=== PATIENT | female | born 1955 | race Caucasian/White ===

== ENCOUNTER 2017-10-08 04:15 | Inpatient (IN) ==
[2017-10-08] MEDS ORDERED: Sod Chloride 0.9% Inj 1,000 ML IV.SIG ONE (05:16)
[2017-10-08 05:21] LABS: Baso % (Auto) 0.1 % (0.0-2.0); Eos % (Auto) 0.1 % (0.0-4.0); Lymph # (Auto) 0.9 th/mm3 (1.0-4.8); Lymph % (Auto) 8.4 % (9.0-44.0); Mean Corpuscular Hemoglobin 26.9 pg (27.0-34.0); Mean Corpuscular Volume 89.2 fL (80.0-100.0); Mean Platelet Volume 10.2 fL (7.0-11.0); Mono # (Auto) 0.6 th/mm3 (0.0-0.9); Mono % (Auto) 5.9 % (0.0-8.0); Neut # (Auto) 9.5 th/mm3 (1.8-7.7); Neut % (Auto) 85.5 % (16.0-70.0); Platelet Count 178 th/mm3 (150-450); Red Blood Count 1.84 mil/mm3 (4.00-5.30); Red Cell Distribution Width 19.2 % (11.6-17.2); White Blood Count 11.1 th/mm3 (4.0-11.0)
[2017-10-08 05:31] LABS: Mean Corpuscular HGB Conc 30.1 % (32.0-36.0)
[2017-10-08 05:32] LABS: Alanine Aminotransferase 16 U/L (10-53); Albumin 2.7 g/dL (3.4-5.0); Anion Gap 8 meq/L (5-15); Aspartate Aminotransferase 13 U/L (15-37); Blood Urea Nitrogen 43 mg/dL (7-18); Calcium 9.1 mg/dL (8.5-10.1); Carbon Dioxide 36.7 meq/L (21.0-32.0); Chloride 102 meq/L (98-107); Glomerular Filtration Rate 48 mL/min (>89); Glucose,Random 143 mg/dL (74-106); Potassium 4.4 meq/L (3.5-5.1); Sodium 147 meq/L (136-145)
[2017-10-08 05:35] LABS: Alkaline Phosphatase 45 U/L (45-117); Total Protein 5.3 g/dL (6.4-8.2)
[2017-10-08 05:36] LABS: Hematocrit 16.4 % (35.0-46.0)
--- NOTE | 2017-10-08 06:14 | ED ---
HPI General Chief Complaint: Shortness of Breath/Dyspnea Stated Complaint: Medical/Evac Time Seen by Provider: 10/08/17 05:06 Source: patient and EMS Mode of arrival: EMS Limitations: altered mental status History of Present Illness Patient is a 62-year-old obese woman from a assisted who has had shortness of breath has pallor she feels weak for the last few days, she looks diaphoretic she is tachypneic and she is saying that she feels weak , she is mildly demented and a poor historian HPI and KIET elizabeth MD Complaint: shortness of breath Onset (ago): hour(s) Related Data Home Medications Medication Instructions Recorded Confirmed acetaminophen 650 mg PO Q4-6H PRN 10/08/17 10/08/17 albuterol sulfate 0.63 mg INHALATION Q4-6H PRN 10/08/17 10/08/17 allopurinol BID 10/08/17 apixaban 5 mg PO BID 10/08/17 10/08/17 aspirin [Aspir-Low] 10/08/17 baclofen 10 mg PO TID 10/08/17 10/08/17 collagenase clostridium histo. 1 applic TOPICAL DAILY 10/08/17 10/08/17 [Santyl] docusate sodium [Colace] 100 mg PO BID 10/08/17 10/08/17 furosemide DAILY 10/08/17 hydrocodone-acetaminophen QID PRN 10/08/17 insulin glargine 10 unit SUB-Q Q8HR 10/08/17 10/08/17 insulin lispro [Humalog U-100 10/08/17 Insulin] lansoprazole [Prevacid SoluTab] 30 mg PO BID 10/08/17 10/08/17 levofloxacin [Levaquin] 500 mg PO DAILY 10/08/17 10/08/17 magnesium hydroxide [Milk of 30 ml PO DAILY PRN 10/08/17 10/08/17 Magnesia] metoprolol tartrate 25 mg PO BID 10/08/17 10/08/17 nitroglycerin [Nitrostat] 0.4 mg SUBLINGUAL Q5-15M PRN 10/08/17 10/08/17 nystatin 1 applic TOPICAL QID 10/08/17 10/08/17 rosuvastatin 40 mg PO DAILY 10/08/17 10/08/17 Allergies Allergy/AdvReac Type Severity Reaction Status Date / Time Penicillins Allergy Severe Anaphylaxis Verified 10/08/17 04:33 Review of Systems ROS Unobtainable unobtainable due to mental status and other [facility] Medical History Medical History COPD (chronic obstructive pulmonary disease) (Acute) Coronary artery disease (Acute) Diabetes (Acute) H/O: hysterectomy (Acute) High triglycerides (Acute) History of GI bleed (Acute) History of pulmonary embolism (Acute) History of uterine cancer (Acute) Hypertension (Acute) Pneumonia (Acute) Shortness of breath (Acute) Surgical History Surgical History History of colonoscopy (Acute) History of esophagogastroduodenoscopy (EGD) (Acute) Hx of CABG (Acute) Social History Social History Substance History: No History of Abuse Second Hand Smoke Exposure: No Smoking Status: Former smoker Tobacco Type: Cigarettes How Often Do You Have a Drink Containing Alcohol: Never Immunization History Tetanus Immunization: Unsure Exam Narrative Exam Narrative: GENERAL: pt is pale and diaphoretic asking simple " i dont know ' or Yes or no to all questions [-] hypotensive 80 /50 SKIN: Focused skin assessment warm/dry. Pale HEAD: Atraumatic. Normocephalic. EYES: Pupils equal and round. No scleral icterus. No injection or drainage. ENT: No nasal bleeding or discharge. Mucous membranes pink and moist. NECK: Trachea midline. No JVD. CARDIOVASCULAR: Regular rate and rhythm. No murmur appreciated. RESPIRATORY: No accessory muscle use. Clear to auscultation. Breath sounds equal bilaterally. GASTROINTESTINAL: Abdomen soft, non-tender, nondistended. Hepatic and splenic margins not palpable. RECTAL guaiac positive brown stool MUSCULOSKELETAL: Obese legs pale skin weak musculature appear non ambulatory muscle wasting NEUROLOGICAL: Awake and alert. No obvious cranial nerve deficits. Motor grossly within normal limits. Normal speech. PSYCHIATRIC: Appropriate mood and affect; insight and judgment normal. Course Initial Documented Vital Signs Temperature 98.5 F 10/08/17 04:21 Pulse Rate 103 H 10/08/17 04:21 Respiratory Rate 22 10/08/17 04:21 Blood Pressure 100/58 L 10/08/17 04:21 Pulse Oximetry 98 07/16/18 04:21 Last Documented Vital Signs Temperature 97.9 F 10/11/17 08:00 Pulse Rate 104 H 10/11/17 17:00 Respiratory Rate 25 H 10/11/17 17:00 Blood Pressure 160/75 H 10/11/17 09:07 Pulse Oximetry 91 L 10/11/17 09:07 Critical Care Time Critical Care Time: Yes Total Critical Care Time: 30 Attestation: i was primary provider on this pt admitted to Dr Dinh and was still phyisclly in ER in AM when next attnding came on shift , pt had been admitted ICU from 730 AM Medical Decision Making MDM Narrative Medical decision making narrative: pt is anemic hgb 5.0 and she is hypotensive and in need of transfusion of PRBC and admission to ICU. I stabilized her in ER with 2 Units PRBC and fluid and empiric antibiotics I then spoke with Dr Dinh and will admit ICU orderd 2 units [address]BC and CT abdo CT Chest and fluid resusitatiom and empiric antibiotics Lab Data Result diagrams: 10/11/17 16:20 10/11/17 16:20 Lab Results 10/08/17 10/08/17 10/08/17 Range/Units 05:10 05:10 05:10 WBC 11.1 H (4.0-11.0) th/mm3 RBC 1.84 L (4.00-5.30) mil/mm3 Hgb 5.0 L* (11.6-15.3) gm/dL Hct 16.4 L* (35.0-46.0) % MCV 89.2 (80.0-100.0) fL MCH 26.9 L (27.0-34.0) pg MCHC 30.1 L (32.0-36.0) % RDW 19.2 H (11.6-17.2) % Plt Count 178 (150-450) th/mm3 MPV 10.2 (7.0-11.0) fL Prelim Diff (Auto) Slide review pending Neut % (Auto) 85.5 H (16.0-70.0) % Lymph % (Auto) 8.4 L (9.0-44.0) % [place] % (Auto) 5.9 (0.0-8.0) % Eos % (Auto) 0.1 (0.0-4.0) % Baso % (Auto) 0.1 (0.0-2.0) % Neut # (Auto) 9.5 H (1.8-7.7) th/mm3 Lymph # (Auto) 0.9 L (1.0-4.8) th/mm3 [place] # (Auto) 0.6 (0.0-0.9) th/mm3 Eos # (Auto) 0.0 (0.0-0.4) th/mm3 Baso # (Auto) 0.0 (0.0-0.2) th/mm3 WBC Differential Manual diff final Diff Scan Seg Neuts % (Manual) 81 H (16-70) % Band Neuts % (Manual) 2 (0-6) % Lymphocytes % (Manual) 14 (9-44) % Monocytes % (Manual) 3 (0-8) % Abs Neuts (Manual) 9.2 H (1.8-7.7) th/mm3 Nucleated RBCs/100 WBC 3 H (0-0) /100 WBC Differential Comment . Platelet Estimate Normal (Normal) Platelet Morphology Normal (Normal) Polychromasia 4.3 H (0.0-1.9) % Basophilic Stippling Faint H (None) Stomatocytes 1+ H (None) Keratocytes Occ H (None) PT (9.8-11.6) sec INR Ratio APTT (24.3-30.1) sec Puncture Site Patient Temperature O2 Saturation (90-100) % ABG pH (7.380-7.420) ABG pCO2 (38-42) mmHg ABG pO2 (61-120) mmHg ABG HCO3 (22-26) mmol/L ABG O2 Content (12.0-20.0) Vol % ABG Base Excess (-2-2) mmol/L ABG Methemoglobin (0-2) % Jeremiah Test Hemoglobin (12.0-16.0) G/DL Carboxyhemoglobin (0-4) % O2 Delivery Device Liter Flow L/M Inspired O2 % Critical Value Sodium 147 H (136-145) meq/L Potassium 4.4 (3.5-5.1) meq/L Chloride 102 (98-107) meq/L Carbon Dioxide 36.7 H (21.0-32.0) meq/L Anion Gap 8 (5-15) meq/L BUN 43 H (7-18) mg/dL Creatinine 1.13 H (0.50-1.00) mg/dL Estimated GFR 48 L (>89) mL/min POC Glucose (68-110) mg/dl Random Glucose 143 H (74-106) mg/dL Lactic Acid 2.6 H (0.4-2.0) mmol/L Calcium 9.1 (8.5-10.1) mg/dL Phosphorus (2.5-4.9) mg/dL Magnesium (1.5-2.5) mg/dL Total Bilirubin 0.5 (0.2-1.0) mg/dL AST 13 L (15-37) U/L ALT 16 (10-53) U/L Alkaline Phosphatase 45 (45-117) U/L Total Protein 5.3 L (6.4-8.2) g/dL Albumin 2.7 L (3.4-5.0) g/dL Urine Color (Yellw/Straw) Urine Clarity (Clear) Urine pH (5.0-8.5) Ur Specific [place] (1.002-1.035) Urine Protein (Neg-Trace) mg/dL Urine Glucose (UA) (Negative) mg/dL Urine Ketones (Negative) mg/dL Urine Occult Blood (Negative) Urine Nitrate (Negative) Urine Bilirubin (Negative) Urine Urobilinogen (Less than 2) mg/dL Ur Leukocyte Esterase (Negative) Urine RBC (0-3) /hpf Urine WBC (0-5) /hpf Ur Squamous Epith Cells (0-5) /hpf Urine Mucus (Occasional) /lpf Micro UA Comment Urine Culture Comments Nasal Screen MRSA (PCR) (Negative) Blood Type Blood Type Recheck Antibody Screen MTS Gel Crossmatch Bld Prod Order Comment 10/08/17 10/08/17 10/08/17 Range/Units 05:57 06:17 06:41 WBC (4.0-11.0) th/mm3 RBC (4.00-5.30) mil/mm3 Hgb (11.6-15.3) gm/dL Hct (35.0-46.0) % MCV (80.0-100.0) fL MCH (27.0-34.0) pg MCHC (32.0-36.0) % RDW (11.6-17.2) % Plt Count (150-450) th/mm3 MPV (7.0-11.0) fL Prelim Diff (Auto) Neut % (Auto) (16.0-70.0) % Lymph % (Auto) (9.0-44.0) % [place] % (Auto) (0.0-8.0) % Eos % (Auto) (0.0-4.0) % Baso % (Auto) (0.0-2.0) % Neut # (Auto) (1.8-7.7) th/mm3 Lymph # (Auto) (1.0-4.8) th/mm3 [place] # (Auto) (0.0-0.9) th/mm3 Eos # (Auto) (0.0-0.4) th/mm3 Baso # (Auto) (0.0-0.2) th/mm3 WBC Differential Diff Scan Seg Neuts % (Manual) (16-70) % Band Neuts % (Manual) (0-6) % Lymphocytes % (Manual) (9-44) % Monocytes % (Manual) (0-8) % Abs Neuts (Manual) (1.8-7.7) th/mm3 Nucleated RBCs/100 WBC (0-0) /100 WBC Differential Comment Platelet Estimate (Normal) Platelet Morphology (Normal) Polychromasia (0.0-1.9) % Basophilic Stippling (None) Stomatocytes (None) Keratocytes (None) PT (9.8-11.6) sec INR Ratio APTT (24.3-30.1) sec Puncture Site Patient Temperature O2 Saturation (90-100) % ABG pH (7.380-7.420) ABG pCO2 (38-42) mmHg ABG pO2 (61-120) mmHg ABG HCO3 (22-26) mmol/L ABG O2 Content (12.0-20.0) Vol % ABG Base Excess (-2-2) mmol/L ABG Methemoglobin (0-2) % Jeremiah Test Hemoglobin (12.0-16.0) G/DL Carboxyhemoglobin (0-4) % O2 Delivery Device Liter Flow L/M Inspired O2 % Critical Value Sodium (136-145) meq/L Potassium (3.5-5.1) meq/L Chloride (98-107) meq/L Carbon Dioxide (21.0-32.0) meq/L Anion Gap (5-15) meq/L BUN (7-18) mg/dL Creatinine (0.50-1.00) mg/dL Estimated GFR (>89) mL/min POC Glucose (68-110) mg/dl Random Glucose (74-106) mg/dL Lactic Acid (0.4-2.0) mmol/L Calcium (8.5-10.1) mg/dL Phosphorus (2.5-4.9) mg/dL Magnesium (1.5-2.5) mg/dL Total Bilirubin (0.2-1.0) mg/dL AST (15-37) U/L ALT (10-53) U/L Alkaline Phosphatase (45-117) U/L Total Protein (6.4-8.2) g/dL Albumin (3.4-5.0) g/dL Urine Color Yellow (Yellw/Straw) Urine Clarity Clear (Clear) Urine pH 5.0 (5.0-8.5) Ur Specific [place] 1.013 (1.002-1.035) Urine Protein Negative (Neg-Trace) mg/dL Urine Glucose (UA) Negative (Negative) mg/dL Urine Ketones Negative (Negative) mg/dL Urine Occult Blood Moderate H (Negative) Urine Nitrate Negative (Negative) Urine Bilirubin Negative (Negative) Urine Urobilinogen Less than 2 (Less than 2) mg/dL Ur Leukocyte Esterase Negative (Negative) Urine RBC 13 H (0-3) /hpf Urine WBC 1 (0-5) /hpf Ur Squamous Epith Cells <1 (0-5) /hpf Urine Mucus Few H (Occasional) /lpf Micro UA Comment Cath-culture not ind Urine Culture Comments Cath-cult not ind Nasal Screen MRSA (PCR) (Negative) Blood Type O Positive Blood Type Recheck Required Antibody Screen Negative MTS Gel Crossmatch See Detail Bld Prod Order Comment 10/08/17 10/08/17 10/08/17 Range/Units 08:00 09:25 09:25 WBC (4.0-11.0) th/mm3 RBC (4.00-5.30) mil/mm3 Hgb (11.6-15.3) gm/dL Hct (35.0-46.0) % MCV (80.0-100.0) fL MCH (27.0-34.0) pg MCHC (32.0-36.0) % RDW (11.6-17.2) % Plt Count (150-450) th/mm3 MPV (7.0-11.0) fL Prelim Diff (Auto) Neut % (Auto) (16.0-70.0) % Lymph % (Auto) (9.0-44.0) % [place] % (Auto) (0.0-8.0) % Eos % (Auto) (0.0-4.0) % Baso % (Auto) (0.0-2.0) % Neut # (Auto) (1.8-7.7) th/mm3 Lymph # (Auto) (1.0-4.8) th/mm3 [place] # (Auto) (0.0-0.9) th/mm3 Eos # (Auto) (0.0-0.4) th/mm3 Baso # (Auto) (0.0-0.2) th/mm3 WBC Differential Diff Scan Seg Neuts % (Manual) (16-70) % Band Neuts % (Manual) (0-6) % Lymphocytes % (Manual) (9-44) % Monocytes % (Manual) (0-8) % Abs Neuts (Manual) (1.8-7.7) th/mm3 Nucleated RBCs/100 WBC (0-0) /100 WBC Differential Comment Platelet Estimate (Normal) Platelet Morphology (Normal) Polychromasia (0.0-1.9) % Basophilic Stippling (None) Stomatocytes (None) Keratocytes (None) PT 12.3 H (9.8-11.6) sec INR 1.2 Ratio APTT 21.8 L (24.3-30.1) sec Puncture Site Right radial Patient Temperature 98.6 O2 Saturation 95 (90-100) % ABG pH 7.44 H (7.380-7.420) ABG pCO2 58 H* (38-42) mmHg ABG pO2 88 (61-120) mmHg ABG HCO3 38 H (22-26) mmol/L ABG O2 Content 7.6 L (12.0-20.0) Vol % ABG Base Excess 13.1 H (-2-2) mmol/L ABG Methemoglobin 0.5 (0-2) % Jeremiah Test Present Hemoglobin 5.6 L* (12.0-16.0) G/DL Carboxyhemoglobin 2.3 (0-4) % O2 Delivery Device Nasal cannula Liter Flow 4.00 L/M Inspired O2 21 % Critical Value Yes Sodium (136-145) meq/L Potassium (3.5-5.1) meq/L Chloride (98-107) meq/L Carbon Dioxide (21.0-32.0) meq/L Anion Gap (5-15) meq/L BUN (7-18) mg/dL Creatinine (0.50-1.00) mg/dL Estimated GFR (>89) mL/min POC Glucose (68-110) mg/dl Random Glucose (74-106) mg/dL Lactic Acid (0.4-2.0) mmol/L Calcium (8.5-10.1) mg/dL Phosphorus (2.5-4.9) mg/dL Magnesium (1.5-2.5) mg/dL Total Bilirubin (0.2-1.0) mg/dL AST (15-37) U/L ALT (10-53) U/L Alkaline Phosphatase (45-117) U/L Total Protein (6.4-8.2) g/dL Albumin (3.4-5.0) g/dL Urine Color (Yellw/Straw) Urine Clarity (Clear) Urine pH (5.0-8.5) Ur Specific [place] (1.002-1.035) Urine Protein (Neg-Trace) mg/dL Urine Glucose (UA) (Negative) mg/dL Urine Ketones (Negative) mg/dL Urine Occult Blood (Negative) Urine Nitrate (Negative) Urine Bilirubin (Negative) Urine Urobilinogen (Less than 2) mg/dL Ur Leukocyte Esterase (Negative) Urine RBC (0-3) /hpf Urine WBC (0-5) /hpf Ur Squamous Epith Cells (0-5) /hpf Urine Mucus (Occasional) /lpf Micro UA Comment Urine Culture Comments Nasal Screen MRSA (PCR) (Negative) Blood Type Blood Type Recheck Antibody Screen MTS Gel Crossmatch Bld Prod Order Comment 10/08/17 10/08/17 10/08/17 Range/Units 16:10 17:43 20:30 WBC (4.0-11.0) th/mm3 RBC (4.00-5.30) mil/mm3 Hgb (11.6-15.3) gm/dL Hct (35.0-46.0) % MCV (80.0-100.0) fL MCH (27.0-34.0) pg MCHC (32.0-36.0) % RDW (11.6-17.2) % Plt Count (150-450) th/mm3 MPV (7.0-11.0) fL Prelim Diff (Auto) Neut % (Auto) (16.0-70.0) % Lymph % (Auto) (9.0-44.0) % [place] % (Auto) (0.0-8.0) % Eos % (Auto) (0.0-4.0) % Baso % (Auto) (0.0-2.0) % Neut # (Auto) (1.8-7.7) th/mm3 Lymph # (Auto) (1.0-4.8) th/mm3 [place] # (Auto) (0.0-0.9) th/mm3 Eos # (Auto) (0.0-0.4) th/mm3 Baso # (Auto) (0.0-0.2) th/mm3 WBC Differential Diff Scan Seg Neuts % (Manual) (16-70) % Band Neuts % (Manual) (0-6) % Lymphocytes % (Manual) (9-44) % Monocytes % (Manual) (0-8) % Abs Neuts (Manual) (1.8-7.7) th/mm3 Nucleated RBCs/100 WBC (0-0) /100 WBC Differential Comment Platelet Estimate (Normal) Platelet Morphology (Normal) Polychromasia (0.0-1.9) % Basophilic Stippling (None) Stomatocytes (None) Keratocytes (None) PT (9.8-11.6) sec INR Ratio APTT (24.3-30.1) sec Puncture Site Patient Temperature O2 Saturation (90-100) % ABG pH (7.380-7.420) ABG pCO2 (38-42) mmHg ABG pO2 (61-120) mmHg ABG HCO3 (22-26) mmol/L ABG O2 Content (12.0-20.0) Vol % ABG Base Excess (-2-2) mmol/L ABG Methemoglobin (0-2) % Jeremiah Test Hemoglobin (12.0-16.0) G/DL Carboxyhemoglobin (0-4) % O2 Delivery Device Liter Flow L/M Inspired O2 % Critical Value Sodium (136-145) meq/L Potassium (3.5-5.1) meq/L Chloride (98-107) meq/L Carbon Dioxide (21.0-32.0) meq/L Anion Gap (5-15) meq/L BUN (7-18) mg/dL Creatinine (0.50-1.00) mg/dL Estimated GFR (>89) mL/min POC Glucose 192 H (68-110) mg/dl Random Glucose (74-106) mg/dL Lactic Acid 1.1 (0.4-2.0) mmol/L Calcium (8.5-10.1) mg/dL Phosphorus (2.5-4.9) mg/dL Magnesium (1.5-2.5) mg/dL Total Bilirubin (0.2-1.0) mg/dL AST (15-37) U/L ALT (10-53) U/L Alkaline Phosphatase (45-117) U/L Total Protein (6.4-8.2) g/dL Albumin (3.4-5.0) g/dL Urine Color (Yellw/Straw) Urine Clarity (Clear) Urine pH (5.0-8.5) Ur Specific [place] (1.002-1.035) Urine Protein (Neg-Trace) mg/dL Urine Glucose (UA) (Negative) mg/dL Urine Ketones (Negative) mg/dL Urine Occult Blood (Negative) Urine Nitrate (Negative) Urine Bilirubin (Negative) Urine Urobilinogen (Less than 2) mg/dL Ur Leukocyte Esterase (Negative) Urine RBC (0-3) /hpf Urine WBC (0-5) /hpf Ur Squamous Epith Cells (0-5) /hpf Urine Mucus (Occasional) /lpf Micro UA Comment Urine Culture Comments Nasal Screen MRSA (PCR) Not detected (Negative) Blood Type Blood Type Recheck Antibody Screen MTS Gel Crossmatch Bld Prod Order Comment 10/08/17 10/08/17 10/09/17 Range/Units 20:30 20:30 00:01 WBC 10.5 (4.0-11.0) th/mm3 RBC 2.55 L (4.00-5.30) mil/mm3 Hgb 7.1 L D (11.6-15.3) gm/dL Hct 22.0 L (35.0-46.0) % MCV 86.4 (80.0-100.0) fL MCH 27.6 (27.0-34.0) pg MCHC 32.0 (32.0-36.0) % RDW 18.0 H (11.6-17.2) % Plt Count 156 (150-450) th/mm3 MPV 9.5 (7.0-11.0) fL Prelim Diff (Auto) Neut % (Auto) (16.0-70.0) % Lymph % (Auto) (9.0-44.0) % [place] % (Auto) (0.0-8.0) % Eos % (Auto) (0.0-4.0) % Baso % (Auto) (0.0-2.0) % Neut # (Auto) (1.8-7.7) th/mm3 Lymph # (Auto) (1.0-4.8) th/mm3 [place] # (Auto) (0.0-0.9) th/mm3 Eos # (Auto) (0.0-0.4) th/mm3 Baso # (Auto) (0.0-0.2) th/mm3 WBC Differential Diff Scan Seg Neuts % (Manual) (16-70) % Band Neuts % (Manual) (0-6) % Lymphocytes % (Manual) (9-44) % Monocytes % (Manual) (0-8) % Abs Neuts (Manual) (1.8-7.7) th/mm3 Nucleated RBCs/100 WBC (0-0) /100 WBC Differential Comment Platelet Estimate (Normal) Platelet Morphology (Normal) Polychromasia (0.0-1.9) % Basophilic Stippling (None) Stomatocytes (None) Keratocytes (None) PT (9.8-11.6) sec INR Ratio APTT (24.3-30.1) sec Puncture Site Patient Temperature O2 Saturation (90-100) % ABG pH (7.380-7.420) ABG pCO2 (38-42) mmHg ABG pO2 (61-120) mmHg ABG HCO3 (22-26) mmol/L ABG O2 Content (12.0-20.0) Vol % ABG Base Excess (-2-2) mmol/L ABG Methemoglobin (0-2) % Jeremiah Test Hemoglobin (12.0-16.0) G/DL Carboxyhemoglobin (0-4) % O2 Delivery Device Liter Flow L/M Inspired O2 % Critical Value Sodium 147 H (136-145) meq/L Potassium 3.9 (3.5-5.1) meq/L Chloride 102 (98-107) meq/L Carbon Dioxide 34.6 H (21.0-32.0) meq/L Anion Gap 10 (5-15) meq/L BUN 40 H (7-18) mg/dL Creatinine 0.94 (0.50-1.00) mg/dL Estimated GFR 60 L (>89) mL/min POC Glucose 185 H (68-110) mg/dl Random Glucose 154 H (74-106) mg/dL Lactic Acid (0.4-2.0) mmol/L Calcium 9.1 (8.5-10.1) mg/dL Phosphorus (2.5-4.9) mg/dL Magnesium (1.5-2.5) mg/dL Total Bilirubin 0.8 (0.2-1.0) mg/dL AST 34 (15-37) U/L ALT 15 (10-53) U/L Alkaline Phosphatase 43 L (45-117) U/L Total Protein 5.1 L (6.4-8.2) g/dL Albumin 2.4 L (3.4-5.0) g/dL Urine Color (Yellw/Straw) Urine Clarity (Clear) Urine pH (5.0-8.5) Ur Specific [place] (1.002-1.035) Urine Protein (Neg-Trace) mg/dL Urine Glucose (UA) (Negative) mg/dL Urine Ketones (Negative) mg/dL Urine Occult Blood (Negative) Urine Nitrate (Negative) Urine Bilirubin (Negative) Urine Urobilinogen (Less than 2) mg/dL Ur Leukocyte Esterase (Negative) Urine RBC (0-3) /hpf Urine WBC (0-5) /hpf Ur Squamous Epith Cells (0-5) /hpf Urine Mucus (Occasional) /lpf Micro UA Comment Urine Culture Comments Nasal Screen MRSA (PCR) (Negative) Blood Type Blood Type Recheck Antibody Screen MTS Gel Crossmatch Bld Prod Order Comment 10/09/17 10/09/17 10/09/17 Range/Units 02:07 02:07 06:14 WBC 9.6 (4.0-11.0) th/mm3 RBC 2.64 L (4.00-5.30) mil/mm3 Hgb 7.4 L (11.6-15.3) gm/dL Hct 23.2 L (35.0-46.0) % MCV 87.7 (80.0-100.0) fL MCH 28.0 (27.0-34.0) pg MCHC 31.9 L (32.0-36.0) % RDW 18.5 H (11.6-17.2) % Plt Count 154 (150-450) th/mm3 MPV 9.1 (7.0-11.0) fL Prelim Diff (Auto) Neut % (Auto) 88.1 H (16.0-70.0) % Lymph % (Auto) 6.7 L (9.0-44.0) % [place] % (Auto) 4.6 (0.0-8.0) % Eos % (Auto) 0.5 (0.0-4.0) % Baso % (Auto) 0.1 (0.0-2.0) % Neut # (Auto) 8.5 H (1.8-7.7) th/mm3 Lymph # (Auto) 0.6 L (1.0-4.8) th/mm3 [place] # (Auto) 0.4 (0.0-0.9) th/mm3 Eos # (Auto) 0.0 (0.0-0.4) th/mm3 Baso # (Auto) 0.0 (0.0-0.2) th/mm3 WBC Differential . Diff Scan Seg Neuts % (Manual) (16-70) % Band Neuts % (Manual) (0-6) % Lymphocytes % (Manual) (9-44) % Monocytes % (Manual) (0-8) % Abs Neuts (Manual) (1.8-7.7) th/mm3 Nucleated RBCs/100 WBC (0-0) /100 WBC Differential Comment Auto diff final Platelet Estimate (Normal) Platelet Morphology (Normal) Polychromasia (0.0-1.9) % Basophilic Stippling (None) Stomatocytes (None) Keratocytes (None) PT (9.8-11.6) sec INR Ratio APTT (24.3-30.1) sec Puncture Site Patient Temperature O2 Saturation (90-100) % ABG pH (7.380-7.420) ABG pCO2 (38-42) mmHg ABG pO2 (61-120) mmHg ABG HCO3 (22-26) mmol/L ABG O2 Content (12.0-20.0) Vol % ABG Base Excess (-2-2) mmol/L ABG Methemoglobin (0-2) % Jeremiah Test Hemoglobin (12.0-16.0) G/DL Carboxyhemoglobin (0-4) % O2 Delivery Device Liter Flow L/M Inspired O2 % Critical Value Sodium 145 (136-145) meq/L Potassium 3.6 (3.5-5.1) meq/L Chloride 103 (98-107) meq/L Carbon Dioxide 32.4 H (21.0-32.0) meq/L Anion Gap 10 (5-15) meq/L BUN 35 H (7-18) mg/dL Creatinine 0.90 (0.50-1.00) mg/dL Estimated GFR 63 L (>89) mL/min POC Glucose 186 H (68-110) mg/dl Random Glucose 155 H (74-106) mg/dL Lactic Acid (0.4-2.0) mmol/L Calcium 8.2 L D (8.5-10.1) mg/dL Phosphorus 4.0 (2.5-4.9) mg/dL Magnesium 1.8 (1.5-2.5) mg/dL Total Bilirubin 0.6 (0.2-1.0) mg/dL AST 41 H (15-37) U/L ALT 17 (10-53) U/L Alkaline Phosphatase 47 (45-117) U/L Total Protein 5.3 L (6.4-8.2) g/dL Albumin 2.7 L (3.4-5.0) g/dL Urine Color (Yellw/Straw) Urine Clarity (Clear) Urine pH (5.0-8.5) Ur Specific [place] (1.002-1.035) Urine Protein (Neg-Trace) mg/dL Urine Glucose (UA) (Negative) mg/dL Urine Ketones (Negative) mg/dL Urine Occult Blood (Negative) Urine Nitrate (Negative) Urine Bilirubin (Negative) Urine Urobilinogen (Less than 2) mg/dL Ur Leukocyte Esterase (Negative) Urine RBC (0-3) /hpf Urine WBC (0-5) /hpf Ur Squamous Epith Cells (0-5) /hpf Urine Mucus (Occasional) /lpf Micro UA Comment Urine Culture Comments Nasal Screen MRSA (PCR) (Negative) Blood Type Blood Type Recheck Antibody Screen MTS Gel Crossmatch Bld Prod Order Comment 10/09/17 10/09/17 10/09/17 Range/Units 13:29 14:14 19:29 WBC (4.0-11.0) th/mm3 RBC (4.00-5.30) mil/mm3 Hgb 6.8 L* (11.6-15.3) gm/dL Hct 21.4 L (35.0-46.0) % MCV (80.0-100.0) fL MCH (27.0-34.0) pg MCHC (32.0-36.0) % RDW (11.6-17.2) % Plt Count (150-450) th/mm3 MPV (7.0-11.0) fL Prelim Diff (Auto) Neut % (Auto) (16.0-70.0) % Lymph % (Auto) (9.0-44.0) % [place] % (Auto) (0.0-8.0) % Eos % (Auto) (0.0-4.0) % Baso % (Auto) (0.0-2.0) % Neut # (Auto) (1.8-7.7) th/mm3 Lymph # (Auto) (1.0-4.8) th/mm3 [place] # (Auto) (0.0-0.9) th/mm3 Eos # (Auto) (0.0-0.4) th/mm3 Baso # (Auto) (0.0-0.2) th/mm3 WBC Differential Diff Scan Seg Neuts % (Manual) (16-70) % Band Neuts % (Manual) (0-6) % Lymphocytes % (Manual) (9-44) % Monocytes % (Manual) (0-8) % Abs Neuts (Manual) (1.8-7.7) th/mm3 Nucleated RBCs/100 WBC (0-0) /100 WBC Differential Comment Platelet Estimate (Normal) Platelet Morphology (Normal) Polychromasia (0.0-1.9) % Basophilic Stippling (None) Stomatocytes (None) Keratocytes (None) PT (9.8-11.6) sec INR Ratio APTT (24.3-30.1) sec Puncture Site Patient Temperature O2 Saturation (90-100) % ABG pH (7.380-7.420) ABG pCO2 (38-42) mmHg ABG pO2 (61-120) mmHg ABG HCO3 (22-26) mmol/L ABG O2 Content (12.0-20.0) Vol % ABG Base Excess (-2-2) mmol/L ABG Methemoglobin (0-2) % Jeremiah Test Hemoglobin (12.0-16.0) G/DL Carboxyhemoglobin (0-4) % O2 Delivery Device Liter Flow L/M Inspired O2 % Critical Value Sodium (136-145) meq/L Potassium (3.5-5.1) meq/L Chloride (98-107) meq/L Carbon Dioxide (21.0-32.0) meq/L Anion Gap (5-15) meq/L BUN (7-18) mg/dL Creatinine (0.50-1.00) mg/dL Estimated GFR (>89) mL/min POC Glucose 170 H 163 H (68-110) mg/dl Random Glucose (74-106) mg/dL Lactic Acid (0.4-2.0) mmol/L Calcium (8.5-10.1) mg/dL Phosphorus (2.5-4.9) mg/dL Magnesium (1.5-2.5) mg/dL Total Bilirubin (0.2-1.0) mg/dL AST (15-37) U/L ALT (10-53) U/L Alkaline Phosphatase (45-117) U/L Total Protein (6.4-8.2) g/dL Albumin (3.4-5.0) g/dL Urine Color (Yellw/Straw) Urine Clarity (Clear) Urine pH (5.0-8.5) Ur Specific [place] (1.002-1.035) Urine Protein (Neg-Trace) mg/dL Urine Glucose (UA) (Negative) mg/dL Urine Ketones (Negative) mg/dL Urine Occult Blood (Negative) Urine Nitrate (Negative) Urine Bilirubin (Negative) Urine Urobilinogen (Less than 2) mg/dL Ur Leukocyte Esterase (Negative) Urine RBC (0-3) /hpf Urine WBC (0-5) /hpf Ur Squamous Epith Cells (0-5) /hpf Urine Mucus (Occasional) /lpf Micro UA Comment Urine Culture Comments Nasal Screen MRSA (PCR) (Negative) Blood Type Blood Type Recheck Antibody Screen MTS Gel Crossmatch Bld Prod Order Comment 10/09/17 10/10/17 10/10/17 Range/Units 21:06 00:07 04:14 WBC (4.0-11.0) th/mm3 RBC (4.00-5.30) mil/mm3 Hgb (11.6-15.3) gm/dL Hct (35.0-46.0) % MCV (80.0-100.0) fL MCH (27.0-34.0) pg MCHC (32.0-36.0) % RDW (11.6-17.2) % Plt Count (150-450) th/mm3 MPV (7.0-11.0) fL Prelim Diff (Auto) Neut % (Auto) (16.0-70.0) % Lymph % (Auto) (9.0-44.0) % [place] % (Auto) (0.0-8.0) % Eos % (Auto) (0.0-4.0) % Baso % (Auto) (0.0-2.0) % Neut # (Auto) (1.8-7.7) th/mm3 Lymph # (Auto) (1.0-4.8) th/mm3 [place] # (Auto) (0.0-0.9) th/mm3 Eos # (Auto) (0.0-0.4) th/mm3 Baso # (Auto) (0.0-0.2) th/mm3 WBC Differential Diff Scan Seg Neuts % (Manual) (16-70) % Band Neuts % (Manual) (0-6) % Lymphocytes % (Manual) (9-44) % Monocytes % (Manual) (0-8) % Abs Neuts (Manual) (1.8-7.7) th/mm3 Nucleated RBCs/100 WBC (0-0) /100 WBC Differential Comment Platelet Estimate (Normal) Platelet Morphology (Normal) Polychromasia (0.0-1.9) % Basophilic Stippling (None) Stomatocytes (None) Keratocytes (None) PT (9.8-11.6) sec INR Ratio APTT (24.3-30.1) sec Puncture Site Patient Temperature O2 Saturation (90-100) % ABG pH (7.380-7.420) ABG pCO2 (38-42) mmHg ABG pO2 (61-120) mmHg ABG HCO3 (22-26) mmol/L ABG O2 Content (12.0-20.0) Vol % ABG Base Excess (-2-2) mmol/L ABG Methemoglobin (0-2) % Jeremiah Test Hemoglobin (12.0-16.0) G/DL Carboxyhemoglobin (0-4) % O2 Delivery Device Liter Flow L/M Inspired O2 % Critical Value Sodium 144 (136-145) meq/L Potassium 3.5 (3.5-5.1) meq/L Chloride 101 (98-107) meq/L Carbon Dioxide 36.0 H (21.0-32.0) meq/L Anion Gap 7 (5-15) meq/L BUN 35 H (7-18) mg/dL Creatinine 0.79 (0.50-1.00) mg/dL Estimated GFR 73 L (>89) mL/min POC Glucose 175 H (68-110) mg/dl Random Glucose 129 H (74-106) mg/dL Lactic Acid (0.4-2.0) mmol/L Calcium 9.1 D (8.5-10.1) mg/dL Phosphorus (2.5-4.9) mg/dL Magnesium (1.5-2.5) mg/dL Total Bilirubin (0.2-1.0) mg/dL AST (15-37) U/L ALT (10-53) U/L Alkaline Phosphatase (45-117) U/L Total Protein (6.4-8.2) g/dL Albumin (3.4-5.0) g/dL Urine Color (Yellw/Straw) Urine Clarity (Clear) Urine pH (5.0-8.5) Ur Specific [place] (1.002-1.035) Urine Protein (Neg-Trace) mg/dL Urine Glucose (UA) (Negative) mg/dL Urine Ketones (Negative) mg/dL Urine Occult Blood (Negative) Urine Nitrate (Negative) Urine Bilirubin (Negative) Urine Urobilinogen (Less than 2) mg/dL Ur Leukocyte Esterase (Negative) Urine RBC (0-3) /hpf Urine WBC (0-5) /hpf Ur Squamous Epith Cells (0-5) /hpf Urine Mucus (Occasional) /lpf Micro UA Comment Urine Culture Comments Nasal Screen MRSA (PCR) (Negative) Blood Type Blood Type Recheck Antibody Screen MTS Gel Crossmatch See Detail Bld Prod Order Comment 10/10/17 10/10/17 10/10/17 Range/Units 04:14 06:08 11:35 WBC 10.5 (4.0-11.0) th/mm3 RBC 2.87 L (4.00-5.30) mil/mm3 Hgb 8.1 L (11.6-15.3) gm/dL Hct 24.9 L (35.0-46.0) % MCV 86.8 (80.0-100.0) fL MCH 28.2 (27.0-34.0) pg MCHC 32.5 (32.0-36.0) % RDW 17.5 H (11.6-17.2) % Plt Count 158 (150-450) th/mm3 MPV 9.8 (7.0-11.0) fL Prelim Diff (Auto) Neut % (Auto) 91.1 H (16.0-70.0) % Lymph % (Auto) 3.8 L (9.0-44.0) % [place] % (Auto) 5.0 (0.0-8.0) % Eos % (Auto) 0.1 (0.0-4.0) % Baso % (Auto) 0.0 (0.0-2.0) % Neut # (Auto) 9.5 H (1.8-7.7) th/mm3 Lymph # (Auto) 0.4 L (1.0-4.8) th/mm3 [place] # (Auto) 0.5 (0.0-0.9) th/mm3 Eos # (Auto) 0.0 (0.0-0.4) th/mm3 Baso # (Auto) 0.0 (0.0-0.2) th/mm3 WBC Differential . Diff Scan Seg Neuts % (Manual) (16-70) % Band Neuts % (Manual) (0-6) % Lymphocytes % (Manual) (9-44) % Monocytes % (Manual) (0-8) % Abs Neuts (Manual) (1.8-7.7) th/mm3 Nucleated RBCs/100 WBC (0-0) /100 WBC Differential Comment Auto diff final Platelet Estimate (Normal) Platelet Morphology (Normal) Polychromasia (0.0-1.9) % Basophilic Stippling (None) Stomatocytes (None) Keratocytes (None) PT (9.8-11.6) sec INR Ratio APTT (24.3-30.1) sec Puncture Site Patient Temperature O2 Saturation (90-100) % ABG pH (7.380-7.420) ABG pCO2 (38-42) mmHg ABG pO2 (61-120) mmHg ABG HCO3 (22-26) mmol/L ABG O2 Content (12.0-20.0) Vol % ABG Base Excess (-2-2) mmol/L ABG Methemoglobin (0-2) % Jeremiah Test Hemoglobin (12.0-16.0) G/DL Carboxyhemoglobin (0-4) % O2 Delivery Device Liter Flow L/M Inspired O2 % Critical Value Sodium (136-145) meq/L Potassium (3.5-5.1) meq/L Chloride (98-107) meq/L Carbon Dioxide (21.0-32.0) meq/L Anion Gap (5-15) meq/L BUN (7-18) mg/dL Creatinine (0.50-1.00) mg/dL Estimated GFR (>89) mL/min POC Glucose 135 H 153 H (68-110) mg/dl Random Glucose (74-106) mg/dL Lactic Acid (0.4-2.0) mmol/L Calcium (8.5-10.1) mg/dL Phosphorus (2.5-4.9) mg/dL Magnesium (1.5-2.5) mg/dL Total Bilirubin (0.2-1.0) mg/dL AST (15-37) U/L ALT (10-53) U/L Alkaline Phosphatase (45-117) U/L Total Protein (6.4-8.2) g/dL Albumin (3.4-5.0) g/dL Urine Color (Yellw/Straw) Urine Clarity (Clear) Urine pH (5.0-8.5) Ur Specific [place] (1.002-1.035) Urine Protein (Neg-Trace) mg/dL Urine Glucose (UA) (Negative) mg/dL Urine Ketones (Negative) mg/dL Urine Occult Blood (Negative) Urine Nitrate (Negative) Urine Bilirubin (Negative) Urine Urobilinogen (Less than 2) mg/dL Ur Leukocyte Esterase (Negative) Urine RBC (0-3) /hpf Urine WBC (0-5) /hpf Ur Squamous Epith Cells (0-5) /hpf Urine Mucus (Occasional) /lpf Micro UA Comment Urine Culture Comments Nasal Screen MRSA (PCR) (Negative) Blood Type Blood Type Recheck Antibody Screen MTS Gel Crossmatch Bld Prod Order Comment 10/10/17 10/10/17 10/10/17 Range/Units 15:25 17:13 17:29 WBC 11.1 H (4.0-11.0) th/mm3 RBC 2.54 L (4.00-5.30) mil/mm3 Hgb 7.2 L (11.6-15.3) gm/dL Hct 22.1 L (35.0-46.0) % MCV 87.1 (80.0-100.0) fL MCH 28.2 (27.0-34.0) pg MCHC 32.4 (32.0-36.0) % RDW 17.6 H (11.6-17.2) % Plt Count 146 L (150-450) th/mm3 MPV 9.5 (7.0-11.0) fL Prelim Diff (Auto) Neut % (Auto) (16.0-70.0) % Lymph % (Auto) (9.0-44.0) % [place] % (Auto) (0.0-8.0) % Eos % (Auto) (0.0-4.0) % Baso % (Auto) (0.0-2.0) % Neut # (Auto) (1.8-7.7) th/mm3 Lymph # (Auto) (1.0-4.8) th/mm3 [place] # (Auto) (0.0-0.9) th/mm3 Eos # (Auto) (0.0-0.4) th/mm3 Baso # (Auto) (0.0-0.2) th/mm3 WBC Differential Diff Scan Seg Neuts % (Manual) (16-70) % Band Neuts % (Manual) (0-6) % Lymphocytes % (Manual) (9-44) % Monocytes % (Manual) (0-8) % Abs Neuts (Manual) (1.8-7.7) th/mm3 Nucleated RBCs/100 WBC (0-0) /100 WBC Differential Comment Platelet Estimate (Normal) Platelet Morphology (Normal) Polychromasia (0.0-1.9) % Basophilic Stippling (None) Stomatocytes (None) Keratocytes (None) PT (9.8-11.6) sec INR Ratio APTT (24.3-30.1) sec Puncture Site Patient Temperature O2 Saturation (90-100) % ABG pH (7.380-7.420) ABG pCO2 (38-42) mmHg ABG pO2 (61-120) mmHg ABG HCO3 (22-26) mmol/L ABG O2 Content (12.0-20.0) Vol % ABG Base Excess (-2-2) mmol/L ABG Methemoglobin (0-2) % Jeremiah Test Hemoglobin (12.0-16.0) G/DL Carboxyhemoglobin (0-4) % O2 Delivery Device Liter Flow L/M Inspired O2 % Critical Value Sodium (136-145) meq/L Potassium (3.5-5.1) meq/L Chloride (98-107) meq/L Carbon Dioxide (21.0-32.0) meq/L Anion Gap (5-15) meq/L BUN (7-18) mg/dL Creatinine (0.50-1.00) mg/dL Estimated GFR (>89) mL/min POC Glucose 146 H (68-110) mg/dl Random Glucose (74-106) mg/dL Lactic Acid (0.4-2.0) mmol/L Calcium (8.5-10.1) mg/dL Phosphorus (2.5-4.9) mg/dL Magnesium (1.5-2.5) mg/dL Total Bilirubin (0.2-1.0) mg/dL AST (15-37) U/L ALT (10-53) U/L Alkaline Phosphatase (45-117) U/L Total Protein (6.4-8.2) g/dL Albumin (3.4-5.0) g/dL Urine Color (Yellw/Straw) Urine Clarity (Clear) Urine pH (5.0-8.5) Ur Specific [place] (1.002-1.035) Urine Protein (Neg-Trace) mg/dL Urine Glucose (UA) (Negative) mg/dL Urine Ketones (Negative) mg/dL Urine Occult Blood (Negative) Urine Nitrate (Negative) Urine Bilirubin (Negative) Urine Urobilinogen (Less than 2) mg/dL Ur Leukocyte Esterase (Negative) Urine RBC (0-3) /hpf Urine WBC (0-5) /hpf Ur Squamous Epith Cells (0-5) /hpf Urine Mucus (Occasional) /lpf Micro UA Comment Urine Culture Comments Nasal Screen MRSA (PCR) (Negative) Blood Type Blood Type Recheck Antibody Screen MTS Gel Crossmatch See Detail Bld Prod Order Comment 10/10/17 10/11/17 10/11/17 Range/Units 23:45 05:17 12:27 WBC (4.0-11.0) th/mm3 RBC (4.00-5.30) mil/mm3 Hgb (11.6-15.3) gm/dL Hct (35.0-46.0) % MCV (80.0-100.0) fL MCH (27.0-34.0) pg MCHC (32.0-36.0) % RDW (11.6-17.2) % Plt Count (150-450) th/mm3 MPV (7.0-11.0) fL Prelim Diff (Auto) Neut % (Auto) (16.0-70.0) % Lymph % (Auto) (9.0-44.0) % [place] % (Auto) (0.0-8.0) % Eos % (Auto) (0.0-4.0) % Baso % (Auto) (0.0-2.0) % Neut # (Auto) (1.8-7.7) th/mm3 Lymph # (Auto) (1.0-4.8) th/mm3 [place] # (Auto) (0.0-0.9) th/mm3 Eos # (Auto) (0.0-0.4) th/mm3 Baso # (Auto) (0.0-0.2) th/mm3 WBC Differential Diff Scan Seg Neuts % (Manual) (16-70) % Band Neuts % (Manual) (0-6) % Lymphocytes % (Manual) (9-44) % Monocytes % (Manual) (0-8) % Abs Neuts (Manual) (1.8-7.7) th/mm3 Nucleated RBCs/100 WBC (0-0) /100 WBC Differential Comment Platelet Estimate (Normal) Platelet Morphology (Normal) Polychromasia (0.0-1.9) % Basophilic Stippling (None) Stomatocytes (None) Keratocytes (None) PT (9.8-11.6) sec INR Ratio APTT (24.3-30.1) sec Puncture Site Patient Temperature O2 Saturation (90-100) % ABG pH (7.380-7.420) ABG pCO2 (38-42) mmHg ABG pO2 (61-120) mmHg ABG HCO3 (22-26) mmol/L ABG O2 Content (12.0-20.0) Vol % ABG Base Excess (-2-2) mmol/L ABG Methemoglobin (0-2) % Jeremiah Test Hemoglobin (12.0-16.0) G/DL Carboxyhemoglobin (0-4) % O2 Delivery Device Liter Flow L/M Inspired O2 % Critical Value Sodium (136-145) meq/L Potassium (3.5-5.1) meq/L Chloride (98-107) meq/L Carbon Dioxide (21.0-32.0) meq/L Anion Gap (5-15) meq/L BUN (7-18) mg/dL Creatinine (0.50-1.00) mg/dL Estimated GFR (>89) mL/min POC Glucose 157 H 140 H 134 H (68-110) mg/dl Random Glucose (74-106) mg/dL Lactic Acid (0.4-2.0) mmol/L Calcium (8.5-10.1) mg/dL Phosphorus (2.5-4.9) mg/dL Magnesium (1.5-2.5) mg/dL Total Bilirubin (0.2-1.0) mg/dL AST (15-37) U/L ALT (10-53) U/L Alkaline Phosphatase (45-117) U/L Total Protein (6.4-8.2) g/dL Albumin (3.4-5.0) g/dL Urine Color (Yellw/Straw) Urine Clarity (Clear) Urine pH (5.0-8.5) Ur Specific [place] (1.002-1.035) Urine Protein (Neg-Trace) mg/dL Urine Glucose (UA) (Negative) mg/dL Urine Ketones (Negative) mg/dL Urine Occult Blood (Negative) Urine Nitrate (Negative) Urine Bilirubin (Negative) Urine Urobilinogen (Less than 2) mg/dL Ur Leukocyte Esterase (Negative) Urine RBC (0-3) /hpf Urine WBC (0-5) /hpf Ur Squamous Epith Cells (0-5) /hpf Urine Mucus (Occasional) /lpf Micro UA Comment Urine Culture Comments Nasal Screen MRSA (PCR) (Negative) Blood Type Blood Type Recheck Antibody Screen MTS Gel Crossmatch Bld Prod Order Comment 10/11/17 10/11/17 Range/Units 16:20 16:20 WBC 14.3 H (4.0-11.0) th/mm3 RBC 2.93 L (4.00-5.30) mil/mm3 Hgb 8.2 L (11.6-15.3) gm/dL Hct 26.2 L (35.0-46.0) % MCV 89.4 (80.0-100.0) fL MCH 27.8 (27.0-34.0) pg MCHC 31.1 L (32.0-36.0) % RDW 17.4 H (11.6-17.2) % Plt Count 252 D (150-450) th/mm3 MPV 9.1 (7.0-11.0) fL Prelim Diff (Auto) Slide review pending Neut % (Auto) 81.3 H (16.0-70.0) % Lymph % (Auto) 13.2 (9.0-44.0) % [place] % (Auto) 4.8 (0.0-8.0) % Eos % (Auto) 0.5 (0.0-4.0) % Baso % (Auto) 0.2 (0.0-2.0) % Neut # (Auto) 11.7 H (1.8-7.7) th/mm3 Lymph # (Auto) 1.9 (1.0-4.8) th/mm3 [place] # (Auto) 0.7 (0.0-0.9) th/mm3 Eos # (Auto) 0.1 (0.0-0.4) th/mm3 Baso # (Auto) 0.0 (0.0-0.2) th/mm3 WBC Differential . Diff Scan Auto diff confirmed Seg Neuts % (Manual) (16-70) % Band Neuts % (Manual) (0-6) % Lymphocytes % (Manual) (9-44) % Monocytes % (Manual) (0-8) % Abs Neuts (Manual) (1.8-7.7) th/mm3 Nucleated RBCs/100 WBC (0-0) /100 WBC Differential Comment . Platelet Estimate Normal (Normal) Platelet Morphology Normal (Normal) Polychromasia (0.0-1.9) % Basophilic Stippling (None) Stomatocytes 1+ H (None) Keratocytes (None) PT (9.8-11.6) sec INR Ratio APTT (24.3-30.1) sec Puncture Site Patient Temperature O2 Saturation (90-100) % ABG pH (7.380-7.420) ABG pCO2 (38-42) mmHg ABG pO2 (61-120) mmHg ABG HCO3 (22-26) mmol/L ABG O2 Content (12.0-20.0) Vol % ABG Base Excess (-2-2) mmol/L ABG Methemoglobin (0-2) % Jeremiah Test Hemoglobin (12.0-16.0) G/DL Carboxyhemoglobin (0-4) % O2 Delivery Device Liter Flow L/M Inspired O2 % Critical Value Sodium 147 H (136-145) meq/L Potassium 2.1 L* D (3.5-5.1) meq/L Chloride 102 (98-107) meq/L Carbon Dioxide 42.2 H (21.0-32.0) meq/L Anion Gap 3 L (5-15) meq/L BUN 30 H (7-18) mg/dL Creatinine 0.65 (0.50-1.00) mg/dL Estimated GFR Greater than 89 (>89) mL/min POC Glucose (68-110) mg/dl Random Glucose 164 H (74-106) mg/dL Lactic Acid (0.4-2.0) mmol/L Calcium 8.7 (8.5-10.1) mg/dL Phosphorus 2.7 (2.5-4.9) mg/dL Magnesium 1.8 (1.5-2.5) mg/dL Total Bilirubin 0.6 (0.2-1.0) mg/dL AST 15 (15-37) U/L ALT 16 (10-53) U/L Alkaline Phosphatase 42 L (45-117) U/L Total Protein 5.1 L (6.4-8.2) g/dL Albumin 2.5 L (3.4-5.0) g/dL Urine Color (Yellw/Straw) Urine Clarity (Clear) Urine pH (5.0-8.5) Ur Specific [place] (1.002-1.035) Urine Protein (Neg-Trace) mg/dL Urine Glucose (UA) (Negative) mg/dL Urine Ketones (Negative) mg/dL Urine Occult Blood (Negative) Urine Nitrate (Negative) Urine Bilirubin (Negative) Urine Urobilinogen (Less than 2) mg/dL Ur Leukocyte Esterase (Negative) Urine RBC (0-3) /hpf Urine WBC (0-5) /hpf Ur Squamous Epith Cells (0-5) /hpf Urine Mucus (Occasional) /lpf Micro UA Comment Urine Culture Comments Nasal Screen MRSA (PCR) (Negative) Blood Type Blood Type Recheck Antibody Screen MTS Gel Crossmatch Bld Prod Order Comment Imaging Data Radiologist's impression: Venous Doppler Study 10/08/17 00:00 CONCLUSION: No DVT is identified within either lower extremity. Chest X-Ray 10/08/17 05:06 CONCLUSION: Abdomen/Pelvis CT 10/08/17 06:55 CONCLUSION: 1. Dense consolidation with air bronchograms in the left lung base with an associated small effusion. Minimal atelectatic changes medially in the right base. 2. 3.8 cm infrarenal abdominal aortic aneurysm. 3. 3 to 4 mm ureteric stone proximally on the right with resulting pelvocaliectasis of the collecting system. 4. 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 Chest CT 10/08/17 06:55 CONCLUSION: 1. Volume loss in the left hemithorax with dense consolidation of the left lower lobe and associated small left-sided effusion. Air bronchograms are present and this may represent compressive atelectasis or infiltrate. 2. Minimal subpleural atelectasis in the medial aspect of the right. 3. Compensated cardiomegaly with findings of prior CABG. Dense calcification of the mitral valve annulus. Chest X-Ray 10/09/17 00:00 CONCLUSION: Increasing bilateral consolidation and increasing left pleural effusion. Chest X-Ray 10/10/17 06:00 CONCLUSION: Cardiomegaly with bilateral mostly basilar airspace disease and pleural effusions. Findings similar to October 09. No pneumothorax. Chest X-Ray 10/11/17 06:00 CONCLUSION: Stable examinations with bilateral effusions and mostly basilar airspace disease. Previous sternotomy. Discharge Plan Discharge Disposition Patient Disposition: 30 Still Patient Discharge Details Diagnosis: Anemia, Acute hypotension Physicians Team ED Provider: Earl Tovar Attending Provider: Jay Alexandra Other Providers: Perez Wood ; Fabien Ceballos ; Eliseo Gomes Discharge Interventions Interventions: ED Discharge Assessment Last Done: 10/08/17 16:36 Vital Signs Last Done: 10/08/17 08:04 Status ED Status: Left Department Discharge Information Discharge Date/Time: 10/08/17 16:30
[2017-10-08 06:17] LABS: Bilirubin,Urine Negative (Negative); Clarity,Urine Clear (Clear); Color,Urine Yellow (Yellw/Straw); Glucose,Urine (UA) Negative (Negative); Leukocyte Esterase,Urine Negative (Negative); Mucus,Urine Few /lpf (Occasional); Nitrite,Urine Negative (Negative); Specific Gravity,Urine 1.013 (1.002-1.035); Squamous Epithelial Cell,Urine <1 /hpf (0-5)
[2017-10-08 06:24] LABS: Lymphocytes 14 % (9-44); Monocytes 3 % (0-8); Tallied Nucleated RBC 3 (0-0)
[2017-10-08 06:25] LABS: Platelet Estimate Normal (Normal); Platelet Morphology Normal (Normal); Polychromasia 4.3 % (0.0-1.9); Stomatocytes 1+
--- NOTE | 2017-10-08 06:26 | XR ---
EXAM DATE: 10/08/2017 6:20 AM EDT AGE/SEX: 62 years / Female INDICATIONS: Shortness of breath. Fever. CLINICAL DATA: This is the patient's initial encounter. Patient reports that signs and symptoms have been present for 1 day and indicates a pain score of Nonresponsive. MEDICAL/SURGICAL HISTORY: Non-responsive. CABG. COMPARISON: No prior exams available for comparison. FINDINGS: Cardiomegaly. Diffuse bilateral mostly basilar airspace disease. Differential diagnosis includes pulm onary edema and infection. No pneumothorax. Probable small effusions. Cardiomegaly with bilateral mostly basilar airspace disease and small pleural effusions. CONCLUSION: Electronically signed by: Sonny Alcala MD 10/08/2017 6:25 AM EDT
[2017-10-08] MEDS ORDERED: Piperacil/Tazo 3.375 GM Premix 50 ML IV.SIG ONE (06:56)
[2017-10-08] MEDS ORDERED: Vancomycin Inj 1 GM/200 ML PIGGYBACK IV.SIG ONE ×2 (06:56→07:00)
[2017-10-08] MEDS ORDERED: Sodium Chlor 0.9% Inj 250 ML IV.SIG SCH ×2 (07:00)
[2017-10-08] MEDS ORDERED: Vancomycin Inj 1,000 MG in Sodium Chlor 0.9% Inj 250 ML IV.SIG ONE (07:30)
--- NOTE | 2017-10-08 08:03 | CT ---
EXAM DATE: 10/08/2017 7:50 AM EDT AGE/SEX: 62 years / Female INDICATIONS: Shortness of breath. CLINICAL DATA: This is the patient's initial encounter. Patient reports that signs and symptoms have been present for 1 day and indicates a pain score of 0/10. MEDICAL/SURGICAL HISTORY: Chronic obstructive pulmonary disease. Diabetes. None. RADIATION DOSE: 20.48 CTDI (mGy) ; Combined studies COMPARISON: [facility], CHEST 1V SINGLE AP, 10/08/2017. . TECHNIQUE: Multiple contiguous axial images were obtained through the chest without contrast. Image s were obtained in suspended respiration using multiple row detector helical technique. Using automa christine exposure control and adjustment of the mA and/or kV according to patient size, radiation dose was kept as low as reasonably achievable to obtain optimal diagnostic quality images. DICOM format imag e data is available electronically for review and comparison. FINDINGS: Lungs: There is some volume loss in the left hemithorax with left lower lobe consolidation and assoc iated small effusion. Minimal subpleural atelectatic changes are seen medially in the right lower lob e. Right lung is otherwise clear Mediastinum: There is good visualization of the great vessels of the middle mediastinum. No evidenc e of mediastinal or hilar adenopathy/mass. Dense calcification of the mitral valve annulus. Heart siz e is prominent but appears to be well compensated Pleurae: No evidence of focal thickening or pleural effusion. Axillae: Unremarkable. Bony Structures: Unremarkable. Median sternotomy wires characteristic of prior CABG. Abandon epicard ial pacer wires. Miscellaneous: The examination was extended to include the upper abdomen, and both adrenal glands ar e normal in size and configuration. CONCLUSION: 1. Volume loss in the left hemithorax with dense consolidation of the left lower lobe and associated small left-sided effusion. Air bronchograms are present and this may represent compressive atelectas is or infiltrate. 2. Minimal subpleural atelectasis in the medial aspect of the right. 3. Compensated cardiomegaly with findings of prior CABG. Dense calcification of the mitral valve an nulus. Electronically signed by: Seferino Cooney MD 10/08/2017 8:02 AM EDT
[2017-10-08] MEDS ORDERED: Bisacodyl 10 MG Supp RECTAL PRN (08:10)
--- NOTE | 2017-10-08 08:10 | CT ---
EXAM DATE: 10/08/2017 7:48 AM EDT AGE/SEX: 62 years / Female INDICATIONS: Abdominal pain. CLINICAL DATA: This is the patient's initial encounter. Patient reports that signs and symptoms have been present for 1 day and indicates a pain score of 3/10. MEDICAL/SURGICAL HISTORY: Chronic obstructive pulmonary disease. Diabetes. None. RADIATION DOSE: 20.53 CTDI (mGy) ; Combined studies COMPARISON: No prior exams available for comparison. TECHNIQUE: Multiple contiguous axial images were obtained through the abdomen. Images were obtained using multiple row detector helical technique. Using automated exposure control and adjustment of the mA and/or kV according to patient size, radiation dose was kept as low as reasonably achievable to o btain optimal diagnostic quality images. DICOM format image data is available electronically for rev iew and comparison. FINDINGS: Lower Lungs: Dense consolidation with air bronchograms in the left lower lobe. Associated small effus ion. Minimal subpleural atelectasis in the medial right base Liver: The liver has a homogeneous density without space-occupying lesion. There is no dilation of th e biliary tree. Spleen: Homogeneous density without enlargement. Pancreas: Unremarkable without mass or calcification. Kidneys: Mild pelvocaliectasis on the right. 3 to 4 mm stone in the proximal right ureter. Left kidn ey is radiographically normal without stone disease Adrenal Glands: Unremarkable. Aorta: 3.8 cm infrarenal abdominal aortic aneurysm. Dense atherosclerotic calcification of the seth onal vasculature Bowel/Mesentery: The bowel loops are grossly unremarkable. The cecum and sigmoid colon have a normal configuration. Abdominal Wall: Intact. Retroperitoneum: No evidence of adenopathy in the retrocrural, para-aortic, or deep pelvic regions. Infrarenal IVC filter. Bladder: Decompressed with Sweet catheter. Reproductive Organs: Patient is status post hysterectomy. Multiple surgical clips along the pelvic s idewall and both iliac chains are characteristic of sandy dissection. Inguinal: The inguinal region is unremarkable without evidence of adenopathy. Bony Structures: Multilevel degenerative disc disease with marginal spurring. No fracture Post Contrast: No abnormal areas of enhancement seen. CONCLUSION: 1. Dense consolidation with air bronchograms in the left lung base with an associated small effusion . Minimal atelectatic changes medially in the right base. 2. 3.8 cm infrarenal abdominal aortic aneurysm. 3. 3 to 4 mm ureteric stone proximally on the right with resulting pelvocaliectasis of the collectin g system. 4. Postsurgical changes with findings of prior hysterectomy as well as pelvic wall and iliac chain n odal dissection. Electronically signed by: Seferino Cooney MD 10/08/2017 8:09 AM EDT
[2017-10-08 08:17] LABS: ABG Base Excess 13.1 mmol/L (-2-2); ABG PCO2 58 mmHg (38-42); ABG PO2 88 mmHg (61-120)
[2017-10-08] MEDS ORDERED: Dextrose 50% in Water 50 ML Vial IV.PUSH PRN (08:18)
[2017-10-08] MEDS ORDERED: Vancomycin Consult Pharmacy 1 EACH OTHER SCH (09:00)
[2017-10-08] MEDS: Pantoprazole Inj 40 MG Vial IV.PUSH SCH (09:08)
--- NOTE | 2017-10-08 09:10 | MH ---
cc: Jay Alexandra MD DATE OF ADMISSION: 10/08/2017 HISTORY OF PRESENT ILLNESS: The patient is a 62-year-old female, [facility] resident, with a past medical history of hypertension, diabetes mellitus, coronary artery disease on Eliquis, who presented to [facility] ED with shortness of breath associated with tachypnea and generalized weakness. On arrival to the ED, she was hypotensive with a systolic blood pressure 80s-90s and tachycardic with heart rate of 102-110. Her laboratory data showed anemia with hemoglobin level 5.0 and mild acute kidney injury with a creatinine of 1.13 and lactic acid of 2.6. The patient was given a total of 1 liter of normal saline and is scheduled to receive 2 units of red blood cells. When seen, her current blood pressure is 145/74. ABG was performed on 4 liter oxygen, which showed a pH of 7.44, CO2 58, PaO2 88, bicarbonate of 38, saturation 95 percent. The patient is a poor historian. She underwent CT chest, abdomen and pelvis. Her CT scan of the chest showed dense consolidation of the left lower lobe with air bronchograms and CT abdomen and pelvis showed a 3.8 cm infrarenal abdominal aortic aneurysm. PAST MEDICAL HISTORY: Significant for hypertension, diabetes mellitus, COPD, morbid obesity, and hyperlipidemia. PAST SURGICAL HISTORY: Previous hysterectomy, previous CABG. SOCIAL HISTORY: Ex-smoker, nondrinker, [facility] resident. ALLERGIES: PENICILLIN. REPORTED MEDICATIONS: Include: 1. Albuterol. 2. Insulin. 3. Aspirin. 4. Eliquis. 5. Prevacid. 6. Levaquin. 7. Metoprolol. 8. Lasix. 9. Allopurinol. REVIEW OF SYSTEMS: As per HPI. The rest of the review of systems is limited as the patient is a poor historian. FAMILY HISTORY: Noncontributory to present illness. PHYSICAL EXAMINATION: A 62-year-old female lying in bed in no acute respiratory distress. VITAL SIGNS: Temperature of 98.5, pulse 111, blood pressure currently 145/74, saturation 99% on 4 liter oxygen. HEENT: Atraumatic, normocephalic. Pupils are equal, round, reactive to light and accommodation. Extraocular muscles intact. Conjunctivae pink. Nonicteric sclerae. Oral mucosa within normal. NECK: Supple. No JVD, adenopathy or thyromegaly. Trachea in the midline. CARDIOVASCULAR: Tachycardic. Normal S1, S2. No murmurs, rubs or gallops. PULMONARY: Bilateral equal entry and no wheezing. ABDOMEN: Soft, obese, nontender. No distention. Positive bowel sounds. EXTREMITIES: No cyanosis. 2+plus edema. NEUROLOGIC: No focal sensory deficit. LABORATORY DATA: WBC 11, hemoglobin 5, hematocrit 16, platelet count 178. Sodium 147, potassium 4.4, chloride 102, CO2 36, BUN 43, current creatinine 1.13, glucose 143. Lactic acid 2.6, total bilirubin 0.5, AST 13, ALT 16, alkaline phosphatase 45, albumin 2.7. ABG: pH 7.44, CO2 58, PaO2 88, bicarbonate of 38, saturation 95% on [address] chest, abdomen and pelvis showed dense consolidation left lower lobe with air bronchograms, a 3.8 cm infrarenal abdominal aortic aneurysm. IMPRESSION: 1. [id number] hypercapnic respiratory insufficiency. 2. Anemia with hemoglobin 5.0 on admission. 3. Mild acute kidney injury. 4. Left lung consolidation with air bronchograms. 5. Lactic acidemia. 6. A 3.8 cm infrarenal abdominal aortic aneurysm. 7. Hypertension. 8. Diabetes mellitus. 9. History of coronary artery disease. 10. Morbid obesity. RECOMMENDATIONS: 1. Monitor neuro status closely and avoid any sedatives. 2. Wean down oxygen as tolerated to keep sats above 92%. 3. Bronchodilators in the form of DuoNeb q. plus q. 2 hours p.r.n. for shortness of breath. 4. Monitor heart rate and blood pressure closely and maintain MAP greater than 65 mmHg. Lactic acid level measured at 2.6. Continue with IV fluids. She was given 1 liter bolus of normal saline in the ED. We will place on half NS at 75 mL an hour. The patient is scheduled to receive 2 units of PRBCs. 5. Monitor renal function, I's and O's and avoid nephrotoxins. Continue with IV hydration as stated above. Hold aspirin and Eliquis given severe anemia on arrival. 6. Keep n.p.o. Place on Protonix 40 mg for GI prophylaxis and we will consult GI service as the patient may need upper endoscopy and possible colonoscopy. 7. We will monitor H and H every 6 hours. She is for transfusion 2 units PRBCs. 8. Continue with antibiotics in the form of vancomycin and aztreonam. Of note, the patient IS ALLERGIC TO PENICILLIN. Monitor for signs of infection, which include fever and WBC. Followup on blood cultures. In addition, we will obtain sputum culture, strep pneumonia and legionella urinary antigen. 9. Monitor CBC and coag's. Placed on sliding scale insulin with Accu-Chek's every 6 hours for glycemic control. 10. Gastrointestinal prophylaxis with Protonix 40 mg daily and DVT prophylaxis with SCDs for now. We will hold Eliquis given underlying anemia. 11. We will obtain Doppler ultrasound of the lower extremity to rule out deep venous thrombosis. Further recommendations will be based on hospital course. Jay Alexandra MD AI/DL , 08:35 AM , 09:09 AM
[2017-10-08] MEDS: Sodium Chloride 0.45 % Inj 1,000 ML IV.CONT SCH ×2 (09:13→20:59)
--- NOTE | 2017-10-08 09:59 | P.CONGI ---
History of Present Illness Consult date: 10/08/17 Consult reason: Anemia Chief complaint: Severe anemia SOB PNA History of Present Illness: This is a 62 yo F with PMH significant for anemia, pt was diagnosed with a PE in August of this year and discharged from [facility] on September 06 on Eliquis, she presented back to the hospital on the 15 of September with weakness and severe anemia with a hgb of 3.7. Pt does have history of GIB, and underwent endoscopic procedures in June which revealed some friability and a bit of prominence at the distal esophagus, somewhat irregular duodenal mucosa with denuded patches of unclear significant. The initial colonoscopy noted limited visualization due to blood clots so a few days later a repeat procedure was done which revealed reddish dark fluid in the right colon but no signs of active bleeding, 2 areas that looked like lipoma but no ulcerations, polyp in the ascending colon, few polyps in the rectosigmoid area, internal hemorrhoids. Pathology revealed hyperplastic polyp and and tubular adenoma. Pt was advised to have capsule endoscopy, however did not follow up in the office. As noted above, pt presented back to the ER in August with low hgb, EGD was done September 20 -- > Two superficial esophageal ulcers with no bleeding and no stigmata of recent bleeding , middle third and lower third of the esophagus were mildly tortuous, otherwise normal exam. Pathology (distal esophagus ulcer) mucosa with ulceration , granulation tissues, acute inflammation and findings suggestive of pill induced esophagitis, rare yeast organisms morphologically consistent with Bailey, and detached fragments of acute fibrinopurulent exudate. Pt presented to ER today with complaints of SOB, on admission was found to be tachypneic with hypercapnic respiratory insufficiency, hypotensive and tachycardic. Our service has been consulted to evaluate pt for anemia. Last hgb from [facility] on 10/01 was 7.9. Pt denies nausea, vomiting, abdominal pain, hematochezia and melena. She is oriented x 3, does have history of dementia so unable to tell how good of a historian she is. <Ly Cardenas - Last Filed: 10/08/17 09:34> Review of Systems Respiratory: Reports shortness of breath Gastrointestinal: Denies abdominal pain, Denies black, tarry stools, Denies bright, red blood in stools, Denies nausea, Denies vomiting <Ly Cardenas - Last Filed: 10/08/17 09:34> PMFSH - History History Provided By: Professional Fee Coder / EMT - Medical History Medical History: Medical History (Last Updated 10/08/17 @ 09:51 by Ly Cardeans) COPD (chronic obstructive pulmonary disease) Coronary artery disease Diabetes H/O: hysterectomy High triglycerides History of GI bleed History of pulmonary embolism History of uterine cancer Hypertension Pneumonia Shortness of breath - Surgical History Surgical History: Surgical History (Last Updated 10/08/17 @ 09:49 by Ly Cardenas) History of colonoscopy History of esophagogastroduodenoscopy (EGD) Hx of CABG - Tobacco History Smoking Status: Former smoker Tobacco Type: Cigarettes - Alcohol History How Often Do You Have a Drink Containing Alcohol: Never - Substance Use History Substance History: No History of Abuse - Immunization History Tetanus Immunization: Unsure <Ly Cardenas - Last Filed: 10/08/17 09:34> - Medical History Medical History: Medical History (Last Updated 10/08/17 @ 09:51 by Ly Cardenas) COPD (chronic obstructive pulmonary disease) Coronary artery disease Diabetes H/O: hysterectomy High triglycerides History of GI bleed History of pulmonary embolism History of uterine cancer Hypertension Pneumonia Shortness of breath - Surgical History Surgical History: Surgical History (Last Updated 10/08/17 @ 09:49 by Ly Cardenas) History of colonoscopy History of esophagogastroduodenoscopy (EGD) Hx of CABG <Perez Wood - Last Filed: 10/08/17 19:30> Medications and Allergies Active Medications: Active Medications Al Hydroxide/Mg Hydroxide (Milk Of [place]) 30 ml PO Q12H PRN PRN Reason: Mild Constipation Albuterol (Duoneb Neb (Dianna)) 1 ampul NEB Q6HR NEB [facility] Albuterol (Duoneb Neb (Prn)) 1 ampul NEB Q2HR NEB PRN PRN Reason: WHEEZING Bisacodyl (Dulcolax Supp) 10 mg RECTAL DAILY PRN PRN Reason: SEVERE CONSITIPATION Chlorhexidine Gluconate (Chlorhexidine 2% Cloth) 3 pack TOPICAL DAILY@0400 DIANNA Stop: 10/14/17 03:59 Chlorhexidine Gluconate (Chlorhexidine 2% Cloth) 3 pack TOPICAL DAILY@0400 PRN PRN Reason: Extra cloth needed Stop: 10/14/17 03:59 Dextrose (D50w Vial) 50 ml IV.PUSH UNSCH PRN PRN Reason: PER HYPOGLYCEMIA PROTOCOL Glucagon (Glucagon Inj) 1 mg OTHER PRN PRN PRN Reason: for Hypoglycemia Protocol Sodium Chloride (Ns Inj) 250 mls @ 15 mls/hr IV.SIG ONCE DIANNA Stop: 10/08/17 23:39 Sodium Chloride (Ns Inj) 250 mls @ 15 mls/hr IV.SIG ONCE DIANNA Stop: 10/08/17 23:39 Aztreonam 1,000 mg/ Sodium (Chloride) 100 mls @ 200 mls/hr IV.SIG Q8H [facility] Pharmacy Profile Note (Vancomycin Consult Pharmacy) 0 mls @ 0 mls/hr OTHER UNSCH [facility] Sodium Chloride (1/2 Normal Saline Inj) 1,000 mls @ 84 mls/hr IV.CONT .[id number] [facility] Last Admin: 10/08/17 09:13 Dose: 84 mls/hr Insulin Human Regular (Novolin R Supplemental Scale) 0 units SQ Q6HR [facility]; Protocol Lactulose (Lactulose Liq) 30 ml PO DAILY PRN PRN Reason: SEVERE CONSITIPATION Pantoprazole Sodium (Protonix Inj) 40 mg IV.PUSH Q24H [facility] Last Admin: 10/08/17 09:08 Dose: 40 mg Senna/Docusate Sodium (Honey-Colace) 1 tab PO BID [facility] Sennosides (Senokot) 17.2 mg PO Q12H PRN PRN Reason: Moderate Constipation <Ly Cardenas - Last Filed: 10/08/17 09:34> Active Medications: Active Medications Al Hydroxide/Mg Hydroxide (Milk Of Magnesia Liq) 30 ml PO Q12H PRN PRN Reason: Mild Constipation Albuterol (Duoneb Neb (Dianna)) 1 ampul NEB Q6HR NEB [facility] Last Admin: 10/08/17 09:35 Dose: 1 ampul Albuterol (Duoneb Neb (Prn)) 1 ampul NEB Q2HR NEB PRN PRN Reason: WHEEZING Bisacodyl (Dulcolax Supp) 10 mg RECTAL DAILY PRN PRN Reason: SEVERE CONSITIPATION Chlorhexidine Gluconate (Chlorhexidine 2% Cloth) 3 pack TOPICAL DAILY@0400 DIANNA Stop: 10/14/17 03:59 Chlorhexidine Gluconate (Chlorhexidine 2% Cloth) 3 pack TOPICAL DAILY@0400 PRN PRN Reason: Extra cloth needed Stop: 10/14/17 03:59 Dextrose (D50w Vial) 50 ml IV.PUSH UNSCH PRN PRN Reason: PER HYPOGLYCEMIA PROTOCOL Glucagon (Glucagon Inj) 1 mg OTHER PRN PRN PRN Reason: for Hypoglycemia Protocol Sodium Chloride (Ns Inj) 250 mls @ 15 mls/hr IV.SIG ONCE DIANNA Stop: 10/08/17 23:39 Last Admin: 10/08/17 15:36 Dose: 15 mls/hr Sodium Chloride (Ns Inj) 250 mls @ 15 mls/hr IV.SIG ONCE DIANNA Stop: 10/08/17 23:39 Aztreonam 1,000 mg/ Sodium (Chloride) 100 mls @ 200 mls/hr IV.SIG Q8H [facility] Last Admin: 10/08/17 15:37 Dose: Not Given Pharmacy Profile Note (Vancomycin Consult Pharmacy) 0 mls @ 0 mls/hr OTHER UNSCH [facility] Sodium Chloride (1/2 Normal Saline Inj) 1,000 mls @ 84 mls/hr IV.CONT .[id number] [facility] Last Admin: 10/08/17 09:13 Dose: 84 mls/hr Vancomycin HCl 1,500 mg/ (Sodium Chloride) 515 mls @ 250 mls/hr IV.SIG Q24H [facility] Insulin Human Regular (Novolin R Supplemental Scale) 0 units SQ Q6HR [facility]; Protocol Last Admin: 10/08/17 15:19 Dose: Not Given Lactulose (Lactulose Liq) 30 ml PO DAILY PRN PRN Reason: SEVERE CONSITIPATION Miscellaneous Information ([facility] Ordered Lab Info) 0 each OTHER ONCE ONE Stop: 10/11/17 09:46 Pantoprazole Sodium (Protonix Inj) 40 mg IV.PUSH Q24H [facility] Last Admin: 10/08/17 09:08 Dose: 40 mg Senna/Docusate Sodium (Honey-Colace) 1 tab PO BID [facility] Last Admin: 10/08/17 15:37 Dose: Not Given Sennosides (Senokot) 17.2 mg PO Q12H PRN PRN Reason: Moderate Constipation <Perez Wood E - Last Filed: 10/08/17 19:30> Allergies Allergy/AdvReac Type Severity Reaction Status Date / Time Penicillins Allergy Severe Anaphylaxis Verified 10/08/17 04:33 Home Medications Medication Instructions Recorded Confirmed Type acetaminophen 650 mg PO Q4-6H PRN 10/08/17 10/08/17 History albuterol sulfate 0.63 mg INHALATION Q4-6H PRN 10/08/17 10/08/17 History allopurinol BID 10/08/17 History apixaban 5 mg PO BID 10/08/17 10/08/17 History aspirin [Aspir-Low] 10/08/17 History baclofen 10 mg PO TID 10/08/17 10/08/17 History collagenase clostridium histo. 1 applic TOPICAL DAILY 10/08/17 10/08/17 History [Santyl] docusate sodium [Colace] 100 mg PO BID 10/08/17 10/08/17 History furosemide DAILY 10/08/17 History hydrocodone-acetaminophen QID PRN 10/08/17 History insulin glargine 10 unit SUB-Q Q8HR 10/08/17 10/08/17 History insulin lispro [Humalog U-100 10/08/17 History Insulin] lansoprazole [Prevacid SoluTab] 30 mg PO BID 10/08/17 10/08/17 History levofloxacin [Levaquin] 500 mg PO DAILY 10/08/17 10/08/17 History magnesium hydroxide [Milk of 30 ml PO DAILY PRN 10/08/17 10/08/17 History Magnesia] metoprolol tartrate 25 mg PO BID 10/08/17 10/08/17 History nitroglycerin [Nitrostat] 0.4 mg SUBLINGUAL Q5-15M PRN 10/08/17 10/08/17 History nystatin 1 applic TOPICAL QID 10/08/17 10/08/17 History rosuvastatin 40 mg PO DAILY 10/08/17 10/08/17 History Exam Vital signs: Vital Signs 10/08/17 04:21 10/08/17 04:54 10/08/17 05:02 Temperature 98.5 F Pulse Rate 103 H 102 H 113 H Respiratory Rate 22 20 19 Blood Pressure 100/58 L 91/55 L 87/50 L Pulse Oximetry 98 100 100 10/08/17 07:20 10/08/17 08:04 10/08/17 08:58 Temperature Pulse Rate 108 H 110 H 108 H Respiratory Rate 18 18 18 Blood Pressure 95/57 L 145/74 H 119/69 Pulse Oximetry 99 98 100 10/08/17 09:21 10/08/17 09:33 Temperature 98.3 F 98.4 F Pulse Rate 107 H 108 H Respiratory Rate 18 18 Blood Pressure 119/69 117/59 L Pulse Oximetry 100 100 Intake & Output 10/07/17 10/08/17 10/08/17 18:59 06:59 18:59 Intake Total 0 / 0 Balance 0 / 0 Weight 133.81 kg Intake: Intake (Blood Product) Amt 0 / 0 Rbc As-3 Leukoreduced Unit 0 / 0 [id number] - Constitutional no acute distress - Routine HEENT Exam Head: Present: normocephalic, atraumatic - Routine Respiratory Exam Absent: accessory muscle use - Routine Cardiovascular Exam Present: tachycardia - Routine Abdominal Exam Present: soft, normoactive bowel sounds. Absent: tenderness, rebound, guarding , firm, rigid Comments: Obese - Routine Skin Exam Present: dry, warm - Routine Neurological Exam Present: alert, oriented X3 poor historian <Ly Cardenas - Last Filed: 10/08/17 09:34> Vital signs: Vital Signs 10/08/17 04:21 10/08/17 04:54 10/08/17 05:02 Temperature 98.5 F Pulse Rate 103 H 102 H 113 H Respiratory Rate 22 20 19 Blood Pressure 100/58 L 91/55 L 87/50 L Pulse Oximetry 98 100 100 10/08/17 07:20 10/08/17 08:04 10/08/17 08:58 Temperature Pulse Rate 108 H 110 H 108 H Respiratory Rate 18 18 18 Blood Pressure 95/57 L 145/74 H 119/69 Pulse Oximetry 99 98 100 10/08/17 09:21 10/08/17 09:33 10/08/17 09:38 Temperature 98.3 F 98.4 F Pulse Rate 107 H 108 H 107 H Respiratory Rate 18 18 22 Blood Pressure 119/69 117/59 L Pulse Oximetry 100 100 100 10/08/17 12:58 10/08/17 15:12 10/08/17 15:14 Temperature 98.2 F Pulse Rate 101 H 102 H 102 H Respiratory Rate 18 18 18 Blood Pressure 106/54 L 134/64 134/64 Pulse Oximetry 100 100 10/08/17 16:26 Temperature 97.5 F L Pulse Rate 103 H Respiratory Rate 25 H Blood Pressure 116/58 L Pulse Oximetry 100 Intake & Output 10/08/17 10/08/17 10/09/17 06:59 18:59 06:59 Intake Total 500 / 500 Balance 500 / 500 Weight 133.81 kg Intake: Other 100 / 100 Rbc As-3 Leukoreduced Unit 100 / 100 [id number] Intake (Blood Product) Amt 400 / 400 Rbc As-3 Leukoreduced Unit 400 / 400 [id number] Rbc As-3 Leukoreduced Unit 0 / 0 [id number] <Perez Wood E - Last Filed: 10/08/17 19:30> Results - Labs CBC & Chem 7: 10/08/17 05:10 10/08/17 05:10 Labs: Laboratory Results - last 24 hr 10/08/17 10/08/17 10/08/17 05:10 05:10 05:10 WBC 11.1 H RBC 1.84 L Hgb 5.0 L* Hct 16.4 L* MCV 89.2 MCH 26.9 L MCHC 30.1 L RDW 19.2 H Plt Count 178 MPV 10.2 Prelim Diff (Auto) Slide review pending Neut % (Auto) 85.5 H Lymph % (Auto) 8.4 L Rich % (Auto) 5.9 Eos % (Auto) 0.1 Baso % (Auto) 0.1 Neut # (Auto) 9.5 H Lymph # (Auto) 0.9 L Rich # (Auto) 0.6 Eos # (Auto) 0.0 Baso # (Auto) 0.0 WBC Differential Manual diff final Seg Neuts % (Manual) 81 H Band Neuts % (Manual) 2 Lymphocytes % (Manual) 14 Monocytes % (Manual) 3 Abs Neuts (Manual) 9.2 H Nucleated RBCs/100 WBC 3 H Differential Comment . Platelet Estimate Normal Platelet Morphology Normal Polychromasia 4.3 H Basophilic Stippling Faint H Stomatocytes 1+ H Keratocytes Occ H Puncture Site Patient Temperature O2 Saturation ABG pH ABG pCO2 ABG pO2 ABG HCO3 ABG O2 Content ABG Base Excess ABG Methemoglobin Jeremiah Test Hemoglobin Carboxyhemoglobin O2 Delivery Device Liter Flow Inspired O2 Critical Value Sodium 147 H Potassium 4.4 Chloride 102 Carbon Dioxide 36.7 H Anion Gap 8 BUN 43 H Creatinine 1.13 H Estimated GFR 48 L Random Glucose 143 H Lactic Acid 2.6 H Calcium 9.1 Total Bilirubin 0.5 AST 13 L ALT 16 Alkaline Phosphatase 45 Total Protein 5.3 L Albumin 2.7 L Urine Color Urine Clarity Urine pH Ur Specific [place] Urine Protein Urine Glucose (UA) Urine Ketones Urine Occult Blood Urine Nitrate Urine Bilirubin Urine Urobilinogen Ur Leukocyte Esterase Urine RBC Urine WBC Ur Squamous Epith Cells Urine Mucus Micro UA Comment Urine Culture Comments Blood Type Blood Type Recheck Antibody Screen MTS Gel Crossmatch 10/08/17 10/08/17 10/08/17 05:57 06:17 06:41 WBC RBC Hgb Hct MCV MCH MCHC RDW Plt Count MPV Prelim Diff (Auto) Neut % (Auto) Lymph % (Auto) Rich % (Auto) Eos % (Auto) Baso % (Auto) Neut # (Auto) Lymph # (Auto) Rich # (Auto) Eos # (Auto) Baso # (Auto) WBC Differential Seg Neuts % (Manual) Band Neuts % (Manual) Lymphocytes % (Manual) Monocytes % (Manual) Abs Neuts (Manual) Nucleated RBCs/100 WBC Differential Comment Platelet Estimate Platelet Morphology Polychromasia Basophilic Stippling Stomatocytes Keratocytes Puncture Site Patient Temperature O2 Saturation ABG pH ABG pCO2 ABG pO2 ABG HCO3 ABG O2 Content ABG Base Excess ABG Methemoglobin Jeremiah Test Hemoglobin Carboxyhemoglobin O2 Delivery Device Liter Flow Inspired O2 Critical Value Sodium Potassium Chloride Carbon Dioxide Anion Gap BUN Creatinine Estimated GFR Random Glucose Lactic Acid Calcium Total Bilirubin AST ALT Alkaline Phosphatase Total Protein Albumin Urine Color Yellow Urine Clarity Clear Urine pH 5.0 Ur Specific [place] 1.013 Urine Protein Negative Urine Glucose (UA) Negative Urine Ketones Negative Urine Occult Blood Moderate H Urine Nitrate Negative Urine Bilirubin Negative Urine Urobilinogen Less than 2 Ur Leukocyte Esterase Negative Urine RBC 13 H Urine WBC 1 Ur Squamous Epith Cells <1 Urine Mucus Few H Micro UA Comment Cath-culture not ind Urine Culture Comments Cath-cult not ind Blood Type O Positive Blood Type Recheck Required Antibody Screen Negative MTS Gel Crossmatch See Detail 10/08/17 08:00 WBC RBC Hgb Hct MCV MCH MCHC RDW Plt Count MPV Prelim Diff (Auto) Neut % (Auto) Lymph % (Auto) Rich % (Auto) Eos % (Auto) Baso % (Auto) Neut # (Auto) Lymph # (Auto) Rich # (Auto) Eos # (Auto) Baso # (Auto) WBC Differential Seg Neuts % (Manual) Band Neuts % (Manual) Lymphocytes % (Manual) Monocytes % (Manual) Abs Neuts (Manual) Nucleated RBCs/100 WBC Differential Comment Platelet Estimate Platelet Morphology Polychromasia Basophilic Stippling Stomatocytes Keratocytes Puncture Site Right radial Patient Temperature 98.6 O2 Saturation 95 ABG pH 7.44 H ABG pCO2 58 H* ABG pO2 88 ABG HCO3 38 H ABG O2 Content 7.6 L ABG Base Excess 13.1 H ABG Methemoglobin 0.5 Jeremiah Test Present Hemoglobin 5.6 L* Carboxyhemoglobin 2.3 O2 Delivery Device Nasal cannula Liter Flow 4.00 Inspired O2 21 Critical Value Yes Sodium Potassium Chloride Carbon Dioxide Anion Gap BUN Creatinine Estimated GFR Random Glucose Lactic Acid Calcium Total Bilirubin AST ALT Alkaline Phosphatase Total Protein Albumin Urine Color Urine Clarity Urine pH Ur Specific [place] Urine Protein Urine Glucose (UA) Urine Ketones Urine Occult Blood Urine Nitrate Urine Bilirubin Urine Urobilinogen Ur Leukocyte Esterase Urine RBC Urine WBC Ur Squamous Epith Cells Urine Mucus Micro UA Comment Urine Culture Comments Blood Type Blood Type Recheck Antibody Screen MTS Gel Crossmatch - Imaging Impressions Chest X-Ray 10/08/17 05:06 CONCLUSION: Abdomen/Pelvis CT 10/08/17 06:55 CONCLUSION: 1. Dense consolidation with air bronchograms in the left lung base with an associated small effusion. Minimal atelectatic changes medially in the right base. 2. 3.8 cm infrarenal abdominal aortic aneurysm. 3. 3 to 4 mm ureteric stone proximally on the right with resulting pelvocaliectasis of the collecting system. 4. 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 Chest CT 10/08/17 06:55 CONCLUSION: 1. Volume loss in the left hemithorax with dense consolidation of the left lower lobe and associated small left-sided effusion. Air bronchograms are present and this may represent compressive atelectasis or infiltrate. 2. Minimal subpleural atelectasis in the medial aspect of the right. 3. Compensated cardiomegaly with findings of prior CABG. Dense calcification of the mitral valve annulus. <Ly Cardenas - Last Filed: 10/08/17 09:34> - Labs CBC & Chem 7: 10/08/17 05:10 10/08/17 05:10 Labs: Laboratory Results - last 24 hr 10/08/17 10/08/17 10/08/17 05:10 05:10 05:10 WBC 11.1 H RBC 1.84 L Hgb 5.0 L* Hct 16.4 L* MCV 89.2 MCH 26.9 L MCHC 30.1 L RDW 19.2 H Plt Count 178 MPV 10.2 Prelim Diff (Auto) Slide review pending Neut % (Auto) 85.5 H Lymph % (Auto) 8.4 L Rich % (Auto) 5.9 Eos % (Auto) 0.1 Baso % (Auto) 0.1 Neut # (Auto) 9.5 H Lymph # (Auto) 0.9 L Rich # (Auto) 0.6 Eos # (Auto) 0.0 Baso # (Auto) 0.0 WBC Differential Manual diff final Seg Neuts % (Manual) 81 H Band Neuts % (Manual) 2 Lymphocytes % (Manual) 14 Monocytes % (Manual) 3 Abs Neuts (Manual) 9.2 H Nucleated RBCs/100 WBC 3 H Differential Comment . Platelet Estimate Normal Platelet Morphology Normal Polychromasia 4.3 H Basophilic Stippling Faint H Stomatocytes 1+ H Keratocytes Occ H PT INR APTT Puncture Site Patient Temperature O2 Saturation ABG pH ABG pCO2 ABG pO2 ABG HCO3 ABG O2 Content ABG Base Excess ABG Methemoglobin Jeremiah Test Hemoglobin Carboxyhemoglobin O2 Delivery Device Liter Flow Inspired O2 Critical Value Sodium 147 H Potassium 4.4 Chloride 102 Carbon Dioxide 36.7 H Anion Gap 8 BUN 43 H Creatinine 1.13 H Estimated GFR 48 L POC Glucose Random Glucose 143 H Lactic Acid 2.6 H Calcium 9.1 Total Bilirubin 0.5 AST 13 L ALT 16 Alkaline Phosphatase 45 Total Protein 5.3 L Albumin 2.7 L Urine Color Urine Clarity Urine pH Ur Specific [place] Urine Protein Urine Glucose (UA) Urine Ketones Urine Occult Blood Urine Nitrate Urine Bilirubin Urine Urobilinogen Ur Leukocyte Esterase Urine RBC Urine WBC Ur Squamous Epith Cells Urine Mucus Micro UA Comment Urine Culture Comments Blood Type Blood Type Recheck Antibody Screen MTS Gel Crossmatch 10/08/17 10/08/17 10/08/17 05:57 06:17 06:41 WBC RBC Hgb Hct MCV MCH MCHC RDW Plt Count MPV Prelim Diff (Auto) Neut % (Auto) Lymph % (Auto) Rich % (Auto) Eos % (Auto) Baso % (Auto) Neut # (Auto) Lymph # (Auto) Rich # (Auto) Eos # (Auto) Baso # (Auto) WBC Differential Seg Neuts % (Manual) Band Neuts % (Manual) Lymphocytes % (Manual) Monocytes % (Manual) Abs Neuts (Manual) Nucleated RBCs/100 WBC Differential Comment Platelet Estimate Platelet Morphology Polychromasia Basophilic Stippling Stomatocytes Keratocytes PT INR APTT Puncture Site Patient Temperature O2 Saturation ABG pH ABG pCO2 ABG pO2 ABG HCO3 ABG O2 Content ABG Base Excess ABG Methemoglobin Jeremiah Test Hemoglobin Carboxyhemoglobin O2 Delivery Device Liter Flow Inspired O2 Critical Value Sodium Potassium Chloride Carbon Dioxide Anion Gap BUN Creatinine Estimated GFR POC Glucose Random Glucose Lactic Acid Calcium Total Bilirubin AST ALT Alkaline Phosphatase Total Protein Albumin Urine Color Yellow Urine Clarity Clear Urine pH 5.0 Ur Specific [place] 1.013 Urine Protein Negative Urine Glucose (UA) Negative Urine Ketones Negative Urine Occult Blood Moderate H Urine Nitrate Negative Urine Bilirubin Negative Urine Urobilinogen Less than 2 Ur Leukocyte Esterase Negative Urine RBC 13 H Urine WBC 1 Ur Squamous Epith Cells <1 Urine Mucus Few H Micro UA Comment Cath-culture not ind Urine Culture Comments Cath-cult not ind Blood Type O Positive Blood Type Recheck Required Antibody Screen Negative MTS Gel Crossmatch See Detail 10/08/17 10/08/17 10/08/17 08:00 09:25 09:25 WBC RBC Hgb Hct MCV MCH MCHC RDW Plt Count MPV Prelim Diff (Auto) Neut % (Auto) Lymph % (Auto) Rich % (Auto) Eos % (Auto) Baso % (Auto) Neut # (Auto) Lymph # (Auto) Rich # (Auto) Eos # (Auto) Baso # (Auto) WBC Differential Seg Neuts % (Manual) Band Neuts % (Manual) Lymphocytes % (Manual) Monocytes % (Manual) Abs Neuts (Manual) Nucleated RBCs/100 WBC Differential Comment Platelet Estimate Platelet Morphology Polychromasia Basophilic Stippling Stomatocytes Keratocytes PT 12.3 H INR 1.2 APTT 21.8 L Puncture Site Right radial Patient Temperature 98.6 O2 Saturation 95 ABG pH 7.44 H ABG pCO2 58 H* ABG pO2 88 ABG HCO3 38 H ABG O2 Content 7.6 L ABG Base Excess 13.1 H ABG Methemoglobin 0.5 Jeremiah Test Present Hemoglobin 5.6 L* Carboxyhemoglobin 2.3 O2 Delivery Device Nasal cannula Liter Flow 4.00 Inspired O2 21 Critical Value Yes Sodium Potassium Chloride Carbon Dioxide Anion Gap BUN Creatinine Estimated GFR POC Glucose Random Glucose Lactic Acid Calcium Total Bilirubin AST ALT Alkaline Phosphatase Total Protein Albumin Urine Color Urine Clarity Urine pH Ur Specific [place] Urine Protein Urine Glucose (UA) Urine Ketones Urine Occult Blood Urine Nitrate Urine Bilirubin Urine Urobilinogen Ur Leukocyte Esterase Urine RBC Urine WBC Ur Squamous Epith Cells Urine Mucus Micro UA Comment Urine Culture Comments Blood Type Blood Type Recheck Antibody Screen MTS Gel Crossmatch 10/08/17 17:43 WBC RBC Hgb Hct MCV MCH MCHC RDW Plt Count MPV Prelim Diff (Auto) Neut % (Auto) Lymph % (Auto) Rich % (Auto) Eos % (Auto) Baso % (Auto) Neut # (Auto) Lymph # (Auto) Rich # (Auto) Eos # (Auto) Baso # (Auto) WBC Differential Seg Neuts % (Manual) Band Neuts % (Manual) Lymphocytes % (Manual) Monocytes % (Manual) Abs Neuts (Manual) Nucleated RBCs/100 WBC Differential Comment Platelet Estimate Platelet Morphology Polychromasia Basophilic Stippling Stomatocytes Keratocytes PT INR APTT Puncture Site Patient Temperature O2 Saturation ABG pH ABG pCO2 ABG pO2 ABG HCO3 ABG O2 Content ABG Base Excess ABG Methemoglobin Jeremiah Test Hemoglobin Carboxyhemoglobin O2 Delivery Device Liter Flow Inspired O2 Critical Value Sodium Potassium Chloride Carbon Dioxide Anion Gap BUN Creatinine Estimated GFR POC Glucose 192 H Random Glucose Lactic Acid Calcium Total Bilirubin AST ALT Alkaline Phosphatase Total Protein Albumin Urine Color Urine Clarity Urine pH Ur Specific [place] Urine Protein Urine Glucose (UA) Urine Ketones Urine Occult Blood Urine Nitrate Urine Bilirubin Urine Urobilinogen Ur Leukocyte Esterase Urine RBC Urine WBC Ur Squamous Epith Cells Urine Mucus Micro UA Comment Urine Culture Comments Blood Type Blood Type Recheck Antibody Screen MTS Gel Crossmatch - Imaging Impressions Venous Doppler Study 10/08/17 00:00 CONCLUSION: No DVT is identified within either lower extremity. Chest X-Ray 10/08/17 05:06 CONCLUSION: Abdomen/Pelvis CT 10/08/17 06:55 CONCLUSION: 1. Dense consolidation with air bronchograms in the left lung base with an associated small effusion. Minimal atelectatic changes medially in the right base. 2. 3.8 cm infrarenal abdominal aortic aneurysm. 3. 3 to 4 mm ureteric stone proximally on the right with resulting pelvocaliectasis of the collecting system. 4. 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 Chest CT 10/08/17 06:55 CONCLUSION: 1. Volume loss in the left hemithorax with dense consolidation of the left lower lobe and associated small left-sided effusion. Air bronchograms are present and this may represent compressive atelectasis or infiltrate. 2. Minimal subpleural atelectasis in the medial aspect of the right. 3. Compensated cardiomegaly with findings of prior CABG. Dense calcification of the mitral valve annulus. <Perez Wood - Last Filed: 10/08/17 19:30> Assessment and Plan (1) Anemia Status: Acute Code(s): D64.9 - Anemia, unspecified (2) History of GI bleed Status: Acute Code(s): Z87.19 - Personal history of other diseases of the digestive system (3) History of pulmonary embolism Status: Acute Code(s): Z86.711 - Personal history of pulmonary embolism (4) Anticoagulated Status: Acute Code(s): Z79.01 - truck terminal manager (current) use of anticoagulants - Plan Assessment: - Anemia with history of GIB, last GIB noted in June of this year, seen by our service at [facility], procedures as noted below. Pt recently with PE, DCd on Eliquis in August, sent back to [facility] with severe anemia on September 15, hgb of 3.7 underwent repeat EGD. Advised to have capsule endoscopy, however has not followed up in the office. Hgb last checked on 10/01 was 7.9. Pt denies any source of obvious GIB. Denies nausea, vomiting, abdominal pain. EGD and colonoscopy (June 2017) --> some friability and a bit of prominence at the distal esophagus, somewhat irregular duodenal mucosa with denuded patches of unclear significance. The initial colonoscopy noted limited visualization due to blood clots so a few days later a repeat procedure was done which revealed reddish dark fluid in the right colon but no signs of active bleeding, 2 areas that looked like lipoma but no ulcerations, polyp in the ascending colon, few polyps in the rectosigmoid area, internal hemorrhoids. Pathology revealed hyperplastic polyp and and tubular adenoma. EGD was done September 20 --> Two superficial esophageal ulcers with no bleeding and no stigmata of recent bleeding , middle third and lower third of the esophagus were mildly tortuous, otherwise normal exam. Pathology (distal esophagus ulcer) mucosa with ulceration, granulation tissues, acute inflammation and findings suggestive of pill induced esophagitis, rare yeast organisms morphologically consistent with Bailey, and detached fragments of acute fibrinopurulent exudate. - SOB- admitted to [facility]- hypercapnic respiratory insufficiency - Elevated lactic acid Plan: EGD and colonoscopy tomorrow Obtain consent Clear liquids today Golytely prep NPO after MN Monitor H/H Transfuse as needed Notify GI if pt become unstable for procedures, will cancel prep and reschedule At this time pt is on 4 L O2 with good O2 sats and heart rate is sinus at 107 Further recommendations based on clinical course and results of above Pt has been seen and examined by myself and Dr. Wood and this note is written on his behalf <Ly Cardenas - Last Filed: 10/08/17 09:34> (1) Anemia Status: Acute Code(s): D64.9 - Anemia, unspecified (2) History of GI bleed Status: Acute Code(s): Z87.19 - Personal history of other diseases of the digestive system (3) History of pulmonary embolism Status: Acute Code(s): Z86.711 - Personal history of pulmonary embolism (4) Anticoagulated Status: Acute Code(s): Z79.01 - truck terminal manager (current) use of anticoagulants - Attending Attestation Patient was seen and examined Agree with above Continue with current supportive care Monitor labs Plan for an EGD with colonoscopy tomorrow <Perez Wood - Last Filed: 10/08/17 19:30>
[2017-10-08 10:16] LABS: INR 1.2 Ratio; Prothrombin Time 12.3 sec (9.8-11.6)
--- NOTE | 2017-10-08 11:01 | US ---
EXAM DATE: 10/08/2017 10:53 AM EDT AGE/SEX: 62 years / Female INDICATIONS: Lower extremity edema. CLINICAL DATA: This is the patient's initial encounter. Patient reports that signs and symptoms have been present for 3 days and indicates a pain score of 7/10. MEDICAL/SURGICAL HISTORY: Chronic obstructive pulmonary disease. Diabetes. Pneumonia. . COMPARISON: No prior exams available for comparison. TECHNIQUE: Venous ultrasound of both lower extremities was performed from the inguinal ligament to t he proximal calf. Real-time, color Doppler and spectral tracing, compression and augmentation techni ques were used. FINDINGS: Right Leg: Normal compression of the deep venous system from the inguinal region to the proximal ruperto f. No echogenic clot is seen. Normal response of the venous system to augmentation and respiration. Left Leg: Normal compression of the deep venous system from the inguinal region to the proximal calf . No echogenic clot is seen. Normal response of the venous system to augmentation and respiration. Other: None. CONCLUSION: No DVT is identified within either lower extremity. Electronically signed by: Chon Wilhelm MD 10/08/2017 11:00 AM EDT
[2017-10-08] MEDS: Insulin NovoLIN Regular Correctional Sugar Inj SQ SCH (15:19)
[2017-10-08] MEDS: Senna/Docusate Sodium 8.6/50 MG Tablet PO SCH ×2 (15:37→20:59)
[2017-10-08] MEDS ORDERED: PEG 3350/E-Lyte Soln 4000 ML Bottle PO ONE (16:00)
[2017-10-08 20:50] LABS: Hemoglobin 7.1 gm/dL (11.6-15.3); Mean Corpuscular Hemoglobin 27.6 pg (27.0-34.0); Mean Corpuscular Volume 86.4 fL (80.0-100.0); Mean Platelet Volume 9.5 fL (7.0-11.0); Platelet Count 156 th/mm3 (150-450); Red Blood Count 2.55 mil/mm3 (4.00-5.30); White Blood Count 10.5 th/mm3 (4.0-11.0)
[2017-10-08 21:30] LABS: Alanine Aminotransferase 15 U/L (10-53); Albumin 2.4 g/dL (3.4-5.0); Alkaline Phosphatase 43 U/L (45-117); Anion Gap 10 meq/L (5-15); Aspartate Aminotransferase 34 U/L (15-37); Blood Urea Nitrogen 40 mg/dL (7-18); Calcium 9.1 mg/dL (8.5-10.1); Carbon Dioxide 34.6 meq/L (21.0-32.0); Chloride 102 meq/L (98-107); Glomerular Filtration Rate 60 mL/min (>89); Glucose,Random 154 mg/dL (74-106); Potassium 3.9 meq/L (3.5-5.1); Sodium 147 meq/L (136-145); Total Protein 5.1 g/dL (6.4-8.2)
[2017-10-09 02:15] LABS: Baso % (Auto) 0.1 % (0.0-2.0); Eos % (Auto) 0.5 % (0.0-4.0); Hematocrit 23.2 % (35.0-46.0); Hemoglobin 7.4 gm/dL (11.6-15.3); Lymph # (Auto) 0.6 th/mm3 (1.0-4.8); Lymph % (Auto) 6.7 % (9.0-44.0); Mean Corpuscular HGB Conc 31.9 % (32.0-36.0); Mean Corpuscular Volume 87.7 fL (80.0-100.0); Mean Platelet Volume 9.1 fL (7.0-11.0); Mono # (Auto) 0.4 th/mm3 (0.0-0.9); Mono % (Auto) 4.6 % (0.0-8.0); Neut # (Auto) 8.5 th/mm3 (1.8-7.7); Neut % (Auto) 88.1 % (16.0-70.0); Platelet Count 154 th/mm3 (150-450); Red Blood Count 2.64 mil/mm3 (4.00-5.30); Red Cell Distribution Width 18.5 % (11.6-17.2); White Blood Count 9.6 th/mm3 (4.0-11.0)
[2017-10-09 02:54] LABS: Alanine Aminotransferase 17 U/L (10-53); Albumin 2.7 g/dL (3.4-5.0); Alkaline Phosphatase 47 U/L (45-117); Anion Gap 10 meq/L (5-15); Aspartate Aminotransferase 41 U/L (15-37); Blood Urea Nitrogen 35 mg/dL (7-18); Calcium 8.2 mg/dL (8.5-10.1); Carbon Dioxide 32.4 meq/L (21.0-32.0); Chloride 103 meq/L (98-107); Glomerular Filtration Rate 63 mL/min (>89); Glucose,Random 155 mg/dL (74-106); Magnesium 1.8 mg/dL (1.5-2.5); Potassium 3.6 meq/L (3.5-5.1); Sodium 145 meq/L (136-145); Total Protein 5.3 g/dL (6.4-8.2)
[2017-10-09] MEDS: Chlorhexidine Gluconate 2% 1 Pack (2 Cloths) TOPICAL SCH (04:00)
[2017-10-09] MEDS ORDERED: Chlorhexidine Gluconate 2% 1 Pack (2 Cloths) TOPICAL PRN (04:00)
[2017-10-09] MEDS: Insulin NovoLIN Regular Correctional Sugar Inj SQ SCH ×5 (06:21→20:19)
[2017-10-09] MEDS: Vancomycin Inj 1,500 MG in Sodium Chlor 0.9% Inj 500 ML IV.SIG SCH (11:29)
[2017-10-09] MEDS: Pantoprazole Inj 40 MG Vial IV.PUSH SCH (11:30)
--- NOTE | 2017-10-09 12:02 | P.PNCC ---
Subjective Subjective Remarks/Hospital Course: The patient is a 62-year-old female, [place], with a past medical history of hypertension, diabetes mellitus, coronary artery disease on Eliquis, who presented to [facility] ED with shortness of breath associated with tachypnea and generalized weakness. On arrival to the ED, she was hypotensive with a systolic blood pressure 80s-90s and tachycardic with heart rate of 102-110. Her laboratory data showed anemia with hemoglobin level 5.0 and mild acute kidney injury with a creatinine of 1.13 and lactic acid of 2.6. The patient was given a total of 1 liter of normal saline and is scheduled to receive 2 units of red blood cells. When seen, her current blood pressure is 145/74. ABG was performed on 4 liter oxygen, which showed a pH of 7.44, CO2 58, PaO2 88 , bicarbonate of 38, saturation 95 percent. The patient agnieszka poor historian. She underwent CT chest, abdomen and pelvis. Her CT scan of the chest showed dense consolidation of the left lower lobe with air bronchograms and CT abdomen and pelvis showed a 3.8 cm infrarenal abdominal aortic aneurysm. Subjective 10/09: Patient complaining of shortness of breath. Received blood products and colon prep overnight. Will give 1 dose of Bumex IV 1 now. Creatinine within normal limits. Patient is on furosemide at home 20 mg daily which is currently on hold. Plan for EGD/colonoscopy today Objective Vital Signs / I&O: Vital Signs 10/08/17 12:58 10/08/17 15:12 10/08/17 15:14 Temperature 98.2 F Pulse Rate 101 H 102 H 102 H Respiratory Rate 18 18 18 Blood Pressure 106/54 L 134/64 134/64 Pulse Oximetry 100 100 10/08/17 16:00 10/08/17 16:26 10/08/17 18:30 Temperature 97.8 F 97.5 F L Pulse Rate 101 H 103 H 97 H Respiratory Rate 21 25 H 19 Blood Pressure 119/55 L 116/58 L 120/57 L Pulse Oximetry 100 100 10/08/17 18:45 10/08/17 19:00 10/08/17 19:15 Temperature Pulse Rate 96 H 96 H 96 H Respiratory Rate 20 30 H 17 Blood Pressure 114/59 L 105/55 L 106/56 L Pulse Oximetry 100 100 100 10/08/17 19:30 10/08/17 19:45 10/08/17 20:00 Temperature Pulse Rate 97 H 98 H 102 H Respiratory Rate 36 H 32 H 44 H Blood Pressure 110/55 L 110/63 110/62 Pulse Oximetry 100 100 100 10/08/17 20:15 10/08/17 20:30 10/08/17 20:45 Temperature Pulse Rate 101 H 103 H 102 H Respiratory Rate 34 H 31 H 23 Blood Pressure 107/56 L 119/60 115/57 L Pulse Oximetry 100 100 100 10/08/17 21:00 10/08/17 22:00 10/08/17 23:00 Temperature 97.9 F Pulse Rate 103 H 98 H 98 H Respiratory Rate 28 H 24 24 Blood Pressure 117/59 L 120/58 L 128/63 Pulse Oximetry 99 98 100 10/09/17 00:00 10/09/17 01:00 10/09/17 01:15 Temperature 98.0 F Pulse Rate 101 H 108 H 104 H Respiratory Rate 25 H 48 H 22 Blood Pressure 144/69 H 164/77 H 152/76 H Pulse Oximetry 97 92 L 96 10/09/17 01:30 10/09/17 01:45 10/09/17 02:00 Temperature Pulse Rate 103 H 102 H 104 H Respiratory Rate 25 H 24 23 Blood Pressure 145/69 H 128/64 128/64 Pulse Oximetry 97 99 100 10/09/17 02:15 10/09/17 02:30 10/09/17 02:45 Temperature Pulse Rate 101 H 96 H 96 H Respiratory Rate 23 43 H 42 H Blood Pressure 137/67 134/74 129/68 Pulse Oximetry 100 100 100 10/09/17 03:00 10/09/17 03:15 10/09/17 03:30 Temperature Pulse Rate 95 H 99 H 103 H Respiratory Rate 23 42 H 24 Blood Pressure 132/70 132/70 130/72 Pulse Oximetry 100 95 100 10/09/17 03:45 10/09/17 04:00 10/09/17 04:15 Temperature Pulse Rate 101 H 101 H 100 H Respiratory Rate 42 H 22 21 Blood Pressure 126/63 146/68 H 124/92 H Pulse Oximetry 100 100 100 10/09/17 04:30 10/09/17 04:45 10/09/17 05:00 Temperature 98.1 F Pulse Rate 104 H 102 H 100 H Respiratory Rate 23 23 22 Blood Pressure 130/91 H 138/78 145/72 H Pulse Oximetry 100 100 100 10/09/17 05:15 10/09/17 05:31 10/09/17 05:45 Temperature Pulse Rate 100 H 105 H 110 H Respiratory Rate 23 53 H 30 H Blood Pressure 146/72 H 137/77 137/57 L Pulse Oximetry 100 100 92 L 10/09/17 06:00 10/09/17 06:15 10/09/17 06:30 Temperature Pulse Rate 116 H 118 H 114 H Respiratory Rate 35 H 31 H 27 H Blood Pressure 147/67 H 146/65 H 142/63 H Pulse Oximetry 89 L 94 L 94 L 10/09/17 06:45 10/09/17 07:00 10/09/17 07:15 Temperature 98.1 F Pulse Rate 113 H 111 H 111 H Respiratory Rate 22 24 23 Blood Pressure 136/61 138/66 137/64 Pulse Oximetry 95 95 95 10/09/17 07:30 10/09/17 07:45 10/09/17 09:08 Temperature Pulse Rate 114 H 110 H Respiratory Rate 21 22 Blood Pressure 137/63 140/67 Pulse Oximetry 95 96 97 Intake & Output 10/08/17 10/09/17 10/09/17 18:59 06:59 18:59 Intake Total 1400 / 1400 6100 / 6100 Output Total 5150 / 5150 Balance 1400 / 1400 950 / 950 Weight 122 kg Intake: IV 1200 / 1200 1/2 Normal Saline Inj 1,000 ML 1000 / 1000 @ 84 mls/hr IV.CONT .[id number] DEBORAH Rx#:[id number] Azactam Inj 1,000 MG In NS Inj 200 / 200 100 ML @ 200 mls/hr IV.SIG Q8H DEBORAH Rx#:[id number] Oral 4000 / 4000 Other 100 / 100 Rbc As-3 Leukoreduced Unit 100 / 100 [id number] Intake (Blood Product) Amt 400 / 400 Rbc As-3 Leukoreduced Unit 400 / 400 [id number] Rbc As-3 Leukoreduced Unit 0 / 0 [id number] SureTrans Amount 900 / 900 900 / 900 Output: Stool 4550 / 4550 Urine Amount (Catheter) 600 / 600 Indwelling Urethral Catheter 600 / 600 Other: Date of Last Bowel Movement 10/09/17 Result Diagrams: 10/09/17 02:07 10/09/17 02:07 Other Results: Microbiology 10/08/17 05:10 Blood - Peripheral Aerobic Blood Culture - Preliminary No growth in 1 day 10/08/17 05:10 Blood - Peripheral Anaerobic Blood Culture - Preliminary No growth in 1 day 10/08/17 05:00 Blood - Peripheral Aerobic Blood Culture - Preliminary No growth in 1 day 10/08/17 05:00 Blood - Peripheral Anaerobic Blood Culture - Preliminary gram positive cocci Imaging: Venous Doppler Study 10/08/17 00:00 CONCLUSION: No DVT is identified within either lower extremity. Chest X-Ray 10/08/17 05:06 CONCLUSION: Abdomen/Pelvis CT 10/08/17 06:55 CONCLUSION: 1. Dense consolidation with air bronchograms in the left lung base with an associated small effusion. Minimal atelectatic changes medially in the right base. 2. 3.8 cm infrarenal abdominal aortic aneurysm. 3. 3 to 4 mm ureteric stone proximally on the right with resulting pelvocaliectasis of the collecting system. 4. 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 Chest CT 10/08/17 06:55 CONCLUSION: 1. Volume loss in the left hemithorax with dense consolidation of the left lower lobe and associated small left-sided effusion. Air bronchograms are present and this may represent compressive atelectasis or infiltrate. 2. Minimal subpleural atelectasis in the medial aspect of the right. 3. Compensated cardiomegaly with findings of prior CABG. Dense calcification of the mitral valve annulus. Objective Remarks: GENERAL: 62-year-old female currently on nasal cannula in mild respiratory distress. SKIN: Warm and dry. Open nondraining ulcerations from prior EVH right lower extremity x 2 with some erythema HEAD: Atraumatic. Normocephalic. EYES: Pupils equal and round about 3 mm bilaterally reactive. No scleral icterus. No injection or drainage. ENT: No nasal bleeding or discharge. Mucous membranes pink and moist. NECK: Trachea midline. No JVD. CARDIOVASCULAR: Tachycardic, RR. S1, S2. No S4. No murmur RESPIRATORY: No accessory muscle use. Clear to auscultation. Breath sounds equal bilaterally. GASTROINTESTINAL: Abdomen soft, non-tender, nondistended. Hepatic and splenic margins not palpable. MUSCULOSKELETAL: Extremities with 1+ bilateral lower extremity edema. NEUROLOGICAL: Awake and alert. No obvious cranial nerve deficits. Motor grossly within normal limits. Five out of 5 muscle strength in the arms and legs. Normal speech. Assessment and Plan - Assessment and Plan Plan: Neuro/Psych: Ofirmev 1 g IV every 8 hours as needed fever CV: Essential hypertension Hyperlipidemia 3.8 cm infrarenal abdominal aortic aneurysm Coronary artery disease/CABG June 2017 at [facility] 2D echocardiogram ordered Holding metoprolol tartrate 25 mg twice daily N.p.o. status. Start on IV metoprolol 2.5 mg IV every 6 hours On rosuvastatin 40 mg daily at home for dyslipidemia. Resume clinically indicated Resp: Acute respiratory insufficiency History of COPD CT thorax 10/08 revealed air bronchograms in the left lower lobe. Small left pleural effusion. Nasal cannula to maintain saturations greater than or equal to 92% Incentive spirometry while awake Albuterol/ipratropium aerosols every 4 hours with albuterol aerosols every 2 hours as needed for dyspnea Acapella/PEP every 4 hours Chest x-ray in a.m. 10/10. She appears volume overloaded at the present time. Will give bumetanide 1 mg IV 1 now.. She is chronically on furosemide 20 mg daily GI: Elevated AST Moderate protein calorie malnutrition/hypoalbuminemia History of colonic polyps questionable N.p.o. status Plan for EGD/colonoscopy to GI Patient had a recent panendoscopy 7 days ago for hospital which verbal report revealed polyps. Her stool is currently black. Pantoprazole 8 mg an hour Docusate sodium/senna 1 tablet twice daily for bowel regimen : Ureteral stone Maintain Sweet catheter today. [place]wick tomorrow if hemoglobin is stable/wound stable Endo: Diabetes mellitus Acute hyperglycemia On insulin U100 lispro unknown dose at home on insulin glargine 10 units 3 times daily Sliding scale insulin with aspart/every 6 hours medium regimen. Renal: Creatinine currently within normal limits. Monitor urine output Accurate I's and O's Heme: Acute blood loss anemia/normocytic Transfuse 2 units PRBCs this hospitalization. Recheck hemoglobin 18 hours. Coags within normal limits ID: Gram-positive cocci bacteremia Patient is currently in vancomycin, aztreonam day #2 and metronidazole day #1 for pneumonia/hospital-acquired Pertinent cultures 10/08 -blood cultures 2 -1 out of 2 gram-positive cocci MSK: Elevated BMI Right lower extremity deep tissue injury Weight loss encouraged Wound care evaluate and treat and continue Santyl for now/home medication FEN: Replace electrolytes as clinically indicated ACCESS -utilize peripheral IV. Central line if indicated Prophylax -GI -pantoprazole drip -DVT -SCD/no pharmacological prophylaxis in light of gastro-intestinal bleeding. Level 3 follow-up Code Status: Full code. Palliative care to see for goals of care.
--- NOTE | 2017-10-09 14:37 | P.PNWCN ---
Wound Care Nurse Consult Description: Consult for wound management of right leg per Dr Loera Communicated with: MARIA C Patel Patient Recommendation: Continue Santyl daily with NS moistened gauze to right medial leg wounds. Cover with dry cover. CLEANSE WOUNDS WITH NORMAL SALINE ONLY *Do not use wound cleanser with Santyl ointment* Additional information: Patient seen on [facility] for wound evaluation of right medial lower leg wounds. Wound/Pressure Injury - Patient Status Premedicated for Pain Prior to Dressing Change: No - Wound Right Medial Ankle Wound Assessment: Admission Requested from Provider a Wound Care Consult: Yes (Dr Loera (from previous [facility] Length: 6.7 (cm) Width: 1.6 (cm) Depth: 0.8 (cm) Wound Bed Appearance: Necrotic, [place], Shiny, Yellow Wound Bed Appearance: ~75% pink moist tissue ~25% yellow slough Drainage Amount: None Dressing Status: Changed Cleansing Solution: Saline Primary Dressing: Gauze Pad Cover Dressing: Bordered gauze Wound Dressing Change Date: 10/09/17 Right medial calf Wound Assessment: Admission Requested from Provider a Wound Care Consult: Yes Length: 3.3 (cm) Width: 0.8 (cm) Depth: 1 (cm) Wound Bed Appearance: [place], Shiny, White Drainage Amount: None Dressing Status: Changed Cleansing Solution: Saline Wound Packing Type: Gauze Pads Primary Dressing: Gauze Pad Cover Dressing: bordered gauze Wound Dressing Change Date: 10/09/17
--- NOTE | 2017-10-09 16:14 | ECHRPT ---
Indication: Heart failure, unspecified CONCLUSIONS The left ventricular systolic function is moderately reduced with an estimated ejection fraction in the range of 40-45%. Wall thickness is measured at the upper limits of normal. Normal left ventricular size. BP: / HR: 100 Rhythm: Sinus MEASUREMENTS (Male / Female) Normal Values Technical Quality:Fair 2D ECHO LV Diastolic Diameter PLAX 5.1 cm 4.2 - 5.9 / 3.9 - 5.3 cm LV Systolic Diameter PLAX 4.2 cm IVS Diastolic Thickness 1.1 cm 0.6 - 1.0 / 0.6 - 0.9 cm LVPW Diastolic Thickness 1.1 cm 0.6 - 1.0 / 0.6 - 0.9 cm LV Relative Wall Thickness 0.4 FINDINGS LEFT VENTRICLE The left ventricular systolic function is moderately reduced with an estimated ejection fraction in the range of 40-45%. Wall thickness is measured at the upper limits of normal. Normal left ventricular size. RIGHT VENTRICLE Normal right ventricular size and systolic function. LEFT ATRIUM The left atrial size is normal. RIGHT ATRIUM The right atrial size is normal. ATRIAL SEPTUM Normal atrial septal thickness without atrial level shunting by limited color doppler interrogation. AORTA The aortic root and proximal ascending aorta are normal in size on limited imaging. MITRAL VALVE Structurally normal mitral valve. No mitral valve stenosis or regurgitation. AORTIC VALVE Trileaflet aortic valve. No aortic valve stenosis or regurgitation. TRICUSPID VALVE Structurally normal tricuspid valve. No tricuspid valve stenosis or regurgitation. PULMONARY VALVE The pulmonary valve is not well visualized. VESSELS The inferior vena cava is normal in size. PERICARDIUM No pericardial effusion. Gregory Villaseñor MD, FACC, [facility] (Electronically Signed) Final Date:09 October 2017 16:13
--- NOTE | 2017-10-09 18:26 | XR ---
EXAM DATE: 10/09/2017 6:16 PM EDT AGE/SEX: 62 years / Female INDICATIONS: . Shortness of breath. CLINICAL DATA: This is the patient's subsequent encounter. Patient reports that signs and symptoms h ave been present for 3 days and indicates a pain score of 0/10. MEDICAL/SURGICAL HISTORY: . Chronic obstructive pulmonary disease. Diabetes. Pneumonia. CABG. COMPARISON: [facility] [place]ST 1V SINGLE AP, 10/08/2017. . FINDINGS: There is severe cardiomegaly, stable from prior. Persistent consolidation in the left lower lung and increasing airspace opacities in the right lower lung. There is also an increasing size lateral opaci ty in the left mid chest measuring 3.8 cm in width, suggestive of lateral pleural effusion. There is complete loss of delineation of both hemidiaphragms. CONCLUSION: Increasing bilateral consolidation and increasing left pleural effusion. Electronically signed by: Deangelo Vivar MD 10/09/2017 6:25 PM EDT
--- NOTE | 2017-10-09 18:29 | P.PNGI ---
Subjective Interval history: Patient laying in bed with labored breathing barely able to talk Physical Exam Vital signs: Vital Signs 10/08/17 18:30 10/08/17 18:45 10/08/17 19:00 Temperature Pulse Rate 97 H 96 H 96 H Respiratory Rate 19 20 30 H Blood Pressure 120/57 L 114/59 L 105/55 L Pulse Oximetry 100 100 100 10/08/17 19:15 10/08/17 19:30 10/08/17 19:45 Temperature Pulse Rate 96 H 97 H 98 H Respiratory Rate 17 36 H 32 H Blood Pressure 106/56 L 110/55 L 110/63 Pulse Oximetry 100 100 100 10/08/17 20:00 10/08/17 20:15 10/08/17 20:30 Temperature Pulse Rate 102 H 101 H 103 H Respiratory Rate 44 H 34 H 31 H Blood Pressure 110/62 107/56 L 119/60 Pulse Oximetry 100 100 100 10/08/17 20:45 10/08/17 21:00 10/08/17 22:00 Temperature 97.9 F Pulse Rate 102 H 103 H 98 H Respiratory Rate 23 28 H 24 Blood Pressure 115/57 L 117/59 L 120/58 L Pulse Oximetry 100 99 98 10/08/17 23:00 10/09/17 00:00 10/09/17 01:00 Temperature 98.0 F Pulse Rate 98 H 101 H 108 H Respiratory Rate 24 25 H 48 H Blood Pressure 128/63 144/69 H 164/77 H Pulse Oximetry 100 97 92 L 10/09/17 01:15 10/09/17 01:30 10/09/17 01:45 Temperature Pulse Rate 104 H 103 H 102 H Respiratory Rate 22 25 H 24 Blood Pressure 152/76 H 145/69 H 128/64 Pulse Oximetry 96 97 99 10/09/17 02:00 10/09/17 02:15 10/09/17 02:30 Temperature Pulse Rate 104 H 101 H 96 H Respiratory Rate 23 23 43 H Blood Pressure 128/64 137/67 134/74 Pulse Oximetry 100 100 100 10/09/17 02:45 10/09/17 03:00 10/09/17 03:15 Temperature Pulse Rate 96 H 95 H 99 H Respiratory Rate 42 H 23 42 H Blood Pressure 129/68 132/70 132/70 Pulse Oximetry 100 100 95 10/09/17 03:30 10/09/17 03:45 10/09/17 04:00 Temperature Pulse Rate 103 H 101 H 101 H Respiratory Rate 24 42 H 22 Blood Pressure 130/72 126/63 146/68 H Pulse Oximetry 100 100 100 10/09/17 04:15 10/09/17 04:30 10/09/17 04:45 Temperature Pulse Rate 100 H 104 H 102 H Respiratory Rate 21 23 23 Blood Pressure 124/92 H 130/91 H 138/78 Pulse Oximetry 100 100 100 10/09/17 05:00 10/09/17 05:15 10/09/17 05:31 Temperature 98.1 F Pulse Rate 100 H 100 H 105 H Respiratory Rate 22 23 53 H Blood Pressure 145/72 H 146/72 H 137/77 Pulse Oximetry 100 100 100 10/09/17 05:45 10/09/17 06:00 10/09/17 06:15 Temperature Pulse Rate 110 H 116 H 118 H Respiratory Rate 30 H 35 H 31 H Blood Pressure 137/57 L 147/67 H 146/65 H Pulse Oximetry 92 L 89 L 94 L 10/09/17 06:30 10/09/17 06:45 10/09/17 07:00 Temperature 98.1 F Pulse Rate 114 H 113 H 111 H Respiratory Rate 27 H 22 24 Blood Pressure 142/63 H 136/61 138/66 Pulse Oximetry 94 L 95 95 10/09/17 07:15 10/09/17 07:30 10/09/17 07:45 Temperature Pulse Rate 111 H 114 H 110 H Respiratory Rate 23 21 22 Blood Pressure 137/64 137/63 140/67 Pulse Oximetry 95 95 96 10/09/17 08:00 10/09/17 09:08 Temperature Pulse Rate 111 H Respiratory Rate Blood Pressure Pulse Oximetry 97 Intake & Output 10/08/17 10/09/17 10/09/17 18:59 06:59 18:59 Intake Total 1400 / 1400 6100 / 6100 Output Total 5150 / 5150 Balance 1400 / 1400 950 / 950 Weight 122 kg Intake: IV 1200 / 1200 1/2 Normal Saline Inj 1,000 ML 1000 / 1000 @ 84 mls/hr IV.CONT .[id number] DEBROAH Rx#:[id number] Azactam Inj 1,000 MG In NS Inj 200 / 200 100 ML @ 200 mls/hr IV.SIG Q8H DEBORAH Rx#:[id number] Oral 4000 / 4000 Other 100 / 100 Rbc As-3 Leukoreduced Unit 100 / 100 [id number] Intake (Blood Product) Amt 400 / 400 Rbc As-3 Leukoreduced Unit 400 / 400 [id number] Rbc As-3 Leukoreduced Unit 0 / 0 [id number] [employer] Amount 900 / 900 900 / 900 Output: Stool 4550 / 4550 Urine Amount (Catheter) 600 / 600 Indwelling Urethral Catheter 600 / 600 Other: Date of Last Bowel Movement 10/09/17 10/09/17 - Constitutional severe distress, morbidly obese, somnolent - Routine Neck Exam Present: supple - Routine Respiratory Exam Present: decreased breath sounds - Routine Cardiovascular Exam Present: tachycardia - Routine Abdominal Exam Present: soft, normoactive bowel sounds - Routine Extremities Exam Present: edema - Urinary Catheter Management Indwelling Urethral Catheter Cath placed during this visit: yes Reason for continuing: Hourly intake/output Insertion date: 10/08/17 Results - Labs CBC & Chem 7: 10/09/17 02:07 10/09/17 02:07 Laboratory Results - last 24 hr 10/08/17 10/08/17 10/08/17 16:10 20:30 20:30 WBC 10.5 RBC 2.55 L Hgb 7.1 L D Hct 22.0 L MCV 86.4 MCH 27.6 MCHC 32.0 RDW 18.0 H Plt Count 156 MPV 9.5 Neut % (Auto) Lymph % (Auto) [place] % (Auto) Eos % (Auto) Baso % (Auto) Neut # (Auto) Lymph # (Auto) [place] # (Auto) Eos # (Auto) Baso # (Auto) WBC Differential Differential Comment Sodium Potassium Chloride Carbon Dioxide Anion Gap BUN Creatinine Estimated GFR POC Glucose Random Glucose Lactic Acid 1.1 Calcium Phosphorus Magnesium Total Bilirubin AST ALT Alkaline Phosphatase Total Protein Albumin Nasal Screen MRSA (PCR) Not detected 10/08/17 10/09/17 10/09/17 20:30 00:01 02:07 WBC 9.6 RBC 2.64 L Hgb 7.4 L Hct 23.2 L MCV 87.7 MCH 28.0 MCHC 31.9 L RDW 18.5 H Plt Count 154 MPV 9.1 Neut % (Auto) 88.1 H Lymph % (Auto) 6.7 L [place] % (Auto) 4.6 Eos % (Auto) 0.5 Baso % (Auto) 0.1 Neut # (Auto) 8.5 H Lymph # (Auto) 0.6 L [place] # (Auto) 0.4 Eos # (Auto) 0.0 Baso # (Auto) 0.0 WBC Differential . Differential Comment Auto diff final Sodium 147 H Potassium 3.9 Chloride 102 Carbon Dioxide 34.6 H Anion Gap 10 BUN 40 H Creatinine 0.94 Estimated GFR 60 L POC Glucose 185 H Random Glucose 154 H Lactic Acid Calcium 9.1 Phosphorus Magnesium Total Bilirubin 0.8 AST 34 ALT 15 Alkaline Phosphatase 43 L Total Protein 5.1 L Albumin 2.4 L Nasal Screen MRSA (PCR) 10/09/17 10/09/17 10/09/17 02:07 06:14 13:29 WBC RBC Hgb Hct MCV MCH MCHC RDW Plt Count MPV Neut % (Auto) Lymph % (Auto) [place] % (Auto) Eos % (Auto) Baso % (Auto) Neut # (Auto) Lymph # (Auto) [place] # (Auto) Eos # (Auto) Baso # (Auto) WBC Differential Differential Comment Sodium 145 Potassium 3.6 Chloride 103 Carbon Dioxide 32.4 H Anion Gap 10 BUN 35 H Creatinine 0.90 Estimated GFR 63 L POC Glucose 186 H 170 H Random Glucose 155 H Lactic Acid Calcium 8.2 L D Phosphorus 4.0 Magnesium 1.8 Total Bilirubin 0.6 AST 41 H ALT 17 Alkaline Phosphatase 47 Total Protein 5.3 L Albumin 2.7 L Nasal Screen MRSA (PCR) 10/09/17 14:14 WBC RBC Hgb Hct MCV MCH MCHC RDW Plt Count MPV Neut % (Auto) Lymph % (Auto) [place] % (Auto) Eos % (Auto) Baso % (Auto) Neut # (Auto) Lymph # (Auto) [place] # (Auto) Eos # (Auto) Baso # (Auto) WBC Differential Differential Comment Sodium Potassium Chloride Carbon Dioxide Anion Gap BUN Creatinine Estimated GFR POC Glucose 163 H Random Glucose Lactic Acid Calcium Phosphorus Magnesium Total Bilirubin AST ALT Alkaline Phosphatase Total Protein Albumin Nasal Screen MRSA (PCR) Microbiology 10/08/17 05:10 Blood - Peripheral Aerobic Blood Culture - Preliminary No growth in 1 day 10/08/17 05:10 Blood - Peripheral Anaerobic Blood Culture - Preliminary gram positive cocci 10/08/17 05:00 Blood - Peripheral Aerobic Blood Culture - Preliminary No growth in 1 day 10/08/17 05:00 Blood - Peripheral Anaerobic Blood Culture - Preliminary Staphylococcus epidermidis Assessment and Plan (1) Anemia Status: Acute Code(s): D64.9 - Anemia, unspecified (2) History of GI bleed Status: Acute Code(s): Z87.19 - Personal history of other diseases of the digestive system (3) History of pulmonary embolism Status: Acute Code(s): Z86.711 - Personal history of pulmonary embolism (4) Anticoagulated Status: Acute Code(s): Z79.01 - FPC (current) use of anticoagulants - Plan Patient unstable for endoscopy today with no evidence of any active or acute GI bleed the hemoglobin is stable and the fecal output in the rectal bag does not reveal any blood or any melena in fact it is just dark greenish material We will continue to follow and monitor Continue with present supportive care Further recommendations she will depend on her hospital course
[2017-10-09] MEDS: Senna/Docusate Sodium 8.6/50 MG Tablet PO SCH ×2 (18:44→21:20)
[2017-10-09] MEDS ORDERED: Chlorothiazide Inj 500 MG Vial IV.PUSH ONE (18:45)
[2017-10-09] MEDS: Nystatin 100,000 UNITS/GM Powder 15 GM Bottle TOPICAL SCH ×3 (18:46→21:23)
[2017-10-09] MEDS: Baclofen 10 MG Tablet PO SCH ×2 (18:46→20:17)
--- NOTE | 2017-10-09 19:25 | P.CONPAL ---
Consult Service: Palliative Care . Requesting Physician: Rolf Loera Reason for Consult: a. To assist with evaluation and management of symptoms including: pain; dyspnea b. To assist medical decision maker(s) with: better understanding of current medical conditions; weighing benefits/burdens of medical treatment options; making medical treatment decisions. . Primary Care Provider: alexander davis History of Present Illness History of Present Illness: Ms. Tolentino is a 62-year-old female with a known history of COPD; coronary artery disease (status post CABG); diabetes mellitus; hyperlipidemia; gastrointestinal bleeding; pulmonary embolus; uterine cancer; hypertension; and pneumonia who was sent to the emergency department from her nursing facility on 10/08/17 due to dyspnea, tachypnea, and generalized weakness. She denied nausea, vomiting, abdominal pain, hematochezia, or melena. She denies shortness of breath or chest pain. The patient was diagnosed with a pulmonary embolus in August, and was discharged from [facility] on 09/06/17 on Eliquis. She presented back to the hospital on 09/15/17 with weakness and a hemoglobin of 3.7. The patient had a history of prior gastrointestinal bleeding. Endoscopy in June, revealed some friability of the distal esophagus; irregular duodenal mucosa with denuded patches; and 2 areas of lipomas without ulcerations in the colon; polyp in the ascending colon, few polyps in the rectosigmoid area; and internal hemorrhoids. Pathology on the polyps include both hyperplastic polyps and tubular adenoma. Follow-up capsule endoscopy was recommended at that time but did not get done. When the patient presented in August with a low hemoglobin, EGD was repeated on 09/20/17. At this time to superficial esophageal ulcers with no bleeding were seen. Vital signs on presentation to the emergency department on 10/08/17 showed: Temperature 98.5; initial systolic blood pressure was in the 80s-90s. Initial heart rate was in the 102-110 range. Initial physical examination by the emergency specialty department supervisor noted the following: Patient was pale and diaphoretic. Stool was guaiac positive brown. Weak musculature noted. Exam was otherwise unremarkable. Initial diagnostic testing revealed the following: * CBC showed WBC 11.1; hemoglobin 5.0; platelet count 178 * Arterial blood gas on O2 at 4 L a minute showed pH 7.44; CO2 58; PO2 88; bicarbonate 38; * Chemistry profile showed sodium 147; potassium 4.4; chloride 102; CO2 36.7; anion gap 8; BUN 43; creatinine 1.13; GFR 48; glucose 143; lactic acid 2.6; calcium 2.1 * Liver function studies showed total bilirubin 0.5; AST 13; ALT 16; alkaline phosphatase 45; total protein 5.3; albumin 2.7 * CT of the abdomen/pelvis showed dense consolidation with air bronchograms in the left lung base with associated small effusion. There was also a 3.8 cm infrarenal abdominal aortic aneurysm. A 3-4 mm ureteric stone. 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 * Chest x-ray showed cardiomegaly. Diffuse bilateral mostly basilar airspace disease. Probable small effusions. * Venous Doppler studies showed no evidence of DVT in either lower extremity. Critical care was consulted. The patient was given a liter of normal saline in the ER and 2 units of red blood cells were ordered. She was admitted to the critical care unit. The patient received a colon prep overnight to ready her for gastrointestinal endoscopy. She also received blood products. She has been complaining of shortness of breath and tachypnea today. Bumex has been given. Endoscopy had to be postponed due to the shortness of breath. At time of my visit patient is quite breathless and really unable to participate in conversation. I have attempted to contact her spouse to get more historical information. There was no answer via telephone. . Function/Cognitive Trajectory: Unable to obtain this information from the patient today due to her breathlessness. No family present or available by phone. . [facility] - History History Provided By: Patient, Medical Record - Medical History Medical History: Medical History (Last Updated 10/08/17 @ 09:51 by Ly Cardenas) COPD (chronic obstructive pulmonary disease) Coronary artery disease Diabetes H/O: hysterectomy High triglycerides History of GI bleed History of pulmonary embolism History of uterine cancer Hypertension Pneumonia Shortness of breath - Surgical History Surgical History: Surgical History (Last Updated 10/08/17 @ 09:49 by Ly Cardenas) History of colonoscopy History of esophagogastroduodenoscopy (EGD) Hx of CABG - Tobacco History Second Hand Smoke Exposure: No Smoking Status: Former smoker Tobacco Type: Cigarettes - Alcohol History How Often Do You Have a Drink Containing Alcohol: Never - Substance Use History Substance History: No History of Abuse - Immunization History Tetanus Immunization: Unsure Medications and Allergies Active Medications: Active Medications Al Hydroxide/Mg Hydroxide (Milk Of Magnesia Liq) 30 ml PO Q12H PRN PRN Reason: Mild Constipation Albuterol (Duoneb Neb (Dianna)) 1 ampul NEB Q4HR NEB [facility] Last Admin: 10/09/17 15:31 Dose: 1 ampul Albuterol (Albuterol Neb (Prn)) 2.5 mg NEB Q2HR NEB PRN PRN Reason: DYSPNEA Atorvastatin Calcium (Lipitor) 80 mg PO DAILY [facility] Baclofen (Lioresal) 10 mg PO TID [facility] Last Admin: 10/09/17 18:46 Dose: Not Given Bisacodyl (Dulcolax Supp) 10 mg RECTAL DAILY PRN PRN Reason: SEVERE CONSITIPATION Chlorhexidine Gluconate (Chlorhexidine 2% Cloth) 3 pack TOPICAL DAILY@0400 [facility] Stop: 10/14/17 03:59 Last Admin: 10/09/17 04:00 Dose: 3 pack Chlorhexidine Gluconate (Chlorhexidine 2% Cloth) 3 pack TOPICAL DAILY@0400 PRN PRN Reason: Extra cloth needed Stop: 10/14/17 03:59 Collagenase (Santyl Oint) 1 applicatio TOPICAL DAILY [facility] Dextrose (D50w Vial) 50 ml IV.PUSH UNSCH PRN PRN Reason: PER HYPOGLYCEMIA PROTOCOL Glucagon (Glucagon Inj) 1 mg OTHER PRN PRN PRN Reason: for Hypoglycemia Protocol Aztreonam 1,000 mg/ Sodium (Chloride) 100 mls @ 200 mls/hr IV.SIG Q8H [facility] Last Admin: 10/09/17 18:46 Dose: 200 mls/hr Pharmacy Profile Note (Vancomycin Consult Pharmacy) 0 mls @ 0 mls/hr OTHER UNSCH [facility] Vancomycin HCl 1,500 mg/ (Sodium Chloride) 515 mls @ 250 mls/hr IV.SIG Q24H [facility] Last Admin: 10/09/17 11:29 Dose: 250 mls/hr Acetaminophen (Ofirmev Inj) 1,000 mg in 100 mls @ 400 mls/hr IV.SIG Q8H PRN PRN Reason: FEVER Metronidazole/Sodium Chloride (Flagyl 500 Mg Inj) 100 mls @ 100 mls/hr IV.SIG Q6H [facility] Last Admin: 10/09/17 18:46 Dose: Not Given Pantoprazole Sodium 80 mg/ (Sodium Chloride) 100 mls @ 10 mls/hr IV.CONT CONT DIANNA Insulin Human Regular (Novolin R Supplemental Scale) 0 units SQ Q6HR [facility]; Protocol Last Admin: 10/09/17 18:45 Dose: Not Given Lactulose (Lactulose Liq) 30 ml PO DAILY PRN PRN Reason: SEVERE CONSITIPATION Miscellaneous Information ([facility] Ordered Lab Info) 0 each OTHER ONCE ONE Stop: 10/11/17 09:46 Nystatin (Mycostatin Powder) 1 applicatio TOPICAL QID [facility] Last Admin: 10/09/17 18:46 Dose: Not Given Senna/Docusate Sodium (Honey-Colace) 1 tab PO BID [facility] Last Admin: 10/09/17 18:44 Dose: Not Given Sennosides (Senokot) 17.2 mg PO Q12H PRN PRN Reason: Moderate Constipation Allergies Allergy/AdvReac Type Severity Reaction Status Date / Time Penicillins Allergy Severe Anaphylaxis Verified 10/08/17 04:33 Home Medications Medication Instructions Recorded Confirmed Type acetaminophen 650 mg PO Q4-6H PRN 10/08/17 10/08/17 History albuterol sulfate 0.63 mg INHALATION Q4-6H PRN 10/08/17 10/08/17 History allopurinol BID 10/08/17 History apixaban 5 mg PO BID 10/08/17 10/08/17 History aspirin [Aspir-Low] 10/08/17 History baclofen 10 mg PO TID 10/08/17 10/08/17 History collagenase clostridium histo. 1 applic TOPICAL DAILY 10/08/17 10/08/17 History [Santyl] docusate sodium [Colace] 100 mg PO BID 10/08/17 10/08/17 History furosemide DAILY 10/08/17 History hydrocodone-acetaminophen QID PRN 10/08/17 History insulin glargine 10 unit SUB-Q Q8HR 10/08/17 10/08/17 History insulin lispro [Humalog U-100 10/08/17 History Insulin] lansoprazole [Prevacid SoluTab] 30 mg PO BID 10/08/17 10/08/17 History levofloxacin [Levaquin] 500 mg PO DAILY 10/08/17 10/08/17 History magnesium hydroxide [Milk of 30 ml PO DAILY PRN 10/08/17 10/08/17 History Magnesia] metoprolol tartrate 25 mg PO BID 10/08/17 10/08/17 History nitroglycerin [Nitrostat] 0.4 mg SUBLINGUAL Q5-15M PRN 10/08/17 10/08/17 History nystatin 1 applic TOPICAL QID 10/08/17 10/08/17 History rosuvastatin 40 mg PO DAILY 10/08/17 10/08/17 History Advance Directives Living Will: Unknown Documented care wishes: At this time there is no written documentation of patient's healthcare goals or preferences on the chart. . Today's verbally stated goals: Patient is quite breathless and unable to discuss her healthcare goals and preferences at this time. . Family/friends goals: Unable to contact family or friends today to discuss patient's goals/ preferences. . Physical Exam Vital Signs: Vital Signs - 24 hr 10/08/17 19:15 10/08/17 19:30 10/08/17 19:45 Temperature Pulse Rate 96 H 97 H 98 H Respiratory Rate 17 36 H 32 H Blood Pressure 106/56 L 110/55 L 110/63 Pulse Oximetry 100 100 100 10/08/17 20:00 10/08/17 20:15 10/08/17 20:30 Temperature Pulse Rate 102 H 101 H 103 H Respiratory Rate 44 H 34 H 31 H Blood Pressure 110/62 107/56 L 119/60 Pulse Oximetry 100 100 100 10/08/17 20:45 10/08/17 21:00 10/08/17 22:00 Temperature 97.9 F Pulse Rate 102 H 103 H 98 H Respiratory Rate 23 28 H 24 Blood Pressure 115/57 L 117/59 L 120/58 L Pulse Oximetry 100 99 98 10/08/17 23:00 10/09/17 00:00 10/09/17 01:00 Temperature 98.0 F Pulse Rate 98 H 101 H 108 H Respiratory Rate 24 25 H 48 H Blood Pressure 128/63 144/69 H 164/77 H Pulse Oximetry 100 97 92 L 10/09/17 01:15 10/09/17 01:30 10/09/17 01:45 Temperature Pulse Rate 104 H 103 H 102 H Respiratory Rate 22 25 H 24 Blood Pressure 152/76 H 145/69 H 128/64 Pulse Oximetry 96 97 99 10/09/17 02:00 10/09/17 02:15 10/09/17 02:30 Temperature Pulse Rate 104 H 101 H 96 H Respiratory Rate 23 23 43 H Blood Pressure 128/64 137/67 134/74 Pulse Oximetry 100 100 100 10/09/17 02:45 10/09/17 03:00 10/09/17 03:15 Temperature Pulse Rate 96 H 95 H 99 H Respiratory Rate 42 H 23 42 H Blood Pressure 129/68 132/70 132/70 Pulse Oximetry 100 100 95 10/09/17 03:30 10/09/17 03:45 10/09/17 04:00 Temperature Pulse Rate 103 H 101 H 101 H Respiratory Rate 24 42 H 22 Blood Pressure 130/72 126/63 146/68 H Pulse Oximetry 100 100 100 10/09/17 04:15 10/09/17 04:30 10/09/17 04:45 Temperature Pulse Rate 100 H 104 H 102 H Respiratory Rate 21 23 23 Blood Pressure 124/92 H 130/91 H 138/78 Pulse Oximetry 100 100 100 10/09/17 05:00 10/09/17 05:15 10/09/17 05:31 Temperature 98.1 F Pulse Rate 100 H 100 H 105 H Respiratory Rate 22 23 53 H Blood Pressure 145/72 H 146/72 H 137/77 Pulse Oximetry 100 100 100 10/09/17 05:45 10/09/17 06:00 10/09/17 06:15 Temperature Pulse Rate 110 H 116 H 118 H Respiratory Rate 30 H 35 H 31 H Blood Pressure 137/57 L 147/67 H 146/65 H Pulse Oximetry 92 L 89 L 94 L 10/09/17 06:30 10/09/17 06:45 10/09/17 07:00 Temperature 98.1 F Pulse Rate 114 H 113 H 111 H Respiratory Rate 27 H 22 24 Blood Pressure 142/63 H 136/61 138/66 Pulse Oximetry 94 L 95 95 10/09/17 07:15 10/09/17 07:30 10/09/17 07:45 Temperature Pulse Rate 111 H 114 H 110 H Respiratory Rate 23 21 22 Blood Pressure 137/64 137/63 140/67 Pulse Oximetry 95 95 96 10/09/17 08:00 10/09/17 08:30 10/09/17 08:45 Temperature Pulse Rate 111 H 109 H Respiratory Rate 22 Blood Pressure 135/65 135/66 Pulse Oximetry 97 10/09/17 09:00 10/09/17 09:08 10/09/17 09:15 Temperature Pulse Rate 109 H 109 H Respiratory Rate 23 22 Blood Pressure 138/72 137/71 Pulse Oximetry 95 97 95 10/09/17 09:30 10/09/17 09:45 10/09/17 10:00 Temperature Pulse Rate 109 H 107 H 107 H Respiratory Rate 23 23 24 Blood Pressure 137/75 136/72 144/74 H Pulse Oximetry 95 97 97 10/09/17 10:15 10/09/17 10:30 10/09/17 10:45 Temperature Pulse Rate 107 H 105 H 108 H Respiratory Rate 23 23 27 H Blood Pressure 133/66 139/66 144/74 H Pulse Oximetry 100 100 98 10/09/17 11:00 10/09/17 11:16 10/09/17 11:30 Temperature Pulse Rate 106 H 108 H 105 H Respiratory Rate 22 47 H 37 H Blood Pressure 143/73 H 136/86 138/77 Pulse Oximetry 100 97 100 10/09/17 11:45 10/09/17 12:00 10/09/17 12:15 Temperature Pulse Rate 107 H 106 H 108 H Respiratory Rate 38 H 35 H 25 H Blood Pressure 141/81 H 144/83 H 133/79 Pulse Oximetry 99 99 99 10/09/17 12:31 10/09/17 13:00 10/09/17 14:00 Temperature Pulse Rate 110 H 109 H 111 H Respiratory Rate 38 H 32 H 30 H Blood Pressure 155/70 H 138/72 Pulse Oximetry 97 99 95 10/09/17 14:01 10/09/17 15:00 10/09/17 16:00 Temperature Pulse Rate 113 H 113 H 109 H Respiratory Rate 31 H 31 H 27 H Blood Pressure 137/76 139/74 143/69 H Pulse Oximetry 95 93 L 99 10/09/17 16:23 10/09/17 16:42 10/09/17 17:00 Temperature Pulse Rate 117 H 112 H 110 H Respiratory Rate 44 H 28 H 32 H Blood Pressure 134/77 118/64 123/61 Pulse Oximetry 97 99 100 10/09/17 18:00 Temperature Pulse Rate 113 H Respiratory Rate 32 H Blood Pressure 129/61 Pulse Oximetry 100 I&O: Intake & Output 10/07/17 10/08/17 10/09/17 10/10/17 06:59 06:59 06:59 06:59 Intake Total 7500 / 7500 100 / 100 Output Total 5150 / 5150 Balance 2350 / 2350 100 / 100 Weight 133.81 kg 122 kg Physical Exam: CONSTITUTIONAL/GENERAL: This is a pale adequately nourished patient, tachypneic , on nasal cannula O2 in an ICU bed. Appears anxious. TUBES/LINES/DRAINS: Nasal cannula oxygen; peripheral IV; Sweet catheter; fecal collection system. SKIN: No jaundice, rashes. Ecchymoses on upper extremities. No wounds seen anteriorly. Skin temperature appropriate. Not diaphoretic. HEAD: Atraumatic. Normocephalic. EYES: Pupils equal and round and reactive. Extraocular motions intact. No scleral icterus. No injection or drainage. Fundi not examined. ENT: Hearing grossly normal. Nose without bleeding or purulent drainage. Throat without visible erythema, exudates, masses, or lesions. NECK: Trachea midline. Supple, nontender. No palpable thyroid enlargement or nodularity. CARDIOVASCULAR: Tachycardic and regular rhythm without murmurs, gallops, or rubs. No JVD. Peripheral pulses symmetric. RESPIRATORY/CHEST: Symmetric, rapid, slightly labored respirations. Diminished breath sounds on left. No wheezes. GASTROINTESTINAL: Abdomen soft, non-tender, nondistended. No hepato-splenomegaly , or palpable masses. No guarding. Bowel sounds present. GENITOURINARY: Without palpable bladder distension. Sweet catheter in place. MUSCULOSKELETAL: Extremities without clubbing, cyanosis. 1-2+ edema in the lower extremities. No mottling . LYMPHATICS: No palpable cervical or supraclavicular adenopathy. NEUROLOGICAL: Awake and alert. Motor and sensory grossly within normal limits. Follows commands. Cognitively sharp. Moves all extremities. PSYCHIATRIC: Anxious appearing. No apparent hallucinations or other psychotic thought process. . Diagnostic Tests Laboratory: Laboratory Results - last 72 hr 10/08/17 10/08/17 10/08/17 05:10 05:10 05:10 WBC 11.1 H RBC 1.84 L Hgb 5.0 L* Hct 16.4 L* MCV 89.2 MCH 26.9 L MCHC 30.1 L RDW 19.2 H Plt Count 178 MPV 10.2 Prelim Diff (Auto) Slide review pending Neut % (Auto) 85.5 H Lymph % (Auto) 8.4 L Lucas % (Auto) 5.9 Eos % (Auto) 0.1 Baso % (Auto) 0.1 Neut # (Auto) 9.5 H Lymph # (Auto) 0.9 L Lucas # (Auto) 0.6 Eos # (Auto) 0.0 Baso # (Auto) 0.0 WBC Differential Manual diff final Seg Neuts % (Manual) 81 H Band Neuts % (Manual) 2 Lymphocytes % (Manual) 14 Monocytes % (Manual) 3 Abs Neuts (Manual) 9.2 H Nucleated RBCs/100 WBC 3 H Differential Comment . Platelet Estimate Normal Platelet Morphology Normal Polychromasia 4.3 H Basophilic Stippling Faint H Stomatocytes 1+ H Keratocytes Occ H PT INR APTT Puncture Site Patient Temperature O2 Saturation ABG pH ABG pCO2 ABG pO2 ABG HCO3 ABG O2 Content ABG Base Excess ABG Methemoglobin Jeremiah Test Hemoglobin Carboxyhemoglobin O2 Delivery Device Liter Flow Inspired O2 Critical Value Sodium 147 H Potassium 4.4 Chloride 102 Carbon Dioxide 36.7 H Anion Gap 8 BUN 43 H Creatinine 1.13 H Estimated GFR 48 L POC Glucose Random Glucose 143 H Lactic Acid 2.6 H Calcium 9.1 Phosphorus Magnesium Total Bilirubin 0.5 AST 13 L ALT 16 Alkaline Phosphatase 45 Total Protein 5.3 L Albumin 2.7 L Urine Color Urine Clarity Urine pH Ur Specific Romance Urine Protein Urine Glucose (UA) Urine Ketones Urine Occult Blood Urine Nitrate Urine Bilirubin Urine Urobilinogen Ur Leukocyte Esterase Urine RBC Urine WBC Ur Squamous Epith Cells Urine Mucus Micro UA Comment Urine Culture Comments Nasal Screen MRSA (PCR) Blood Type Blood Type Recheck Antibody Screen MTS Gel Crossmatch 10/08/17 10/08/17 10/08/17 05:57 06:17 06:41 WBC RBC Hgb Hct MCV MCH MCHC RDW Plt Count MPV Prelim Diff (Auto) Neut % (Auto) Lymph % (Auto) Lucas % (Auto) Eos % (Auto) Baso % (Auto) Neut # (Auto) Lymph # (Auto) Lucas # (Auto) Eos # (Auto) Baso # (Auto) WBC Differential Seg Neuts % (Manual) Band Neuts % (Manual) Lymphocytes % (Manual) Monocytes % (Manual) Abs Neuts (Manual) Nucleated RBCs/100 WBC Differential Comment Platelet Estimate Platelet Morphology Polychromasia Basophilic Stippling Stomatocytes Keratocytes PT INR APTT Puncture Site Patient Temperature O2 Saturation ABG pH ABG pCO2 ABG pO2 ABG HCO3 ABG O2 Content ABG Base Excess ABG Methemoglobin Jeremiah Test Hemoglobin Carboxyhemoglobin O2 Delivery Device Liter Flow Inspired O2 Critical Value Sodium Potassium Chloride Carbon Dioxide Anion Gap BUN Creatinine Estimated GFR POC Glucose Random Glucose Lactic Acid Calcium Phosphorus Magnesium Total Bilirubin AST ALT Alkaline Phosphatase Total Protein Albumin Urine Color Yellow Urine Clarity Clear Urine pH 5.0 Ur Specific Romance 1.013 Urine Protein Negative Urine Glucose (UA) Negative Urine Ketones Negative Urine Occult Blood Moderate H Urine Nitrate Negative Urine Bilirubin Negative Urine Urobilinogen Less than 2 Ur Leukocyte Esterase Negative Urine RBC 13 H Urine WBC 1 Ur Squamous Epith Cells <1 Urine Mucus Few H Micro UA Comment Cath-culture not ind Urine Culture Comments Cath-cult not ind Nasal Screen MRSA (PCR) Blood Type O Positive Blood Type Recheck Required Antibody Screen Negative MTS Gel Crossmatch See Detail 10/08/17 10/08/17 10/08/17 08:00 09:25 09:25 WBC RBC Hgb Hct MCV MCH MCHC RDW Plt Count MPV Prelim Diff (Auto) Neut % (Auto) Lymph % (Auto) Lucas % (Auto) Eos % (Auto) Baso % (Auto) Neut # (Auto) Lymph # (Auto) Lucas # (Auto) Eos # (Auto) Baso # (Auto) WBC Differential Seg Neuts % (Manual) Band Neuts % (Manual) Lymphocytes % (Manual) Monocytes % (Manual) Abs Neuts (Manual) Nucleated RBCs/100 WBC Differential Comment Platelet Estimate Platelet Morphology Polychromasia Basophilic Stippling Stomatocytes Keratocytes PT 12.3 H INR 1.2 APTT 21.8 L Puncture Site Right radial Patient Temperature 98.6 O2 Saturation 95 ABG pH 7.44 H ABG pCO2 58 H* ABG pO2 88 ABG HCO3 38 H ABG O2 Content 7.6 L ABG Base Excess 13.1 H ABG Methemoglobin 0.5 Jeremiah Test Present Hemoglobin 5.6 L* Carboxyhemoglobin 2.3 O2 Delivery Device Nasal cannula Liter Flow 4.00 Inspired O2 21 Critical Value Yes Sodium Potassium Chloride Carbon Dioxide Anion Gap BUN Creatinine Estimated GFR POC Glucose Random Glucose Lactic Acid Calcium Phosphorus Magnesium Total Bilirubin AST ALT Alkaline Phosphatase Total Protein Albumin Urine Color Urine Clarity Urine pH Ur Specific Romance Urine Protein Urine Glucose (UA) Urine Ketones Urine Occult Blood Urine Nitrate Urine Bilirubin Urine Urobilinogen Ur Leukocyte Esterase Urine RBC Urine WBC Ur Squamous Epith Cells Urine Mucus Micro UA Comment Urine Culture Comments Nasal Screen MRSA (PCR) Blood Type Blood Type Recheck Antibody Screen MTS Gel Crossmatch 10/08/17 10/08/17 10/08/17 16:10 17:43 20:30 WBC RBC Hgb Hct MCV MCH MCHC RDW Plt Count MPV Prelim Diff (Auto) Neut % (Auto) Lymph % (Auto) Lucas % (Auto) Eos % (Auto) Baso % (Auto) Neut # (Auto) Lymph # (Auto) Lucas # (Auto) Eos # (Auto) Baso # (Auto) WBC Differential Seg Neuts % (Manual) Band Neuts % (Manual) Lymphocytes % (Manual) Monocytes % (Manual) Abs Neuts (Manual) Nucleated RBCs/100 WBC Differential Comment Platelet Estimate Platelet Morphology Polychromasia Basophilic Stippling Stomatocytes Keratocytes PT INR APTT Puncture Site Patient Temperature O2 Saturation ABG pH ABG pCO2 ABG pO2 ABG HCO3 ABG O2 Content ABG Base Excess ABG Methemoglobin Jeremiah Test Hemoglobin Carboxyhemoglobin O2 Delivery Device Liter Flow Inspired O2 Critical Value Sodium Potassium Chloride Carbon Dioxide Anion Gap BUN Creatinine Estimated GFR POC Glucose 192 H Random Glucose Lactic Acid 1.1 Calcium Phosphorus Magnesium Total Bilirubin AST ALT Alkaline Phosphatase Total Protein Albumin Urine Color Urine Clarity Urine pH Ur Specific Romance Urine Protein Urine Glucose (UA) Urine Ketones Urine Occult Blood Urine Nitrate Urine Bilirubin Urine Urobilinogen Ur Leukocyte Esterase Urine RBC Urine WBC Ur Squamous Epith Cells Urine Mucus Micro UA Comment Urine Culture Comments Nasal Screen MRSA (PCR) Not detected Blood Type Blood Type Recheck Antibody Screen MTS Gel Crossmatch 10/08/17 10/08/17 10/09/17 20:30 20:30 00:01 WBC 10.5 RBC 2.55 L Hgb 7.1 L D Hct 22.0 L MCV 86.4 MCH 27.6 MCHC 32.0 RDW 18.0 H Plt Count 156 MPV 9.5 Prelim Diff (Auto) Neut % (Auto) Lymph % (Auto) Lucas % (Auto) Eos % (Auto) Baso % (Auto) Neut # (Auto) Lymph # (Auto) Lucas # (Auto) Eos # (Auto) Baso # (Auto) WBC Differential Seg Neuts % (Manual) Band Neuts % (Manual) Lymphocytes % (Manual) Monocytes % (Manual) Abs Neuts (Manual) Nucleated RBCs/100 WBC Differential Comment Platelet Estimate Platelet Morphology Polychromasia Basophilic Stippling Stomatocytes Keratocytes PT INR APTT Puncture Site Patient Temperature O2 Saturation ABG pH ABG pCO2 ABG pO2 ABG HCO3 ABG O2 Content ABG Base Excess ABG Methemoglobin Jeremiah Test Hemoglobin Carboxyhemoglobin O2 Delivery Device Liter Flow Inspired O2 Critical Value Sodium 147 H Potassium 3.9 Chloride 102 Carbon Dioxide 34.6 H Anion Gap 10 BUN 40 H Creatinine 0.94 Estimated GFR 60 L POC Glucose 185 H Random Glucose 154 H Lactic Acid Calcium 9.1 Phosphorus Magnesium Total Bilirubin 0.8 AST 34 ALT 15 Alkaline Phosphatase 43 L Total Protein 5.1 L Albumin 2.4 L Urine Color Urine Clarity Urine pH Ur Specific Romance Urine Protein Urine Glucose (UA) Urine Ketones Urine Occult Blood Urine Nitrate Urine Bilirubin Urine Urobilinogen Ur Leukocyte Esterase Urine RBC Urine WBC Ur Squamous Epith Cells Urine Mucus Micro UA Comment Urine Culture Comments Nasal Screen MRSA (PCR) Blood Type Blood Type Recheck Antibody Screen MTS Gel Crossmatch 10/09/17 10/09/17 10/09/17 02:07 02:07 06:14 WBC 9.6 RBC 2.64 L Hgb 7.4 L Hct 23.2 L MCV 87.7 MCH 28.0 MCHC 31.9 L RDW 18.5 H Plt Count 154 MPV 9.1 Prelim Diff (Auto) Neut % (Auto) 88.1 H Lymph % (Auto) 6.7 L Lucas % (Auto) 4.6 Eos % (Auto) 0.5 Baso % (Auto) 0.1 Neut # (Auto) 8.5 H Lymph # (Auto) 0.6 L Lucas # (Auto) 0.4 Eos # (Auto) 0.0 Baso # (Auto) 0.0 WBC Differential . Seg Neuts % (Manual) Band Neuts % (Manual) Lymphocytes % (Manual) Monocytes % (Manual) Abs Neuts (Manual) Nucleated RBCs/100 WBC Differential Comment Auto diff final Platelet Estimate Platelet Morphology Polychromasia Basophilic Stippling Stomatocytes Keratocytes PT INR APTT Puncture Site Patient Temperature O2 Saturation ABG pH ABG pCO2 ABG pO2 ABG HCO3 ABG O2 Content ABG Base Excess ABG Methemoglobin Jeremiah Test Hemoglobin Carboxyhemoglobin O2 Delivery Device Liter Flow Inspired O2 Critical Value Sodium 145 Potassium 3.6 Chloride 103 Carbon Dioxide 32.4 H Anion Gap 10 BUN 35 H Creatinine 0.90 Estimated GFR 63 L POC Glucose 186 H Random Glucose 155 H Lactic Acid Calcium 8.2 L D Phosphorus 4.0 Magnesium 1.8 Total Bilirubin 0.6 AST 41 H ALT 17 Alkaline Phosphatase 47 Total Protein 5.3 L Albumin 2.7 L Urine Color Urine Clarity Urine pH Ur Specific Romance Urine Protein Urine Glucose (UA) Urine Ketones Urine Occult Blood Urine Nitrate Urine Bilirubin Urine Urobilinogen Ur Leukocyte Esterase Urine RBC Urine WBC Ur Squamous Epith Cells Urine Mucus Micro UA Comment Urine Culture Comments Nasal Screen MRSA (PCR) Blood Type Blood Type Recheck Antibody Screen MTS Gel Crossmatch 10/09/17 10/09/17 13:29 14:14 WBC RBC Hgb Hct MCV MCH MCHC RDW Plt Count MPV Prelim Diff (Auto) Neut % (Auto) Lymph % (Auto) Lucas % (Auto) Eos % (Auto) Baso % (Auto) Neut # (Auto) Lymph # (Auto) Lucas # (Auto) Eos # (Auto) Baso # (Auto) WBC Differential Seg Neuts % (Manual) Band Neuts % (Manual) Lymphocytes % (Manual) Monocytes % (Manual) Abs Neuts (Manual) Nucleated RBCs/100 WBC Differential Comment Platelet Estimate Platelet Morphology Polychromasia Basophilic Stippling Stomatocytes Keratocytes PT INR APTT Puncture Site Patient Temperature O2 Saturation ABG pH ABG pCO2 ABG pO2 ABG HCO3 ABG O2 Content ABG Base Excess ABG Methemoglobin Jeremiah Test Hemoglobin Carboxyhemoglobin O2 Delivery Device Liter Flow Inspired O2 Critical Value Sodium Potassium Chloride Carbon Dioxide Anion Gap BUN Creatinine Estimated GFR POC Glucose 170 H 163 H Random Glucose Lactic Acid Calcium Phosphorus Magnesium Total Bilirubin AST ALT Alkaline Phosphatase Total Protein Albumin Urine Color Urine Clarity Urine pH Ur Specific Romance Urine Protein Urine Glucose (UA) Urine Ketones Urine Occult Blood Urine Nitrate Urine Bilirubin Urine Urobilinogen Ur Leukocyte Esterase Urine RBC Urine WBC Ur Squamous Epith Cells Urine Mucus Micro UA Comment Urine Culture Comments Nasal Screen MRSA (PCR) Blood Type Blood Type Recheck Antibody Screen MTS Gel Crossmatch Result Diagrams: 10/09/17 02:07 10/09/17 02:07 Microbiology: Microbiology 10/08/17 05:10 Aerobic Blood Culture - Preliminary Blood - Peripheral No growth in 1 day Anaerobic Blood Culture - Preliminary gram positive cocci 10/08/17 05:00 Aerobic Blood Culture - Preliminary Blood - Peripheral No growth in 1 day Anaerobic Blood Culture - Preliminary Staphylococcus epidermidis Imaging: Venous Doppler Study 10/08/17 00:00 CONCLUSION: No DVT is identified within either lower extremity. Chest X-Ray 10/08/17 05:06 CONCLUSION: Abdomen/Pelvis CT 10/08/17 06:55 CONCLUSION: 1. Dense consolidation with air bronchograms in the left lung base with an associated small effusion. Minimal atelectatic changes medially in the right base. 2. 3.8 cm infrarenal abdominal aortic aneurysm. 3. 3 to 4 mm ureteric stone proximally on the right with resulting pelvocaliectasis of the collecting system. 4. 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 Chest CT 10/08/17 06:55 CONCLUSION: 1. Volume loss in the left hemithorax with dense consolidation of the left lower lobe and associated small left-sided effusion. Air bronchograms are present and this may represent compressive atelectasis or infiltrate. 2. Minimal subpleural atelectasis in the medial aspect of the right. 3. Compensated cardiomegaly with findings of prior CABG. Dense calcification of the mitral valve annulus. Chest X-Ray 10/09/17 00:00 CONCLUSION: Increasing bilateral consolidation and increasing left pleural effusion. . Patient/Family Conference Issues Discussed: * Palliative care role, purpose, approach * Additional medical, psychosocial, and spiritual history * Patients general health, functional status, and cognitive changes in the months leading up to the current hospitalization * Patient/family understanding of the current medical problems * Patient/family understanding of prognosis * Patients goals of care as best understood from advance directives and/or conversations and/or values * Current medical treatment options and benefits/burdens of those options * Likely scenarios comparing ongoing aggressive care with a transition to comfort measures only * Questions answered to the best of my ability * Palliative care contact information provided Assessment and Plan - Disease Oriented Problem List (1) COPD (chronic obstructive pulmonary disease) (2) Diabetes mellitus (3) History of uterine cancer (4) Hypertension (5) Anemia (6) History of GI bleed (7) History of pulmonary embolism (8) Anticoagulated (9) Coronary artery disease - Symptom Scale (1) Pain 0-10 Scale: Unable to quantify (2) Dyspnea 0-10 Scale: Unable to quantify (3) Generalized weakness 0-10 Scale: Unable to quantify Pertinent Non-Medical Issues: Psychosocial: Pending Spiritual: Pending Legal: Pending Ethical issues impacting care: Pending Important Contacts: Mitch Tolentino (spouse) [phone] . Prognosis: Patient has multiple medical problems including underlying COPD, coronary artery disease, diabetes, and history of uterine cancer. She has had a relatively recent pulmonary embolus. However this was preceded by some GI bleeding. She started bleeding again while on anticoagulation. She received a great deal of fluid when she came in hypotensive and is now possibly fluid overloaded. It will be helpful to know this patient's trajectory of decline in functional status prior to her initial pulmonary embolus. I do not know the underlying severity of the COPD or the coronary artery disease. Should she develop a DVT or pulmonary embolus while off the anticoagulants we will be caught between a rock and a hard place. . Code Status: Full Code Plan: == Code Status: FULL CODE. Patient was indicating that she wanted NO CODE status but also understood that code status will be full code druing her endoscopy. Will re-visit codes status when in less respiratory distress and would like spouse present for the discussion if possible. == Decision making: Patient appears capacitated to make her own healthcare decisions. There are some references to "dementia" in the medical record. We will try to further evaluate this when patient is less breathless and more talkative. . == Goals of medical treatment: We would like to readdress goals of medical treatment when patient is less dyspneic and more talkative. At this time goals are aggressive. Would also like patients spouse involved in the conversation. == Symptoms * Pain: Patient is not able to provide a pain history for me at this time. She appears to have prescriptions for nitroglycerin at home suggesting some chest pain. She is also on baclofen and may have a prescription for hydrocodone. Current sources of discomfort might include her bedbound status; Sweet catheter ; fecal collection system; and vascular access lines. * Dyspnea: Patient's dyspnea is multifactorial. There is underlying COPD. She comes in with a low hemoglobin. She appears to have an infection. At this point she may have a component of fluid overload. Hopefully, diuresis and the transfusions will help resolve this. Patient is currently also on supplemental O2. * Generalized weakness: Probably also multifactorial == Hopefully, patient will be less breathless and able to provide more of a history on 10/10/17. Will also make another attempt to connect with the patient 's spouse. Hope to get additional psychosocial as well as medical history and find out if there is an advanced directive. == Hope to readdress resuscitation status on 10/10/17 == If patient has not already done so, will encourage completion of an advanced directive. == Palliative care will continue to follow to assist with symptom management and to further clarify goals of medical treatment as the clinical course evolves. . Appreciation Thank you for the opportunity to participate in the care of Iza Tolentino. . Attestation Attestation: To help prompt me to consider important information that might be impacting today's encounter and assessment, information from prior notes written by myself or my colleagues may have been "brought forward" into today's note. My signature on this note, however, is an attestation that I personally performed the exam, history, and/or decision-making noted today, and, unless otherwise indicated, the interactions with patient, family, and staff as well as the review of records all occurred today. I also attest that the listed assessment and stated plan reflect my best clinical judgment today based on the combination of historical information, prior notes, and today's exam/ interactions. When time spent is documented, it refers only to time spent today by the signer, or if indicated, combined time spent today by collaborating physician/nurse practitioner. .
[2017-10-09 20:20] LABS: Hematocrit 21.4 % (35.0-46.0); Hemoglobin 6.8 gm/dL (11.6-15.3)
--- NOTE | 2017-10-09 20:25 | ECG ---
Date Performed: 10/09/2017 Time Performed: 07:01:29 PTAGE: 62 years EKG: SINUS TACHYCARDIA WITH FREQUENT ECTOPIC PREMATURE COMPLEXES MARKED LEFT AXIS DEVIATION POSS IBLE ANTERIOR MYOCARDIAL INFARCTION , PROBABLY OLD ST DEVIATION AND MODERATE T-WAVE ABNORMALITY, CONS IDER LATERAL ISCHEMIA ABNORMAL ECG NO PREVIOUS TRACING DOCTOR: Stephanie Kim Interpretating Date/Time 10/09/2017 20:23:49
[2017-10-10] MEDS: Insulin NovoLIN Regular Correctional Sugar Inj SQ SCH ×4 (00:12→17:30)
[2017-10-10] MEDS: Chlorhexidine Gluconate 2% 1 Pack (2 Cloths) TOPICAL SCH (04:00)
--- NOTE | 2017-10-10 04:53 | XR ---
EXAM DATE: 10/10/2017 4:50 AM EDT AGE/SEX: 62 years / Female INDICATIONS: . Shortness of breath. CLINICAL DATA: This is the patient's subsequent encounter. Patient reports that signs and symptoms h ave been present for 3 days and indicates a pain score of 0/10. MEDICAL/SURGICAL HISTORY: . Chronic obstructive pulmonary disease. Diabetes. Pneumonia. CABG. COMPARISON: C, CHEST 1V SINGLE AP, 10/09/2017. . FINDINGS: Cardiomegaly. Bilateral mostly basilar airspace disease and pleural effusion. No pneumothorax. No acu te bony abnormality. CONCLUSION: Cardiomegaly with bilateral mostly basilar airspace disease and pleural effusions. Findings similar t o October 09. No pneumothorax. Electronically signed by: Sonny Alcala MD 10/10/2017 4:52 AM EDT
[2017-10-10 06:15] LABS: Calcium 9.1 mg/dL (8.5-10.1); Potassium 3.5 meq/L (3.5-5.1)
[2017-10-10 06:22] LABS: Eos % (Auto) 0.1 % (0.0-4.0); Hematocrit 24.9 % (35.0-46.0); Hemoglobin 8.1 gm/dL (11.6-15.3); Lymph # (Auto) 0.4 th/mm3 (1.0-4.8); Lymph % (Auto) 3.8 % (9.0-44.0); Mean Corpuscular HGB Conc 32.5 % (32.0-36.0); Mean Corpuscular Hemoglobin 28.2 pg (27.0-34.0); Mean Corpuscular Volume 86.8 fL (80.0-100.0); Mean Platelet Volume 9.8 fL (7.0-11.0); Mono # (Auto) 0.5 th/mm3 (0.0-0.9); Neut # (Auto) 9.5 th/mm3 (1.8-7.7); Neut % (Auto) 91.1 % (16.0-70.0); Platelet Count 158 th/mm3 (150-450); Red Blood Count 2.87 mil/mm3 (4.00-5.30); Red Cell Distribution Width 17.5 % (11.6-17.2); White Blood Count 10.5 th/mm3 (4.0-11.0)
[2017-10-10] MEDS: Baclofen 10 MG Tablet PO SCH ×3 (09:01→17:29)
[2017-10-10] MEDS: Senna/Docusate Sodium 8.6/50 MG Tablet PO SCH ×2 (09:01→20:51)
[2017-10-10] MEDS: Collagenase Oint 30 GM Tube TOPICAL SCH (09:02)
[2017-10-10] MEDS: Nystatin 100,000 UNITS/GM Powder 15 GM Bottle TOPICAL SCH ×4 (09:02→20:51)
[2017-10-10] MEDS: Vancomycin Inj 1,500 MG in Sodium Chlor 0.9% Inj 500 ML IV.SIG SCH (09:03)
[2017-10-10] MEDS ORDERED: acetaZOLAMIDE Inj 250 MG in Sodium Chlor 0.9% Inj 50 ML IV.SIG ONE (11:43)
--- NOTE | 2017-10-10 12:09 | P.PNCC ---
Subjective Subjective Remarks/Hospital Course: The patient is a 62-year-old female, senior living resident, with a past medical history of hypertension, diabetes mellitus, coronary artery disease on Eliquis, who presented to [facility] ED with shortness of breath associated with tachypnea and generalized weakness. On arrival to the ED, she was hypotensive with a systolic blood pressure 80s-90s and tachycardic with heart rate of 102-110. Her laboratory data showed anemia with hemoglobin level 5.0 and mild acute kidney injury with a creatinine of 1.13 and lactic acid of 2.6. The patient was given a total of 1 liter of normal saline and is scheduled to receive 2 units of red blood cells. When seen, her current blood pressure is 145/74. ABG was performed on 4 liter oxygen, which showed a pH of 7.44, CO2 58, PaO2 88 , bicarbonate of 38, saturation 95 percent. The patient agnieszka poor historian. She underwent CT chest, abdomen and pelvis. Her CT scan of the chest showed dense consolidation of the left lower lobe with air bronchograms and CT abdomen and pelvis showed a 3.8 cm infrarenal abdominal aortic aneurysm. 10/09: Patient complaining of shortness of breath. Received blood products and colon prep overnight. Will give 1 dose of bumetanide IV 1 now. Creatinine within normal limits. Patient is on furosemide at home 20 mg daily which is currently on hold. Plan for EGD/colonoscopy today Subjective 10/10: Afebrile. Received 1 unit PRBCs overnight. Respiratory rate much improved. DNR status currently. Will give 1 dose of acetazolamide 250 mg IV 1 now. Appears more comfortable. Objective Vital Signs / I&O: Vital Signs 10/09/17 12:00 10/09/17 12:15 10/09/17 12:31 Temperature Pulse Rate 106 H 108 H 110 H Respiratory Rate 35 H 25 H 38 H Blood Pressure 144/83 H 133/79 155/70 H Pulse Oximetry 99 99 97 10/09/17 13:00 10/09/17 14:00 10/09/17 14:01 Temperature Pulse Rate 109 H 111 H 113 H Respiratory Rate 32 H 30 H 31 H Blood Pressure 138/72 137/76 Pulse Oximetry 99 95 95 10/09/17 15:00 10/09/17 16:00 10/09/17 16:23 Temperature Pulse Rate 113 H 109 H 117 H Respiratory Rate 31 H 27 H 44 H Blood Pressure 139/74 143/69 H 134/77 Pulse Oximetry 93 L 99 97 10/09/17 16:42 10/09/17 17:00 10/09/17 18:00 Temperature Pulse Rate 112 H 110 H 113 H Respiratory Rate 28 H 32 H 32 H Blood Pressure 118/64 123/61 129/61 Pulse Oximetry 99 100 100 10/09/17 19:00 10/09/17 19:32 10/09/17 20:00 Temperature 97.7 F Pulse Rate 111 H 111 H 114 H Respiratory Rate 25 H 28 H 30 H Blood Pressure 121/58 L 130/75 Pulse Oximetry 100 100 98 10/09/17 21:00 10/09/17 22:00 10/09/17 22:41 Temperature 97.7 F Pulse Rate 114 H 115 H 116 H Respiratory Rate 31 H 28 H 30 H Blood Pressure 129/70 142/62 H 142/62 H Pulse Oximetry 96 96 96 10/09/17 23:00 10/09/17 23:11 10/10/17 00:00 Temperature 97.7 F 97.9 F Pulse Rate 115 H 115 H 114 H Respiratory Rate 30 H 28 H 30 H Blood Pressure 142/75 H 131/66 Pulse Oximetry 97 99 10/10/17 01:00 10/10/17 02:00 10/10/17 03:00 Temperature Pulse Rate 113 H 111 H 114 H Respiratory Rate 29 H 26 H 30 H Blood Pressure 140/73 126/69 138/74 Pulse Oximetry 100 97 99 10/10/17 03:24 10/10/17 04:00 10/10/17 05:00 Temperature 98.1 F Pulse Rate 114 H 116 H 112 H Respiratory Rate 30 H 28 H 28 H Blood Pressure 138/71 129/60 Pulse Oximetry 100 99 10/10/17 06:00 10/10/17 08:00 Temperature Pulse Rate 119 H 114 H Respiratory Rate 30 H 36 H Blood Pressure 160/73 H Pulse Oximetry 95 Intake & Output 10/09/17 10/10/17 10/10/17 18:59 06:59 18:59 Intake Total 100 / 100 1200 / 1200 915 / 915 Output Total 2099 / 2099 2225 / 2225 Balance -1999 / -1999 -1025 / -1025 915 / 915 Weight 126 kg Intake: IV 100 / 100 400 / 400 515 / 515 Azactam Inj 1,000 MG In NS Inj 100 / 100 200 / 200 100 ML @ 200 mls/hr IV.SIG Q8H DEBORAH Rx#:[id number] Vancomycin Inj 1,500 MG In NS 515 / 515 Inj 500 ML @ 250 mls/hr IV.SIG Q24H DEBORAH Rx#:[id number] Flagyl 500 MG Inj 100 ML @ 100 200 / 200 mls/hr IV.SIG Q6H DEBORAH Rx#: [id number] Oral 0 / 0 Intake (Blood Product) Amt 400 / 400 400 / 400 Rbc As-3 Leukoreduced Unit 400 / 400 [id number] Rbc As-3 Leukoreduced Unit 400 / 400 [id number] Mass Transfusion Protocol 400 / 400 Output: Urine 1000 / 1000 2150 / 2150 Stool 500 / 500 75 / 75 Urine Amount (Catheter) 600 / 600 Indwelling Urethral Catheter 600 / 600 Other: Date of Last Bowel Movement 10/09/17 10/10/17 Result Diagrams: 10/10/17 04:14 10/10/17 04:14 Other Results: Microbiology 10/09/17 12:20 Blood - Peripheral Aerobic Blood Culture - Preliminary No growth in 1 day 10/09/17 12:20 Blood - Peripheral Anaerobic Blood Culture - Preliminary No growth in 1 day 10/09/17 12:25 Blood - Peripheral Aerobic Blood Culture - Preliminary No growth in 1 day 10/09/17 12:25 Blood - Peripheral Anaerobic Blood Culture - Preliminary No growth in 1 day 10/08/17 05:10 Blood - Peripheral Aerobic Blood Culture - Preliminary No growth in 2 days 10/08/17 05:10 Blood - Peripheral Anaerobic Blood Culture - Preliminary Staphylococcus coag negative 10/08/17 05:00 Blood - Peripheral Aerobic Blood Culture - Preliminary No growth in 2 days 10/08/17 05:00 Blood - Peripheral Anaerobic Blood Culture - Preliminary Staphylococcus epidermidis 10/10/17 03:30 Nasal Wash Influenza Types A,B Antigen - Final Negative for FLU A and B antigen Infection due to influenza A or B cannot be ruled out since the antigen present in the sample may be below the detection limit of the test. Imaging: ITS Impressions Venous Doppler Study 10/08/17 00:00 CONCLUSION: No DVT is identified within either lower extremity. Abdomen/Pelvis CT 10/08/17 06:55 CONCLUSION: 1. Dense consolidation with air bronchograms in the left lung base with an associated small effusion. Minimal atelectatic changes medially in the right base. 2. 3.8 cm infrarenal abdominal aortic aneurysm. 3. 3 to 4 mm ureteric stone proximally on the right with resulting pelvocaliectasis of the collecting system. 4. 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 Chest CT 10/08/17 06:55 CONCLUSION: 1. Volume loss in the left hemithorax with dense consolidation of the left lower lobe and associated small left-sided effusion. Air bronchograms are present and this may represent compressive atelectasis or infiltrate. 2. Minimal subpleural atelectasis in the medial aspect of the right. 3. Compensated cardiomegaly with findings of prior CABG. Dense calcification of the mitral valve annulus. Chest X-Ray 10/10/17 06:00 CONCLUSION: Cardiomegaly with bilateral mostly basilar airspace disease and pleural effusions. Findings similar to October 09. No pneumothorax. Objective Remarks: GENERAL: 62-year-old female currently on nasal cannula in less respiratory distress. SKIN: Warm and dry. Open nondraining ulcerations from prior EVH right lower extremity x 2 with some erythema HEAD: Atraumatic. Normocephalic. EYES: Pupils equal and round about 3 mm bilaterally reactive. No scleral icterus. No injection or drainage. ENT: No nasal bleeding or discharge. Mucous membranes pink and moist. NECK: Trachea midline. No JVD. CARDIOVASCULAR: Tachycardic, RR. S1, S2. No S4. No murmur RESPIRATORY: No accessory muscle use. Clear to auscultation. Breath sounds equal bilaterally. GASTROINTESTINAL: Abdomen soft, non-tender, nondistended. Hepatic and splenic margins not palpable. MUSCULOSKELETAL: Extremities with 1+ bilateral lower extremity edema. NEUROLOGICAL: Awake and alert. No obvious cranial nerve deficits. Motor grossly within normal limits. Five out of 5 muscle strength in the arms and legs. Normal speech. Assessment and Plan - Assessment and Plan Plan: Neuro/Psych: Acetaminophen 650 mg by mouth every 6 hours as needed fever CV: Essential hypertension Hyperlipidemia Diastolic heart failure likely chronic 3.8 cm infrarenal abdominal aortic aneurysm Coronary artery disease/CABG June 2017 at [facility] 2D echocardiogram revealed EF 40-45% normal LV function. Holding metoprolol tartrate 25 mg twice daily in light of n.p.o. status. N.p.o. status. Start on IV metoprolol 2.5 mg IV every 6 hours On rosuvastatin 40 mg daily at home for dyslipidemia. Resume clinically indicated Resp: Acute respiratory insufficiency History of COPD CT thorax 10/08 revealed air bronchograms in the left lower lobe. Small left pleural effusion. Nasal cannula to maintain saturations greater than or equal to 92% Incentive spirometry while awake Albuterol/ipratropium aerosols every 4 hours with albuterol aerosols every 2 hours as needed for dyspnea Acapella/PEP every 4 hours Chest x-ray in a.m. 10/11. She appears volume overloaded at the present time. Will give acetazolamide 250 mg IV 1 now.. She is chronically on furosemide 20 mg daily GI: Elevated AST Moderate protein calorie malnutrition/hypoalbuminemia History of colonic polyps questionable N.p.o. status Plan for EGD/colonoscopy to GI Patient had a recent panendoscopy 7 days ago for hospital which verbal report revealed polyps. Her stool is currently black. Pantoprazole 8 mg an hour Docusate sodium/senna 1 tablet twice daily for bowel regimen : Ureteral stone - R 4 mm Maintain Sweet catheter today. [place]iwick tomorrow if hemoglobin is stable/wound stable Endo: Diabetes mellitus Acute hyperglycemia On insulin U100 lispro unknown dose at home on insulin glargine 10 units 3 times daily Sliding scale insulin with aspart/every 6 hours medium regimen. Renal: Creatinine currently within normal limits. Monitor urine output Accurate I's and O's Heme: Acute blood loss anemia/normocytic Transfuse 2 units PRBCs this hospitalization. Recheck hemoglobin 18 hours. Coags within normal limits ID: Gram-positive cocci bacteremia - CONS/Staph epi Patient is currently in vancomycin, aztreonam day #3 and metronidazole day #2 for pneumonia/hospital-acquired Pertinent cultures 10/08 -blood cultures 2 -1 out of 2 gram-positive cocci MSK: Elevated BMI Right lower extremity deep tissue injury Weight loss encouraged. Wound care evaluate and treat and continue Santyl for now/home medication FEN: Replace electrolytes as clinically indicated ACCESS -utilize peripheral IV. Central line if indicated Prophylax -GI -pantoprazole drip -DVT -SCD/no pharmacological prophylaxis in light of gastro-intestinal bleeding. Level 3 follow-up
[2017-10-10] MEDS: Sodium Chloride 0.45 % Inj 1,000 ML IV.CONT SCH (13:48)
--- NOTE | 2017-10-10 15:46 | P.PNGI ---
Subjective Interval history: Pt remains SOB, on 6 L O2 via NC. Remains tachycardic. Pt with no GI complaints at this time. Rectal tube to Sweet bag with no stool at this time. <WillowtyrellRoryLy - Last Filed: 10/10/17 15:40> Physical Exam Vital signs: Vital Signs 10/09/17 16:00 10/09/17 16:23 10/09/17 16:42 Temperature Pulse Rate 109 H 117 H 112 H Respiratory Rate 27 H 44 H 28 H Blood Pressure 143/69 H 134/77 118/64 Pulse Oximetry 99 97 99 10/09/17 17:00 10/09/17 18:00 10/09/17 19:00 Temperature Pulse Rate 110 H 113 H 111 H Respiratory Rate 32 H 32 H 25 H Blood Pressure 123/61 129/61 121/58 L Pulse Oximetry 100 100 100 10/09/17 19:32 10/09/17 20:00 10/09/17 21:00 Temperature 97.7 F Pulse Rate 111 H 114 H 114 H Respiratory Rate 28 H 30 H 31 H Blood Pressure 130/75 129/70 Pulse Oximetry 100 98 96 10/09/17 22:00 10/09/17 22:41 10/09/17 23:00 Temperature 97.7 F 97.7 F Pulse Rate 115 H 116 H 115 H Respiratory Rate 28 H 30 H 30 H Blood Pressure 142/62 H 142/62 H 142/75 H Pulse Oximetry 96 96 97 10/09/17 23:11 10/10/17 00:00 10/10/17 01:00 Temperature 97.9 F Pulse Rate 115 H 114 H 113 H Respiratory Rate 28 H 30 H 29 H Blood Pressure 131/66 140/73 Pulse Oximetry 99 100 10/10/17 02:00 10/10/17 03:00 10/10/17 03:24 Temperature Pulse Rate 111 H 114 H 114 H Respiratory Rate 26 H 30 H 30 H Blood Pressure 126/69 138/74 Pulse Oximetry 97 99 10/10/17 04:00 10/10/17 05:00 10/10/17 06:00 Temperature 98.1 F Pulse Rate 116 H 112 H 119 H Respiratory Rate 28 H 28 H 30 H Blood Pressure 138/71 129/60 160/73 H Pulse Oximetry 100 99 95 10/10/17 07:00 10/10/17 08:00 10/10/17 08:01 Temperature 98 F Pulse Rate 114 H 113 H 113 H Respiratory Rate 36 H 34 H 45 H Blood Pressure 128/79 138/73 Pulse Oximetry 98 98 97 10/10/17 09:00 10/10/17 09:14 10/10/17 10:00 Temperature Pulse Rate 114 H 116 H 115 H Respiratory Rate 37 H 44 H 30 H Blood Pressure 137/72 132/66 Pulse Oximetry 98 96 93 L 10/10/17 11:00 10/10/17 12:00 10/10/17 14:00 Temperature 97.8 F Pulse Rate 118 H 115 H 115 H Respiratory Rate 46 H 30 H Blood Pressure 135/87 144/67 H Pulse Oximetry 94 L 95 Intake & Output 10/09/17 10/10/17 10/10/17 18:59 06:59 18:59 Intake Total 100 / 100 1200 / 1200 4480 / 4480 Output Total 2100 / 2100 2225 / 2225 Balance -1999 / -2000 -1025 / -1025 4480 / 4480 Weight 126 kg Intake: IV 100 / 100 400 / 400 4080 / 4080 Azactam Inj 1,000 MG In NS Inj 100 / 100 200 / 200 100 / 100 100 ML @ 200 mls/hr IV.SIG Q8H DEBORAH Rx#:[id number] Vancomycin Inj 1,500 MG In NS 1030 / 1030 Inj 500 ML @ 250 mls/hr IV.SIG Q24H DEBORAH Rx#:[id number] Flagyl 500 MG Inj 100 ML @ 100 200 / 200 100 / 100 mls/hr IV.SIG Q6H DEBORAH Rx#: [id number] Oral 0 / 0 Intake (Blood Product) Amt 400 / 400 400 / 400 Rbc As-3 Leukoreduced Unit 400 / 400 [id number] Rbc As-3 Leukoreduced Unit 400 / 400 [id number] Mass Transfusion Protocol 400 / 400 Output: Urine 1000 / 1000 2150 / 2150 Stool 500 / 500 75 / 75 Urine Amount (Catheter) 600 / 600 Indwelling Urethral Catheter 600 / 600 Other: Date of Last Bowel Movement 10/09/17 10/10/17 10/10/17 - Constitutional no acute distress - Routine HEENT Exam Head: Present: normocephalic, atraumatic - Routine Cardiovascular Exam Present: tachycardia - Routine Abdominal Exam Present: soft, normoactive bowel sounds. Absent: tenderness Comments: obese - Routine Skin Exam Present: dry, pallor, warm - Routine Neurological Exam Present: alert - Urinary Catheter Management Indwelling Urethral Catheter Cath placed during this visit: yes Reason for continuing: Hourly intake/output Insertion date: 10/08/17 <Ly Cardenas - Last Filed: 10/10/17 15:40> Vital signs: Vital Signs 10/09/17 19:00 10/09/17 19:32 10/09/17 20:00 Temperature 97.7 F Pulse Rate 111 H 111 H 114 H Respiratory Rate 25 H 28 H 30 H Blood Pressure 121/58 L 130/75 Pulse Oximetry 100 100 98 10/09/17 21:00 10/09/17 22:00 10/09/17 22:41 Temperature 97.7 F Pulse Rate 114 H 115 H 116 H Respiratory Rate 31 H 28 H 30 H Blood Pressure 129/70 142/62 H 142/62 H Pulse Oximetry 96 96 96 10/09/17 23:00 10/09/17 23:11 10/10/17 00:00 Temperature 97.7 F 97.9 F Pulse Rate 115 H 115 H 114 H Respiratory Rate 30 H 28 H 30 H Blood Pressure 142/75 H 131/66 Pulse Oximetry 97 99 10/10/17 01:00 10/10/17 02:00 10/10/17 03:00 Temperature Pulse Rate 113 H 111 H 114 H Respiratory Rate 29 H 26 H 30 H Blood Pressure 140/73 126/69 138/74 Pulse Oximetry 100 97 99 10/10/17 03:24 10/10/17 04:00 10/10/17 05:00 Temperature 98.1 F Pulse Rate 114 H 116 H 112 H Respiratory Rate 30 H 28 H 28 H Blood Pressure 138/71 129/60 Pulse Oximetry 100 99 10/10/17 06:00 10/10/17 07:00 10/10/17 08:00 Temperature 98 F Pulse Rate 119 H 114 H 113 H Respiratory Rate 30 H 36 H 34 H Blood Pressure 160/73 H 128/79 Pulse Oximetry 95 98 98 10/10/17 08:01 10/10/17 09:00 10/10/17 09:14 Temperature Pulse Rate 113 H 114 H 116 H Respiratory Rate 45 H 37 H 44 H Blood Pressure 138/73 137/72 Pulse Oximetry 97 98 96 10/10/17 10:00 10/10/17 11:00 10/10/17 12:00 Temperature 97.8 F Pulse Rate 115 H 118 H 115 H Respiratory Rate 30 H 46 H 30 H Blood Pressure 132/66 135/87 144/67 H Pulse Oximetry 93 L 94 L 95 10/10/17 14:00 10/10/17 15:56 10/10/17 16:00 Temperature Pulse Rate 115 H 114 H 113 H Respiratory Rate 36 H 34 H Blood Pressure Pulse Oximetry 98 10/10/17 16:04 10/10/17 17:00 10/10/17 17:57 Temperature 97.9 F Pulse Rate 112 H 110 H 113 H Respiratory Rate 29 H 50 H 32 H Blood Pressure 141/75 H 143/74 H 143/74 H Pulse Oximetry 100 100 Intake & Output 10/09/17 10/10/17 10/10/17 18:59 06:59 18:59 Intake Total 100 / 100 1200 / 1200 4580 / 4580 Output Total 2100 / 2100 2225 / 2225 Balance -1999 / -1999 -1025 / -1025 4580 / 4580 Weight 126 kg Intake: IV 100 / 100 400 / 400 4180 / 4180 Azactam Inj 1,000 MG In NS Inj 100 / 100 200 / 200 100 / 100 100 ML @ 200 mls/hr IV.SIG Q8H DEBORAH Rx#:[id number] Vancomycin Inj 1,500 MG In NS 1030 / 1030 Inj 500 ML @ 250 mls/hr IV.SIG Q24H DEBORAH Rx#:[id number] Flagyl 500 MG Inj 100 ML @ 100 200 / 200 200 / 200 mls/hr IV.SIG Q6H DEBORAH Rx#: [id number] Oral 0 / 0 Intake (Blood Product) Amt 400 / 400 400 / 400 Rbc As-3 Leukoreduced Unit 400 / 400 [id number] Rbc As-3 Leukoreduced Unit 0 / 0 [id number] Rbc As-3 Leukoreduced Unit 400 / 400 [id number] Mass Transfusion Protocol 400 / 400 Output: Urine 1000 / 1000 2150 / 2150 Stool 500 / 500 75 / 75 Urine Amount (Catheter) 600 / 600 Indwelling Urethral Catheter 600 / 600 Other: Date of Last Bowel Movement 10/09/17 10/10/1710/10/18 - Urinary Catheter Management Indwelling Urethral Catheter Cath placed during this visit: no <Sa Israelud E - Last Filed: 10/10/17 18:40> Results - Labs CBC & Chem 7: 10/10/17 04:14 10/10/17 04:14 Laboratory Results - last 24 hr 10/08/17 10/09/17 10/09/17 06:41 19:29 21:06 WBC RBC Hgb 6.8 L* Hct 21.4 L MCV MCH MCHC RDW Plt Count MPV Neut % (Auto) Lymph % (Auto) [place] % (Auto) Eos % (Auto) Baso % (Auto) Neut # (Auto) Lymph # (Auto) [place] # (Auto) Eos # (Auto) Baso # (Auto) WBC Differential Differential Comment Sodium Potassium Chloride Carbon Dioxide Anion Gap BUN Creatinine Estimated GFR POC Glucose Random Glucose Calcium MTS Gel Crossmatch See Detail See Detail Bld Prod Order Comment 10/10/17 10/10/17 10/10/17 00:07 04:14 04:14 WBC 10.5 RBC 2.87 L Hgb 8.1 L Hct 24.9 L MCV 86.8 MCH 28.2 MCHC 32.5 RDW 17.5 H Plt Count 158 MPV 9.8 Neut % (Auto) 91.1 H Lymph % (Auto) 3.8 L [place] % (Auto) 5.0 Eos % (Auto) 0.1 Baso % (Auto) 0.0 Neut # (Auto) 9.5 H Lymph # (Auto) 0.4 L [place] # (Auto) 0.5 Eos # (Auto) 0.0 Baso # (Auto) 0.0 WBC Differential . Differential Comment Auto diff final Sodium 144 Potassium 3.5 Chloride 101 Carbon Dioxide 36.0 H Anion Gap 7 BUN 35 H Creatinine 0.79 Estimated GFR 73 L POC Glucose 175 H Random Glucose 129 H Calcium 9.1 D MTS Gel Crossmatch Bld Prod Order Comment 10/10/17 10/10/17 06:08 11:35 WBC RBC Hgb Hct MCV MCH MCHC RDW Plt Count MPV Neut % (Auto) Lymph % (Auto) [place] % (Auto) Eos % (Auto) Baso % (Auto) Neut # (Auto) Lymph # (Auto) [place] # (Auto) Eos # (Auto) Baso # (Auto) WBC Differential Differential Comment Sodium Potassium Chloride Carbon Dioxide Anion Gap BUN Creatinine Estimated GFR POC Glucose 135 H 153 H Random Glucose Calcium MTS Gel Crossmatch Bld Prod Order Comment Microbiology 10/09/17 12:20 Blood - Peripheral Aerobic Blood Culture - Preliminary No growth in 1 day 10/09/17 12:20 Blood - Peripheral Anaerobic Blood Culture - Preliminary No growth in 1 day 10/09/17 12:25 Blood - Peripheral Aerobic Blood Culture - Preliminary No growth in 1 day 10/09/17 12:25 Blood - Peripheral Anaerobic Blood Culture - Preliminary No growth in 1 day 10/08/17 05:10 Blood - Peripheral Aerobic Blood Culture - Preliminary No growth in 2 days 10/08/17 05:10 Blood - Peripheral Anaerobic Blood Culture - Preliminary Staphylococcus coag negative 10/08/17 05:00 Blood - Peripheral Aerobic Blood Culture - Preliminary No growth in 2 days 10/08/17 05:00 Blood - Peripheral Anaerobic Blood Culture - Preliminary Staphylococcus epidermidis 10/10/17 03:30 Nasal Wash Influenza Types A,B Antigen - Final Negative for FLU A and B antigen Infection due to influenza A or B cannot be ruled out since the antigen present in the sample may be below the detection limit of the test. - Imaging Impressions Chest X-Ray 10/09/17 00:00 CONCLUSION: Increasing bilateral consolidation and increasing left pleural effusion. Chest X-Ray 10/10/17 06:00 CONCLUSION: Cardiomegaly with bilateral mostly basilar airspace disease and pleural effusions. Findings similar to October 09. No pneumothorax. <Ly Cardenas - Last Filed: 10/10/17 15:40> - Labs CBC & Chem 7: 10/10/17 15:25 10/10/17 04:14 Laboratory Results - last 24 hr 10/08/17 10/09/17 10/09/17 06:41 19:29 21:06 WBC RBC Hgb 6.8 L* Hct 21.4 L MCV MCH MCHC RDW Plt Count MPV Neut % (Auto) Lymph % (Auto) [place] % (Auto) Eos % (Auto) Baso % (Auto) Neut # (Auto) Lymph # (Auto) [place] # (Auto) Eos # (Auto) Baso # (Auto) WBC Differential Differential Comment Sodium Potassium Chloride Carbon Dioxide Anion Gap BUN Creatinine Estimated GFR POC Glucose Random Glucose Calcium MTS Gel Crossmatch See Detail See Detail Bld Prod Order Comment 10/10/17 10/10/17 10/10/17 00:07 04:14 04:14 WBC 10.5 RBC 2.87 L Hgb 8.1 L Hct 24.9 L MCV 86.8 MCH 28.2 MCHC 32.5 RDW 17.5 H Plt Count 158 MPV 9.8 Neut % (Auto) 91.1 H Lymph % (Auto) 3.8 L [place] % (Auto) 5.0 Eos % (Auto) 0.1 Baso % (Auto) 0.0 Neut # (Auto) 9.5 H Lymph # (Auto) 0.4 L [place] # (Auto) 0.5 Eos # (Auto) 0.0 Baso # (Auto) 0.0 WBC Differential . Differential Comment Auto diff final Sodium 144 Potassium 3.5 Chloride 101 Carbon Dioxide 36.0 H Anion Gap 7 BUN 35 H Creatinine 0.79 Estimated GFR 73 L POC Glucose 175 H Random Glucose 129 H Calcium 9.1 D MTS Gel Crossmatch Bld Prod Order Comment 10/10/17 10/10/17 10/10/17 06:08 11:35 15:25 WBC 11.1 H RBC 2.54 L Hgb 7.2 L Hct 22.1 L MCV 87.1 MCH 28.2 MCHC 32.4 RDW 17.6 H Plt Count 146 L MPV 9.5 Neut % (Auto) Lymph % (Auto) [place] % (Auto) Eos % (Auto) Baso % (Auto) Neut # (Auto) Lymph # (Auto) [place] # (Auto) Eos # (Auto) Baso # (Auto) WBC Differential Differential Comment Sodium Potassium Chloride Carbon Dioxide Anion Gap BUN Creatinine Estimated GFR POC Glucose 135 H 153 H Random Glucose Calcium MTS Gel Crossmatch Bld Prod Order Comment 10/10/17 10/10/17 17:13 17:29 WBC RBC Hgb Hct MCV MCH MCHC RDW Plt Count MPV Neut % (Auto) Lymph % (Auto) [place] % (Auto) Eos % (Auto) Baso % (Auto) Neut # (Auto) Lymph # (Auto) [place] # (Auto) Eos # (Auto) Baso # (Auto) WBC Differential Differential Comment Sodium Potassium Chloride Carbon Dioxide Anion Gap BUN Creatinine Estimated GFR POC Glucose 146 H Random Glucose Calcium MTS Gel Crossmatch See Detail Bld Prod Order Comment Microbiology 10/09/17 12:20 Blood - Peripheral Aerobic Blood Culture - Preliminary No growth in 1 day 10/09/17 12:20 Blood - Peripheral Anaerobic Blood Culture - Preliminary No growth in 1 day 10/09/17 12:25 Blood - Peripheral Aerobic Blood Culture - Preliminary No growth in 1 day 10/09/17 12:25 Blood - Peripheral Anaerobic Blood Culture - Preliminary No growth in 1 day 10/08/17 05:10 Blood - Peripheral Aerobic Blood Culture - Preliminary No growth in 2 days 10/08/17 05:10 Blood - Peripheral Anaerobic Blood Culture - Preliminary Staphylococcus coag negative 10/08/17 05:00 Blood - Peripheral Aerobic Blood Culture - Preliminary No growth in 2 days 10/08/17 05:00 Blood - Peripheral Anaerobic Blood Culture - Preliminary Staphylococcus epidermidis 10/10/17 03:30 Nasal Wash Influenza Types A,B Antigen - Final Negative for FLU A and B antigen Infection due to influenza A or B cannot be ruled out since the antigen present in the sample may be below the detection limit of the test. - Imaging Impressions Chest X-Ray 10/10/17 06:00 CONCLUSION: Cardiomegaly with bilateral mostly basilar airspace disease and pleural effusions. Findings similar to October 09. No pneumothorax. <Perez Wood - Last Filed: 10/10/17 18:40> Assessment and Plan (1) Anemia Status: Acute Code(s): D64.9 - Anemia, unspecified (2) History of GI bleed Status: Acute Code(s): Z87.19 - Personal history of other diseases of the digestive system (3) History of pulmonary embolism Status: Acute Code(s): Z86.711 - Personal history of pulmonary embolism (4) Anticoagulated Status: Acute Code(s): Z79.01 - [facility] (current) use of anticoagulants - Plan Assessment: - Anemia with history of GIB, last GIB noted in June of this year, seen by our service at [facility], procedures as noted below. Pt recently with PE, DCd on Eliquis in August, sent back to [facility] with severe anemia on September 15, hgb of 3.7 underwent repeat EGD. Advised to have capsule endoscopy, however has not followed up in the office. Hgb last checked on 10/01 was 7.9. Pt denies any source of obvious GIB. Denies nausea, vomiting, abdominal pain. EGD and colonoscopy (June 2017) --> some friability and a bit of prominence at the distal esophagus, somewhat irregular duodenal mucosa with denuded patches of unclear significance. The initial colonoscopy noted limited visualization due to blood clots so a few days later a repeat procedure was done which revealed reddish dark fluid in the right colon but no signs of active bleeding, 2 areas that looked like lipoma but no ulcerations, polyp in the ascending colon, few polyps in the rectosigmoid area, internal hemorrhoids. Pathology revealed hyperplastic polyp and and tubular adenoma. EGD was done September 20 --> Two superficial esophageal ulcers with no bleeding and no stigmata of recent bleeding , middle third and lower third of the esophagus were mildly tortuous, otherwise normal exam. Pathology (distal esophagus ulcer) mucosa with ulceration, granulation tissues, acute inflammation and findings suggestive of pill induced esophagitis, rare yeast organisms morphologically consistent with Bailey, and detached fragments of acute fibrinopurulent exudate. - SOB- admitted to [facility]- hypercapnic respiratory insufficiency - Elevated lactic acid (10/10) Pt with SOB and respiratory status too unstable for GI procedure. Stool noted to be greenish in color. Pt with some drop in hgb last night S/P 1 U of PRBCs. She is still too unstable for GI procedures, on 6 L O2 via NC and tachycardic. Pt DNR. At this time, recommend monitoring H/H closely and transfusing as needed. Our service will sign off but available as needed when pt becomes stable for endoscopic procedures if still indicated Plan: Protonix Monitor H/H closely Transfusion per [facility] Pt too unstable for GI procedures Our service will sign off, reconsult as needed, will be available for GI procedures when pt is stable if indicated at that time Pt has been seen and examined by myself and Dr. Wood and this note is written on his behalf <Ly Cardenas - Last Filed: 10/10/17 15:40> (1) Anemia Status: Acute Code(s): D64.9 - Anemia, unspecified (2) History of GI bleed Status: Acute Code(s): Z87.19 - Personal history of other diseases of the digestive system (3) History of pulmonary embolism Status: Acute Code(s): Z86.711 - Personal history of pulmonary embolism (4) Anticoagulated Status: Deleted Code(s): Z79.01 - [facility] (current) use of anticoagulants - Attending Attestation Patient seen and examined Agree with above Continue with current supportive care Monitor labs Patient to unstable for GI procedures at this point No evidence of any active GI bleed Patient also has a DNR status Not much we can add at this point we will sign off reconsult as needed <Perez Wood E - Last Filed: 10/10/17 18:40>
[2017-10-10 15:53] LABS: Hematocrit 22.1 % (35.0-46.0); Hemoglobin 7.2 gm/dL (11.6-15.3); Mean Corpuscular HGB Conc 32.4 % (32.0-36.0); Mean Corpuscular Hemoglobin 28.2 pg (27.0-34.0); Mean Corpuscular Volume 87.1 fL (80.0-100.0); Mean Platelet Volume 9.5 fL (7.0-11.0); Platelet Count 146 th/mm3 (150-450); Red Blood Count 2.54 mil/mm3 (4.00-5.30); Red Cell Distribution Width 17.6 % (11.6-17.2); White Blood Count 11.1 th/mm3 (4.0-11.0)
--- NOTE | 2017-10-10 16:22 | P.PNPAL ---
Reason for Visit Reason for visit: a. To assist with evaluation and management of symptoms including: pain; dyspnea; anorexia b. To assist medical decision maker(s) with: better understanding of current medical conditions; weighing benefits/burdens of medical treatment options; making medical treatment decisions. . Subjective Subjective/Interval History: Patient is slightly less SOB this AM and was able to provide slightly more history. Also obtained more history from patient's via phone. * Pt has a long history of COPD and asthma. She was not 02 dependent but used nebulizers and MDIs frequently. This has gone on for years. * Patient has a long history of chronic leg and back pain. reports she has "spine, disc, and sciatic nerve" problems. This has grown worse. Her reports two years of decline. She would try and limit herself to 2-3 Lortab 7.5mg per day. Pain would interfere with sleep most nights. * Because of both pain and SOB her activities were very limited. She would get breathless trying to walk around the house. When her drove her to the grocery store, she would use the electric cart. This was going on well before her cardiac symptoms became severe. * The patient developed increasing cardiac symptoms in late April and underwent CABG in 05/2017. She has been in hospital or facilities since then except for about 2 weeks. * She went home briefly after her CABG but was re-hospitalized about 2 weeks later for altered mental status. She was anemic at that time. She received blood and was sent to rehab. * She was in rehab 1-2 weeks but rehospitalized for anemia. She also had wound infection (graft site??) down to bone. * She went back to rehab but then returned to the hospital with her PE. An IVC Filter was placed during this admission. * She was sent back to rehab but was only there for about a week when re- hospitalized. believes she has been off anti-coagulants for about 4 weeks. Patient reports and confirms that she has no appetite. Food has no taste . She has had little but protein shakes for about 2 weeks. Since her CABG, if she has been up at all, she has required a walker. Patient feels she has lost at least 50 lbs of weight over the last year. reports that her hospitalizations have been accompanied by delirium. FAM HX * Father at age 72 of lung cancer * Mother age 44 of breast cancer * Multiple siblings had MIs. HABITS * Patient was a 1 ppd smoker most of her adult life. Quit about 9 years ago * No EtOH abuse * No use of illicits. SOCIAL HX * Originally from [place]. Has lived in [place] about 18 yrs. 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 * once. Has been to [place] for 40 years. * One son -- Sharif -- lives in [place]. He has visited recently and knows how ill she is. SIKH/SPIRITUALITY -- Not an important part of her life. Declines needle setter visits. ADVANCE DIRECTIVES -- No living will or written documentation of health care surrogacy. ADDITIONAL ROS * Poor appetite as noted above. * Reports decreased hearing. * No recent chest pains. * Gets pedal edema * No frequent nausea, vomiting, diarrhea, constipation. * No urinary tract symptoms. * reports frequent delirium while hospitalized. * ?depression Discussed resuscitation status with patient and at length. Patient desires DNR status. confirms that she has been consistent in regards to those wishes. . At time of my visit today, patient reporting no appetite. Still SOB, but better than last night. Nursing notes show patient has denied pain to nurses but reported usual back/leg pain to me. Unable to rate. Patient awaits endoscopy. Family/Friend Interactions: Spoke with on phone for about 25 minutes. He helped provide some of the additional history noted above. We also addressed resusciation status and he endorsed the patient's desire to have DNR status. . Advance Directives Living Will: Never completed Health Care Surrogate: Never completed Durable Power of Incoming Inspector: Never completed Health Care Surrogate Name and Number: No written designation of health care surrogate Documented care wishes:: At this time there is no written documentation of patient's healthcare goals or preferences on the chart. . Significant change in goals:: Patient and her both desire DNR status. . Objective Vital Signs: Vital Signs 10/09/17 16:23 10/09/17 16:42 10/09/17 17:00 Temperature Pulse Rate 117 H 112 H 110 H Respiratory Rate 44 H 28 H 32 H Blood Pressure 134/77 118/64 123/61 Pulse Oximetry 97 99 100 10/09/17 18:00 10/09/17 19:00 10/09/17 19:32 Temperature Pulse Rate 113 H 111 H 111 H Respiratory Rate 32 H 25 H 28 H Blood Pressure 129/61 121/58 L Pulse Oximetry 100 100 100 10/09/17 20:00 10/09/17 21:00 10/09/17 22:00 Temperature 97.7 F Pulse Rate 114 H 114 H 115 H Respiratory Rate 30 H 31 H 28 H Blood Pressure 130/75 129/70 142/62 H Pulse Oximetry 98 96 96 10/09/17 22:41 10/09/17 23:00 10/09/17 23:11 Temperature 97.7 F 97.7 F Pulse Rate 116 H 115 H 115 H Respiratory Rate 30 H 30 H 28 H Blood Pressure 142/62 H 142/75 H Pulse Oximetry 96 97 10/10/17 00:00 10/10/17 01:00 10/10/17 02:00 Temperature 97.9 F Pulse Rate 114 H 113 H 111 H Respiratory Rate 30 H 29 H 26 H Blood Pressure 131/66 140/73 126/69 Pulse Oximetry 99 100 97 10/10/17 03:00 10/10/17 03:24 10/10/17 04:00 Temperature 98.1 F Pulse Rate 114 H 114 H 116 H Respiratory Rate 30 H 30 H 28 H Blood Pressure 138/74 138/71 Pulse Oximetry 99 100 10/10/17 05:00 10/10/17 06:00 10/10/17 07:00 Temperature 98 F Pulse Rate 112 H 119 H 114 H Respiratory Rate 28 H 30 H 36 H Blood Pressure 129/60 160/73 H 128/79 Pulse Oximetry 99 95 98 10/10/17 08:00 10/10/17 08:01 10/10/17 09:00 Temperature Pulse Rate 113 H 113 H 114 H Respiratory Rate 34 H 45 H 37 H Blood Pressure 138/73 Pulse Oximetry 98 97 98 10/10/17 09:14 10/10/17 10:00 10/10/17 11:00 Temperature Pulse Rate 116 H 115 H 118 H Respiratory Rate 44 H 30 H 46 H Blood Pressure 137/72 132/66 135/87 Pulse Oximetry 96 93 L 94 L 10/10/17 12:00 10/10/17 14:00 10/10/17 15:56 Temperature 97.8 F Pulse Rate 115 H 115 H 114 H Respiratory Rate 30 H 36 H Blood Pressure 144/67 H Pulse Oximetry 95 Intake & Output 10/09/17 10/10/17 10/10/17 18:59 06:59 18:59 Intake Total 100 / 100 1200 / 1200 4480 / 4480 Output Total 2100 / 2100 2225 / 2225 Balance -1999 / -1999 -1025 / -1025 4480 / 4480 Weight 126 kg Intake: IV 100 / 100 400 / 400 4080 / 4080 Azactam Inj 1,000 MG In NS Inj 100 / 100 200 / 200 100 / 100 100 ML @ 200 mls/hr IV.SIG Q8H DEBORAH Rx#:[id number] Vancomycin Inj 1,500 MG In NS 1030 / 1030 Inj 500 ML @ 250 mls/hr IV.SIG Q24H DEBORAH Rx#:[id number] Flagyl 500 MG Inj 100 ML @ 100 200 / 200 100 / 100 mls/hr IV.SIG Q6H DEBORAH Rx#: [id number] Oral 0 / 0 Intake (Blood Product) Amt 400 / 400 400 / 400 Rbc As-3 Leukoreduced Unit 400 / 400 [id number] Rbc As-3 Leukoreduced Unit 400 / 400 [id number] Mass Transfusion Protocol 400 / 400 Output: Urine 1000 / 1000 2150 / 2150 Stool 500 / 500 75 / 75 Urine Amount (Catheter) 600 / 600 Indwelling Urethral Catheter 600 / 600 Other: Date of Last Bowel Movement 10/09/17 10/10/17 10/10/17 Physical Exam: CONSTITUTIONAL/GENERAL: This is a pale adequately nourished patient, tachypneic , on nasal cannula O2 in an ICU bed. Depressed affect. TUBES/LINES/DRAINS: Nasal cannula oxygen; peripheral IV; Sweet catheter; fecal collection system. SKIN: No jaundice, rashes. Ecchymoses on upper extremities. Dressing on right calf. Skin temperature appropriate. Not diaphoretic. EYES: Pupils equal and round. Extraocular motions intact. No scleral icterus. No injection or drainage. Fundi not examined. ENT: Hearing grossly normal. Nose without bleeding or purulent drainage. Throat without visible erythema, exudates, masses, or lesions. NECK: Trachea midline. Supple, nontender. CARDIOVASCULAR: Tachycardic and regular rhythm without murmurs, gallops, or rubs. No JVD. Peripheral pulses symmetric. RESPIRATORY/CHEST: Symmetric, rapid, slightly labored respirations. Diminished breath sounds on left. Scattered ronchi. No wheezes. GASTROINTESTINAL: Abdomen soft, obese, non-tender, nondistended. No hepato- splenomegaly, or palpable masses. No guarding. Bowel sounds present. GENITOURINARY: Without palpable bladder distension. Sweet catheter in place. MUSCULOSKELETAL: Extremities without clubbing, cyanosis. 1-2+ edema in the lower extremities. No mottling . LYMPHATICS: Not examined. NEUROLOGICAL: Awake and alert. Motor and sensory grossly within normal limits. Follows commands. Cognitively sharp. Moves all extremities. PSYCHIATRIC: Anxious appearing. Depressed appearing. No apparent hallucinations or other psychotic thought process. . Diagnostic Tests Laboratory: Laboratory Results - last 72 hr 10/08/17 10/08/17 10/08/17 05:10 05:10 05:10 WBC 11.1 H RBC 1.84 L Hgb 5.0 L* Hct 16.4 L* MCV 89.2 MCH 26.9 L MCHC 30.1 L RDW 19.2 H Plt Count 178 MPV 10.2 Prelim Diff (Auto) Slide review pending Neut % (Auto) 85.5 H Lymph % (Auto) 8.4 L [place] % (Auto) 5.9 Eos % (Auto) 0.1 Baso % (Auto) 0.1 Neut # (Auto) 9.5 H Lymph # (Auto) 0.9 L [place] # (Auto) 0.6 Eos # (Auto) 0.0 Baso # (Auto) 0.0 WBC Differential Manual diff final Seg Neuts % (Manual) 81 H Band Neuts % (Manual) 2 Lymphocytes % (Manual) 14 Monocytes % (Manual) 3 Abs Neuts (Manual) 9.2 H Nucleated RBCs/100 WBC 3 H Differential Comment . Platelet Estimate Normal Platelet Morphology Normal Polychromasia 4.3 H Basophilic Stippling Faint H Stomatocytes 1+ H Keratocytes Occ H PT INR APTT Puncture Site Patient Temperature O2 Saturation ABG pH ABG pCO2 ABG pO2 ABG HCO3 ABG O2 Content ABG Base Excess ABG Methemoglobin Jeremiah Test Hemoglobin Carboxyhemoglobin O2 Delivery Device Liter Flow Inspired O2 Critical Value Sodium 147 H Potassium 4.4 Chloride 102 Carbon Dioxide 36.7 H Anion Gap 8 BUN 43 H Creatinine 1.13 H Estimated GFR 48 L POC Glucose Random Glucose 143 H Lactic Acid 2.6 H Calcium 9.1 Phosphorus Magnesium Total Bilirubin 0.5 AST 13 L ALT 16 Alkaline Phosphatase 45 Total Protein 5.3 L Albumin 2.7 L Urine Color Urine Clarity Urine pH Ur Specific [place] Urine Protein Urine Glucose (UA) Urine Ketones Urine Occult Blood Urine Nitrate Urine Bilirubin Urine Urobilinogen Ur Leukocyte Esterase Urine RBC Urine WBC Ur Squamous Epith Cells Urine Mucus Micro UA Comment Urine Culture Comments Nasal Screen MRSA (PCR) Blood Type Blood Type Recheck Antibody Screen MTS Gel Crossmatch Bld Prod Order Comment 10/08/17 10/08/17 10/08/17 05:57 06:17 06:41 WBC RBC Hgb Hct MCV MCH MCHC RDW Plt Count MPV Prelim Diff (Auto) Neut % (Auto) Lymph % (Auto) [place] % (Auto) Eos % (Auto) Baso % (Auto) Neut # (Auto) Lymph # (Auto) [place] # (Auto) Eos # (Auto) Baso # (Auto) WBC Differential Seg Neuts % (Manual) Band Neuts % (Manual) Lymphocytes % (Manual) Monocytes % (Manual) Abs Neuts (Manual) Nucleated RBCs/100 WBC Differential Comment Platelet Estimate Platelet Morphology Polychromasia Basophilic Stippling Stomatocytes Keratocytes PT INR APTT Puncture Site Patient Temperature O2 Saturation ABG pH ABG pCO2 ABG pO2 ABG HCO3 ABG O2 Content ABG Base Excess ABG Methemoglobin Jeremiah Test Hemoglobin Carboxyhemoglobin O2 Delivery Device Liter Flow Inspired O2 Critical Value Sodium Potassium Chloride Carbon Dioxide Anion Gap BUN Creatinine Estimated GFR POC Glucose Random Glucose Lactic Acid Calcium Phosphorus Magnesium Total Bilirubin AST ALT Alkaline Phosphatase Total Protein Albumin Urine Color Yellow Urine Clarity Clear Urine pH 5.0 Ur Specific [place] 1.013 Urine Protein Negative Urine Glucose (UA) Negative Urine Ketones Negative Urine Occult Blood Moderate H Urine Nitrate Negative Urine Bilirubin Negative Urine Urobilinogen Less than 2 Ur Leukocyte Esterase Negative Urine RBC 13 H Urine WBC 1 Ur Squamous Epith Cells <1 Urine Mucus Few H Micro UA Comment Cath-culture not ind Urine Culture Comments Cath-cult not ind Nasal Screen MRSA (PCR) Blood Type O Positive Blood Type Recheck Required Antibody Screen Negative MTS Gel Crossmatch See Detail Bld Prod Order Comment 10/08/17 10/08/17 10/08/17 08:00 09:25 09:25 WBC RBC Hgb Hct MCV MCH MCHC RDW Plt Count MPV Prelim Diff (Auto) Neut % (Auto) Lymph % (Auto) [place] % (Auto) Eos % (Auto) Baso % (Auto) Neut # (Auto) Lymph # (Auto) [place] # (Auto) Eos # (Auto) Baso # (Auto) WBC Differential Seg Neuts % (Manual) Band Neuts % (Manual) Lymphocytes % (Manual) Monocytes % (Manual) Abs Neuts (Manual) Nucleated RBCs/100 WBC Differential Comment Platelet Estimate Platelet Morphology Polychromasia Basophilic Stippling Stomatocytes Keratocytes PT 12.3 H INR 1.2 APTT 21.8 L Puncture Site Right radial Patient Temperature 98.6 O2 Saturation 95 ABG pH 7.44 H ABG pCO2 58 H* ABG pO2 88 ABG HCO3 38 H ABG O2 Content 7.6 L ABG Base Excess 13.1 H ABG Methemoglobin 0.5 Jeremiah Test Present Hemoglobin 5.6 L* Carboxyhemoglobin 2.3 O2 Delivery Device Nasal cannula Liter Flow 4.00 Inspired O2 21 Critical Value Yes Sodium Potassium Chloride Carbon Dioxide Anion Gap BUN Creatinine Estimated GFR POC Glucose Random Glucose Lactic Acid Calcium Phosphorus Magnesium Total Bilirubin AST ALT Alkaline Phosphatase Total Protein Albumin Urine Color Urine Clarity Urine pH Ur Specific [place] Urine Protein Urine Glucose (UA) Urine Ketones Urine Occult Blood Urine Nitrate Urine Bilirubin Urine Urobilinogen Ur Leukocyte Esterase Urine RBC Urine WBC Ur Squamous Epith Cells Urine Mucus Micro UA Comment Urine Culture Comments Nasal Screen MRSA (PCR) Blood Type Blood Type Recheck Antibody Screen MTS Gel Crossmatch Bld Prod Order Comment 10/08/17 10/08/17 10/08/17 16:10 17:43 20:30 WBC RBC Hgb Hct MCV MCH MCHC RDW Plt Count MPV Prelim Diff (Auto) Neut % (Auto) Lymph % (Auto) [place] % (Auto) Eos % (Auto) Baso % (Auto) Neut # (Auto) Lymph # (Auto) [place] # (Auto) Eos # (Auto) Baso # (Auto) WBC Differential Seg Neuts % (Manual) Band Neuts % (Manual) Lymphocytes % (Manual) Monocytes % (Manual) Abs Neuts (Manual) Nucleated RBCs/100 WBC Differential Comment Platelet Estimate Platelet Morphology Polychromasia Basophilic Stippling Stomatocytes Keratocytes PT INR APTT Puncture Site Patient Temperature O2 Saturation ABG pH ABG pCO2 ABG pO2 ABG HCO3 ABG O2 Content ABG Base Excess ABG Methemoglobin Jeremiah Test Hemoglobin Carboxyhemoglobin O2 Delivery Device Liter Flow Inspired O2 Critical Value Sodium Potassium Chloride Carbon Dioxide Anion Gap BUN Creatinine Estimated GFR POC Glucose 192 H Random Glucose Lactic Acid 1.1 Calcium Phosphorus Magnesium Total Bilirubin AST ALT Alkaline Phosphatase Total Protein Albumin Urine Color Urine Clarity Urine pH Ur Specific [place] Urine Protein Urine Glucose (UA) Urine Ketones Urine Occult Blood Urine Nitrate Urine Bilirubin Urine Urobilinogen Ur Leukocyte Esterase Urine RBC Urine WBC Ur Squamous Epith Cells Urine Mucus Micro UA Comment Urine Culture Comments Nasal Screen MRSA (PCR) Not detected Blood Type Blood Type Recheck Antibody Screen MTS Gel Crossmatch Bld Prod Order Comment 10/08/17 10/08/17 10/09/17 20:30 20:30 00:01 WBC 10.5 RBC 2.55 L Hgb 7.1 L D Hct 22.0 L MCV 86.4 MCH 27.6 MCHC 32.0 RDW 18.0 H Plt Count 156 MPV 9.5 Prelim Diff (Auto) Neut % (Auto) Lymph % (Auto) [place] % (Auto) Eos % (Auto) Baso % (Auto) Neut # (Auto) Lymph # (Auto) [place] # (Auto) Eos # (Auto) Baso # (Auto) WBC Differential Seg Neuts % (Manual) Band Neuts % (Manual) Lymphocytes % (Manual) Monocytes % (Manual) Abs Neuts (Manual) Nucleated RBCs/100 WBC Differential Comment Platelet Estimate Platelet Morphology Polychromasia Basophilic Stippling Stomatocytes Keratocytes PT INR APTT Puncture Site Patient Temperature O2 Saturation ABG pH ABG pCO2 ABG pO2 ABG HCO3 ABG O2 Content ABG Base Excess ABG Methemoglobin Jeremiah Test Hemoglobin Carboxyhemoglobin O2 Delivery Device Liter Flow Inspired O2 Critical Value Sodium 147 H Potassium 3.9 Chloride 102 Carbon Dioxide 34.6 H Anion Gap 10 BUN 40 H Creatinine 0.94 Estimated GFR 60 L POC Glucose 185 H Random Glucose 154 H Lactic Acid Calcium 9.1 Phosphorus Magnesium Total Bilirubin 0.8 AST 34 ALT 15 Alkaline Phosphatase 43 L Total Protein 5.1 L Albumin 2.4 L Urine Color Urine Clarity Urine pH Ur Specific [place] Urine Protein Urine Glucose (UA) Urine Ketones Urine Occult Blood Urine Nitrate Urine Bilirubin Urine Urobilinogen Ur Leukocyte Esterase Urine RBC Urine WBC Ur Squamous Epith Cells Urine Mucus Micro UA Comment Urine Culture Comments Nasal Screen MRSA (PCR) Blood Type Blood Type Recheck Antibody Screen MTS Gel Crossmatch Bld Prod Order Comment 10/09/17 10/09/17 10/09/17 02:07 02:07 06:14 WBC 9.6 RBC 2.64 L Hgb 7.4 L Hct 23.2 L MCV 87.7 MCH 28.0 MCHC 31.9 L RDW 18.5 H Plt Count 154 MPV 9.1 Prelim Diff (Auto) Neut % (Auto) 88.1 H Lymph % (Auto) 6.7 L [place] % (Auto) 4.6 Eos % (Auto) 0.5 Baso % (Auto) 0.1 Neut # (Auto) 8.5 H Lymph # (Auto) 0.6 L [place] # (Auto) 0.4 Eos # (Auto) 0.0 Baso # (Auto) 0.0 WBC Differential . Seg Neuts % (Manual) Band Neuts % (Manual) Lymphocytes % (Manual) Monocytes % (Manual) Abs Neuts (Manual) Nucleated RBCs/100 WBC Differential Comment Auto diff final Platelet Estimate Platelet Morphology Polychromasia Basophilic Stippling Stomatocytes Keratocytes PT INR APTT Puncture Site Patient Temperature O2 Saturation ABG pH ABG pCO2 ABG pO2 ABG HCO3 ABG O2 Content ABG Base Excess ABG Methemoglobin Jeremiah Test Hemoglobin Carboxyhemoglobin O2 Delivery Device Liter Flow Inspired O2 Critical Value Sodium 145 Potassium 3.6 Chloride 103 Carbon Dioxide 32.4 H Anion Gap 10 BUN 35 H Creatinine 0.90 Estimated GFR 63 L POC Glucose 186 H Random Glucose 155 H Lactic Acid Calcium 8.2 L D Phosphorus 4.0 Magnesium 1.8 Total Bilirubin 0.6 AST 41 H ALT 17 Alkaline Phosphatase 47 Total Protein 5.3 L Albumin 2.7 L Urine Color Urine Clarity Urine pH Ur Specific [place] Urine Protein Urine Glucose (UA) Urine Ketones Urine Occult Blood Urine Nitrate Urine Bilirubin Urine Urobilinogen Ur Leukocyte Esterase Urine RBC Urine WBC Ur Squamous Epith Cells Urine Mucus Micro UA Comment Urine Culture Comments Nasal Screen MRSA (PCR) Blood Type Blood Type Recheck Antibody Screen MTS Gel Crossmatch Bld Prod Order Comment 10/09/17 10/09/17 10/09/17 13:29 14:14 19:29 WBC RBC Hgb 6.8 L* Hct 21.4 L MCV MCH MCHC RDW Plt Count MPV Prelim Diff (Auto) Neut % (Auto) Lymph % (Auto) [place] % (Auto) Eos % (Auto) Baso % (Auto) Neut # (Auto) Lymph # (Auto) [place] # (Auto) Eos # (Auto) Baso # (Auto) WBC Differential Seg Neuts % (Manual) Band Neuts % (Manual) Lymphocytes % (Manual) Monocytes % (Manual) Abs Neuts (Manual) Nucleated RBCs/100 WBC Differential Comment Platelet Estimate Platelet Morphology Polychromasia Basophilic Stippling Stomatocytes Keratocytes PT INR APTT Puncture Site Patient Temperature O2 Saturation ABG pH ABG pCO2 ABG pO2 ABG HCO3 ABG O2 Content ABG Base Excess ABG Methemoglobin Jeremiah Test Hemoglobin Carboxyhemoglobin O2 Delivery Device Liter Flow Inspired O2 Critical Value Sodium Potassium Chloride Carbon Dioxide Anion Gap BUN Creatinine Estimated GFR POC Glucose 170 H 163 H Random Glucose Lactic Acid Calcium Phosphorus Magnesium Total Bilirubin AST ALT Alkaline Phosphatase Total Protein Albumin Urine Color Urine Clarity Urine pH Ur Specific [place] Urine Protein Urine Glucose (UA) Urine Ketones Urine Occult Blood Urine Nitrate Urine Bilirubin Urine Urobilinogen Ur Leukocyte Esterase Urine RBC Urine WBC Ur Squamous Epith Cells Urine Mucus Micro UA Comment Urine Culture Comments Nasal Screen MRSA (PCR) Blood Type Blood Type Recheck Antibody Screen MTS Gel Crossmatch Bld Prod Order Comment 10/09/17 10/10/17 10/10/17 21:06 00:07 04:14 WBC RBC Hgb Hct MCV MCH MCHC RDW Plt Count MPV Prelim Diff (Auto) Neut % (Auto) Lymph % (Auto) [place] % (Auto) Eos % (Auto) Baso % (Auto) Neut # (Auto) Lymph # (Auto) [place] # (Auto) Eos # (Auto) Baso # (Auto) WBC Differential Seg Neuts % (Manual) Band Neuts % (Manual) Lymphocytes % (Manual) Monocytes % (Manual) Abs Neuts (Manual) Nucleated RBCs/100 WBC Differential Comment Platelet Estimate Platelet Morphology Polychromasia Basophilic Stippling Stomatocytes Keratocytes PT INR APTT Puncture Site Patient Temperature O2 Saturation ABG pH ABG pCO2 ABG pO2 ABG HCO3 ABG O2 Content ABG Base Excess ABG Methemoglobin Jeremiah Test Hemoglobin Carboxyhemoglobin O2 Delivery Device Liter Flow Inspired O2 Critical Value Sodium 144 Potassium 3.5 Chloride 101 Carbon Dioxide 36.0 H Anion Gap 7 BUN 35 H Creatinine 0.79 Estimated GFR 73 L POC Glucose 175 H Random Glucose 129 H Lactic Acid Calcium 9.1 D Phosphorus Magnesium Total Bilirubin AST ALT Alkaline Phosphatase Total Protein Albumin Urine Color Urine Clarity Urine pH Ur Specific [place] Urine Protein Urine Glucose (UA) Urine Ketones Urine Occult Blood Urine Nitrate Urine Bilirubin Urine Urobilinogen Ur Leukocyte Esterase Urine RBC Urine WBC Ur Squamous Epith Cells Urine Mucus Micro UA Comment Urine Culture Comments Nasal Screen MRSA (PCR) Blood Type Blood Type Recheck Antibody Screen MTS Gel Crossmatch See Detail Bld Prod Order Comment 10/10/17 10/10/17 10/10/17 04:14 06:08 11:35 WBC 10.5 RBC 2.87 L Hgb 8.1 L Hct 24.9 L MCV 86.8 MCH 28.2 MCHC 32.5 RDW 17.5 H Plt Count 158 MPV 9.8 Prelim Diff (Auto) Neut % (Auto) 91.1 H Lymph % (Auto) 3.8 L [place] % (Auto) 5.0 Eos % (Auto) 0.1 Baso % (Auto) 0.0 Neut # (Auto) 9.5 H Lymph # (Auto) 0.4 L [place] # (Auto) 0.5 Eos # (Auto) 0.0 Baso # (Auto) 0.0 WBC Differential . Seg Neuts % (Manual) Band Neuts % (Manual) Lymphocytes % (Manual) Monocytes % (Manual) Abs Neuts (Manual) Nucleated RBCs/100 WBC Differential Comment Auto diff final Platelet Estimate Platelet Morphology Polychromasia Basophilic Stippling Stomatocytes Keratocytes PT INR APTT Puncture Site Patient Temperature O2 Saturation ABG pH ABG pCO2 ABG pO2 ABG HCO3 ABG O2 Content ABG Base Excess ABG Methemoglobin Jeremiah Test Hemoglobin Carboxyhemoglobin O2 Delivery Device Liter Flow Inspired O2 Critical Value Sodium Potassium Chloride Carbon Dioxide Anion Gap BUN Creatinine Estimated GFR POC Glucose 135 H 153 H Random Glucose Lactic Acid Calcium Phosphorus Magnesium Total Bilirubin AST ALT Alkaline Phosphatase Total Protein Albumin Urine Color Urine Clarity Urine pH Ur Specific [place] Urine Protein Urine Glucose (UA) Urine Ketones Urine Occult Blood Urine Nitrate Urine Bilirubin Urine Urobilinogen Ur Leukocyte Esterase Urine RBC Urine WBC Ur Squamous Epith Cells Urine Mucus Micro UA Comment Urine Culture Comments Nasal Screen MRSA (PCR) Blood Type Blood Type Recheck Antibody Screen MTS Gel Crossmatch Bld Prod Order Comment 10/10/17 15:25 WBC 11.1 H RBC 2.54 L Hgb 7.2 L Hct 22.1 L MCV 87.1 MCH 28.2 MCHC 32.4 RDW 17.6 H Plt Count 146 L MPV 9.5 Prelim Diff (Auto) Neut % (Auto) Lymph % (Auto) [place] % (Auto) Eos % (Auto) Baso % (Auto) Neut # (Auto) Lymph # (Auto) [place] # (Auto) Eos # (Auto) Baso # (Auto) WBC Differential Seg Neuts % (Manual) Band Neuts % (Manual) Lymphocytes % (Manual) Monocytes % (Manual) Abs Neuts (Manual) Nucleated RBCs/100 WBC Differential Comment Platelet Estimate Platelet Morphology Polychromasia Basophilic Stippling Stomatocytes Keratocytes PT INR APTT Puncture Site Patient Temperature O2 Saturation ABG pH ABG pCO2 ABG pO2 ABG HCO3 ABG O2 Content ABG Base Excess ABG Methemoglobin Jeremiah Test Hemoglobin Carboxyhemoglobin O2 Delivery Device Liter Flow Inspired O2 Critical Value Sodium Potassium Chloride Carbon Dioxide Anion Gap BUN Creatinine Estimated GFR POC Glucose Random Glucose Lactic Acid Calcium Phosphorus Magnesium Total Bilirubin AST ALT Alkaline Phosphatase Total Protein Albumin Urine Color Urine Clarity Urine pH Ur Specific [place] Urine Protein Urine Glucose (UA) Urine Ketones Urine Occult Blood Urine Nitrate Urine Bilirubin Urine Urobilinogen Ur Leukocyte Esterase Urine RBC Urine WBC Ur Squamous Epith Cells Urine Mucus Micro UA Comment Urine Culture Comments Nasal Screen MRSA (PCR) Blood Type Blood Type Recheck Antibody Screen MTS Gel Crossmatch Bld Prod Order Comment Result Diagrams: 10/10/17 15:25 10/10/17 04:14 Microbiology: Microbiology 10/09/17 12:20 Aerobic Blood Culture - Preliminary Blood - Peripheral No growth in 1 day Anaerobic Blood Culture - Preliminary No growth in 1 day 10/09/17 12:25 Aerobic Blood Culture - Preliminary Blood - Peripheral No growth in 1 day Anaerobic Blood Culture - Preliminary No growth in 1 day 10/08/17 05:10 Aerobic Blood Culture - Preliminary Blood - Peripheral No growth in 2 days Anaerobic Blood Culture - Preliminary Staphylococcus coag negative 10/08/17 05:00 Aerobic Blood Culture - Preliminary Blood - Peripheral No growth in 2 days Anaerobic Blood Culture - Preliminary Staphylococcus epidermidis 10/10/17 03:30 Influenza Types A,B Antigen - Final Nasal Wash Negative for FLU A and B antigen Infection due to influenza A or B cannot be ruled out since the antigen present in the sample may be below the detection limit of the test. Imaging: Venous Doppler Study 10/08/17 00:00 CONCLUSION: No DVT is identified within either lower extremity. Chest X-Ray 10/08/17 05:06 CONCLUSION: Abdomen/Pelvis CT 10/08/17 06:55 CONCLUSION: 1. Dense consolidation with air bronchograms in the left lung base with an associated small effusion. Minimal atelectatic changes medially in the right base. 2. 3.8 cm infrarenal abdominal aortic aneurysm. 3. 3 to 4 mm ureteric stone proximally on the right with resulting pelvocaliectasis of the collecting system. 4. 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 Chest CT 10/08/17 06:55 CONCLUSION: 1. Volume loss in the left hemithorax with dense consolidation of the left lower lobe and associated small left-sided effusion. Air bronchograms are present and this may represent compressive atelectasis or infiltrate. 2. Minimal subpleural atelectasis in the medial aspect of the right. 3. Compensated cardiomegaly with findings of prior CABG. Dense calcification of the mitral valve annulus. Chest X-Ray 10/09/17 00:00 CONCLUSION: Increasing bilateral consolidation and increasing left pleural effusion. Chest X-Ray 10/10/17 06:00 CONCLUSION: Cardiomegaly with bilateral mostly basilar airspace disease and pleural effusions. Findings similar to October 09. No pneumothorax. Assessment and Plan - Disease Oriented Problem List (1) COPD (chronic obstructive pulmonary disease) (2) Pneumonia (3) Diabetes mellitus (4) History of GI bleed (5) Anemia (6) Coronary artery disease Comment: S/p CABG in 08/2017 (7) History of pulmonary embolism (8) History of uterine cancer (9) Hypertension - Symptom Scale (4) Anorexia 0-10 Scale: 10 Comment: No food tastes good to her. Taking in only protein shakes for two weeks. Reports over 50lb wt loss in year. Pertinent Non-Medical Issues: Psychosocial: * Originally from [place]. Has lived in [place] about 18 yrs. 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 * once. Has been to [place] for 40 years. * One son -- Sharif -- lives in [place]. He has visited recently and knows how ill she is. Spiritual: Orthodoxy and spirituality have not been an important part of her life. Declines needle setter visits. Legal: No written advance directives. Ethical issues impacting care: Currently capacitated to make her own health care decisions. Important Contacts: Mitch Tolentino (spouse) ; [phone] . Prognosis: Patient has multiple medical problems including underlying COPD, coronary artery disease, diabetes, and history of uterine cancer. She has essentially been in the hospital or rehab since her CABG in May 2017. She has had a relatively recent pulmonary embolus. She has had recurrent GI bleeding of uncertain etiology since her CABG in spite of several GI endoscopies. She started bleeding again while off anticoagulation. She has had recurrent infections. She gets delirium while hospitalized. She received a great deal of fluid when she came in hypotensive and is now possibly fluid overloaded. Even prior to her CABG she had severe limitations in quality of life due to COPD and chronic back/leg pain. Prognosis is poor given her inability to improve since May and increasing de- conditioning. . Code Status: No Code DNR Plan: == Code Status: NO CODE. Discussed with patient on 10/09 and with spouse on . All agree on DNR status. == Decision making: Patient appears capacitated to make her own healthcare decisions. There are some references to "dementia" in the medical record. No evidence of dementia at time of my visit. There may have been delirium during some of her hospitalizations. As there is no written documentation of health care surrogate, would serve as proxy should patient become incapacitated. . == Goals of medical treatment: For now goals are for aggressive treatments short of resuscitation. == Symptoms * Pain: Longstanding chronic neck/back/leg pain requiring daily use of 2-3 Lortab 5 mg. No recent chest pain. She is also on baclofen . Current other sources of discomfort might include her bedbound status; Sweet catheter; fecal collection system; and vascular access lines. Probably want to avoid opiates given respiratory issues. May want to consider Cymbalta or even low dose amitryptiline which may help with pain/depression/appetite. * Dyspnea: Patient's dyspnea is multifactorial. There is underlying COPD. She comes in with a low hemoglobin. She appears to have an infection. At this point she may have a component of fluid overload. Hopefully, diuresis and the transfusions and antibuotics will help resolve this. May need to reconsider PE if symptoms do not improve -- dennis , however with IVC filter in place and negative venous dopplers. Patient is currently also on supplemental O2. No further recommendations at this time. * Anorexia: Food has not taste for her and she is eating little and losing weight. Would recommend brief course of steroids, but must avoid due to GI bleeding. * Generalized weakness: Probably also multifactorial. Has had decline long before surgery in May secondary to lung disease and to chronic back/leg pain. No with no appetite and weight loss. Hopefully, this will improve if we can stop bleeding and get her to eat. * Depression: May want to consider Cymbalta or even low dose amitryptiline which may help with pain/depression/appetite. == If patient has not already done so, will encourage completion of an advanced directive. == Await GI endoscopy. Hopefully, we fill find the cause of recurrent bleeding and be able to resolve this issue. Even if we stop the bleeding, patient will be left with her chronic pain and dyspnea issues. == Palliative care will continue to follow to assist with symptom management and to further clarify goals of medical treatment as the clinical course evolves. . Time Spent Total Floor Time (mins): 40 (Total floor time included chart review; patient exam; obtaining further history from pt; above referenced phone call to spouse. ) Face to Face Time (mins): 20 >50% Time in Counseling or Coordination of Care: Yes Attestation Attestation: To help prompt me to consider important information that might be impacting today's encounter and assessment, information from prior notes written by myself or my colleagues may have been "brought forward" into today's note. My signature on this note, however, is an attestation that I personally performed the exam, history, and/or decision-making noted today, and, unless otherwise indicated, the interactions with patient, family, and staff as well as the review of records all occurred today. I also attest that the listed assessment and stated plan reflect my best clinical judgment today based on the combination of historical information, prior notes, and today's exam/ interactions. When time spent is documented, it refers only to time spent today by the signer, or if indicated, combined time spent today by collaborating physician/nurse practitioner.
[2017-10-11] MEDS: Insulin NovoLIN Regular Correctional Sugar Inj SQ SCH ×4 (00:08→17:57)
[2017-10-11] MEDS: Chlorhexidine Gluconate 2% 1 Pack (2 Cloths) TOPICAL SCH (04:00)
--- NOTE | 2017-10-11 04:04 | XR ---
EXAM DATE: 10/11/2017 4:01 AM EDT AGE/SEX: 62 years / Female INDICATIONS: . Short of breath. CLINICAL DATA: This is the patient's subsequent encounter. Patient reports that signs and symptoms h ave been present for 1 week and indicates a pain score of 3/10. MEDICAL/SURGICAL HISTORY: Chronic obstructive pulmonary disease. Diabetes, Pneumonia. CABG. COMPARISON: [facility], CHEST 1V SINGLE AP, 10/10/2017. . FINDINGS: Cardiomegaly with bilateral mostly basilar airspace disease and bilateral effusions. No pneumothorax. CONCLUSION: Stable examinations with bilateral effusions and mostly basilar airspace disease. Previous sternotomy . Electronically signed by: Sonny Alcala MD 10/11/2017 4:03 AM EDT
[2017-10-11] MEDS: Nystatin 100,000 UNITS/GM Powder 15 GM Bottle TOPICAL SCH ×4 (08:01→21:35)
[2017-10-11] MEDS: Baclofen 10 MG Tablet PO SCH ×3 (08:01→17:56)
[2017-10-11] MEDS: Collagenase Oint 30 GM Tube TOPICAL SCH (08:01)
[2017-10-11] MEDS: Senna/Docusate Sodium 8.6/50 MG Tablet PO SCH ×2 (08:02→21:08)
[2017-10-11] MEDS ORDERED: Pharmacy Ordered Lab Info OTHER ONE (09:45)
[2017-10-11] MEDS: Vancomycin Inj 1,500 MG in Sodium Chlor 0.9% Inj 500 ML IV.SIG SCH (10:48)
--- NOTE | 2017-10-11 14:27 | P.PNCC ---
Subjective Subjective Remarks/Hospital Course: The patient is a 62-year-old female, [facility] resident, with a past medical history of hypertension, diabetes mellitus, coronary artery disease on Eliquis, who presented to [facility] [place] ED with shortness of breath associated with tachypnea and generalized weakness. On arrival to the ED, she was hypotensive with a systolic blood pressure 80s-90s and tachycardic with heart rate of 102-110. Her laboratory data showed anemia with hemoglobin level 5.0 and mild acute kidney injury with a creatinine of 1.13 and lactic acid of 2.6. The patient was given a total of 1 liter of normal saline and is scheduled to receive 2 units of red blood cells. When seen, her current blood pressure is 145/74. ABG was performed on 4 liter oxygen, which showed a pH of 7.44, CO2 58, PaO2 88 , bicarbonate of 38, saturation 95 percent. The patient agnieszka poor historian. She underwent CT chest, abdomen and pelvis. Her CT scan of the chest showed dense consolidation of the left lower lobe with air bronchograms and CT abdomen and pelvis showed a 3.8 cm infrarenal abdominal aortic aneurysm. 10/09: Patient complaining of shortness of breath. Received blood products and colon prep overnight. Will give 1 dose of bumetanide IV 1 now. Creatinine within normal limits. Patient is on furosemide at home 20 mg daily which is currently on hold. Plan for EGD/colonoscopy today 10/10: Afebrile. Received 1 unit PRBCs overnight. Respiratory rate much improved. DNR status currently. Will give 1 dose of acetazolamide 250 mg IV 1 now. Appears more comfortable. Subjective 10/11: Unable to obtain blood draws today. Received 1 unit PRBCs yesterday. Less dyspneic today. Still having black stools. Will central line placed by IR. Objective Vital Signs / I&O: Vital Signs 10/10/17 15:56 10/10/17 16:00 10/10/17 16:04 Temperature Pulse Rate 114 H 113 H 112 H Respiratory Rate 36 H 34 H 29 H Blood Pressure 141/75 H Pulse Oximetry 98 100 10/10/17 17:00 10/10/17 17:57 10/10/17 18:00 Temperature 97.9 F Pulse Rate 110 H 113 H 114 H Respiratory Rate 50 H 32 H 60 H Blood Pressure 143/74 H 143/74 H 146/67 H Pulse Oximetry 100 98 10/10/17 19:00 10/10/17 19:45 10/10/17 20:00 Temperature 98.8 F Pulse Rate 114 H 112 H 114 H Respiratory Rate 35 H 28 H 35 H Blood Pressure 159/79 H 143/73 H Pulse Oximetry 97 97 99 10/10/17 21:00 10/10/17 21:23 10/10/17 22:00 Temperature Pulse Rate 117 H 113 H 118 H Respiratory Rate 62 H 40 H 45 H Blood Pressure 162/70 H 151/71 H 147/98 H Pulse Oximetry 94 L 95 97 10/10/17 23:00 10/10/17 23:26 10/11/17 00:00 Temperature 98.6 F Pulse Rate 112 H 111 H 111 H Respiratory Rate 33 H 28 H 40 H Blood Pressure 141/77 H 148/79 H Pulse Oximetry 96 10/11/17 01:00 10/11/17 02:00 10/11/17 03:00 Temperature Pulse Rate 120 H 109 H 107 H Respiratory Rate 56 H 32 H 23 Blood Pressure 137/64 140/65 128/66 Pulse Oximetry 89 L 100 100 10/11/17 03:04 10/11/17 04:00 10/11/17 05:00 Temperature 98.0 F Pulse Rate 107 H 107 H 108 H Respiratory Rate 26 H 26 H 23 Blood Pressure 134/66 134/70 Pulse Oximetry 96 99 10/11/17 06:00 10/11/17 07:00 10/11/17 07:51 Temperature Pulse Rate 107 H 105 H 105 H Respiratory Rate 24 18 26 H Blood Pressure 118/60 Pulse Oximetry 99 99 96 10/11/17 07:57 10/11/17 08:00 10/11/17 09:00 Temperature 97.9 F Pulse Rate 107 H 106 H 111 H Respiratory Rate 28 H 27 H 51 H Blood Pressure 123/64 122/58 L Pulse Oximetry 100 99 74 L 10/11/17 09:07 10/11/17 10:00 10/11/17 12:23 Temperature Pulse Rate 119 H 105 H 109 H Respiratory Rate 47 H 26 H Blood Pressure 160/75 H Pulse Oximetry 91 L Intake & Output 10/10/17 10/11/17 10/11/17 18:59 06:59 18:59 Intake Total 5030 / 5030 1440 / 1440 200 / 200 Output Total 1325 / 1325 1400 / 1400 Balance 3705 / 3705 40 / 40 200 / 200 Weight 125 kg Intake: IV 4180 / 4180 400 / 400 200 / 200 Azactam Inj 1,000 MG In NS Inj 100 / 100 200 / 200 100 / 100 100 ML @ 200 mls/hr IV.SIG Q8H DEBORAH Rx#:[id number] Vancomycin Inj 1,500 MG In NS 1030 / 1030 Inj 500 ML @ 250 mls/hr IV.SIG Q24H DEBORAH Rx#:[id number] Flagyl 500 MG Inj 100 ML @ 100 200 / 200 200 / 200 100 / 100 mls/hr IV.SIG Q6H DEBORAH Rx#: [id number] Oral 50 / 50 240 / 240 Intake (Blood Product) Amt 400 / 400 400 / 400 Rbc As-3 Leukoreduced Unit 400 / 400 [id number] Rbc As-3 Leukoreduced Unit 0 / 0 400 / 400 [id number] Mass Transfusion Protocol 400 / 400 400 / 400 Output: Urine 1250 / 1250 1300 / 1300 Stool 75 / 75 100 / 100 Other: Date of Last Bowel Movement 10/10/17 10/11/17 10/11/17 Result Diagrams: 10/10/17 15:25 10/10/17 04:14 Other Results: Microbiology 10/09/17 12:20 Blood - Peripheral Aerobic Blood Culture - Preliminary No growth in 2 days 10/09/17 12:20 Blood - Peripheral Anaerobic Blood Culture - Preliminary No growth in 2 days 10/09/17 12:25 Blood - Peripheral Aerobic Blood Culture - Preliminary No growth in 2 days 10/09/17 12:25 Blood - Peripheral Anaerobic Blood Culture - Preliminary No growth in 2 days 10/08/17 05:10 Blood - Peripheral Aerobic Blood Culture - Preliminary No growth in 3 days 10/08/17 05:10 Blood - Peripheral Anaerobic Blood Culture - Final Staphylococcus epidermidis 10/08/17 05:00 Blood - Peripheral Aerobic Blood Culture - Preliminary No growth in 3 days 10/08/17 05:00 Blood - Peripheral Anaerobic Blood Culture - Final Staphylococcus epidermidis 10/10/17 03:30 Nasal Wash Influenza Types A,B Antigen - Final Negative for FLU A and B antigen Infection due to influenza A or B cannot be ruled out since the antigen present in the sample may be below the detection limit of the test. Imaging: Venous Doppler Study 10/08/17 00:00 CONCLUSION: No DVT is identified within either lower extremity. Chest X-Ray 10/08/17 05:06 CONCLUSION: Abdomen/Pelvis CT 10/08/17 06:55 CONCLUSION: 1. Dense consolidation with air bronchograms in the left lung base with an associated small effusion. Minimal atelectatic changes medially in the right base. 2. 3.8 cm infrarenal abdominal aortic aneurysm. 3. 3 to 4 mm ureteric stone proximally on the right with resulting pelvocaliectasis of the collecting system. 4. 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 Chest CT 10/08/17 06:55 CONCLUSION: 1. Volume loss in the left hemithorax with dense consolidation of the left lower lobe and associated small left-sided effusion. Air bronchograms are present and this may represent compressive atelectasis or infiltrate. 2. Minimal subpleural atelectasis in the medial aspect of the right. 3. Compensated cardiomegaly with findings of prior CABG. Dense calcification of the mitral valve annulus. Chest X-Ray 10/09/17 00:00 CONCLUSION: Increasing bilateral consolidation and increasing left pleural effusion. Chest X-Ray 10/10/17 06:00 CONCLUSION: Cardiomegaly with bilateral mostly basilar airspace disease and pleural effusions. Findings similar to October 09. No pneumothorax. Chest X-Ray 10/11/17 06:00 CONCLUSION: Stable examinations with bilateral effusions and mostly basilar airspace disease. Previous sternotomy. Objective Remarks: GENERAL: 62-year-old female currently on nasal cannula in less respiratory distress. SKIN: Warm and dry. Open nondraining ulcerations from prior EVH right lower extremity x 2 with some erythema HEAD: Atraumatic. Normocephalic. EYES: Pupils equal and round about 3 mm bilaterally reactive. No scleral icterus. No injection or drainage. ENT: No nasal bleeding or discharge. Mucous membranes pink and moist. NECK: Trachea midline. No JVD. CARDIOVASCULAR: Tachycardic, RR. S1, S2. No S4. No murmur RESPIRATORY: Diminished breath sounds due to body habitus. Somewhat tachypneic. No wheezing appreciated. GASTROINTESTINAL: Abdomen soft, non-tender, nondistended. Hepatic and splenic margins not palpable. MUSCULOSKELETAL: Extremities with 1+ bilateral lower extremity edema. NEUROLOGICAL: Awake and alert. No obvious cranial nerve deficits. Motor grossly within normal limits. Five out of 5 muscle strength in the arms and legs. Normal nonpressure speech. Assessment and Plan - Assessment and Plan Plan: Neuro/Psych: Acetaminophen 650 mg by mouth every 6 hours as needed fever CV: Essential hypertension Hyperlipidemia Diastolic heart failure likely chronic 3.8 cm infrarenal abdominal aortic aneurysm Coronary artery disease/CABG June 2017 at [facility] 2D echocardiogram revealed EF 40-45% normal LV function. Holding metoprolol tartrate 25 mg twice daily in light of n.p.o. status. N.p.o. status. Start on IV metoprolol 2.5 mg IV every 6 hours On rosuvastatin 40 mg daily at home for dyslipidemia. Resume clinically indicated Resp: Acute respiratory insufficiency History of COPD CT thorax 10/08 revealed air bronchograms in the left lower lobe. Small left pleural effusion. Nasal cannula to maintain saturations greater than or equal to 92% Incentive spirometry while awake Albuterol/ipratropium aerosols every 4 hours with albuterol aerosols every 2 hours as needed for dyspnea Acapella/PEP every 4 hours Chest x-ray in a.m. 10/11. She appears volume overloaded at the present time. Will give acetazolamide 250 mg IV 1 now.. She is chronically on furosemide 20 mg daily GI: Elevated AST Moderate protein calorie malnutrition/hypoalbuminemia History of colonic polyps questionable Currently on clear liquid diet Plan for EGD/colonoscopy when/if stable. They have signed off in the interim. Patient had a recent panendoscopy 7 days ago for hospital which verbal report revealed polyps. Her stool is currently black. Pantoprazole 8 mg an hour Docusate sodium/senna 1 tablet twice daily for bowel regimen : Ureteral stone - R 4 mm Maintain Sweet catheter today. [place] tomorrow if hemoglobin is stable/wound stable Endo: Diabetes mellitus Acute hyperglycemia On insulin U100 lispro unknown dose at home on insulin glargine 10 units 3 times daily Sliding scale insulin with aspart/every 6 hours medium regimen. Renal: Creatinine currently within normal limits. Monitor urine output Accurate I's and O's Heme: Acute blood loss anemia/normocytic Transfuse 4 units PRBCs this hospitalization. Coags within normal limits ID: Gram-positive cocci bacteremia - CONS/Staph epi Patient is currently in vancomycin, aztreonam day #4 and metronidazole day #3 for pneumonia/hospital-acquired Pertinent cultures 10/08 -blood cultures 2 -1 out of 2 gram-positive cocci 10/09 -blood cultures 2 -no growth to date Influenza a and B- MSK: Elevated BMI Right lower extremity deep tissue injury Weight loss encouraged. Wound care evaluate and treat and continue Santyl for now/home medication FEN: Replace electrolytes as clinically indicated ACCESS -utilize peripheral IV. Central line if indicated Prophylax -GI -pantoprazole drip -DVT -SCD/no pharmacological prophylaxis in light of gastro-intestinal bleeding. Level 3 follow-up
--- NOTE | 2017-10-11 15:52 | P.RAD ---
Post Procedure Progress Note - Pre Procedure Diagnosis (1) Bacteremia - Post Procedure Diagnosis (1) Bacteremia - Procedure Information Procedure Date: 10/11/17 Supervising Radiologist: Deangelo Gates Jr, MD Estimated blood loss (mL): 0 Anesthesia: Local - Plan of Activity Patient to Unit: Nursing Unit Patient Condition: Good See PACS Report for procedural detail/treatment. CVAD Radiology Procedures right Internal Jugular Central Line Placement Device: triple lumen Uzbek: 7 - Additional Detail Findings: CVL in good position and ready for use.
[2017-10-11 16:44] LABS: Baso % (Auto) 0.2 % (0.0-2.0); Eos # (Auto) 0.1 th/mm3 (0.0-0.4); Eos % (Auto) 0.5 % (0.0-4.0); Hematocrit 26.2 % (35.0-46.0); Hemoglobin 8.2 gm/dL (11.6-15.3); Lymph # (Auto) 1.9 th/mm3 (1.0-4.8); Lymph % (Auto) 13.2 % (9.0-44.0); Mean Corpuscular HGB Conc 31.1 % (32.0-36.0); Mean Corpuscular Hemoglobin 27.8 pg (27.0-34.0); Mean Corpuscular Volume 89.4 fL (80.0-100.0); Mean Platelet Volume 9.1 fL (7.0-11.0); Mono # (Auto) 0.7 th/mm3 (0.0-0.9); Mono % (Auto) 4.8 % (0.0-8.0); Neut # (Auto) 11.7 th/mm3 (1.8-7.7); Neut % (Auto) 81.3 % (16.0-70.0); Platelet Count 252 th/mm3 (150-450); Red Blood Count 2.93 mil/mm3 (4.00-5.30); Red Cell Distribution Width 17.4 % (11.6-17.2); White Blood Count 14.3 th/mm3 (4.0-11.0)
[2017-10-11 17:01] LABS: Alanine Aminotransferase 16 U/L (10-53); Albumin 2.5 g/dL (3.4-5.0); Anion Gap 3 meq/L (5-15); Aspartate Aminotransferase 15 U/L (15-37); Blood Urea Nitrogen 30 mg/dL (7-18); Calcium 8.7 mg/dL (8.5-10.1); Carbon Dioxide 42.2 meq/L (21.0-32.0); Chloride 102 meq/L (98-107); Glomerular Filtration Rate Greater Than 89 mL/min (>89); Glucose,Random 164 mg/dL (74-106); Magnesium 1.8 mg/dL (1.5-2.5); Phosphorus 2.7 mg/dL (2.5-4.9); Sodium 147 meq/L (136-145)
[2017-10-11 17:05] LABS: Alkaline Phosphatase 42 U/L (45-117); Total Protein 5.1 g/dL (6.4-8.2)
[2017-10-11 17:10] LABS: Potassium 2.1 meq/L (3.5-5.1)
[2017-10-11] MEDS ORDERED: Magnesium Sulfate Inj 4 GM in Sodium Chlor 0.9% Inj 92 ML IV.SIG PRN (17:13)
[2017-10-11] MEDS ORDERED: Potassium Chlor 20 mEq Premix 20 MEQ/100 ML PIGGYBACK IV.SIG PRN ×2 (17:13)
[2017-10-11] MEDS ORDERED: Sodium Phosphate Inj 30 MMOL in Sodium Chlor 0.9% Inj 250 ML IV.SIG PRN (17:13)
[2017-10-11] MEDS ORDERED: Potassium Phosphate Inj 30 MMOL in Sodium Chlor 0.9% Inj 250 ML IV.SIG PRN (17:13)
[2017-10-11] MEDS ORDERED: Magnesium Oxide 400 MG Tablet PO PRN (17:13)
[2017-10-11] MEDS ORDERED: Magnesium Sulfate Inj 2 GM in Sodium Chlor 0.9% Inj 96 ML IV.SIG PRN (17:13)
[2017-10-11] MEDS ORDERED: Potassium Phosphate 500 MG Soluble Tablet PO PRN ×2 (17:13)
[2017-10-11] MEDS ORDERED: Potassium Chloride 25 MEQ Effervescent Tablet PO PRN (17:13)
[2017-10-11 17:14] LABS: Platelet Estimate Normal (Normal); Platelet Morphology Normal (Normal); Stomatocytes 1+
--- NOTE | 2017-10-11 18:20 | P.PNPAL ---
Reason for Visit Reason for visit: a. To assist with evaluation and management of symptoms including: pain; dyspnea; anorexia b. To assist medical decision maker(s) with: better understanding of current medical conditions; weighing benefits/burdens of medical treatment options; making medical treatment decisions. . Subjective Subjective/Interval History: Patient is quite upset when i visit this evening. A central line had to be placed because blood could not be drawn peripherally. Following the central line placement, she kept picking at the line placement and there was bleeding. She needed to be restrained. She is c/o of the restraints and complaining of her chronic leg pain. Her breathing certainly looks better , but she does not feel like her breathing is better. Appetite remains poor. No evidence of bleeding . Endoscopy could not be performed because of her respiratory status and since there has been no evidence of GI bleeding, GI has signed off. Nurse reports patient has been intermittently uncooperative. . Family/Friend Interactions: No family/friend interactions today. . Advance Directives Living Will: Never completed Health Care Surrogate: Never completed Durable Power of Stoneworking Sander: Never completed Health Care Surrogate Name and Number: No written designation of health care surrogate Documented care wishes:: At this time there is no written documentation of patient's healthcare goals or preferences on the chart. . Objective Vital Signs: Vital Signs 10/10/17 19:00 10/10/17 19:45 10/10/17 20:00 Temperature 98.8 F Pulse Rate 114 H 112 H 114 H Respiratory Rate 35 H 28 H 35 H Blood Pressure 159/79 H 143/73 H Pulse Oximetry 97 97 99 10/10/17 21:00 10/10/17 21:23 10/10/17 22:00 Temperature Pulse Rate 117 H 113 H 118 H Respiratory Rate 62 H 40 H 45 H Blood Pressure 162/70 H 151/71 H 147/98 H Pulse Oximetry 94 L 95 97 10/10/17 23:00 10/10/17 23:26 10/11/17 00:00 Temperature 98.6 F Pulse Rate 112 H 111 H 111 H Respiratory Rate 33 H 28 H 40 H Blood Pressure 141/77 H 148/79 H Pulse Oximetry 96 10/11/17 01:00 10/11/17 02:00 10/11/17 03:00 Temperature Pulse Rate 120 H 109 H 107 H Respiratory Rate 56 H 32 H 23 Blood Pressure 137/64 140/65 128/66 Pulse Oximetry 89 L 100 100 10/11/17 03:04 10/11/17 04:00 10/11/17 05:00 Temperature 98.0 F Pulse Rate 107 H 107 H 108 H Respiratory Rate 26 H 26 H 23 Blood Pressure 134/66 134/70 Pulse Oximetry 96 99 10/11/17 06:00 10/11/17 07:00 10/11/17 07:51 Temperature Pulse Rate 107 H 105 H 105 H Respiratory Rate 24 18 26 H Blood Pressure 118/60 Pulse Oximetry 99 99 96 10/11/17 07:57 10/11/17 08:00 10/11/17 09:00 Temperature 97.9 F Pulse Rate 107 H 106 H 111 H Respiratory Rate 28 H 27 H 51 H Blood Pressure 123/64 122/58 L Pulse Oximetry 100 99 74 L 10/11/17 09:07 10/11/17 10:00 10/11/17 12:23 Temperature Pulse Rate 119 H 105 H 109 H Respiratory Rate 47 H 26 H Blood Pressure 160/75 H Pulse Oximetry 91 L 10/11/17 17:00 Temperature Pulse Rate 104 H Respiratory Rate 25 H Blood Pressure Pulse Oximetry Intake & Output 10/10/17 10/11/17 10/11/17 18:59 06:59 18:59 Intake Total 5030 / 5030 1440 / 1440 300 / 300 Output Total 1325 / 1325 1400 / 1400 Balance 3705 / 3705 40 / 40 300 / 300 Weight 125 kg Intake: IV 4180 / 4180 400 / 400 300 / 300 Azactam Inj 1,000 MG In NS Inj 100 / 100 200 / 200 100 / 100 100 ML @ 200 mls/hr IV.SIG Q8H DEBORAH Rx#:[id number] Vancomycin Inj 1,500 MG In NS 1030 / 1030 Inj 500 ML @ 250 mls/hr IV.SIG Q24H DEBORAH Rx#:[id number] Flagyl 500 MG Inj 100 ML @ 100 200 / 200 200 / 200 200 / 200 mls/hr IV.SIG Q6H DEBORAH Rx#: [id number] Oral 50 / 50 240 / 240 Intake (Blood Product) Amt 400 / 400 400 / 400 Rbc As-3 Leukoreduced Unit 400 / 400 [id number] Rbc As-3 Leukoreduced Unit 0 / 0 400 / 400 [id number] Mass Transfusion Protocol 400 / 400 400 / 400 Output: Urine 1250 / 1250 1300 / 1300 Stool 75 / 75 100 / 100 Other: Date of Last Bowel Movement 10/10/17 10/11/17 10/11/17 Physical Exam: CONSTITUTIONAL/GENERAL: This is a pale adequately nourished patient, tachypneic , on nasal cannula O2 in an ICU bed. Depressed , angry affect. TUBES/LINES/DRAINS: Nasal cannula oxygen; right IJ central line ; Sweet catheter ; fecal collection system. SKIN: No jaundice, rashes. Ecchymoses on upper extremities. Dressing on right calf. Skin temperature appropriate. Not diaphoretic. EYES: Pupils equal and round. Extraocular motions intact. No scleral icterus. No injection or drainage. Fundi not examined. ENT: Hearing grossly normal. Nose without bleeding or purulent drainage. Throat without visible erythema, exudates, masses, or lesions. NECK: Trachea midline. Supple, nontender. CARDIOVASCULAR: Tachycardic and regular rhythm without murmurs, gallops, or rubs. No JVD. Peripheral pulses symmetric. RESPIRATORY/CHEST: Symmetric, tachypnic, slightly labored respirations. Diminished breath sounds on left. Scattered faint ronchi. No wheezes. GASTROINTESTINAL: Abdomen soft, obese, non-tender, nondistended. No hepato- splenomegaly, or palpable masses. No guarding. Bowel sounds present. GENITOURINARY: Without palpable bladder distension. Sweet catheter in place. MUSCULOSKELETAL: Extremities without clubbing, cyanosis. 1-2+ edema in the lower extremities. No mottling . LYMPHATICS: Not examined. NEUROLOGICAL: Awake and alert. Motor and sensory grossly within normal limits. Follows commands. Cognitively sharp. Moves all extremities. PSYCHIATRIC: Anxious appearing. Depressed appearing. Angry. No apparent hallucinations or other psychotic thought process. . Diagnostic Tests Laboratory: Laboratory Results - last 72 hr 10/08/17 10/08/17 10/08/17 06:41 16:10 20:30 WBC RBC Hgb Hct MCV MCH MCHC RDW Plt Count MPV Prelim Diff (Auto) Neut % (Auto) Lymph % (Auto) [place] % (Auto) Eos % (Auto) Baso % (Auto) Neut # (Auto) Lymph # (Auto) [place] # (Auto) Eos # (Auto) Baso # (Auto) WBC Differential Diff Scan Differential Comment Platelet Estimate Platelet Morphology Stomatocytes Sodium Potassium Chloride Carbon Dioxide Anion Gap BUN Creatinine Estimated GFR POC Glucose Random Glucose Lactic Acid 1.1 Calcium Phosphorus Magnesium Total Bilirubin AST ALT Alkaline Phosphatase Total Protein Albumin Nasal Screen MRSA (PCR) Not detected MTS Gel Crossmatch See Detail Bld Prod Order Comment 10/08/17 10/08/17 10/09/17 20:30 20:30 00:01 WBC 10.5 RBC 2.55 L Hgb 7.1 L D Hct 22.0 L MCV 86.4 MCH 27.6 MCHC 32.0 RDW 18.0 H Plt Count 156 MPV 9.5 Prelim Diff (Auto) Neut % (Auto) Lymph % (Auto) [place] % (Auto) Eos % (Auto) Baso % (Auto) Neut # (Auto) Lymph # (Auto) [place] # (Auto) Eos # (Auto) Baso # (Auto) WBC Differential Diff Scan Differential Comment Platelet Estimate Platelet Morphology Stomatocytes Sodium 147 H Potassium 3.9 Chloride 102 Carbon Dioxide 34.6 H Anion Gap 10 BUN 40 H Creatinine 0.94 Estimated GFR 60 L POC Glucose 185 H Random Glucose 154 H Lactic Acid Calcium 9.1 Phosphorus Magnesium Total Bilirubin 0.8 AST 34 ALT 15 Alkaline Phosphatase 43 L Total Protein 5.1 L Albumin 2.4 L Nasal Screen MRSA (PCR) MTS Gel Crossmatch Bld Prod Order Comment 10/09/17 10/09/17 10/09/17 02:07 02:07 06:14 WBC 9.6 RBC 2.64 L Hgb 7.4 L Hct 23.2 L MCV 87.7 MCH 28.0 MCHC 31.9 L RDW 18.5 H Plt Count 154 MPV 9.1 Prelim Diff (Auto) Neut % (Auto) 88.1 H Lymph % (Auto) 6.7 L [place] % (Auto) 4.6 Eos % (Auto) 0.5 Baso % (Auto) 0.1 Neut # (Auto) 8.5 H Lymph # (Auto) 0.6 L [place] # (Auto) 0.4 Eos # (Auto) 0.0 Baso # (Auto) 0.0 WBC Differential . Diff Scan Differential Comment Auto diff final Platelet Estimate Platelet Morphology Stomatocytes Sodium 145 Potassium 3.6 Chloride 103 Carbon Dioxide 32.4 H Anion Gap 10 BUN 35 H Creatinine 0.90 Estimated GFR 63 L POC Glucose 186 H Random Glucose 155 H Lactic Acid Calcium 8.2 L D Phosphorus 4.0 Magnesium 1.8 Total Bilirubin 0.6 AST 41 H ALT 17 Alkaline Phosphatase 47 Total Protein 5.3 L Albumin 2.7 L Nasal Screen MRSA (PCR) MTS Gel Crossmatch Bld Prod Order Comment 10/09/17 10/09/17 10/09/17 13:29 14:14 19:29 WBC RBC Hgb 6.8 L* Hct 21.4 L MCV MCH MCHC RDW Plt Count MPV Prelim Diff (Auto) Neut % (Auto) Lymph % (Auto) [place] % (Auto) Eos % (Auto) Baso % (Auto) Neut # (Auto) Lymph # (Auto) [place] # (Auto) Eos # (Auto) Baso # (Auto) WBC Differential Diff Scan Differential Comment Platelet Estimate Platelet Morphology Stomatocytes Sodium Potassium Chloride Carbon Dioxide Anion Gap BUN Creatinine Estimated GFR POC Glucose 170 H 163 H Random Glucose Lactic Acid Calcium Phosphorus Magnesium Total Bilirubin AST ALT Alkaline Phosphatase Total Protein Albumin Nasal Screen MRSA (PCR) MTS Gel Crossmatch Bld Prod Order Comment 10/09/17 10/10/17 10/10/17 21:06 00:07 04:14 WBC RBC Hgb Hct MCV MCH MCHC RDW Plt Count MPV Prelim Diff (Auto) Neut % (Auto) Lymph % (Auto) [place] % (Auto) Eos % (Auto) Baso % (Auto) Neut # (Auto) Lymph # (Auto) [place] # (Auto) Eos # (Auto) Baso # (Auto) WBC Differential Diff Scan Differential Comment Platelet Estimate Platelet Morphology Stomatocytes Sodium 144 Potassium 3.5 Chloride 101 Carbon Dioxide 36.0 H Anion Gap 7 BUN 35 H Creatinine 0.79 Estimated GFR 73 L POC Glucose 175 H Random Glucose 129 H Lactic Acid Calcium 9.1 D Phosphorus Magnesium Total Bilirubin AST ALT Alkaline Phosphatase Total Protein Albumin Nasal Screen MRSA (PCR) MTS Gel Crossmatch See Detail Bld Prod Order Comment 10/10/17 10/10/17 10/10/17 04:14 06:08 11:35 WBC 10.5 RBC 2.87 L Hgb 8.1 L Hct 24.9 L MCV 86.8 MCH 28.2 MCHC 32.5 RDW 17.5 H Plt Count 158 MPV 9.8 Prelim Diff (Auto) Neut % (Auto) 91.1 H Lymph % (Auto) 3.8 L [place] % (Auto) 5.0 Eos % (Auto) 0.1 Baso % (Auto) 0.0 Neut # (Auto) 9.5 H Lymph # (Auto) 0.4 L [place] # (Auto) 0.5 Eos # (Auto) 0.0 Baso # (Auto) 0.0 WBC Differential . Diff Scan Differential Comment Auto diff final Platelet Estimate Platelet Morphology Stomatocytes Sodium Potassium Chloride Carbon Dioxide Anion Gap BUN Creatinine Estimated GFR POC Glucose 135 H 153 H Random Glucose Lactic Acid Calcium Phosphorus Magnesium Total Bilirubin AST ALT Alkaline Phosphatase Total Protein Albumin Nasal Screen MRSA (PCR) MTS Gel Crossmatch Bld Prod Order Comment 10/10/17 10/10/17 10/10/17 15:25 17:13 17:29 WBC 11.1 H RBC 2.54 L Hgb 7.2 L Hct 22.1 L MCV 87.1 MCH 28.2 MCHC 32.4 RDW 17.6 H Plt Count 146 L MPV 9.5 Prelim Diff (Auto) Neut % (Auto) Lymph % (Auto) [place] % (Auto) Eos % (Auto) Baso % (Auto) Neut # (Auto) Lymph # (Auto) [place] # (Auto) Eos # (Auto) Baso # (Auto) WBC Differential Diff Scan Differential Comment Platelet Estimate Platelet Morphology Stomatocytes Sodium Potassium Chloride Carbon Dioxide Anion Gap BUN Creatinine Estimated GFR POC Glucose 146 H Random Glucose Lactic Acid Calcium Phosphorus Magnesium Total Bilirubin AST ALT Alkaline Phosphatase Total Protein Albumin Nasal Screen MRSA (PCR) MTS Gel Crossmatch See Detail Bld Prod Order Comment 10/10/17 10/11/17 10/11/17 23:45 05:17 12:27 WBC RBC Hgb Hct MCV MCH MCHC RDW Plt Count MPV Prelim Diff (Auto) Neut % (Auto) Lymph % (Auto) [place] % (Auto) Eos % (Auto) Baso % (Auto) Neut # (Auto) Lymph # (Auto) [place] # (Auto) Eos # (Auto) Baso # (Auto) WBC Differential Diff Scan Differential Comment Platelet Estimate Platelet Morphology Stomatocytes Sodium Potassium Chloride Carbon Dioxide Anion Gap BUN Creatinine Estimated GFR POC Glucose 157 H 140 H 134 H Random Glucose Lactic Acid Calcium Phosphorus Magnesium Total Bilirubin AST ALT Alkaline Phosphatase Total Protein Albumin Nasal Screen MRSA (PCR) MTS Gel Crossmatch Bld Prod Order Comment 10/11/17 10/11/17 10/11/17 16:20 16:20 17:55 WBC 14.3 H RBC 2.93 L Hgb 8.2 L Hct 26.2 L MCV 89.4 MCH 27.8 MCHC 31.1 L RDW 17.4 H Plt Count 252 D MPV 9.1 Prelim Diff (Auto) Slide review pending Neut % (Auto) 81.3 H Lymph % (Auto) 13.2 [place] % (Auto) 4.8 Eos % (Auto) 0.5 Baso % (Auto) 0.2 Neut # (Auto) 11.7 H Lymph # (Auto) 1.9 [place] # (Auto) 0.7 Eos # (Auto) 0.1 Baso # (Auto) 0.0 WBC Differential . Diff Scan Auto diff confirmed Differential Comment . Platelet Estimate Normal Platelet Morphology Normal Stomatocytes 1+ H Sodium 147 H Potassium 2.1 L* D Chloride 102 Carbon Dioxide 42.2 H Anion Gap 3 L BUN 30 H Creatinine 0.65 Estimated GFR Greater than 89 POC Glucose 164 H Random Glucose 164 H Lactic Acid Calcium 8.7 Phosphorus 2.7 Magnesium 1.8 Total Bilirubin 0.6 AST 15 ALT 16 Alkaline Phosphatase 42 L Total Protein 5.1 L Albumin 2.5 L Nasal Screen MRSA (PCR) MTS Gel Crossmatch Bld Prod Order Comment Result Diagrams: 10/11/17 16:20 10/11/17 16:20 Microbiology: Microbiology 10/09/17 12:20 Aerobic Blood Culture - Preliminary Blood - Peripheral No growth in 2 days Anaerobic Blood Culture - Preliminary No growth in 2 days 10/09/17 12:25 Aerobic Blood Culture - Preliminary Blood - Peripheral No growth in 2 days Anaerobic Blood Culture - Preliminary No growth in 2 days 10/08/17 05:10 Aerobic Blood Culture - Preliminary Blood - Peripheral No growth in 3 days Anaerobic Blood Culture - Final Staphylococcus epidermidis 10/08/17 05:00 Aerobic Blood Culture - Preliminary Blood - Peripheral No growth in 3 days Anaerobic Blood Culture - Final Staphylococcus epidermidis 10/10/17 03:30 Influenza Types A,B Antigen - Final Nasal Wash Negative for FLU A and B antigen Infection due to influenza A or B cannot be ruled out since the antigen present in the sample may be below the detection limit of the test. Imaging: Venous Doppler Study 10/08/17 00:00 CONCLUSION: No DVT is identified within either lower extremity. Chest X-Ray 10/08/17 05:06 CONCLUSION: Abdomen/Pelvis CT 10/08/17 06:55 CONCLUSION: 1. Dense consolidation with air bronchograms in the left lung base with an associated small effusion. Minimal atelectatic changes medially in the right base. 2. 3.8 cm infrarenal abdominal aortic aneurysm. 3. 3 to 4 mm ureteric stone proximally on the right with resulting pelvocaliectasis of the collecting system. 4. 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 Chest CT 10/08/17 06:55 CONCLUSION: 1. Volume loss in the left hemithorax with dense consolidation of the left lower lobe and associated small left-sided effusion. Air bronchograms are present and this may represent compressive atelectasis or infiltrate. 2. Minimal subpleural atelectasis in the medial aspect of the right. 3. Compensated cardiomegaly with findings of prior CABG. Dense calcification of the mitral valve annulus. Chest X-Ray 10/09/17 00:00 CONCLUSION: Increasing bilateral consolidation and increasing left pleural effusion. Chest X-Ray 10/10/17 06:00 CONCLUSION: Cardiomegaly with bilateral mostly basilar airspace disease and pleural effusions. Findings similar to October 09. No pneumothorax. Chest X-Ray 10/11/17 06:00 CONCLUSION: Stable examinations with bilateral effusions and mostly basilar airspace disease. Previous sternotomy. Procedures: Right IJ central line placement 10/11/17 . Assessment and Plan - Disease Oriented Problem List (1) COPD (chronic obstructive pulmonary disease) (2) Pneumonia (3) Diabetes mellitus (4) History of GI bleed (5) Anemia (6) Coronary artery disease Comment: S/p CABG in 08/2017 (7) History of pulmonary embolism (8) History of uterine cancer (9) Hypertension - Symptom Scale (4) Anorexia Comment: No food tastes good to her. Taking in only protein shakes for two weeks. Reports over 50lb wt loss in year. Pertinent Non-Medical Issues: Psychosocial: * Originally from [place]. Has lived in [place] about 18 yrs. 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 * once. Has been to [place] for 40 years. * One son -- Sharif -- lives in [place]. He has visited recently and knows how ill she is. Spiritual: Zoroastrian and spirituality have not been an important part of her life. Declines rustic fence builder visits. Legal: No written advance directives. Ethical issues impacting care: Currently capacitated to make her own health care decisions. Important Contacts: Mitch Tolentino (spouse) [phone] ; [phone] . Prognosis: Patient has multiple medical problems including underlying COPD, coronary artery disease, diabetes, and history of uterine cancer. She has essentially been in the hospital or rehab since her CABG in May 2017. She has had a relatively recent pulmonary embolus. She has had recurrent GI bleeding of uncertain etiology since her CABG in spite of several GI endoscopies. She started bleeding again while off anticoagulation. She has had recurrent infections. She gets delirium while hospitalized. She received a great deal of fluid when she came in hypotensive and is now possibly fluid overloaded. Even prior to her CABG she had severe limitations in quality of life due to COPD and chronic back/leg pain. Prognosis is poor given her inability to improve since May and increasing de- conditioning. . Code Status: No Code DNR Plan: == Code Status: NO CODE. Discussed with patient on 10/09 and with spouse on . All agree on DNR status. == Decision making: Patient appears capacitated to make her own healthcare decisions. There are some references to "dementia" in the medical record. No evidence of dementia at time of my visit. There may have been delirium during some of her hospitalizations per . As there is no written documentation of health care surrogate, would serve as proxy should patient become incapacitated. . == Goals of medical treatment: For now goals are for aggressive treatments short of resuscitation. == Symptoms * Pain: Longstanding chronic neck/back/leg pain requiring daily use of 2-3 Lortab 7.5 mg at home No recent chest pain. She is also on baclofen . Current other sources of discomfort might include her bedbound status; Sweet catheter; fecal collection system; and vascular access lines. Will add hydrocodone at 5/325 q 6 hours PRN. May want to consider Cymbalta or even low dose amitryptiline which may help with pain/depression/appetite. * Dyspnea: Patient's dyspnea is multifactorial. There is underlying COPD. She comes in with a low hemoglobin. She appears to have an infection. At this point she may have a component of fluid overload. Hopefully, diuresis and the transfusions and antibiotics will help resolve this. May need to reconsider PE if symptoms do not improve -- unlikely , however with IVC filter in place and negative venous dopplers. Patient is currently also on supplemental O2. No further recommendations at this time. * Anorexia: Food has no taste for her and she is eating little and losing weight. Would noramlly recommend brief course of steroids, but must avoid due to GI bleeding. * Generalized weakness: Probably also multifactorial. Has had decline long before surgery in May secondary to lung disease and to chronic back/leg pain. No with no appetite and weight loss. Hopefully, this will improve if we can stop bleeding and get her to eat. * Depression: May want to consider Cymbalta or even low dose amitryptiline which may help with pain/depression/appetite. * Delirium: reports patient has frequent delirium when hospitalized. == As respiratory symptoms improve, may need to more aggressively treat pain/ depression in order to have cooperative with the rest of her treatment. == If delirium develops and we are unable to address the underlying problem , would recommend low dose haloperidol at 1 mg q 4 hours prn. == Palliative care will continue to follow to assist with symptom management and to further clarify goals of medical treatment as the clinical course evolves. . Attestation Attestation: To help prompt me to consider important information that might be impacting today's encounter and assessment, information from prior notes written by myself or my colleagues may have been "brought forward" into today's note. My signature on this note, however, is an attestation that I personally performed the exam, history, and/or decision-making noted today, and, unless otherwise indicated, the interactions with patient, family, and staff as well as the review of records all occurred today. I also attest that the listed assessment and stated plan reflect my best clinical judgment today based on the combination of historical information, prior notes, and today's exam/ interactions. When time spent is documented, it refers only to time spent today by the signer, or if indicated, combined time spent today by collaborating physician/nurse practitioner.
[2017-10-11] MEDS: Mag Sulf 1 gm/100 ml Premix 100 ML IV.SIG SCH ×2 (18:40→21:07)
[2017-10-11] MEDS: Potassium Chlor 40 mEq Premix 40 MEQ/100 ML PIGGYBACK IV.SIG PRN (21:06)
[2017-10-11] MEDS: Amitriptyline 10 MG Tablet PO SCH (21:07)
[2017-10-11] MEDS: Potassium Chlor 40 mEq Premix 40 MEQ/100 ML PIGGYBACK IV.SIG SCH ×2 (21:08→23:30)
[2017-10-12] MEDS: Insulin NovoLIN Regular Correctional Sugar Inj SQ SCH ×4 (00:24→18:09)
[2017-10-12 01:47] LABS: INR 1.2 Ratio; Prothrombin Time 12.6 sec (9.8-11.6)
[2017-10-12] MEDS: Potassium Chlor 40 mEq Premix 40 MEQ/100 ML PIGGYBACK IV.SIG PRN ×2 (01:48→06:17)
[2017-10-12] MEDS: Chlorhexidine Gluconate 2% 1 Pack (2 Cloths) TOPICAL SCH (04:06)
[2017-10-12 05:26] LABS: Baso % (Auto) 0.1 % (0.0-2.0); Eos % (Auto) 0.6 % (0.0-4.0); Hematocrit 22.6 % (35.0-46.0); Hemoglobin 7.2 gm/dL (11.6-15.3); Lymph # (Auto) 0.5 th/mm3 (1.0-4.8); Lymph % (Auto) 6.6 % (9.0-44.0); Mean Corpuscular HGB Conc 31.6 % (32.0-36.0); Mean Corpuscular Volume 88.6 fL (80.0-100.0); Mono # (Auto) 0.5 th/mm3 (0.0-0.9); Mono % (Auto) 6.6 % (0.0-8.0); Neut % (Auto) 86.1 % (16.0-70.0); Platelet Count 169 th/mm3 (150-450); Red Blood Count 2.55 mil/mm3 (4.00-5.30); Red Cell Distribution Width 17.6 % (11.6-17.2); White Blood Count 8.1 th/mm3 (4.0-11.0)
[2017-10-12 05:46] LABS: Alanine Aminotransferase 14 U/L (10-53); Albumin 2.3 g/dL (3.4-5.0); Alkaline Phosphatase 39 U/L (45-117); Anion Gap 5 meq/L (5-15); Aspartate Aminotransferase 14 U/L (15-37); Blood Urea Nitrogen 27 mg/dL (7-18); Calcium 8.5 mg/dL (8.5-10.1); Carbon Dioxide 40.3 meq/L (21.0-32.0); Chloride 105 meq/L (98-107); Glomerular Filtration Rate Greater Than 89 mL/min (>89); Glucose,Random 109 mg/dL (74-106); Magnesium 2.1 mg/dL (1.5-2.5); Sodium 150 meq/L (136-145); Total Protein 4.8 g/dL (6.4-8.2)
[2017-10-12 05:51] LABS: Potassium 2.5 meq/L (3.5-5.1)
[2017-10-12] MEDS ORDERED: Potassium Chloride 20 MEQ Pwd Pkt NG/OG ONE (07:45)
[2017-10-12] MEDS ORDERED: KCL 40 mEq/D5W/NaCl 0.45% Inj 1,000 ML IV.CONT SCH (08:00)
[2017-10-12] MEDS: Senna/Docusate Sodium 8.6/50 MG Tablet PO SCH ×2 (09:11→21:49)
[2017-10-12] MEDS: Baclofen 10 MG Tablet PO SCH ×3 (09:11→18:08)
[2017-10-12] MEDS: Collagenase Oint 30 GM Tube TOPICAL SCH (09:12)
[2017-10-12] MEDS: Nystatin 100,000 UNITS/GM Powder 15 GM Bottle TOPICAL SCH ×4 (09:12→21:49)
[2017-10-12] MEDS: Potassium Chlor 40 mEq Premix 40 MEQ/100 ML PIGGYBACK IV.SIG SCH ×2 (09:12→11:37)
[2017-10-12] MEDS: Vancomycin Inj 1,500 MG in Sodium Chlor 0.9% Inj 500 ML IV.SIG SCH (09:37)
[2017-10-12] MEDS ORDERED: Pharmacy Ordered Lab Info OTHER ONE (09:45)
--- NOTE | 2017-10-12 11:17 | P.PNCC ---
Subjective Subjective Remarks/Hospital Course: The patient is a 62-year-old female, residential resident, with a past medical history of hypertension, diabetes mellitus, coronary artery disease on Eliquis, who presented to [facility] ED with shortness of breath associated with tachypnea and generalized weakness. On arrival to the ED, she was hypotensive with a systolic blood pressure 80s-90s and tachycardic with heart rate of 102-110. Her laboratory data showed anemia with hemoglobin level 5.0 and mild acute kidney injury with a creatinine of 1.13 and lactic acid of 2.6. The patient was given a total of 1 liter of normal saline and is scheduled to receive 2 units of red blood cells. When seen, her current blood pressure is 145/74. ABG was performed on 4 liter oxygen, which showed a pH of 7.44, CO2 58, PaO2 88 , bicarbonate of 38, saturation 95 percent. The patient agnieszka poor historian. She underwent CT chest, abdomen and pelvis. Her CT scan of the chest showed dense consolidation of the left lower lobe with air bronchograms and CT abdomen and pelvis showed a 3.8 cm infrarenal abdominal aortic aneurysm. 10/09: Patient complaining of shortness of breath. Received blood products and colon prep overnight. Will give 1 dose of bumetanide IV 1 now. Creatinine within normal limits. Patient is on furosemide at home 20 mg daily which is currently on hold. Plan for EGD/colonoscopy today 10/10: Afebrile. Received 1 unit PRBCs overnight. Respiratory rate much improved. DNR status currently. Will give 1 dose of acetazolamide 250 mg IV 1 now. Appears more comfortable. 10/11: Unable to obtain blood draws today. Received 1 unit PRBCs yesterday. Less dyspneic today. Still having black stools. Will central line placed by IR. Subjective 10/12: Hemoglobin currently 7.2. Will transfuse 1 additional unit today. Consider black stools. Started on amitriptyline yesterday. Receiving as needed hydrocodone/acetaminophen. Flat affect. Poor appetite started started on D5 LR Objective Vital Signs / I&O: Vital Signs 10/11/17 12:00 10/11/17 12:14 10/11/17 12:23 Temperature 98.0 F Pulse Rate 107 H 108 H 109 H Respiratory Rate 36 H 25 H 26 H Blood Pressure 138/75 Pulse Oximetry 93 L 10/11/17 13:00 10/11/17 13:13 10/11/17 14:00 Temperature Pulse Rate 103 H 107 H 103 H Respiratory Rate 35 H 43 H 41 H Blood Pressure 131/77 Pulse Oximetry 81 L 96 97 10/11/17 15:00 10/11/17 16:00 10/11/17 16:10 Temperature 97.6 F Pulse Rate 108 H 112 H Respiratory Rate 56 H 27 H Blood Pressure Pulse Oximetry 96 89 L 10/11/17 16:11 10/11/17 17:00 10/11/17 18:00 Temperature Pulse Rate 114 H 104 H 104 H Respiratory Rate 32 H 48 H Blood Pressure 122/54 L 149/76 H Pulse Oximetry 90 L 95 93 L 10/11/17 18:15 10/11/17 19:00 10/11/17 19:58 Temperature Pulse Rate 106 H 110 H 106 H Respiratory Rate 48 H 38 H 16 Blood Pressure 141/67 H 149/86 H Pulse Oximetry 94 L 88 L 98 10/11/17 20:00 10/11/17 22:00 10/11/17 23:42 Temperature 97.9 F Pulse Rate 104 H 98 H 106 H Respiratory Rate 30 H 20 Blood Pressure 149/86 H Pulse Oximetry 98 10/12/17 00:00 10/12/17 02:00 10/12/17 03:08 Temperature 97.6 F Pulse Rate 88 101 H 100 H Respiratory Rate 22 16 Blood Pressure 132/75 Pulse Oximetry 97 10/12/17 04:00 10/12/17 06:00 10/12/17 09:41 Temperature 98.2 F Pulse Rate 104 H 103 H 106 H Respiratory Rate 17 18 Blood Pressure 136/68 Pulse Oximetry 100 10/12/17 09:43 10/12/17 10:29 Temperature 98.0 F Pulse Rate 101 H Respiratory Rate 21 Blood Pressure 117/60 Pulse Oximetry 100 99 Intake & Output 10/11/17 10/12/17 10/12/17 18:59 06:59 18:59 Intake Total 725 / 725 2180 / 2180 0 / 0 Output Total 400 / 400 450 / 450 Balance 325 / 325 1730 / 1730 0 / 0 Weight 121.4 kg Intake: IV 400 / 400 1700 / 1700 Azactam Inj 1,000 MG In NS Inj 200 / 200 100 / 100 100 ML @ 200 mls/hr IV.SIG Q8H DEBORAH Rx#:[id number] Magnesium Sulfate 1 gm/D5W 100 200 / 200 ml Premix 100 ML @ 100 mls/hr IV.SIG Q1H DEBORAH Rx#:[id number] KCl 40 mEq Premix Inj 40 meq In 200 / 200 100 ml @ 25 mls/hr IV.SIG Q2H PRN Rx#:[id number] Vancomycin Inj 1,500 MG In NS 1000 / 1000 Inj 500 ML @ 250 mls/hr IV.SIG Q24H DEBORAH Rx#:[id number] Flagyl 500 MG Inj 100 ML @ 100 200 / 200 200 / 200 mls/hr IV.SIG Q6H DEBORAH Rx#: [id number] Oral 325 / 325 480 / 480 Intake (Blood Product) Amt 0 / 0 Rbc As-3 Leukoreduced Unit 0 / 0 [id number] Output: Urine Amount (Catheter) 400 / 400 450 / 450 Indwelling Urethral Catheter 400 / 400 450 / 450 Other: Date of Last Bowel Movement 10/11/17 10/12/17 # Bowel Movements 3 # Incontinent Bowel Movements 3 Result Diagrams: 10/12/17 03:49 10/12/17 03:49 Other Results: Microbiology 10/12/17 00:40 Urine - Catheterized Urine Streptococcus pneumoniae Antigen ( M - Final Presumptive negative for streptococcus pneumoniae antigen, suggesting no current or recent infection. Infection due to Streptococcus pneumoniae cannot be ruled out since the antigen present in the sample may be below the detection limit of the test. 10/12/17 00:40 Urine - Catheterized Urine Legionella Antigen - Final Presumptive negative for Legionella pneumophila serogroup 1 antigen in urine, suggesting no recent or recurrent infection. Infection due to Legionella cannot be ruled out since other serogroups and species may cause disease, antigen may not be present in urine in early infection, and the level of antigen present in the urine may be below the detection limit of the test. 10/09/17 12:20 Blood - Peripheral Aerobic Blood Culture - Preliminary No growth in 3 days 10/09/17 12:20 Blood - Peripheral Anaerobic Blood Culture - Preliminary No growth in 3 days 10/09/17 12:25 Blood - Peripheral Aerobic Blood Culture - Preliminary No growth in 3 days 10/09/17 12:25 Blood - Peripheral Anaerobic Blood Culture - Preliminary No growth in 3 days 10/08/17 05:10 Blood - Peripheral Aerobic Blood Culture - Preliminary No growth in 4 days 10/08/17 05:10 Blood - Peripheral Anaerobic Blood Culture - Final Staphylococcus epidermidis 10/08/17 05:00 Blood - Peripheral Aerobic Blood Culture - Preliminary No growth in 4 days 10/08/17 05:00 Blood - Peripheral Anaerobic Blood Culture - Final Staphylococcus epidermidis 10/10/17 03:30 Nasal Wash Influenza Types A,B Antigen - Final Negative for FLU A and B antigen Infection due to influenza A or B cannot be ruled out since the antigen present in the sample may be below the detection limit of the test. Imaging: Venous Doppler Study 10/08/17 00:00 CONCLUSION: No DVT is identified within either lower extremity. Chest X-Ray 10/08/17 05:06 CONCLUSION: Abdomen/Pelvis CT 10/08/17 06:55 CONCLUSION: 1. Dense consolidation with air bronchograms in the left lung base with an associated small effusion. Minimal atelectatic changes medially in the right base. 2. 3.8 cm infrarenal abdominal aortic aneurysm. 3. 3 to 4 mm ureteric stone proximally on the right with resulting pelvocaliectasis of the collecting system. 4. 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 Chest CT 10/08/17 06:55 CONCLUSION: 1. Volume loss in the left hemithorax with dense consolidation of the left lower lobe and associated small left-sided effusion. Air bronchograms are present and this may represent compressive atelectasis or infiltrate. 2. Minimal subpleural atelectasis in the medial aspect of the right. 3. Compensated cardiomegaly with findings of prior CABG. Dense calcification of the mitral valve annulus. Chest X-Ray 10/09/17 00:00 CONCLUSION: Increasing bilateral consolidation and increasing left pleural effusion. Chest X-Ray 10/10/17 06:00 CONCLUSION: Cardiomegaly with bilateral mostly basilar airspace disease and pleural effusions. Findings similar to October 09. No pneumothorax. Chest X-Ray 10/11/17 06:00 CONCLUSION: Stable examinations with bilateral effusions and mostly basilar airspace disease. Previous sternotomy. Objective Remarks: GENERAL: 62-year-old female currently on nasal cannula in less respiratory distress. SKIN: Warm and dry. Open nondraining ulcerations from prior EVH right lower extremity x 2 with some erythema HEAD: Atraumatic. Normocephalic. EYES: Pupils equal and round about 3 mm bilaterally reactive. No scleral icterus. No injection or drainage. ENT: No nasal bleeding or discharge. Mucous membranes pink and moist. NECK: Trachea midline. No JVD. CARDIOVASCULAR: Tachycardic, RR. S1, S2. No S4. No murmur RESPIRATORY: Diminished breath sounds due to body habitus. Somewhat tachypneic. No wheezing appreciated. GASTROINTESTINAL: Abdomen soft, non-tender, nondistended. Hepatic and splenic margins not palpable. MUSCULOSKELETAL: Extremities with 1+ bilateral lower extremity edema. NEUROLOGICAL: Awake and alert. No obvious cranial nerve deficits. Motor grossly within normal limits. Five out of 5 muscle strength in the arms and legs. Normal nonpressure speech. Assessment and Plan - Assessment and Plan Plan: Neuro/Psych: Acetaminophen 650 mg by mouth every 6 hours as needed fever Hydrocodone/acetaminophen 5/321 tablet every 6 hours as needed pain Amitriptyline 10 mg at night CV: Essential hypertension Hyperlipidemia Diastolic heart failure likely chronic 3.8 cm infrarenal abdominal aortic aneurysm Coronary artery disease/CABG June 2017 at [facility] 2D echocardiogram revealed EF 40-45% normal LV function. Resuming metoprolol tartrate 25 mg twice daily resume when clinically indicated Clear liquid diet On rosuvastatin 40 mg daily at home for dyslipidemia. Resume clinically indicated Resp: Acute respiratory insufficiency History of COPD CT thorax 10/08 revealed air bronchograms in the left lower lobe. Small left pleural effusion. Nasal cannula to maintain saturations greater than or equal to 92% Incentive spirometry while awake Albuterol/ipratropium aerosols every 4 hours with albuterol aerosols every 2 hours as needed for dyspnea Acapella/PEP every 4 hours Chest x-ray in a.m. 10/13. She appears volume overloaded at the present time. Will give acetazolamide 500 mg IV 1 now.. She is chronically on furosemide 20 mg daily GI: Elevated AST Moderate protein calorie malnutrition/hypoalbuminemia History of colonic polyps questionable Currently on clear liquid diet Plan for EGD/colonoscopy when/if stable. They have signed off in the interim. Will likely reconsult with increased intake Patient had a recent panendoscopy 7 days ago for hospital which verbal report revealed polyps. Her stool is currently black. Pantoprazole 8 mg an hour Docusate sodium/senna 1 tablet twice daily for bowel regimen : Ureteral stone - R 4 mm Maintain Sweet catheter today. [place] tomorrow if hemoglobin is stable/wound stable Endo: Diabetes mellitus Acute hyperglycemia On insulin U100 lispro unknown dose at home on insulin glargine 10 units 3 times daily Sliding scale insulin with aspart/every 6 hours medium regimen. Renal: Creatinine currently within normal limits. Monitor urine output Accurate I's and O's Heme: Acute blood loss anemia/normocytic Transfuse 5 units PRBCs this hospitalization. Coags within normal limits ID: Gram-positive cocci bacteremia - Staph epi Patient is currently in vancomycin, aztreonam day #5 and metronidazole day #4 for pneumonia/hospital-acquired Pertinent cultures / -blood cultures 2 -staph epidermidis likely 10/09 -blood cultures 2 -no growth to date Influenza a and B- MSK: Elevated BMI Right lower extremity deep tissue injury Weight loss encouraged. Wound care evaluate and treat and continue Santyl for now/home medication FEN: Hypopotassemia Replace electrolytes as clinically indicated. 80 milliequivalents potassium chloride IV times 1 now. Recheck at 1600 today. Currently on D5 one half normal saline with 40 mEq of KCl at 60 cc an hour ACCESS -utilize peripheral IV. Central line if indicated Prophylax -GI -pantoprazole drip -DVT -SCD/no pharmacological prophylaxis in light of gastro-intestinal bleeding. Level 3 follow-up
--- NOTE | 2017-10-12 12:16 | P.PNPAL ---
Reason for Visit Reason for visit: a. To assist with evaluation and management of symptoms including: pain; dyspnea; anorexia b. To assist medical decision maker(s) with: better understanding of current medical conditions; weighing benefits/burdens of medical treatment options; making medical treatment decisions. . Subjective Subjective/Interval History: Patient sleeping at time of my visit. She awakens to voice / exam, scowls, and drifts back to sleep. Bedside nurse reports patient has been more lethargic this AM (Hg is low; K+ is low). She received one dose of the hydrocodone/ acetaminophen 5/325 this AM , but nurse reports that the lethargy long preceded the medication. She described #8 pain mostly in legs. She continues to have intermittent confusion. Per nurse, she did not know where she was this AM. At time of my visit, patient is being transfused. . Family/Friend Interactions: No family/friend interactions today. . Advance Directives Living Will: Never completed Health Care Surrogate: Never completed Durable Power of Right Of Way Man: Never completed Health Care Surrogate Name and Number: No written designation of health care surrogate Documented care wishes:: At this time there is no written documentation of patient's healthcare goals or preferences on the chart. . Objective Vital Signs: Vital Signs 10/11/17 12:14 10/11/17 12:23 10/11/17 13:00 Temperature Pulse Rate 108 H 109 H 103 H Respiratory Rate 25 H 26 H 35 H Blood Pressure 138/75 Pulse Oximetry 93 L 81 L 10/11/17 13:13 10/11/17 14:00 10/11/17 15:00 Temperature Pulse Rate 107 H 103 H 108 H Respiratory Rate 43 H 41 H 56 H Blood Pressure 131/77 Pulse Oximetry 96 97 96 10/11/17 16:00 10/11/17 16:10 10/11/17 16:11 Temperature 97.6 F Pulse Rate 112 H 114 H Respiratory Rate 27 H Blood Pressure 122/54 L Pulse Oximetry 89 L 90 L 10/11/17 17:00 10/11/17 18:00 10/11/17 18:15 Temperature Pulse Rate 104 H 104 H 106 H Respiratory Rate 32 H 48 H 48 H Blood Pressure 149/76 H 141/67 H Pulse Oximetry 95 93 L 94 L 10/11/17 19:00 10/11/17 19:58 10/11/17 20:00 Temperature 97.9 F Pulse Rate 110 H 106 H 104 H Respiratory Rate 38 H 16 30 H Blood Pressure 149/86 H 149/86 H Pulse Oximetry 88 L 98 98 10/11/17 22:00 10/11/17 23:42 10/12/17 00:00 Temperature 97.6 F Pulse Rate 98 H 106 H 88 Respiratory Rate 20 22 Blood Pressure 132/75 Pulse Oximetry 97 10/12/17 02:00 10/12/17 03:08 10/12/17 04:00 Temperature 98.2 F Pulse Rate 101 H 100 H 104 H Respiratory Rate 16 17 Blood Pressure 136/68 Pulse Oximetry 100 10/12/17 06:00 10/12/17 08:00 10/12/17 09:41 Temperature 97.7 F Pulse Rate 103 H 104 H 106 H Respiratory Rate 18 Blood Pressure Pulse Oximetry 10/12/17 09:43 10/12/17 10:00 10/12/17 10:29 Temperature 98.0 F Pulse Rate 99 H 101 H Respiratory Rate 21 Blood Pressure 117/60 Pulse Oximetry 100 99 Intake & Output 10/11/17 10/12/17 10/12/17 18:59 06:59 18:59 Intake Total 725 / 725 2180 / 2180 300 / 300 Output Total 400 / 400 450 / 450 Balance 325 / 325 1730 / 1730 300 / 300 Weight 121.4 kg Intake: IV 400 / 400 1700 / 1700 300 / 300 Azactam Inj 1,000 MG In NS Inj 200 / 200 100 / 100 100 / 100 100 ML @ 200 mls/hr IV.SIG Q8H DEBORAH Rx#:[id number] Magnesium Sulfate 1 gm/D5W 100 200 / 200 ml Premix 100 ML @ 100 mls/hr IV.SIG Q1H DEBORAH Rx#:[id number] KCl 40 mEq Premix Inj 40 meq In 200 / 200 100 / 100 100 ml @ 25 mls/hr IV.SIG UNSCH PRN Rx#:[id number] Vancomycin Inj 1,500 MG In NS 1000 / 1000 Inj 500 ML @ 250 mls/hr IV.SIG Q24H DEBORAH Rx#:[id number] Flagyl 500 MG Inj 100 ML @ 100 200 / 200 200 / 200 100 / 100 mls/hr IV.SIG Q6H DEBORAH Rx#: [id number] Oral 325 / 325 480 / 480 Intake (Blood Product) Amt 0 / 0 Rbc As-3 Leukoreduced Unit 0 / 0 [id number] Output: Urine Amount (Catheter) 400 / 400 450 / 450 Indwelling Urethral Catheter 400 / 400 450 / 450 Other: Date of Last Bowel Movement 10/11/17 10/12/17 # Bowel Movements 3 # Incontinent Bowel Movements 3 Physical Exam: CONSTITUTIONAL/GENERAL: This is a pale adequately nourished patient, tachypneic , on nasal cannula O2 in an ICU bed. Sleepy -- awakens briefly to voice/exam, then drifts back to sleep. TUBES/LINES/DRAINS: Nasal cannula oxygen; right IJ central line ; Sweet catheter ; fecal collection system. SKIN: No jaundice, rashes. Ecchymoses and ? petechiae on upper extremities. Dressing on right calf. Skin temperature appropriate. Not diaphoretic. EYES: Pupils equal and round. Extraocular motions intact. No scleral icterus. No injection or drainage. Fundi not examined. ENT: Nose without bleeding or purulent drainage. Throat without visible erythema, exudates, masses, or lesions. NECK: Trachea midline. CARDIOVASCULAR: Borderline tachycardia and regular rhythm without murmurs, gallops, or rubs. No JVD. RESPIRATORY/CHEST: Symmetric, unlabored respirations. Diminished breath sounds on left. No wheezes. GASTROINTESTINAL: Abdomen soft, obese, non-tender, nondistended. No hepato- splenomegaly, or palpable masses. No guarding. Bowel sounds present. GENITOURINARY: Without palpable bladder distension. Sweet catheter in place. MUSCULOSKELETAL: Extremities without clubbing, cyanosis. 1-2+ edema in the lower extremities. No mottling . LYMPHATICS: Not examined. NEUROLOGICAL: Sleepy; awakens to voice / exam, but quickly drifts back to sleep. PSYCHIATRIC: Unable to assess. . Diagnostic Tests Laboratory: Laboratory Results - last 72 hr 10/08/17 10/09/17 10/09/17 06:41 13:29 14:14 WBC RBC Hgb Hct MCV MCH MCHC RDW Plt Count MPV Prelim Diff (Auto) Neut % (Auto) Lymph % (Auto) [place] % (Auto) Eos % (Auto) Baso % (Auto) Neut # (Auto) Lymph # (Auto) [place] # (Auto) Eos # (Auto) Baso # (Auto) WBC Differential Diff Scan Differential Comment Platelet Estimate Platelet Morphology Stomatocytes PT INR APTT Fibrinogen Sodium Potassium Chloride Carbon Dioxide Anion Gap BUN Creatinine Estimated GFR POC Glucose 170 H 163 H Random Glucose Calcium Phosphorus Magnesium Total Bilirubin AST ALT Alkaline Phosphatase Total Protein Albumin Vancomycin Trough Blood Type Antibody Screen MTS Gel Crossmatch See Detail Bld Prod Order Comment 10/09/17 10/09/17 10/10/17 19:29 21:06 00:07 WBC RBC Hgb 6.8 L* Hct 21.4 L MCV MCH MCHC RDW Plt Count MPV Prelim Diff (Auto) Neut % (Auto) Lymph % (Auto) [place] % (Auto) Eos % (Auto) Baso % (Auto) Neut # (Auto) Lymph # (Auto) [place] # (Auto) Eos # (Auto) Baso # (Auto) WBC Differential Diff Scan Differential Comment Platelet Estimate Platelet Morphology Stomatocytes PT INR APTT Fibrinogen Sodium Potassium Chloride Carbon Dioxide Anion Gap BUN Creatinine Estimated GFR POC Glucose 175 H Random Glucose Calcium Phosphorus Magnesium Total Bilirubin AST ALT Alkaline Phosphatase Total Protein Albumin Vancomycin Trough Blood Type Antibody Screen MTS Gel Crossmatch See Detail Bld Prod Order Comment 10/10/17 10/10/17 10/10/17 04:14 04:14 06:08 WBC 10.5 RBC 2.87 L Hgb 8.1 L Hct 24.9 L MCV 86.8 MCH 28.2 MCHC 32.5 RDW 17.5 H Plt Count 158 MPV 9.8 Prelim Diff (Auto) Neut % (Auto) 91.1 H Lymph % (Auto) 3.8 L [place] % (Auto) 5.0 Eos % (Auto) 0.1 Baso % (Auto) 0.0 Neut # (Auto) 9.5 H Lymph # (Auto) 0.4 L [place] # (Auto) 0.5 Eos # (Auto) 0.0 Baso # (Auto) 0.0 WBC Differential . Diff Scan Differential Comment Auto diff final Platelet Estimate Platelet Morphology Stomatocytes PT INR APTT Fibrinogen Sodium 144 Potassium 3.5 Chloride 101 Carbon Dioxide 36.0 H Anion Gap 7 BUN 35 H Creatinine 0.79 Estimated GFR 73 L POC Glucose 135 H Random Glucose 129 H Calcium 9.1 D Phosphorus Magnesium Total Bilirubin AST ALT Alkaline Phosphatase Total Protein Albumin Vancomycin Trough Blood Type Antibody Screen MTS Gel Crossmatch Bld Prod Order Comment 0710/10/17 10/10/17 11:35 15:25 17:13 WBC 11.1 H RBC 2.54 L Hgb 7.2 L Hct 22.1 L MCV 87.1 MCH 28.2 MCHC 32.4 RDW 17.6 H Plt Count 146 L MPV 9.5 Prelim Diff (Auto) Neut % (Auto) Lymph % (Auto) [place] % (Auto) Eos % (Auto) Baso % (Auto) Neut # (Auto) Lymph # (Auto) [place] # (Auto) Eos # (Auto) Baso # (Auto) WBC Differential Diff Scan Differential Comment Platelet Estimate Platelet Morphology Stomatocytes PT INR APTT Fibrinogen Sodium Potassium Chloride Carbon Dioxide Anion Gap BUN Creatinine Estimated GFR POC Glucose 153 H Random Glucose Calcium Phosphorus Magnesium Total Bilirubin AST ALT Alkaline Phosphatase Total Protein Albumin Vancomycin Trough Blood Type Antibody Screen MTS Gel Crossmatch See Detail Bld Prod Order Comment 10/10/17 10/10/17 10/11/17 17:29 23:45 05:17 WBC RBC Hgb Hct MCV MCH MCHC RDW Plt Count MPV Prelim Diff (Auto) Neut % (Auto) Lymph % (Auto) [place] % (Auto) Eos % (Auto) Baso % (Auto) Neut # (Auto) Lymph # (Auto) [place] # (Auto) Eos # (Auto) Baso # (Auto) WBC Differential Diff Scan Differential Comment Platelet Estimate Platelet Morphology Stomatocytes PT INR APTT Fibrinogen Sodium Potassium Chloride Carbon Dioxide Anion Gap BUN Creatinine Estimated GFR POC Glucose 146 H 157 H 140 H Random Glucose Calcium Phosphorus Magnesium Total Bilirubin AST ALT Alkaline Phosphatase Total Protein Albumin Vancomycin Trough Blood Type Antibody Screen MTS Gel Crossmatch Bld Prod Order Comment 10/11/17 10/11/17 10/11/17 12:27 16:20 16:20 WBC 14.3 H RBC 2.93 L Hgb 8.2 L Hct 26.2 L MCV 89.4 MCH 27.8 MCHC 31.1 L RDW 17.4 H Plt Count 252 D MPV 9.1 Prelim Diff (Auto) Slide review pending Neut % (Auto) 81.3 H Lymph % (Auto) 13.2 [place] % (Auto) 4.8 Eos % (Auto) 0.5 Baso % (Auto) 0.2 Neut # (Auto) 11.7 H Lymph # (Auto) 1.9 [place] # (Auto) 0.7 Eos # (Auto) 0.1 Baso # (Auto) 0.0 WBC Differential . Diff Scan Auto diff confirmed Differential Comment . Platelet Estimate Normal Platelet Morphology Normal Stomatocytes 1+ H PT INR APTT Fibrinogen Sodium 147 H Potassium 2.1 L* D Chloride 102 Carbon Dioxide 42.2 H Anion Gap 3 L BUN 30 H Creatinine 0.65 Estimated GFR Greater than 89 POC Glucose 134 H Random Glucose 164 H Calcium 8.7 Phosphorus 2.7 Magnesium 1.8 Total Bilirubin 0.6 AST 15 ALT 16 Alkaline Phosphatase 42 L Total Protein 5.1 L Albumin 2.5 L Vancomycin Trough Blood Type Antibody Screen MTS Gel Crossmatch Bld Prod Order Comment 10/11/17 10/12/17 10/12/17 17:55 00:19 00:40 WBC RBC Hgb Hct MCV MCH MCHC RDW Plt Count MPV Prelim Diff (Auto) Neut % (Auto) Lymph % (Auto) [place] % (Auto) Eos % (Auto) Baso % (Auto) Neut # (Auto) Lymph # (Auto) [place] # (Auto) Eos # (Auto) Baso # (Auto) WBC Differential Diff Scan Differential Comment Platelet Estimate Platelet Morphology Stomatocytes PT 12.6 H INR 1.2 APTT 27.0 Fibrinogen 376 Sodium Potassium Chloride Carbon Dioxide Anion Gap BUN Creatinine Estimated GFR POC Glucose 164 H 131 H Random Glucose Calcium Phosphorus Magnesium Total Bilirubin AST ALT Alkaline Phosphatase Total Protein Albumin Vancomycin Trough Blood Type Antibody Screen MTS Gel Crossmatch Bld Prod Order Comment 10/12/17 10/12/17 10/12/17 03:49 03:49 06:20 WBC 8.1 RBC 2.55 L Hgb 7.2 L Hct 22.6 L MCV 88.6 MCH 28.0 MCHC 31.6 L RDW 17.6 H Plt Count 169 D MPV 9.0 Prelim Diff (Auto) Neut % (Auto) 86.1 H Lymph % (Auto) 6.6 L [place] % (Auto) 6.6 Eos % (Auto) 0.6 Baso % (Auto) 0.1 Neut # (Auto) 7.0 Lymph # (Auto) 0.5 L [place] # (Auto) 0.5 Eos # (Auto) 0.0 Baso # (Auto) 0.0 WBC Differential . Diff Scan Differential Comment Auto diff final Platelet Estimate Platelet Morphology Stomatocytes PT INR APTT Fibrinogen Sodium 150 H Potassium 2.5 L* Chloride 105 Carbon Dioxide 40.3 H Anion Gap 5 BUN 27 H Creatinine 0.53 Estimated GFR Greater than 89 POC Glucose 102 Random Glucose 109 H Calcium 8.5 Phosphorus 2.0 L Magnesium 2.1 Total Bilirubin 0.5 AST 14 L ALT 14 Alkaline Phosphatase 39 L Total Protein 4.8 L Albumin 2.3 L Vancomycin Trough Blood Type Antibody Screen MTS Gel Crossmatch Bld Prod Order Comment 10/12/17 10/12/17 07:50 09:30 WBC RBC Hgb Hct MCV MCH MCHC RDW Plt Count MPV Prelim Diff (Auto) Neut % (Auto) Lymph % (Auto) [place] % (Auto) Eos % (Auto) Baso % (Auto) Neut # (Auto) Lymph # (Auto) [place] # (Auto) Eos # (Auto) Baso # (Auto) WBC Differential Diff Scan Differential Comment Platelet Estimate Platelet Morphology Stomatocytes PT INR APTT Fibrinogen Sodium Potassium Chloride Carbon Dioxide Anion Gap BUN Creatinine Estimated GFR POC Glucose Random Glucose Calcium Phosphorus Magnesium Total Bilirubin AST ALT Alkaline Phosphatase Total Protein Albumin Vancomycin Trough 18.3 H Blood Type O Positive Antibody Screen Negative MTS Gel Crossmatch See Detail Bld Prod Order Comment Result Diagrams: 10/12/17 03:49 10/12/17 03:49 Microbiology: Microbiology 10/12/17 00:40 Streptococcus pneumoniae Antigen (M - Final Urine - Catheterized Urine Presumptive negative for streptococcus pneumoniae antigen, suggesting no current or recent infection. Infection due to Streptococcus pneumoniae cannot be ruled out since the antigen present in the sample may be below the detection limit of the test. 10/12/17 00:40 Legionella Antigen - Final Urine - Catheterized Urine Presumptive negative for Legionella pneumophila serogroup 1 antigen in urine, suggesting no recent or recurrent infection. Infection due to Legionella cannot be ruled out since other serogroups and species may cause disease, antigen may not be present in urine in early infection, and the level of antigen present in the urine may be below the detection limit of the test. 10/09/17 12:20 Aerobic Blood Culture - Preliminary Blood - Peripheral No growth in 3 days Anaerobic Blood Culture - Preliminary No growth in 3 days 10/09/17 12:25 Aerobic Blood Culture - Preliminary Blood - Peripheral No growth in 3 days Anaerobic Blood Culture - Preliminary No growth in 3 days 10/08/17 05:10 Aerobic Blood Culture - Preliminary Blood - Peripheral No growth in 4 days Anaerobic Blood Culture - Final Staphylococcus epidermidis 10/08/17 05:00 Aerobic Blood Culture - Preliminary Blood - Peripheral No growth in 4 days Anaerobic Blood Culture - Final Staphylococcus epidermidis 10/10/17 03:30 Influenza Types A,B Antigen - Final Nasal Wash Negative for FLU A and B antigen Infection due to influenza A or B cannot be ruled out since the antigen present in the sample may be below the detection limit of the test. Imaging: Venous Doppler Study 10/08/17 00:00 CONCLUSION: No DVT is identified within either lower extremity. Chest X-Ray 10/08/17 05:06 CONCLUSION: Abdomen/Pelvis CT 10/08/17 06:55 CONCLUSION: 1. Dense consolidation with air bronchograms in the left lung base with an associated small effusion. Minimal atelectatic changes medially in the right base. 2. 3.8 cm infrarenal abdominal aortic aneurysm. 3. 3 to 4 mm ureteric stone proximally on the right with resulting pelvocaliectasis of the collecting system. 4. 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 Chest CT 10/08/17 06:55 CONCLUSION: 1. Volume loss in the left hemithorax with dense consolidation of the left lower lobe and associated small left-sided effusion. Air bronchograms are present and this may represent compressive atelectasis or infiltrate. 2. Minimal subpleural atelectasis in the medial aspect of the right. 3. Compensated cardiomegaly with findings of prior CABG. Dense calcification of the mitral valve annulus. Chest X-Ray 10/09/17 00:00 CONCLUSION: Increasing bilateral consolidation and increasing left pleural effusion. Chest X-Ray 10/10/17 06:00 CONCLUSION: Cardiomegaly with bilateral mostly basilar airspace disease and pleural effusions. Findings similar to October 09. No pneumothorax. Chest X-Ray 10/11/17 06:00 CONCLUSION: Stable examinations with bilateral effusions and mostly basilar airspace disease. Previous sternotomy. Procedures: Right IJ central line placement 10/11/17 . Assessment and Plan - Disease Oriented Problem List (1) COPD (chronic obstructive pulmonary disease) (2) Pneumonia (3) Diabetes mellitus (4) History of GI bleed (5) Anemia (6) Coronary artery disease Comment: S/p CABG in 08/2017 (7) History of pulmonary embolism (8) History of uterine cancer (9) Hypertension - Symptom Scale (1) Pain Comment: Was number 8 leg pain earlier this AM. (2) Dyspnea 0-10 Scale: Unable to quantify (3) Generalized weakness 0-10 Scale: Unable to quantify (4) Anorexia 0-10 Scale: Unable to quantify Comment: No food tastes good to her. Taking in only protein shakes for two weeks. Reports over 50lb wt loss in year. Pertinent Non-Medical Issues: Psychosocial: * Originally from [place]. Has lived in [place] about 18 yrs. 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 * once. Has been to [place] for 40 years. * One son -- Sharif -- lives in [place]. He has visited recently and knows how ill she is. Spiritual: Restorationism and spirituality have not been an important part of her life. Declines key account representative visits. Legal: No written advance directives. Ethical issues impacting care: Currently capacitated to make her own health care decisions. Important Contacts: [place] Tolentino (spouse) ; [phone] . Prognosis: Patient has multiple medical problems including underlying COPD, coronary artery disease, diabetes, and history of uterine cancer. She has essentially been in the hospital or rehab since her CABG in May 2017. She has had a relatively recent pulmonary embolus. She has had recurrent GI bleeding of uncertain etiology since her CABG in spite of several GI endoscopies. She started bleeding again while off anticoagulation. She has had recurrent infections. She gets delirium while hospitalized. She received a great deal of fluid when she came in hypotensive and was possibly fluid overloaded. Even prior to her CABG she had severe limitations in quality of life due to COPD and chronic back/leg pain. Prognosis is poor given her inability to improve since May and increasing de- conditioning. . Code Status: No Code DNR Plan: == Code Status: NO CODE. Discussed with patient on 10/09 and with spouse on . All agree on DNR status. == Decision making: Patient appears capacitated to make her own healthcare decisions. There are some references to "dementia" in the medical record. No evidence of dementia at time of my visit. There may have been delirium during some of her hospitalizations per . As there is no written documentation of health care surrogate, would serve as proxy should patient become incapacitated. . == Goals of medical treatment: For now goals are for aggressive treatments short of resuscitation. == Symptoms * Pain: Longstanding chronic neck/back/leg pain requiring daily use of 2-3 Lortab 7.5 mg at home No recent chest pain. She is also on baclofen . Current other sources of discomfort might include her bedbound status; Sweet catheter; fecal collection system; and vascular access lines. hydrocodone at 5 /325 q 6 hours PRN added on 10/11/17. Low dose amitriptyline was added for neuropathic pain -- no clear response yet. * Dyspnea: Patient's dyspnea is multifactorial. There is underlying COPD. Low hemoglobins exacerbate this. She if fighting a pneumonia. She may have been fluid overloaded. Receiving blood now. The hydrocodone will help sense of air hunger. No further recommendations at this time. * Anorexia: Food has no taste for her and she is eating little and losing weight. Would normally recommend brief course of steroids, but must avoid due to GI bleeding. Amitriptyline may help with appetite. * Generalized weakness: Probably also multifactorial. Has had decline long before surgery in May secondary to lung disease and to chronic back/leg pain. No with no appetite and weight loss. Hopefully, this will improve if we can stop bleeding and get her to eat. * Depression: Now on low dose amitryptiline which may help with pain/ depression/appetite. * Delirium: reports patient has frequent delirium when hospitalized. Patient already showing signs of intermittent confusion here. == As respiratory symptoms improve, may need to more aggressively treat pain/ depression in order to have her cooperative with the rest of her treatment. Could consider adding Cymbalta to Amitriptyline or increasing the amitryptiline == If delirium develops and we are unable to address the underlying problem , would recommend low dose haloperidol at 1 mg q 4 hours prn. == Palliative care will continue to follow to assist with symptom management and to further clarify goals of medical treatment as the clinical course evolves. . Attestation Attestation: To help prompt me to consider important information that might be impacting today's encounter and assessment, information from prior notes written by myself or my colleagues may have been "brought forward" into today's note. My signature on this note, however, is an attestation that I personally performed the exam, history, and/or decision-making noted today, and, unless otherwise indicated, the interactions with patient, family, and staff as well as the review of records all occurred today. I also attest that the listed assessment and stated plan reflect my best clinical judgment today based on the combination of historical information, prior notes, and today's exam/ interactions. When time spent is documented, it refers only to time spent today by the signer, or if indicated, combined time spent today by collaborating physician/nurse practitioner. .
[2017-10-12 17:15] LABS: Eos # (Auto) 0.1 th/mm3 (0.0-0.4); Eos % (Auto) 1.2 % (0.0-4.0); Hematocrit 28.1 % (35.0-46.0); Hemoglobin 8.7 gm/dL (11.6-15.3); Lymph # (Auto) 0.7 th/mm3 (1.0-4.8); Lymph % (Auto) 6.5 % (9.0-44.0); Mean Corpuscular Hemoglobin 27.5 pg (27.0-34.0); Mean Corpuscular Volume 89.2 fL (80.0-100.0); Mean Platelet Volume 8.9 fL (7.0-11.0); Mono # (Auto) 0.7 th/mm3 (0.0-0.9); Mono % (Auto) 6.6 % (0.0-8.0); Neut # (Auto) 9.5 th/mm3 (1.8-7.7); Neut % (Auto) 85.7 % (16.0-70.0); Platelet Count 212 th/mm3 (150-450); Red Blood Count 3.15 mil/mm3 (4.00-5.30); Red Cell Distribution Width 19.2 % (11.6-17.2); White Blood Count 11.1 th/mm3 (4.0-11.0)
[2017-10-12 17:29] LABS: Mean Corpuscular HGB Conc 30.8 % (32.0-36.0)
[2017-10-12] MEDS: Dextrose 5%/NaCl 0.45% Inj 1,000 ML IV.CONT SCH (21:49)
[2017-10-12] MEDS: Amitriptyline 10 MG Tablet PO SCH (21:49)
[2017-10-13] MEDS: Insulin NovoLIN Regular Correctional Sugar Inj SQ SCH ×4 (00:54→19:28)
[2017-10-13 05:13] LABS: Baso % (Auto) 0.1 % (0.0-2.0); Eos # (Auto) 0.1 th/mm3 (0.0-0.4); Eos % (Auto) 1.4 % (0.0-4.0); Hematocrit 24.1 % (35.0-46.0); Hemoglobin 7.9 gm/dL (11.6-15.3); Lymph # (Auto) 0.6 th/mm3 (1.0-4.8); Lymph % (Auto) 8.2 % (9.0-44.0); Mean Corpuscular HGB Conc 32.7 % (32.0-36.0); Mean Corpuscular Hemoglobin 28.6 pg (27.0-34.0); Mean Corpuscular Volume 87.6 fL (80.0-100.0); Mean Platelet Volume 9.1 fL (7.0-11.0); Mono # (Auto) 0.4 th/mm3 (0.0-0.9); Mono % (Auto) 5.9 % (0.0-8.0); Neut # (Auto) 6.4 th/mm3 (1.8-7.7); Neut % (Auto) 84.4 % (16.0-70.0); Platelet Count 162 th/mm3 (150-450); Red Blood Count 2.75 mil/mm3 (4.00-5.30); Red Cell Distribution Width 17.9 % (11.6-17.2); White Blood Count 7.5 th/mm3 (4.0-11.0)
[2017-10-13 05:35] LABS: Anion Gap 2 meq/L (5-15); Blood Urea Nitrogen 23 mg/dL (7-18); Calcium 8.6 mg/dL (8.5-10.1); Carbon Dioxide 38.2 meq/L (21.0-32.0); Chloride 107 meq/L (98-107); Glomerular Filtration Rate Greater Than 89 mL/min (>89); Glucose,Random 171 mg/dL (74-106); Magnesium 1.8 mg/dL (1.5-2.5); Phosphorus 1.2 mg/dL (2.5-4.9); Potassium 3.4 meq/L (3.5-5.1); Sodium 147 meq/L (136-145)
[2017-10-13] MEDS: Chlorhexidine Gluconate 2% 1 Pack (2 Cloths) TOPICAL SCH (05:49)
--- NOTE | 2017-10-13 06:12 | XR ---
EXAM DATE: 10/13/2017 5:53 AM EDT AGE/SEX: 62 years / Female INDICATIONS: Evaluate respiratory failure. CLINICAL DATA: This is the patient's subsequent encounter. Patient reports that signs and symptoms h ave been present for 1 week and indicates a pain score of Nonresponsive. MEDICAL/SURGICAL HISTORY: Chronic obstructive pulmonary disease. Diabetes. None. COMPARISON: [facility] [place], CHEST 1V SINGLE AP, 10/11/2017. . FINDINGS: Single AP view of the chest. Median sternotomy wires. Right IJ central venous catheter is in place wi th the tip at the cavoatrial junction. No evidence of pneumothorax. Bilateral pleural effusions. Left greater than right basilar parenchymal opacity. No significant interval change. CONCLUSION: 1. Right IJ central venous catheter. No evidence of pneumothorax. 2. No other significant interval change with persistent left greater than right lower lung zone atel ectasis versus consolidation and left greater than right pleural effusions. Electronically signed by: Patrick Huang MD 10/13/2017 6:10 AM EDT
[2017-10-13] MEDS: Baclofen 10 MG Tablet PO SCH ×3 (08:27→17:01)
[2017-10-13] MEDS: Senna/Docusate Sodium 8.6/50 MG Tablet PO SCH ×2 (08:27→20:29)
[2017-10-13] MEDS: Dextrose 5%/NaCl 0.45% Inj 1,000 ML IV.CONT SCH ×2 (08:28→20:26)
[2017-10-13] MEDS: Vancomycin Inj 1,500 MG in Sodium Chlor 0.9% Inj 500 ML IV.SIG SCH (10:53)
[2017-10-13] MEDS: Nystatin 100,000 UNITS/GM Powder 15 GM Bottle TOPICAL SCH ×4 (10:54→20:29)
[2017-10-13] MEDS: Collagenase Oint 30 GM Tube TOPICAL SCH (13:06)
[2017-10-13] MEDS ORDERED: Potassium Phosphate Inj 30 MMOL in Sodium Chlor 0.9% Inj 250 ML IV.SIG ONE (13:40)
--- NOTE | 2017-10-13 13:43 | P.PNCC ---
Subjective Subjective Remarks/Hospital Course: The patient is a 62-year-old female, retirement resident, with a past medical history of hypertension, diabetes mellitus, coronary artery disease on Eliquis, who presented to [facility] ED with shortness of breath associated with tachypnea and generalized weakness. On arrival to the ED, she was hypotensive with a systolic blood pressure 80s-90s and tachycardic with heart rate of 102-110. Her laboratory data showed anemia with hemoglobin level 5.0 and mild acute kidney injury with a creatinine of 1.13 and lactic acid of 2.6. The patient was given a total of 1 liter of normal saline and is scheduled to receive 2 units of red blood cells. When seen, her current blood pressure is 145/74. ABG was performed on 4 liter oxygen, which showed a pH of 7.44, CO2 58, PaO2 88 , bicarbonate of 38, saturation 95 percent. The patient agnieszka poor historian. She underwent CT chest, abdomen and pelvis. Her CT scan of the chest showed dense consolidation of the left lower lobe with air bronchograms and CT abdomen and pelvis showed a 3.8 cm infrarenal abdominal aortic aneurysm. 10/09: Patient complaining of shortness of breath. Received blood products and colon prep overnight. Will give 1 dose of bumetanide IV 1 now. Creatinine within normal limits. Patient is on furosemide at home 20 mg daily which is currently on hold. Plan for EGD/colonoscopy today 10/10: Afebrile. Received 1 unit PRBCs overnight. Respiratory rate much improved. DNR status currently. Will give 1 dose of acetazolamide 250 mg IV 1 now. Appears more comfortable. 10/11: Unable to obtain blood draws today. Received 1 unit PRBCs yesterday. Less dyspneic today. Still having black stools. Will central line placed by IR. 10/12: Hemoglobin currently 7.2. Will transfuse 1 additional unit today. Consider black stools. Started on amitriptyline yesterday. Receiving as needed hydrocodone/acetaminophen. Flat affect. Poor appetite started started on D5 LR Subjective 10/13: States she wants to BM systolic. Continues to have multiple black stools. More interactive today with family at bedside. Has poor appetite. Respiratory status improved. Objective Vital Signs / I&O: Vital Signs 10/12/17 14:00 10/12/17 15:00 10/12/17 16:00 Temperature 97.8 F Pulse Rate 99 H 97 H 96 H Respiratory Rate 35 H 30 H 32 H Blood Pressure 139/72 137/74 133/66 Pulse Oximetry 100 99 98 10/12/17 17:00 10/12/17 18:00 10/12/17 19:00 Temperature Pulse Rate 98 H 95 H 96 H Respiratory Rate 20 17 19 Blood Pressure 141/67 H 146/59 H 137/69 Pulse Oximetry 100 100 99 10/12/17 20:00 10/12/17 20:09 10/12/17 22:00 Temperature 97.8 F Pulse Rate 96 H 96 H 96 H Respiratory Rate 19 21 Blood Pressure 135/65 Pulse Oximetry 99 99 10/12/17 23:39 10/13/17 00:00 10/13/17 02:00 Temperature 98.2 F Pulse Rate 91 H 91 H 92 H Respiratory Rate 18 18 Blood Pressure 134/63 Pulse Oximetry 99 95 10/13/17 03:30 10/13/17 04:00 10/13/17 06:00 Temperature 98.4 F Pulse Rate 90 94 H 88 Respiratory Rate 19 28 H Blood Pressure 125/62 Pulse Oximetry 97 10/13/17 07:27 10/13/17 08:00 10/13/17 10:00 Temperature 97.5 F L Pulse Rate 86 88 91 H Respiratory Rate 22 16 Blood Pressure 124/67 Pulse Oximetry 99 10/13/17 11:12 10/13/17 12:00 Temperature Pulse Rate 91 H 91 H Respiratory Rate 20 Blood Pressure Pulse Oximetry Intake & Output 10/12/17 10/13/17 10/13/17 18:59 06:59 18:59 Intake Total 1665 / 1665 2080 / 2080 1100 / 1100 Output Total 300 / 300 300 / 300 Balance 1365 / 1365 1780 / 1780 1100 / 1100 Weight 124.5 kg Intake: IV 1015 / 1015 300 / 300 1100 / 1100 D5W/1/2 NS Inj 1,000 ML @ 84 1000 / 1000 mls/hr IV.CONT .[id number] DEBORAH Rx# :[id number] Azactam Inj 1,000 MG In NS Inj 200 / 200 100 / 100 100 ML @ 200 mls/hr IV.SIG Q8H DEBORAH Rx#:[id number] KCl 40 mEq Premix Inj 40 meq In 100 / 100 100 ml @ 25 mls/hr IV.SIG UNSCH PRN Rx#:[id number] Vancomycin Inj 1,500 MG In NS 515 / 515 Inj 500 ML @ 250 mls/hr IV.SIG Q24H DEBORAH Rx#:[id number] Flagyl 500 MG Inj 100 ML @ 100 200 / 200 200 / 200 100 / 100 mls/hr IV.SIG Q6H DEBORAH Rx#: [id number] Oral 250 / 250 480 / 480 Intake (Blood Product) Amt 400 / 400 Rbc As-3 Leukoreduced Unit 400 / 400 [id number] Mass Transfusion Protocol 400 / 400 SureTrans Amount 900 / 900 Output: Urine 0 / 0 Stool 0 / 0 Urine Amount (Catheter) 300 / 300 300 / 300 Indwelling Urethral Catheter 300 / 300 300 / 300 Other: Bladder Irrigation Fluid - Amount Instilled Indwelling Urethral Catheter 60 Bladder Irrigation Fluid - Amount Drained Indwelling Urethral Catheter 0 Date of Last Bowel Movement 10/12/17 10/12/17 10/12/17 # Bowel Movements 2 0 # Incontinent Bowel Movements 0 Result Diagrams: 10/13/17 03:49 10/13/17 03:49 Other Results: Microbiology 10/09/17 12:20 Blood - Peripheral Aerobic Blood Culture - Preliminary No growth in 4 days 10/09/17 12:20 Blood - Peripheral Anaerobic Blood Culture - Preliminary No growth in 4 days 10/09/17 12:25 Blood - Peripheral Aerobic Blood Culture - Preliminary No growth in 4 days 10/09/17 12:25 Blood - Peripheral Anaerobic Blood Culture - Preliminary No growth in 4 days 10/08/17 05:10 Blood - Peripheral Aerobic Blood Culture - Final No growth in 5 days 10/08/17 05:10 Blood - Peripheral Anaerobic Blood Culture - Final Staphylococcus epidermidis 10/08/17 05:00 Blood - Peripheral Aerobic Blood Culture - Final No growth in 5 days 10/08/17 05:00 Blood - Peripheral Anaerobic Blood Culture - Final Staphylococcus epidermidis 10/12/17 00:40 Urine - Catheterized Urine Streptococcus pneumoniae Antigen ( M - Final Presumptive negative for streptococcus pneumoniae antigen, suggesting no current or recent infection. Infection due to Streptococcus pneumoniae cannot be ruled out since the antigen present in the sample may be below the detection limit of the test. 10/12/17 00:40 Urine - Catheterized Urine Legionella Antigen - Final Presumptive negative for Legionella pneumophila serogroup 1 antigen in urine, suggesting no recent or recurrent infection. Infection due to Legionella cannot be ruled out since other serogroups and species may cause disease, antigen may not be present in urine in early infection, and the level of antigen present in the urine may be below the detection limit of the test. 10/10/17 03:30 Nasal Wash Influenza Types A,B Antigen - Final Negative for FLU A and B antigen Infection due to influenza A or B cannot be ruled out since the antigen present in the sample may be below the detection limit of the test. Imaging: Venous Doppler Study 10/08/17 00:00 CONCLUSION: No DVT is identified within either lower extremity. Chest X-Ray 10/08/17 05:06 CONCLUSION: Abdomen/Pelvis CT 10/08/17 06:55 CONCLUSION: 1. Dense consolidation with air bronchograms in the left lung base with an associated small effusion. Minimal atelectatic changes medially in the right base. 2. 3.8 cm infrarenal abdominal aortic aneurysm. 3. 3 to 4 mm ureteric stone proximally on the right with resulting pelvocaliectasis of the collecting system. 4. 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 Chest CT 10/08/17 06:55 CONCLUSION: 1. Volume loss in the left hemithorax with dense consolidation of the left lower lobe and associated small left-sided effusion. Air bronchograms are present and this may represent compressive atelectasis or infiltrate. 2. Minimal subpleural atelectasis in the medial aspect of the right. 3. Compensated cardiomegaly with findings of prior CABG. Dense calcification of the mitral valve annulus. Chest X-Ray 10/09/17 00:00 CONCLUSION: Increasing bilateral consolidation and increasing left pleural effusion. Chest X-Ray 10/10/17 06:00 CONCLUSION: Cardiomegaly with bilateral mostly basilar airspace disease and pleural effusions. Findings similar to October 09. No pneumothorax. Chest X-Ray 10/11/17 06:00 CONCLUSION: Stable examinations with bilateral effusions and mostly basilar airspace disease. Previous sternotomy. Chest X-Ray 10/13/17 06:00 CONCLUSION: 1. Right IJ central venous catheter. No evidence of pneumothorax. 2. No other significant interval change with persistent left greater than right lower lung zone atelectasis versus consolidation and left greater than right pleural effusions. Objective Remarks: GENERAL: 62-year-old female currently on nasal cannula in less respiratory distress. SKIN: Warm and dry. Open nondraining ulcerations from prior EVH right lower extremity x 2 with some erythema HEAD: Atraumatic. Normocephalic. EYES: Pupils equal and round about 3 mm bilaterally reactive. No scleral icterus. No injection or drainage. ENT: No nasal bleeding or discharge. Mucous membranes pink and moist. NECK: Trachea midline. No JVD. CARDIOVASCULAR: Tachycardic, RR. S1, S2. No S4. No murmur, click, gallop or rub RESPIRATORY: Diminished breath sounds due to body habitus. Somewhat tachypneic. No wheezing appreciated. GASTROINTESTINAL: Abdomen soft, non-tender, nondistended. Hepatic and splenic margins not palpable. MUSCULOSKELETAL: Extremities with 1+ bilateral lower extremity edema. NEUROLOGICAL: Awake and alert. No obvious cranial nerve deficits. Motor grossly within normal limits. Five out of 5 muscle strength in the arms and legs. Normal nonpressure speech. Assessment and Plan - Assessment and Plan Plan: Neuro/Psych: Acetaminophen 650 mg by mouth every 6 hours as needed fever Hydrocodone/acetaminophen 5/321 tablet every 6 hours as needed pain Amitriptyline 10 mg at night Continue baclofen 10 mg 3 times daily CV: Essential hypertension Hyperlipidemia Diastolic heart failure likely chronic 3.8 cm infrarenal abdominal aortic aneurysm Coronary artery disease/CABG June 2017 at [facility] 2D echocardiogram revealed EF 40-45% normal LV function. Resuming metoprolol tartrate 25 mg twice daily resume when clinically indicated Clear liquid diet On rosuvastatin 40 mg daily at home for dyslipidemia. Hospital substitution atorvastatin 80 mg daily Resp: Acute respiratory insufficiency History of COPD CT thorax 10/08 revealed air bronchograms in the left lower lobe. Small left pleural effusion. Nasal cannula to maintain saturations greater than or equal to 92% Incentive spirometry while awake Albuterol/ipratropium aerosols every 4 hours with albuterol aerosols every 2 hours as needed for dyspnea Acapella/PEP every 4 hours Chest x-ray in a.m. 10/14. She appears volume overloaded at the present time. Will give acetazolamide 500 mg IV 1 now.. She is chronically on furosemide 20 mg daily GI: Elevated AST Moderate protein calorie malnutrition/hypoalbuminemia History of colonic polyps questionable Currently on clear liquid diet Plan for EGD/colonoscopy when/if stable. They have signed off in the interim. Will likely reconsult with increased intake Patient had a recent panendoscopy 7 days ago for hospital which verbal report revealed polyps. Her stool is currently black. Pantoprazole drip at 8 mg an hour Docusate sodium/senna 1 tablet twice daily for bowel regimen : Ureteral stone - R 4 mm Maintain Sweet catheter today. [place]iwick tomorrow if hemoglobin is stable/wound stable Endo: Diabetes mellitus Acute hyperglycemia On insulin U100 lispro unknown dose at home on insulin glargine 10 units 3 times daily Sliding scale insulin with aspart/every 6 hours medium regimen. Renal: Creatinine currently within normal limits. Monitor urine output Accurate I's and O's Heme: Acute blood loss anemia/normocytic Transfuse 5 units PRBCs this hospitalization. Coags within normal limits ID: Gram-positive cocci bacteremia - Staph epi Patient is currently in vancomycin, aztreonam day #6 and metronidazole day #5 for pneumonia/hospital-acquired Pertinent cultures / -blood cultures 2 -staph epidermidis likely 10/09 -blood cultures 2 -no growth to date Influenza a and B- MSK: Elevated BMI Right lower extremity deep tissue injury Weight loss encouraged. Wound care evaluate and treat and continue Santyl for now/home medication FEN: Hypophosphatemia Replace electrolytes as clinically indicated. 80 milliequivalents potassium chloride IV times 1 now. Recheck at 1600 today. Currently on D5 one half normal saline at 84 cc an hour ACCESS -right IJ CVL day #3 Prophylax -GI -pantoprazole drip -DVT -SCD/no pharmacological prophylaxis in light of gastro-intestinal bleeding. Level 3 follow-up
[2017-10-13] MEDS: Mag Sulf 1 gm/100 ml Premix 100 ML IV.SIG SCH ×2 (17:01→20:26)
--- NOTE | 2017-10-13 17:28 | P.PNGI ---
Subjective Interval history: Patient laying in bed barely able to speak denies any pain the nurse reports dark brown stools Physical Exam Vital signs: Vital Signs 10/12/17 18:00 10/12/17 19:00 10/12/17 20:00 Temperature 97.8 F Pulse Rate 95 H 96 H 96 H Respiratory Rate 17 19 19 Blood Pressure 146/59 H 137/69 135/65 Pulse Oximetry 100 99 99 10/12/17 20:09 10/12/17 22:00 10/12/17 23:39 Temperature Pulse Rate 96 H 96 H 91 H Respiratory Rate 21 18 Blood Pressure Pulse Oximetry 99 99 10/13/17 00:00 10/13/17 02:00 10/13/17 03:30 Temperature 98.2 F Pulse Rate 91 H 92 H 90 Respiratory Rate 18 19 Blood Pressure 134/63 Pulse Oximetry 95 10/13/17 04:00 10/13/17 06:00 10/13/17 07:27 Temperature 98.4 F Pulse Rate 94 H 88 86 Respiratory Rate 28 H 22 Blood Pressure 125/62 Pulse Oximetry 97 99 10/13/17 08:00 10/13/17 10:00 10/13/17 11:12 Temperature 97.5 F L Pulse Rate 88 91 H 91 H Respiratory Rate 16 20 Blood Pressure 124/67 Pulse Oximetry 10/13/17 12:00 10/13/17 14:00 10/13/17 15:53 Temperature 98.0 F Pulse Rate 90 91 H 91 H Respiratory Rate 16 22 Blood Pressure 138/62 Pulse Oximetry 10/13/17 16:00 Temperature Pulse Rate 92 H Respiratory Rate Blood Pressure 122/60 Pulse Oximetry Intake & Output 10/12/17 10/13/17 10/13/17 18:59 06:59 18:59 Intake Total 1665 / 1665 2080 / 2080 1200 / 1200 Output Total 300 / 300 300 / 300 Balance 1365 / 1365 1780 / 1780 1200 / 1200 Weight 124.5 kg Intake: IV 1015 / 1015 300 / 300 1200 / 1200 D5W/1/2 NS Inj 1,000 ML @ 84 1000 / 1000 mls/hr IV.CONT .[id number] DEBORAH Rx# :[id number] Azactam Inj 1,000 MG In NS Inj 200 / 200 100 / 100 100 / 100 100 ML @ 200 mls/hr IV.SIG Q8H DEBORAH Rx#:[id number] KCl 40 mEq Premix Inj 40 meq In 100 / 100 100 ml @ 25 mls/hr IV.SIG UNSCH PRN Rx#:[id number] Vancomycin Inj 1,500 MG In NS 515 / 515 Inj 500 ML @ 250 mls/hr IV.SIG Q24H DEBORAH Rx#:[id number] Flagyl 500 MG Inj 100 ML @ 100 200 / 200 200 / 200 100 / 100 mls/hr IV.SIG Q6H DEBORAH Rx#: [id number] Oral 250 / 250 480 / 480 Intake (Blood Product) Amt 400 / 400 Rbc As-3 Leukoreduced Unit 400 / 400 [id number] Mass Transfusion Protocol 400 / 400 SureTrans Amount 900 / 900 Output: Urine 0 / 0 Stool 0 / 0 Urine Amount (Catheter) 300 / 300 300 / 300 Indwelling Urethral Catheter 300 / 300 300 / 300 Other: Bladder Irrigation Fluid - Amount Instilled Indwelling Urethral Catheter 60 Bladder Irrigation Fluid - Amount Drained Indwelling Urethral Catheter 0 Date of Last Bowel Movement 10/12/17 10/12/17 10/12/17 # Bowel Movements 2 0 # Incontinent Bowel Movements 0 - Constitutional mild distress - Routine HEENT Exam Head: Present: normocephalic, atraumatic Eye: Present: EOMI - Routine Neck Exam Present: supple - Routine Respiratory Exam Present: decreased breath sounds - Routine Cardiovascular Exam Present: RRR - Routine Abdominal Exam Present: soft - Routine Extremities Exam Present: edema - Routine Neurological Exam Present: alert - Urinary Catheter Management Indwelling Urethral Catheter Cath placed during this visit: yes Reason for continuing: Hourly intake/output Insertion date: 10/08/17 Results - Labs CBC & Chem 7: 10/13/17 03:49 10/13/17 03:49 Laboratory Results - last 24 hr 10/12/17 10/12/17 10/12/17 16:35 16:35 18:08 WBC 11.1 H RBC 3.15 L Hgb 8.7 L Hct 28.1 L MCV 89.2 MCH 27.5 MCHC 30.8 L RDW 19.2 H Plt Count 212 MPV 8.9 Neut % (Auto) 85.7 H Lymph % (Auto) 6.5 L Dukes % (Auto) 6.6 Eos % (Auto) 1.2 Baso % (Auto) 0.0 Neut # (Auto) 9.5 H Lymph # (Auto) 0.7 L Dukes # (Auto) 0.7 Eos # (Auto) 0.1 Baso # (Auto) 0.0 WBC Differential . Differential Comment Auto diff final Sodium Potassium 3.9 D Chloride Carbon Dioxide Anion Gap BUN Creatinine Estimated GFR POC Glucose 138 H Random Glucose Calcium Phosphorus Magnesium 10/13/17 10/13/17 10/13/17 00:48 03:49 03:49 WBC 7.5 RBC 2.75 L Hgb 7.9 L Hct 24.1 L MCV 87.6 MCH 28.6 MCHC 32.7 RDW 17.9 H Plt Count 162 MPV 9.1 Neut % (Auto) 84.4 H Lymph % (Auto) 8.2 L Dukes % (Auto) 5.9 Eos % (Auto) 1.4 Baso % (Auto) 0.1 Neut # (Auto) 6.4 Lymph # (Auto) 0.6 L Dukes # (Auto) 0.4 Eos # (Auto) 0.1 Baso # (Auto) 0.0 WBC Differential . Differential Comment Auto diff final Sodium 147 H Potassium 3.4 L Chloride 107 Carbon Dioxide 38.2 H Anion Gap 2 L BUN 23 H Creatinine 0.58 Estimated GFR Greater than 89 POC Glucose 184 H Random Glucose 171 H Calcium 8.6 Phosphorus 1.2 L Magnesium 1.8 10/13/17 10/13/17 12:07 16:07 WBC RBC Hgb Hct MCV MCH MCHC RDW Plt Count MPV Neut % (Auto) Lymph % (Auto) Dukes % (Auto) Eos % (Auto) Baso % (Auto) Neut # (Auto) Lymph # (Auto) Dukes # (Auto) Eos # (Auto) Baso # (Auto) WBC Differential Differential Comment Sodium Potassium Chloride Carbon Dioxide Anion Gap BUN Creatinine Estimated GFR POC Glucose 153 H 178 H Random Glucose Calcium Phosphorus Magnesium Microbiology 10/09/17 12:20 Blood - Peripheral Aerobic Blood Culture - Preliminary No growth in 4 days 10/09/17 12:20 Blood - Peripheral Anaerobic Blood Culture - Preliminary No growth in 4 days 10/09/17 12:25 Blood - Peripheral Aerobic Blood Culture - Preliminary No growth in 4 days 10/09/17 12:25 Blood - Peripheral Anaerobic Blood Culture - Preliminary No growth in 4 days 10/08/17 05:10 Blood - Peripheral Aerobic Blood Culture - Final No growth in 5 days 10/08/17 05:10 Blood - Peripheral Anaerobic Blood Culture - Final Staphylococcus epidermidis 10/08/17 05:00 Blood - Peripheral Aerobic Blood Culture - Final No growth in 5 days 10/08/17 05:00 Blood - Peripheral Anaerobic Blood Culture - Final Staphylococcus epidermidis - Imaging Impressions Chest X-Ray 10/13/17 06:00 CONCLUSION: 1. Right IJ central venous catheter. No evidence of pneumothorax. 2. No other significant interval change with persistent left greater than right lower lung zone atelectasis versus consolidation and left greater than right pleural effusions. Assessment and Plan (1) Anemia Status: Acute Code(s): D64.9 - Anemia, unspecified (2) History of GI bleed Status: Acute Code(s): Z87.19 - Personal history of other diseases of the digestive system (3) History of pulmonary embolism Status: Acute Code(s): Z86.711 - Personal history of pulmonary embolism (4) Anticoagulated Status: Deleted Code(s): Z79.01 - director long term care (current) use of anticoagulants - Plan Assessment: - Anemia with history of GIB, last GIB noted in June of this year, seen by our service at [facility], procedures as noted below. Pt recently with PE, DCd on Eliquis in August, sent back to [facility] with severe anemia on September 15, hgb of 3.7 underwent repeat EGD. Advised to have capsule endoscopy, however has not followed up in the office. Hgb last checked on 10/01 was 7.9. Pt denies any source of obvious GIB. Denies nausea, vomiting, abdominal pain. EGD and colonoscopy (June 2017) --> some friability and a bit of prominence at the distal esophagus, somewhat irregular duodenal mucosa with denuded patches of unclear significance. The initial colonoscopy noted limited visualization due to blood clots so a few days later a repeat procedure was done which revealed reddish dark fluid in the right colon but no signs of active bleeding, 2 areas that looked like lipoma but no ulcerations, polyp in the ascending colon, few polyps in the rectosigmoid area, internal hemorrhoids. Pathology revealed hyperplastic polyp and and tubular adenoma. EGD was done September 20 --> Two superficial esophageal ulcers with no bleeding and no stigmata of recent bleeding , middle third and lower third of the esophagus were mildly tortuous, otherwise normal exam. Pathology (distal esophagus ulcer) mucosa with ulceration, granulation tissues, acute inflammation and findings suggestive of pill induced esophagitis, rare yeast organisms morphologically consistent with Bailey, and detached fragments of acute fibrinopurulent exudate. - SOB- admitted to [facility]- hypercapnic respiratory insufficiency - Elevated lactic acid (10/10) Pt with SOB and respiratory status too unstable for GI procedure. Stool noted to be greenish in color. Pt with some drop in hgb last night S/P 1 U of PRBCs. She is still too unstable for GI procedures, on 6 L O2 via NC and tachycardic. Pt DNR. At this time, recommend monitoring H/H closely and transfusing as needed. Our service will sign off but available as needed when pt becomes stable for endoscopic procedures if still indicated Plan: Protonix Monitor H/H closely Transfusion per [facility] Pt too unstable for GI procedures and no evidence of active bleeding Our service will sign off, reconsult as needed, will be available for GI procedures when pt is stable if indicated at that time (1) Anemia Qualifiers: Anemia type: other cause Other causes of anemia: chronic disease, other Qualified Code(s): D63.8 - Anemia in other chronic diseases classified elsewhere
[2017-10-13] MEDS ORDERED: Mag Sulf 1 gm/100 ml Premix 100 ML IV.SIG ONE (20:18)
[2017-10-13] MEDS: Amitriptyline 10 MG Tablet PO SCH (20:27)
[2017-10-13] MEDS: Pantoprazole Inj 80 MG in Sodium Chlor 0.9% Inj 100 ML IV.CONT SCH (20:28)
[2017-10-14] MEDS: Insulin NovoLIN Regular Correctional Sugar Inj SQ SCH ×5 (00:55→23:47)
[2017-10-14 01:39] LABS: Baso % (Auto) 0.2 % (0.0-2.0); Eos # (Auto) 0.1 th/mm3 (0.0-0.4); Eos % (Auto) 1.8 % (0.0-4.0); Hematocrit 25.3 % (35.0-46.0); Hemoglobin 8.1 gm/dL (11.6-15.3); Lymph # (Auto) 0.7 th/mm3 (1.0-4.8); Mean Corpuscular Hemoglobin 28.4 pg (27.0-34.0); Mean Corpuscular Volume 88.7 fL (80.0-100.0); Mean Platelet Volume 8.7 fL (7.0-11.0); Mono # (Auto) 0.5 th/mm3 (0.0-0.9); Mono % (Auto) 6.8 % (0.0-8.0); Neut % (Auto) 81.2 % (16.0-70.0); Platelet Count 157 th/mm3 (150-450); Red Blood Count 2.85 mil/mm3 (4.00-5.30); Red Cell Distribution Width 18.3 % (11.6-17.2); White Blood Count 7.3 th/mm3 (4.0-11.0)
[2017-10-14 02:01] LABS: INR 1.3 Ratio; Prothrombin Time 12.7 sec (9.8-11.6)
[2017-10-14 02:39] LABS: Alanine Aminotransferase 15 U/L (10-53); Albumin 2.3 g/dL (3.4-5.0); Alkaline Phosphatase 43 U/L (45-117); Anion Gap 3 meq/L (5-15); Aspartate Aminotransferase 14 U/L (15-37); Blood Urea Nitrogen 19 mg/dL (7-18); Carbon Dioxide 35.5 meq/L (21.0-32.0); Chloride 107 meq/L (98-107); Glomerular Filtration Rate Greater Than 89 mL/min (>89); Glucose,Random 132 mg/dL (74-106); Phosphorus 3.4 mg/dL (2.5-4.9); Potassium 3.6 meq/L (3.5-5.1); Sodium 145 meq/L (136-145); Total Protein 4.9 g/dL (6.4-8.2)
[2017-10-14] MEDS: Pantoprazole Inj 80 MG in Sodium Chlor 0.9% Inj 100 ML IV.CONT SCH ×3 (05:16→23:48)
--- NOTE | 2017-10-14 05:30 | XR ---
EXAM DATE: 10/14/2017 5:26 AM EDT AGE/SEX: 62 years / Female INDICATIONS: Shortness of breath. CLINICAL DATA: This is the patient's subsequent encounter. Patient reports that signs and symptoms h ave been present for 1 week and indicates a pain score of Nonresponsive. MEDICAL/SURGICAL HISTORY: . Chronic obstructive pulmonary disease. Diabetes. None. COMPARISON: [facility], CHEST 1V SINGLE AP, 10/13/2017. . FINDINGS: Single AP view of the chest. Right IJ central venous catheter remains in place. Persistent left great er than right pulmonary parenchymal opacity and left pleural effusion. Persistent cardiac silhouette enlargement. CONCLUSION: No significant interval change. Persistent left greater than right lung base opacity and left pleural effusion. Electronically signed by: Patrick Huang MD 10/14/2017 5:29 AM EDT
[2017-10-14] MEDS: Dextrose 5%/NaCl 0.45% Inj 1,000 ML IV.CONT SCH ×2 (08:13→18:38)
[2017-10-14] MEDS: Nystatin 100,000 UNITS/GM Powder 15 GM Bottle TOPICAL SCH ×4 (09:23→21:26)
[2017-10-14] MEDS: Collagenase Oint 30 GM Tube TOPICAL SCH (09:23)
[2017-10-14] MEDS: Senna/Docusate Sodium 8.6/50 MG Tablet PO SCH ×2 (09:23→21:26)
[2017-10-14] MEDS: Baclofen 10 MG Tablet PO SCH ×3 (09:23→17:56)
[2017-10-14] MEDS ORDERED: Pharmacy Ordered Lab Info OTHER ONE (09:45)
[2017-10-14] MEDS: Vancomycin Inj 1,500 MG in Sodium Chlor 0.9% Inj 500 ML IV.SIG SCH (10:43)
--- NOTE | 2017-10-14 13:01 | P.PNCC ---
Subjective Subjective Remarks/Hospital Course: The patient is a 62-year-old female, custodial resident, with a past medical history of hypertension, diabetes mellitus, coronary artery disease on Eliquis, who presented to [facility] ED with shortness of breath associated with tachypnea and generalized weakness. On arrival to the ED, she was hypotensive with a systolic blood pressure 80s-90s and tachycardic with heart rate of 102-110. Her laboratory data showed anemia with hemoglobin level 5.0 and mild acute kidney injury with a creatinine of 1.13 and lactic acid of 2.6. The patient was given a total of 1 liter of normal saline and is scheduled to receive 2 units of red blood cells. When seen, her current blood pressure is 145/74. ABG was performed on 4 liter oxygen, which showed a pH of 7.44, CO2 58, PaO2 88 , bicarbonate of 38, saturation 95 percent. The patient agnieszka poor historian. She underwent CT chest, abdomen and pelvis. Her CT scan of the chest showed dense consolidation of the left lower lobe with air bronchograms and CT abdomen and pelvis showed a 3.8 cm infrarenal abdominal aortic aneurysm. 10/09: Patient complaining of shortness of breath. Received blood products and colon prep overnight. Will give 1 dose of bumetanide IV 1 now. Creatinine within normal limits. Patient is on furosemide at home 20 mg daily which is currently on hold. Plan for EGD/colonoscopy today 10/10: Afebrile. Received 1 unit PRBCs overnight. Respiratory rate much improved. DNR status currently. Will give 1 dose of acetazolamide 250 mg IV 1 now. Appears more comfortable. 10/11: Unable to obtain blood draws today. Received 1 unit PRBCs yesterday. Less dyspneic today. Still having black stools. Will central line placed by IR. 10/12: Hemoglobin currently 7.2. Will transfuse 1 additional unit today. Consider black stools. Started on amitriptyline yesterday. Receiving as needed hydrocodone/acetaminophen. Flat affect. Poor appetite started started on D5 LR 10/13: States she wants to BM to stop. Continues to have multiple black stools. More interactive today with family at bedside. Has poor appetite. Respiratory status improved. Subjective 10/14: Afebrile. Hemoglobin remained stable overnight. Remains anxious. Noted GIs notes. Patient is refusing to drink any contrast for colonoscopy if this were to be indicated. Objective Vital Signs / I&O: Vital Signs 10/13/17 14:00 10/13/17 15:53 10/13/17 16:00 Temperature Pulse Rate 91 H 91 H 92 H Respiratory Rate 22 Blood Pressure 122/60 Pulse Oximetry 10/13/17 18:00 10/13/17 20:00 10/13/17 20:09 Temperature 97.8 F Pulse Rate 92 H 94 H 63 Respiratory Rate 25 H 24 Blood Pressure 132/69 Pulse Oximetry 96 95 10/13/17 22:00 10/14/17 00:00 10/14/17 02:00 Temperature 97.9 F Pulse Rate 94 H 94 H 94 H Respiratory Rate 20 Blood Pressure 139/75 Pulse Oximetry 95 10/14/17 04:00 10/14/17 06:00 10/14/17 08:00 Temperature 97.9 F 97.8 F Pulse Rate 95 H 97 H 92 H Respiratory Rate 23 33 H Blood Pressure 132/68 116/60 Pulse Oximetry 100 95 10/14/17 08:07 10/14/17 10:00 10/14/17 11:31 Temperature Pulse Rate 90 86 Respiratory Rate 18 Blood Pressure Pulse Oximetry 96 10/14/17 12:00 Temperature 97.8 F Pulse Rate 93 H Respiratory Rate 22 Blood Pressure 113/57 L Pulse Oximetry 98 Intake & Output 10/13/17 10/14/17 10/14/17 18:59 06:59 18:59 Intake Total 3795 / 3795 1800 / 1800 1200 / 1200 Output Total 300 / 300 750 / 750 Balance 3495 / 3495 1050 / 1050 1200 / 1200 Weight 121.5 kg Intake: IV 2014 / 2014 1400 / 1400 1200 / 1200 D5W/1/2 NS Inj 1,000 ML @ 84 1000 / 1000 1000 / 1000 1000 / 1000 mls/hr IV.CONT .[id number] DEBORAH Rx# :[id number] Protonix Inj 80 MG In NS Inj 100 / 100 100 ML @ 10 mls/hr IV.CONT CONT DEBORAH Rx#:[id number] Azactam Inj 1,000 MG In NS Inj 200 / 200 100 / 100 100 / 100 100 ML @ 200 mls/hr IV.SIG Q8H DEBORAH Rx#:[id number] Magnesium Sulfate 1 gm/D5W 100 100 / 100 ml Premix 100 ML @ 100 mls/hr IV.SIG Q1H DEBORAH Rx#:[id number] Vancomycin Inj 1,500 MG In NS 515 / 515 Inj 500 ML @ 250 mls/hr IV.SIG Q24H DEBORAH Rx#:[id number] Flagyl 500 MG Inj 100 ML @ 100 200 / 200 200 / 200 100 / 100 mls/hr IV.SIG Q6H DEBORAH Rx#: [id number] Oral 480 / 480 400 / 400 Mass Transfusion Protocol 400 / 400 0 / 0 SureTrans Amount 900 / 900 0 / 0 Output: Urine 0 / 0 0 / 0 Stool 0 / 0 0 / 0 Urine Amount (Catheter) 300 / 300 750 / 750 Indwelling Urethral Catheter 300 / 300 750 / 750 Other: Bladder Irrigation Fluid - Amount Instilled Indwelling Urethral Catheter 60 Bladder Irrigation Fluid - Amount Drained Indwelling Urethral Catheter 0 0 Date of Last Bowel Movement 10/12/17 10/13/17 10/14/17 # Bowel Movements 0 0 # Incontinent Bowel Movements 0 0 Result Diagrams: 10/14/17 01:11 10/14/17 01:11 Other Results: Microbiology 10/09/17 12:20 Blood - Peripheral Aerobic Blood Culture - Final No growth in 5 days 10/09/17 12:20 Blood - Peripheral Anaerobic Blood Culture - Final No growth in 5 days 10/09/17 12:25 Blood - Peripheral Aerobic Blood Culture - Final No growth in 5 days 10/09/17 12:25 Blood - Peripheral Anaerobic Blood Culture - Final No growth in 5 days 10/08/17 05:10 Blood - Peripheral Aerobic Blood Culture - Final No growth in 5 days 10/08/17 05:10 Blood - Peripheral Anaerobic Blood Culture - Final Staphylococcus epidermidis 10/08/17 05:00 Blood - Peripheral Aerobic Blood Culture - Final No growth in 5 days 10/08/17 05:00 Blood - Peripheral Anaerobic Blood Culture - Final Staphylococcus epidermidis 10/12/17 00:40 Urine - Catheterized Urine Streptococcus pneumoniae Antigen ( M - Final Presumptive negative for streptococcus pneumoniae antigen, suggesting no current or recent infection. Infection due to Streptococcus pneumoniae cannot be ruled out since the antigen present in the sample may be below the detection limit of the test. 10/12/17 00:40 Urine - Catheterized Urine Legionella Antigen - Final Presumptive negative for Legionella pneumophila serogroup 1 antigen in urine, suggesting no recent or recurrent infection. Infection due to Legionella cannot be ruled out since other serogroups and species may cause disease, antigen may not be present in urine in early infection, and the level of antigen present in the urine may be below the detection limit of the test. 10/10/17 03:30 Nasal Wash Influenza Types A,B Antigen - Final Negative for FLU A and B antigen Infection due to influenza A or B cannot be ruled out since the antigen present in the sample may be below the detection limit of the test. Imaging: ITS Impressions Venous Doppler Study 10/08/17 00:00 CONCLUSION: No DVT is identified within either lower extremity. Abdomen/Pelvis CT 10/08/17 06:55 CONCLUSION: 1. Dense consolidation with air bronchograms in the left lung base with an associated small effusion. Minimal atelectatic changes medially in the right base. 2. 3.8 cm infrarenal abdominal aortic aneurysm. 3. 3 to 4 mm ureteric stone proximally on the right with resulting pelvocaliectasis of the collecting system. 4. 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 Chest CT 10/08/17 06:55 CONCLUSION: 1. Volume loss in the left hemithorax with dense consolidation of the left lower lobe and associated small left-sided effusion. Air bronchograms are present and this may represent compressive atelectasis or infiltrate. 2. Minimal subpleural atelectasis in the medial aspect of the right. 3. Compensated cardiomegaly with findings of prior CABG. Dense calcification of the mitral valve annulus. Chest X-Ray 10/14/17 06:00 CONCLUSION: No significant interval change. Persistent left greater than right lung base opacity and left pleural effusion. Objective Remarks: GENERAL: 62-year-old female currently on nasal cannula in no respiratory distress. SKIN: Warm and dry. Open nondraining ulcerations from prior EVH right lower extremity x 2 with some erythema HEAD: Atraumatic. Normocephalic. EYES: Pupils equal and round about 3 mm bilaterally reactive. No scleral icterus. No injection or drainage. ENT: No nasal bleeding or discharge. Mucous membranes pink and moist. NECK: Trachea midline. No JVD. CARDIOVASCULAR: RRR. S1, S2. No S4. No murmur, click, gallop or rub RESPIRATORY: Diminished breath sounds due to body habitus. Somewhat tachypneic. No wheezing appreciated. GASTROINTESTINAL: Abdomen soft, non-tender, nondistended. Hepatic and splenic margins not palpable. MUSCULOSKELETAL: Extremities with 1+ bilateral lower extremity edema. NEUROLOGICAL: Awake and alert. No obvious cranial nerve deficits. Motor grossly within normal limits. Five out of 5 muscle strength in the arms and legs. Normal nonpressure speech. Assessment and Plan - Assessment and Plan Plan: Neuro/Psych: Acetaminophen 650 mg by mouth every 6 hours as needed fever Hydrocodone/acetaminophen 5/321 tablet every 6 hours as needed pain Amitriptyline 10 mg at night Continue baclofen 10 mg 3 times daily CV: Essential hypertension Hyperlipidemia Diastolic heart failure likely chronic 3.8 cm infrarenal abdominal aortic aneurysm Coronary artery disease/CABG June 2017 at [facility] 2D echocardiogram revealed EF 40-45% normal LV function. Resuming metoprolol tartrate 25 mg twice daily resume when clinically indicated Clear liquid diet On rosuvastatin 40 mg daily at home for dyslipidemia. Hospital substitution atorvastatin 80 mg daily Resp: Acute respiratory insufficiency History of COPD CT thorax 10/08 revealed air bronchograms in the left lower lobe. Small left pleural effusion. Nasal cannula to maintain saturations greater than or equal to 92% Incentive spirometry while awake Albuterol/ipratropium aerosols every 4 hours with albuterol aerosols every 2 hours as needed for dyspnea Acapella/PEP every 4 hours Chest x-ray in a.m. 10/15. She appears volume overloaded at the present time. Will give acetazolamide 500 mg IV 1 now.. She is chronically on furosemide 20 mg daily GI: Elevated AST Moderate protein calorie malnutrition/hypoalbuminemia History of colonic polyps questionable Currently on clear liquid diet Plan for EGD/colonoscopy when/if stable. They have signed off in the interim. Will likely reconsult with increased intake Patient had a recent panendoscopy 7 days ago for hospital which verbal report revealed polyps. Her stool is currently black. Pantoprazole drip at 8 mg an hour Docusate sodium/senna 1 tablet twice daily for bowel regimen : Ureteral stone - R 4 mm Maintain Sweet catheter today. [place] tomorrow if hemoglobin is stable/wound stable Endo: Diabetes mellitus Acute hyperglycemia On insulin U100 lispro unknown dose at home on insulin glargine 10 units 3 times daily Sliding scale insulin with aspart/every 6 hours medium regimen. Renal: Creatinine currently within normal limits. Monitor urine output Accurate I's and O's Heme: Acute blood loss anemia/normocytic Transfuse 5 units PRBCs this hospitalization. Coags within normal limits ID: Gram-positive cocci bacteremia - Staph epi Patient is currently in vancomycin, aztreonam day #7 and metronidazole day #6 for pneumonia/hospital-acquired Pertinent cultures /16 -blood cultures 2 -staph epidermidis likely / -blood cultures 2 -no growth to date Influenza a and B- MSK: Elevated BMI Right lower extremity deep tissue injury Weight loss encouraged. Wound care evaluate and treat and continue Santyl for now/home medication FEN: Replace electrolytes as clinically indicated. Currently on D5 one half normal saline at 84 cc an hour ACCESS -right IJ CVL day #4 Prophylax -GI -pantoprazole drip -DVT -SCD/no pharmacological prophylaxis in light of gastro-intestinal bleeding. Level 3 follow-up
[2017-10-14] MEDS: Amitriptyline 10 MG Tablet PO SCH (21:26)
[2017-10-14] MEDS: Carbamide Peroxide 6.5% Otic Drops 15 ML Bottle EACH EAR SCH (21:26)
[2017-10-15 01:47] LABS: Baso % (Auto) 0.2 % (0.0-2.0); Eos # (Auto) 0.1 th/mm3 (0.0-0.4); Eos % (Auto) 1.5 % (0.0-4.0); Hematocrit 23.4 % (35.0-46.0); Hemoglobin 7.5 gm/dL (11.6-15.3); Lymph # (Auto) 0.5 th/mm3 (1.0-4.8); Lymph % (Auto) 8.5 % (9.0-44.0); Mean Corpuscular Hemoglobin 28.4 pg (27.0-34.0); Mean Corpuscular Volume 88.9 fL (80.0-100.0); Mean Platelet Volume 8.8 fL (7.0-11.0); Mono # (Auto) 0.4 th/mm3 (0.0-0.9); Neut # (Auto) 4.6 th/mm3 (1.8-7.7); Neut % (Auto) 82.8 % (16.0-70.0); Platelet Count 140 th/mm3 (150-450); Red Blood Count 2.63 mil/mm3 (4.00-5.30); Red Cell Distribution Width 18.1 % (11.6-17.2); White Blood Count 5.6 th/mm3 (4.0-11.0)
[2017-10-15 02:03] LABS: Anion Gap 4 meq/L (5-15); Blood Urea Nitrogen 15 mg/dL (7-18); Calcium 7.7 mg/dL (8.5-10.1); Carbon Dioxide 34.4 meq/L (21.0-32.0); Chloride 107 meq/L (98-107); Glomerular Filtration Rate Greater Than 89 mL/min (>89); Glucose,Random 136 mg/dL (74-106); Magnesium 1.7 mg/dL (1.5-2.5); Phosphorus 3.1 mg/dL (2.5-4.9); Potassium 3.3 meq/L (3.5-5.1); Sodium 145 meq/L (136-145)
[2017-10-15] MEDS: Dextrose 5%/NaCl 0.45% Inj 1,000 ML IV.CONT SCH ×2 (05:33→23:10)
[2017-10-15] MEDS: Insulin NovoLIN Regular Correctional Sugar Inj SQ SCH ×2 (05:33→19:53)
--- NOTE | 2017-10-15 06:06 | XR ---
EXAM DATE: 10/15/2017 5:37 AM EDT AGE/SEX: 62 years / Female INDICATIONS: Shortness of breath. CLINICAL DATA: This is the patient's subsequent encounter. Patient reports that signs and symptoms h ave been present for 1 week and indicates a pain score of Nonresponsive. MEDICAL/SURGICAL HISTORY: Chronic obstructive pulmonary disease. Diabetes. None. COMPARISON: [facility] [place] [facility] [place] 1V SINGLE AP, 10/14/2017. . FINDINGS: Worsening bilateral airspace infiltrates with associated effusions, left worse than right. Heart size remains prominent. Intact median sternotomy wires. Right IJ central venous catheter with the tip pro jecting over the central venous system. Osseous structures are intact CONCLUSION: 1. Persistent left basilar consolidation/effusion is again noted. 2. However, there is worsening interstitial prominence in developing bilateral pleural effusions pos sibly representing an element of vascular congestion or volume overload. Electronically signed by: Seferino Cooney MD 10/15/2017 6:04 AM EDT
--- NOTE | 2017-10-15 08:51 | IR ---
EXAM DATE: 10/11/2017 4:06 PM EDT AGE/SEX: 62 years / Female INDICATIONS: PATIENT PRESENTS WITH SHORTNESS OF BREATH AND WEAKNESS IN NEED OF CENTRAL LINE FOR ANNE TMENT. CLINICAL DATA: This is the patient's initial encounter. Patient reports that signs and symptoms have been present for 2 days and indicates a pain score of 0/10. MEDICAL/SURGICAL HISTORY: Hypertension. Diabetes. CORONARY ARTERY DISEASE . cabg COMPARISON: No prior exams available for comparison. FLUORO TIME (min): 1 IMAGE SERIES: ACCESS SITE: DEVICE(S): 4 Romanian triple lumen Central line . . PROCEDURE : 1. Ultrasound guided venipuncture. 2. Fluoroscopic guidance. 3. Central line placement. The risks, benefits and alternatives to the procedure were explained and verbal and written consent w as obtained. The site was prepped in sterile fashion. Full sterile technique was used, including ca p, mask, sterile gloves and gown and a large sterile sheet. Hand hygiene and 2% chlorhexidine prep w as utilized per protocol for cutaneous antisepsis with appropriate dry time for site. Sterile gel an d sterile probe cover were utilized for ultrasound guidance. The skin and subcutaneous tissues were infiltrated with local anesthetic solution. A suitable site a velia the vein was selected with ultrasound and fluoroscopic guidance. A small incision was made. Th e vein was accessed under direct ultrasound visualization using the micropuncture technique. The krysta ropuncture set was exchanged for a 0.035 wire. The tract was dilated. The catheter was advanced int o position under direct fluoroscopic visualization, and was advanced with the tip at the junction of the superior vena cava and rt atrium. The catheter was fixed in place with suture and a sterile dres sing was applied. The patient tolerated the procedure well and there were no complications. CONCLUSION: 1. Uncomplicated line placement as above. Electronically signed by: Deangelo Gates MD 10/15/2017 8:49 AM EDT
[2017-10-15] MEDS: Baclofen 10 MG Tablet PO SCH ×3 (09:15→17:13)
[2017-10-15] MEDS: Collagenase Oint 30 GM Tube TOPICAL SCH (09:16)
[2017-10-15] MEDS: Senna/Docusate Sodium 8.6/50 MG Tablet PO SCH ×2 (09:16→21:17)
[2017-10-15] MEDS: Carbamide Peroxide 6.5% Otic Drops 15 ML Bottle EACH EAR SCH ×2 (09:17→21:18)
[2017-10-15] MEDS: Potassium Chlor 40 mEq Premix 40 MEQ/100 ML PIGGYBACK IV.SIG PRN (09:18)
[2017-10-15] MEDS: Nystatin 100,000 UNITS/GM Powder 15 GM Bottle TOPICAL SCH ×4 (09:18→21:18)
--- NOTE | 2017-10-15 10:45 | P.PNPAL ---
Reason for Visit Reason for visit: a. To assist with evaluation and management of symptoms including: pain; dyspnea; anorexia b. To assist medical decision maker(s) with: better understanding of current medical conditions; weighing benefits/burdens of medical treatment options; making medical treatment decisions. . Subjective Subjective/Interval History: Follow up on this 62 year old with copd that came with condition complicated by pneumonia, anemia (recurrent GI bleed) PE (s/p IVC filter) HGB have drop to 7.5 compare to 8.1 yesterday. K is 3.3. Chest X ray this morning show persistent left basilar consoidiation/effusion again noted. There is worsening interstitial prominece ind eveloping bilateral pleural effusion. Since last visit there is report of dark brown stools. Pt remains lethargic, open eyes could answer question but at times confused. . Family/Friend Interactions: I spoke with patient spouse. Spoke about overall deconditioning and general poor prognosis. Presented option of hospice. He states he will revaluate that option,but for now continue aggressive care short of resucitation. Advance Directives Living Will: Never completed Health Care Surrogate: Never completed Durable Power of Material Handling Warehouse Supervisor: Never completed Health Care Surrogate Name and Number: No written designation of health care surrogate Documented care wishes:: At this time there is no written documentation of patient's healthcare goals or preferences on the chart. . Objective Vital Signs: Vital Signs 10/14/17 11:31 10/14/17 12:00 10/14/17 14:00 Temperature 97.8 F Pulse Rate 86 93 H 95 H Respiratory Rate 18 22 Blood Pressure 113/57 L Pulse Oximetry 98 10/14/17 15:21 10/14/17 15:56 10/14/17 16:00 Temperature 98.2 F Pulse Rate 94 H 90 93 H Respiratory Rate 16 24 Blood Pressure 122/58 L Pulse Oximetry 100 10/14/17 18:00 10/14/17 20:00 10/14/17 20:45 Temperature 97.8 F Pulse Rate 91 H 93 H 95 H Respiratory Rate 23 20 Blood Pressure 115/64 Pulse Oximetry 96 10/14/17 20:46 10/14/17 22:00 10/15/17 00:00 Temperature 98.2 F Pulse Rate 93 H 90 Respiratory Rate 23 Blood Pressure 123/69 Pulse Oximetry 98 98 10/15/17 01:46 10/15/17 04:00 10/15/17 04:15 Temperature 97.5 F L Pulse Rate 95 H 92 H 91 H Respiratory Rate 29 H 20 Blood Pressure 117/73 Pulse Oximetry 98 10/15/17 06:00 Temperature Pulse Rate 100 H Respiratory Rate Blood Pressure Pulse Oximetry Intake & Output 10/14/17 10/15/17 10/15/17 18:59 06:59 18:59 Intake Total 3215 / 3215 1300 / 1300 Output Total 675 / 675 1000 / 1000 Balance 2540 / 2540 300 / 300 Weight 130.5 kg Intake: IV 3015 / 3015 1300 / 1300 D5W/1/2 NS Inj 1,000 ML @ 84 2000 / 2000 1000 / 1000 mls/hr IV.CONT .[id number] DEBORAH Rx# :[id number] Protonix Inj 80 MG In NS Inj 100 / 100 100 / 100 100 ML @ 10 mls/hr IV.CONT Q10H DEBORAH Rx#:[id number] Azactam Inj 1,000 MG In NS Inj 200 / 200 100 / 100 100 ML @ 200 mls/hr IV.SIG Q8H DEBORAH Rx#:[id number] Vancomycin Inj 1,500 MG In NS 515 / 515 Inj 500 ML @ 250 mls/hr IV.SIG Q24H DEBORAH Rx#:[id number] Flagyl 500 MG Inj 100 ML @ 100 200 / 200 100 / 100 mls/hr IV.SIG Q6H DEBORAH Rx#: [id number] Oral 200 / 200 0 / 0 Mass Transfusion Protocol 0 / 0 0 / 0 SureTrans Amount 0 / 0 0 / 0 Output: Urine 0 / 0 325 / 325 Stool 0 / 0 0 / 0 Urine Amount (Catheter) 675 / 675 675 / 675 Indwelling Urethral Catheter 675 / 675 675 / 675 Other: Bladder Irrigation Fluid - Amount Drained Indwelling Urethral Catheter 0 0 Date of Last Bowel Movement 10/14/17 10/14/17 # Bowel Movements 0 0 # Incontinent Bowel Movements 0 0 Physical Exam: CONSTITUTIONAL/GENERAL: This is a pale adequately nourished patient, tachypneic , on nasal cannula O2 in an ICU bed. Sleepy -- awakens briefly to voice/exam, then drifts back to sleep. TUBES/LINES/DRAINS: Nasal cannula oxygen; right IJ central line ; Sweet catheter ; fecal collection system. SKIN: No jaundice, rashes. Ecchymoses and ? petechiae on upper extremities. Dressing on right calf. Skin temperature appropriate. Not diaphoretic. EYES: Pupils equal and round. Extraocular motions intact. No scleral icterus. No injection or drainage. Fundi not examined. ENT: Nose without bleeding or purulent drainage. Throat without visible erythema, exudates, masses, or lesions. NECK: Trachea midline. CARDIOVASCULAR: Borderline tachycardia and regular rhythm without murmurs, gallops, or rubs. No JVD. RESPIRATORY/CHEST: Symmetric, unlabored respirations. Diminished breath sounds on left. No wheezes. GASTROINTESTINAL: Abdomen soft, obese, non-tender, nondistended. No hepato- splenomegaly, or palpable masses. No guarding. Bowel sounds present. GENITOURINARY: Without palpable bladder distension. Sweet catheter in place. MUSCULOSKELETAL: Extremities without clubbing, cyanosis. 1-2+ edema in the lower extremities. No mottling . LYMPHATICS: Not examined. NEUROLOGICAL: Sleepy; awakens to voice / exam, but quickly drifts back to sleep. PSYCHIATRIC: Unable to assess. . Diagnostic Tests Laboratory: Laboratory Results - last 72 hr 10/12/17 10/12/17 10/12/17 07:50 13:37 16:35 WBC RBC Hgb Hct MCV MCH MCHC RDW Plt Count MPV Neut % (Auto) Lymph % (Auto) Terry % (Auto) Eos % (Auto) Baso % (Auto) Neut # (Auto) Lymph # (Auto) Terry # (Auto) Eos # (Auto) Baso # (Auto) WBC Differential Differential Comment PT INR APTT Sodium Potassium 3.9 D Chloride Carbon Dioxide Anion Gap BUN Creatinine Estimated GFR POC Glucose 151 H Random Glucose Calcium Phosphorus Magnesium Total Bilirubin AST ALT Alkaline Phosphatase Total Protein Albumin Vancomycin Trough MTS Gel Crossmatch See Detail 10/12/17 10/12/17 10/13/17 16:35 18:08 00:48 WBC 11.1 H RBC 3.15 L Hgb 8.7 L Hct 28.1 L MCV 89.2 MCH 27.5 MCHC 30.8 L RDW 19.2 H Plt Count 212 MPV 8.9 Neut % (Auto) 85.7 H Lymph % (Auto) 6.5 L Terry % (Auto) 6.6 Eos % (Auto) 1.2 Baso % (Auto) 0.0 Neut # (Auto) 9.5 H Lymph # (Auto) 0.7 L Terry # (Auto) 0.7 Eos # (Auto) 0.1 Baso # (Auto) 0.0 WBC Differential . Differential Comment Auto diff final PT INR APTT Sodium Potassium Chloride Carbon Dioxide Anion Gap BUN Creatinine Estimated GFR POC Glucose 138 H 184 H Random Glucose Calcium Phosphorus Magnesium Total Bilirubin AST ALT Alkaline Phosphatase Total Protein Albumin Vancomycin Trough MTS Gel Crossmatch 10/13/17 10/13/17 10/13/17 03:49 03:49 12:07 WBC 7.5 RBC 2.75 L Hgb 7.9 L Hct 24.1 L MCV 87.6 MCH 28.6 MCHC 32.7 RDW 17.9 H Plt Count 162 MPV 9.1 Neut % (Auto) 84.4 H Lymph % (Auto) 8.2 L Terry % (Auto) 5.9 Eos % (Auto) 1.4 Baso % (Auto) 0.1 Neut # (Auto) 6.4 Lymph # (Auto) 0.6 L Terry # (Auto) 0.4 Eos # (Auto) 0.1 Baso # (Auto) 0.0 WBC Differential . Differential Comment Auto diff final PT INR APTT Sodium 147 H Potassium 3.4 L Chloride 107 Carbon Dioxide 38.2 H Anion Gap 2 L BUN 23 H Creatinine 0.58 Estimated GFR Greater than 89 POC Glucose 153 H Random Glucose 171 H Calcium 8.6 Phosphorus 1.2 L Magnesium 1.8 Total Bilirubin AST ALT Alkaline Phosphatase Total Protein Albumin Vancomycin Trough MTS Gel Crossmatch 10/13/17 10/14/17 10/14/17 16:07 00:53 01:11 WBC 7.3 RBC 2.85 L Hgb 8.1 L Hct 25.3 L MCV 88.7 MCH 28.4 MCHC 32.0 RDW 18.3 H Plt Count 157 MPV 8.7 Neut % (Auto) 81.2 H Lymph % (Auto) 10.0 Terry % (Auto) 6.8 Eos % (Auto) 1.8 Baso % (Auto) 0.2 Neut # (Auto) 6.0 Lymph # (Auto) 0.7 L Terry # (Auto) 0.5 Eos # (Auto) 0.1 Baso # (Auto) 0.0 WBC Differential . Differential Comment Auto diff final PT INR APTT Sodium Potassium Chloride Carbon Dioxide Anion Gap BUN Creatinine Estimated GFR POC Glucose 178 H 141 H Random Glucose Calcium Phosphorus Magnesium Total Bilirubin AST ALT Alkaline Phosphatase Total Protein Albumin Vancomycin Trough MTS Gel Crossmatch 10/14/17 10/14/17 10/14/17 01:11 01:11 05:08 WBC RBC Hgb Hct MCV MCH MCHC RDW Plt Count MPV Neut % (Auto) Lymph % (Auto) Terry % (Auto) Eos % (Auto) Baso % (Auto) Neut # (Auto) Lymph # (Auto) Terry # (Auto) Eos # (Auto) Baso # (Auto) WBC Differential Differential Comment PT 12.7 H INR 1.3 APTT 28.0 Sodium 145 Potassium 3.6 Chloride 107 Carbon Dioxide 35.5 H Anion Gap 3 L BUN 19 H Creatinine 0.51 Estimated GFR Greater than 89 POC Glucose 124 H Random Glucose 132 H Calcium 8.0 L Phosphorus 3.4 D Magnesium 2.0 Total Bilirubin 0.4 AST 14 L ALT 15 Alkaline Phosphatase 43 L Total Protein 4.9 L Albumin 2.3 L Vancomycin Trough MTS Gel Crossmatch 10/14/17 10/14/17 10/14/17 09:45 11:50 18:05 WBC RBC Hgb Hct MCV MCH MCHC RDW Plt Count MPV Neut % (Auto) Lymph % (Auto) Terry % (Auto) Eos % (Auto) Baso % (Auto) Neut # (Auto) Lymph # (Auto) Terry # (Auto) Eos # (Auto) Baso # (Auto) WBC Differential Differential Comment PT INR APTT Sodium Potassium Chloride Carbon Dioxide Anion Gap BUN Creatinine Estimated GFR POC Glucose 132 H 128 H Random Glucose Calcium Phosphorus Magnesium Total Bilirubin AST ALT Alkaline Phosphatase Total Protein Albumin Vancomycin Trough 20.8 H MTS Gel Crossmatch 10/14/17 10/15/17 10/15/17 23:42 01:38 01:38 WBC 5.6 RBC 2.63 L Hgb 7.5 L Hct 23.4 L MCV 88.9 MCH 28.4 MCHC 32.0 RDW 18.1 H Plt Count 140 L MPV 8.8 Neut % (Auto) 82.8 H Lymph % (Auto) 8.5 L Terry % (Auto) 7.0 Eos % (Auto) 1.5 Baso % (Auto) 0.2 Neut # (Auto) 4.6 Lymph # (Auto) 0.5 L Terry # (Auto) 0.4 Eos # (Auto) 0.1 Baso # (Auto) 0.0 WBC Differential . Differential Comment Auto diff final PT INR APTT Sodium 145 Potassium 3.3 L Chloride 107 Carbon Dioxide 34.4 H Anion Gap 4 L BUN 15 Creatinine 0.54 Estimated GFR Greater than 89 POC Glucose 143 H Random Glucose 136 H Calcium 7.7 L Phosphorus 3.1 Magnesium 1.7 Total Bilirubin AST ALT Alkaline Phosphatase Total Protein Albumin Vancomycin Trough MTS Gel Crossmatch 10/15/17 05:32 WBC RBC Hgb Hct MCV MCH MCHC RDW Plt Count MPV Neut % (Auto) Lymph % (Auto) Terry % (Auto) Eos % (Auto) Baso % (Auto) Neut # (Auto) Lymph # (Auto) Terry # (Auto) Eos # (Auto) Baso # (Auto) WBC Differential Differential Comment PT INR APTT Sodium Potassium Chloride Carbon Dioxide Anion Gap BUN Creatinine Estimated GFR POC Glucose 132 H Random Glucose Calcium Phosphorus Magnesium Total Bilirubin AST ALT Alkaline Phosphatase Total Protein Albumin Vancomycin Trough MTS Gel Crossmatch Result Diagrams: 10/15/17 01:38 10/15/17 01:38 Microbiology: Microbiology 10/09/17 12:20 Aerobic Blood Culture - Final Blood - Peripheral No growth in 5 days Anaerobic Blood Culture - Final No growth in 5 days 10/09/17 12:25 Aerobic Blood Culture - Final Blood - Peripheral No growth in 5 days Anaerobic Blood Culture - Final No growth in 5 days 10/08/17 05:10 Aerobic Blood Culture - Final Blood - Peripheral No growth in 5 days Anaerobic Blood Culture - Final Staphylococcus epidermidis 10/08/17 05:00 Aerobic Blood Culture - Final Blood - Peripheral No growth in 5 days Anaerobic Blood Culture - Final Staphylococcus epidermidis 10/12/17 00:40 Streptococcus pneumoniae Antigen (M - Final Urine - Catheterized Urine Presumptive negative for streptococcus pneumoniae antigen, suggesting no current or recent infection. Infection due to Streptococcus pneumoniae cannot be ruled out since the antigen present in the sample may be below the detection limit of the test. 10/12/17 00:40 Legionella Antigen - Final Urine - Catheterized Urine Presumptive negative for Legionella pneumophila serogroup 1 antigen in urine, suggesting no recent or recurrent infection. Infection due to Legionella cannot be ruled out since other serogroups and species may cause disease, antigen may not be present in urine in early infection, and the level of antigen present in the urine may be below the detection limit of the test. Procedures: Right IJ central line placement 10/11/17 . Assessment and Plan - Disease Oriented Problem List (1) COPD (chronic obstructive pulmonary disease) (2) Pneumonia (3) Diabetes mellitus (4) History of GI bleed (5) Anemia (6) Coronary artery disease Comment: S/p CABG in 08/2017 (7) History of pulmonary embolism (8) History of uterine cancer (9) Hypertension - Symptom Scale (1) Pain 0-10 Scale: Unable to quantify Comment: Was number 8 leg pain earlier this AM. (2) Dyspnea 0-10 Scale: Unable to quantify (3) Generalized weakness 0-10 Scale: Unable to quantify (4) Anorexia 0-10 Scale: Unable to quantify Comment: No food tastes good to her. Taking in only protein shakes for two weeks. Reports over 50lb wt loss in year. Pertinent Non-Medical Issues: Psychosocial: * Originally from [place]. Has lived in [place] about 18 yrs. 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 * once. Has been to [place] for 40 years. * One son -- Sharif -- lives in [place]. He has visited recently and knows how ill she is. Spiritual: Orthodox and spirituality have not been an important part of her life. Declines community arts centre manager visits. Legal: No written advance directives. Ethical issues impacting care: Currently capacitated to make her own health care decisions. Important Contacts: Mitch Tolentino (spouse) ; [phone] . Prognosis: Patient has multiple medical problems including underlying COPD, coronary artery disease, diabetes, and history of uterine cancer. She has essentially been in the hospital or rehab since her CABG in May 2017. She has had a relatively recent pulmonary embolus. She has had recurrent GI bleeding of uncertain etiology since her CABG in spite of several GI endoscopies. She started bleeding again while off anticoagulation. She has had recurrent infections. She gets delirium while hospitalized. She received a great deal of fluid when she came in hypotensive and was possibly fluid overloaded. Even prior to her CABG she had severe limitations in quality of life due to COPD and chronic back/leg pain. Prognosis is poor given her inability to improve since May and increasing de- conditioning. . Code Status: No Code DNR Plan: == Code Status: NO CODE. Discussed with patient on 10/09 and with spouse on . All agree on DNR status. == Decision making: Patient appears capacitated to make her own healthcare decisions. There are some references to "dementia" in the medical record. No evidence of dementia at time of my visit. There may have been delirium during some of her hospitalizations per . As there is no written documentation of health care surrogate, would serve as proxy should patient become incapacitated. . == Goals of medical treatment: Goals remains aggressive treatments short of resuscitation. I presented option of hospice. I did discuss pt's overall deconditioning. Hospice will revaluate but overall, his currently goals is aggressive short of DNR/DNI. == Symptoms * Pain: Longstanding chronic neck/back/leg pain requiring daily use of 2-3 Lortab 7.5 mg at home No recent chest pain. She is also on baclofen . Current other sources of discomfort might include her bedbound status; Sweet catheter; fecal collection system; and vascular access lines. hydrocodone at 5 /325 q 6 hours PRN added on 10/11/17. Low dose amitriptyline was added for neuropathic pain. * Dyspnea: Patient's dyspnea is multifactorial. There is underlying COPD. Low hemoglobins exacerbate this. She if fighting a pneumonia. There fluid overloaded. Receiving blood now. The hydrocodone will help sense of air hunger. No further recommendations at this time. * Anorexia: Food has no taste for her and she is eating little and losing weight. Would normally recommend brief course of steroids, but must avoid due to GI bleeding. Amitriptyline may help with appetite. * Generalized weakness: Probably also multifactorial. Has had decline long before surgery in May secondary to lung disease and to chronic back/leg pain. No with no appetite and weight loss. Hopefully, this will improve if we can stop bleeding and get her to eat. * Depression: Cont low dose amitryptiline which may help with pain/depression/ appetite. * Delirium: reports patient has frequent delirium when hospitalized. Patient already showing signs of intermittent confusion here. == As respiratory symptoms improve, may need to more aggressively treat pain/ depression in order to have her cooperative with the rest of her treatment. Could consider adding Cymbalta to Amitriptyline or increasing the amitryptiline == If delirium develops and we are unable to address the underlying problem , would recommend low dose haloperidol at 1 mg q 4 hours prn. == Palliative care will continue to follow to assist with symptom management and to further clarify goals of medical treatment as the clinical course evolves. . Attestation Attestation: To help prompt me to consider important information that might be impacting today's encounter and assessment, information from prior notes written by myself or my colleagues may have been "brought forward" into today's note. My signature on this note, however, is an attestation that I personally performed the exam, history, and/or decision-making noted today, and, unless otherwise indicated, the interactions with patient, family, and staff as well as the review of records all occurred today. I also attest that the listed assessment and stated plan reflect my best clinical judgment today based on the combination of historical information, prior notes, and today's exam/ interactions. When time spent is documented, it refers only to time spent today by the signer, or if indicated, combined time spent today by collaborating physician/nurse practitioner.
[2017-10-15] MEDS: Pantoprazole Inj 80 MG in Sodium Chlor 0.9% Inj 100 ML IV.CONT SCH ×2 (12:03→21:16)
[2017-10-15] MEDS ORDERED: Vancomycin Inj 1,250 MG in Sodium Chlor 0.9% Inj 250 ML IV.SIG SCH (14:00)
[2017-10-15] MEDS: metroNIDAZOLE 500 MG Tablet PO SCH (18:30)
[2017-10-15] MEDS: Amitriptyline 10 MG Tablet PO SCH (21:16)
[2017-10-15] MEDS ORDERED: Potassium Chlor 40 mEq Premix 40 MEQ/100 ML PIGGYBACK IV.SIG ONE (21:52)
--- NOTE | 2017-10-15 21:57 | P.PNCC ---
Subjective Subjective Remarks/Hospital Course: The patient is a 62-year-old female, [facility] resident, with a past medical history of hypertension, diabetes mellitus, coronary artery disease on Eliquis, who presented to [facility] ED with shortness of breath associated with tachypnea and generalized weakness. On arrival to the ED, she was hypotensive with a systolic blood pressure 80s-90s and tachycardic with heart rate of 102-110. Her laboratory data showed anemia with hemoglobin level 5.0 and mild acute kidney injury with a creatinine of 1.13 and lactic acid of 2.6. The patient was given a total of 1 liter of normal saline and is scheduled to receive 2 units of red blood cells. When seen, her current blood pressure is 145/74. ABG was performed on 4 liter oxygen, which showed a pH of 7.44, CO2 58, PaO2 88 , bicarbonate of 38, saturation 95 percent. The patient agnieszka poor historian. She underwent CT chest, abdomen and pelvis. Her CT scan of the chest showed dense consolidation of the left lower lobe with air bronchograms and CT abdomen and pelvis showed a 3.8 cm infrarenal abdominal aortic aneurysm. 10/09: Patient complaining of shortness of breath. Received blood products and colon prep overnight. Will give 1 dose of bumetanide IV 1 now. Creatinine within normal limits. Patient is on furosemide at home 20 mg daily which is currently on hold. Plan for EGD/colonoscopy today 10/10: Afebrile. Received 1 unit PRBCs overnight. Respiratory rate much improved. DNR status currently. Will give 1 dose of acetazolamide 250 mg IV 1 now. Appears more comfortable. 10/11: Unable to obtain blood draws today. Received 1 unit PRBCs yesterday. Less dyspneic today. Still having black stools. Will central line placed by IR. 10/12: Hemoglobin currently 7.2. Will transfuse 1 additional unit today. Consider black stools. Started on amitriptyline yesterday. Receiving as needed hydrocodone/acetaminophen. Flat affect. Poor appetite started started on D5 LR 10/13: States she wants to BM to stop. Continues to have multiple black stools. More interactive today with family at bedside. Has poor appetite. Respiratory status improved. 10/14: Afebrile. Hemoglobin remained stable overnight. Remains anxious. Noted GIs notes. Patient is refusing to drink any contrast for colonoscopy if this were to be indicated. Subjective 10/15: Resting in bed in mild acute respiratory distress. Afebrile. Will diuresis again today. Objective Vital Signs / I&O: Vital Signs 10/14/17 22:00 10/15/17 00:00 10/15/17 01:46 Temperature 98.2 F Pulse Rate 93 H 90 95 H Respiratory Rate 23 Blood Pressure 123/69 Pulse Oximetry 98 10/15/17 04:00 10/15/17 04:15 10/15/17 06:00 Temperature 97.5 F L Pulse Rate 92 H 91 H 100 H Respiratory Rate 29 H 20 Blood Pressure 117/73 Pulse Oximetry 98 10/15/17 08:00 10/15/17 10:00 10/15/17 10:55 Temperature 97.8 F Pulse Rate 97 H 97 H 93 H Respiratory Rate 26 H 24 Blood Pressure 123/64 Pulse Oximetry 100 10/15/17 12:00 10/15/17 14:00 10/15/17 15:20 Temperature Pulse Rate 96 H 98 H 94 H Respiratory Rate 22 26 H Blood Pressure Pulse Oximetry 10/15/17 16:00 10/15/17 19:52 10/15/17 19:54 Temperature 98.2 F Pulse Rate 101 H 103 H Respiratory Rate 21 22 20 Blood Pressure 114/65 Pulse Oximetry 99 Intake & Output 10/15/17 10/15/17 10/16/17 06:59 18:59 06:59 Intake Total 1400 / 1400 200 / 200 100 / 100 Output Total 1000 / 1000 325 / 325 Balance 400 / 400 -125 / -125 100 / 100 Weight 130.5 kg Intake: IV 1400 / 1400 200 / 200 100 / 100 D5W/1/2 NS Inj 1,000 ML @ 84 1000 / 1000 mls/hr IV.CONT .[id number] DEBORAH Rx# :[id number] Protonix Inj 80 MG In NS Inj 100 / 100 100 / 100 100 / 100 100 ML @ 10 mls/hr IV.CONT Q10H DEBORAH Rx#:[id number] Azactam Inj 1,000 MG In NS Inj 100 / 100 100 / 100 100 ML @ 200 mls/hr IV.SIG Q8H DEBORAH Rx#:[id number] Flagyl 500 MG Inj 100 ML @ 100 200 / 200 mls/hr IV.SIG Q6H DEBORAH Rx#: [id number] Oral 0 / 0 Mass Transfusion Protocol 0 / 0 SureTrans Amount 0 / 0 Output: Urine 325 / 325 Stool 0 / 0 Urine Amount (Catheter) 675 / 675 325 / 325 Indwelling Urethral Catheter 675 / 675 325 / 325 Other: Bladder Irrigation Fluid - Amount Drained Indwelling Urethral Catheter 0 Date of Last Bowel Movement 10/14/17 10/13/17 # Bowel Movements 0 # Incontinent Bowel Movements 0 Result Diagrams: 10/15/17 01:38 10/15/17 01:38 Other Results: Venous Doppler Study 10/08/17 00:00 CONCLUSION: No DVT is identified within either lower extremity. Chest X-Ray 10/08/17 05:06 CONCLUSION: Abdomen/Pelvis CT 10/08/17 06:55 CONCLUSION: 1. Dense consolidation with air bronchograms in the left lung base with an associated small effusion. Minimal atelectatic changes medially in the right base. 2. 3.8 cm infrarenal abdominal aortic aneurysm. 3. 3 to 4 mm ureteric stone proximally on the right with resulting pelvocaliectasis of the collecting system. 4. 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 Chest CT 10/08/17 06:55 CONCLUSION: 1. Volume loss in the left hemithorax with dense consolidation of the left lower lobe and associated small left-sided effusion. Air bronchograms are present and this may represent compressive atelectasis or infiltrate. 2. Minimal subpleural atelectasis in the medial aspect of the right. 3. Compensated cardiomegaly with findings of prior CABG. Dense calcification of the mitral valve annulus. Chest X-Ray 10/09/17 00:00 CONCLUSION: Increasing bilateral consolidation and increasing left pleural effusion. Chest X-Ray 10/10/17 06:00 CONCLUSION: Cardiomegaly with bilateral mostly basilar airspace disease and pleural effusions. Findings similar to October 09. No pneumothorax. Central Venous Line 10/11/17 00:00 CONCLUSION: 1. Uncomplicated line placement as above. Chest X-Ray 10/11/17 06:00 CONCLUSION: Stable examinations with bilateral effusions and mostly basilar airspace disease. Previous sternotomy. Chest X-Ray 10/13/17 06:00 CONCLUSION: 1. Right IJ central venous catheter. No evidence of pneumothorax. 2. No other significant interval change with persistent left greater than right lower lung zone atelectasis versus consolidation and left greater than right pleural effusions. Chest X-Ray 10/14/17 06:00 CONCLUSION: No significant interval change. Persistent left greater than right lung base opacity and left pleural effusion. Chest X-Ray 10/15/17 06:00 CONCLUSION: 1. Persistent left basilar consolidation/effusion is again noted. 2. However, there is worsening interstitial prominence in developing bilateral pleural effusions possibly representing an element of vascular congestion or volume overload. Imaging: Venous Doppler Study 10/08/17 00:00 CONCLUSION: No DVT is identified within either lower extremity. Chest X-Ray 10/08/17 05:06 CONCLUSION: Abdomen/Pelvis CT 10/08/17 06:55 CONCLUSION: 1. Dense consolidation with air bronchograms in the left lung base with an associated small effusion. Minimal atelectatic changes medially in the right base. 2. 3.8 cm infrarenal abdominal aortic aneurysm. 3. 3 to 4 mm ureteric stone proximally on the right with resulting pelvocaliectasis of the collecting system. 4. 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 Chest CT 10/08/17 06:55 CONCLUSION: 1. Volume loss in the left hemithorax with dense consolidation of the left lower lobe and associated small left-sided effusion. Air bronchograms are present and this may represent compressive atelectasis or infiltrate. 2. Minimal subpleural atelectasis in the medial aspect of the right. 3. Compensated cardiomegaly with findings of prior CABG. Dense calcification of the mitral valve annulus. Chest X-Ray 10/09/17 00:00 CONCLUSION: Increasing bilateral consolidation and increasing left pleural effusion. Chest X-Ray 10/10/17 06:00 CONCLUSION: Cardiomegaly with bilateral mostly basilar airspace disease and pleural effusions. Findings similar to October 09. No pneumothorax. Central Venous Line 10/11/17 00:00 CONCLUSION: 1. Uncomplicated line placement as above. Chest X-Ray 10/11/17 06:00 CONCLUSION: Stable examinations with bilateral effusions and mostly basilar airspace disease. Previous sternotomy. Chest X-Ray 10/13/17 06:00 CONCLUSION: 1. Right IJ central venous catheter. No evidence of pneumothorax. 2. No other significant interval change with persistent left greater than right lower lung zone atelectasis versus consolidation and left greater than right pleural effusions. Chest X-Ray 10/14/17 06:00 CONCLUSION: No significant interval change. Persistent left greater than right lung base opacity and left pleural effusion. Chest X-Ray 10/15/17 06:00 CONCLUSION: 1. Persistent left basilar consolidation/effusion is again noted. 2. However, there is worsening interstitial prominence in developing bilateral pleural effusions possibly representing an element of vascular congestion or volume overload. Objective Remarks: GENERAL: 62-year-old female currently on nasal cannula in no respiratory distress. SKIN: Warm and dry. Open nondraining ulcerations from prior EVH right lower extremity x 2 with some erythema HEAD: Atraumatic. Normocephalic. EYES: Pupils equal and round about 3 mm bilaterally reactive. No scleral icterus. No injection or drainage. ENT: No nasal bleeding or discharge. Mucous membranes pink and moist. NECK: Trachea midline. No JVD. CARDIOVASCULAR: RRR. S1, S2. No S4. No murmur, click, gallop or rub RESPIRATORY: Diminished breath sounds due to body habitus. Somewhat tachypneic. Some accessory muscle use. No wheezing appreciated. GASTROINTESTINAL: Abdomen soft, non-tender, nondistended. Hepatic and splenic margins not palpable. MUSCULOSKELETAL: Extremities with 1+ bilateral lower extremity edema. NEUROLOGICAL: Awake and alert. No obvious cranial nerve deficits. Motor grossly within normal limits. Five out of 5 muscle strength in the arms and legs. Normal nonpressure speech. Assessment and Plan - Assessment and Plan Plan: Neuro/Psych: Acetaminophen 650 mg by mouth every 6 hours as needed fever Hydrocodone/acetaminophen 5/321 tablet every 6 hours as needed pain Amitriptyline 10 mg at night Continue baclofen 10 mg 3 times daily CV: Essential hypertension Hyperlipidemia Diastolic heart failure likely chronic 3.8 cm infrarenal abdominal aortic aneurysm Coronary artery disease/CABG June 2017 at [facility] 2D echocardiogram revealed EF 40-45% normal LV function. Resuming metoprolol tartrate 25 mg twice daily resume when clinically indicated Clear liquid diet On rosuvastatin 40 mg daily at home for dyslipidemia. Hospital substitution atorvastatin 80 mg daily Resp: Acute respiratory insufficiency History of COPD CT thorax 10/08 revealed air bronchograms in the left lower lobe. Small left pleural effusion. Nasal cannula to maintain saturations greater than or equal to 92% Incentive spirometry while awake Albuterol/ipratropium aerosols every 4 hours with albuterol aerosols every 2 hours as needed for dyspnea Acapella/PEP every 4 hours Chest x-ray in a.m. 10/15. She appears volume overloaded at the present time. Will give acetazolamide 500 mg IV 1 now.. She is chronically on furosemide 20 mg daily GI: Elevated AST Moderate protein calorie malnutrition/hypoalbuminemia History of colonic polyps questionable Currently on clear liquid diet Plan for EGD/colonoscopy when/if stable. They have signed off in the interim. Will likely reconsult with increased intake Patient had a recent panendoscopy 7 days ago for hospital which verbal report revealed polyps. Her stool is currently black. Pantoprazole drip at 8 mg an hour will be discontinued today. Docusate sodium/senna 1 tablet twice daily for bowel regimen : Ureteral stone - R 4 mm Maintain Sweet catheter today. [place] tomorrow if hemoglobin is stable/wound stable Endo: Diabetes mellitus Acute hyperglycemia On insulin U100 lispro unknown dose at home on insulin glargine 10 units 3 times daily Sliding scale insulin with aspart/every 6 hours medium regimen. Renal: Creatinine currently within normal limits. Monitor urine output Accurate I's and O's Heme: Acute blood loss anemia/normocytic Transfuse 5 units PRBCs this hospitalization. Coags within normal limits Recheck CBC in a.m. 10/16 ID: Gram-positive cocci bacteremia - Staph epi Patient is currently in vancomycin, aztreonam day #8 and metronidazole day #7 for pneumonia/hospital-acquired Pertinent cultures 10/08 -blood cultures 2 -staph epidermidis likely 10/09 -blood cultures 2 -no growth to date Influenza a and B- MSK: Elevated BMI Right lower extremity deep tissue injury Weight loss encouraged. Wound care evaluate and treat and continue Santyl for now/home medication FEN: Replace electrolytes as clinically indicated. Currently on D5 one half normal saline at 84 cc an hour ACCESS -right IJ CVL day #5 Prophylax -GI -pantoprazole -DVT -SCD/no pharmacological prophylaxis in light of gastro-intestinal bleeding. Level 3 follow-up
[2017-10-15] MEDS: Mag Sulf 1 gm/100 ml Premix 100 ML IV.SIG SCH (23:07)
[2017-10-16] MEDS: Insulin NovoLIN Regular Correctional Sugar Inj SQ SCH ×2 (00:11→06:01)
[2017-10-16] MEDS: metroNIDAZOLE 500 MG Tablet PO SCH ×2 (00:12→06:01)
[2017-10-16] MEDS: Mag Sulf 1 gm/100 ml Premix 100 ML IV.SIG SCH (00:12)
--- NOTE | 2017-10-16 03:04 | XR ---
EXAM DATE: 10/16/2017 2:47 AM EDT AGE/SEX: 62 years / Female INDICATIONS: Respiratory failure. CLINICAL DATA: This is the patient's initial encounter. Patient reports that signs and symptoms have been present for 1 week and indicates a pain score of Nonresponsive. MEDICAL/SURGICAL HISTORY: Cholelithiases. Diabetes. None. COMPARISON: [facility], CHEST 1V SINGLE AP, 10/15/2017. . FINDINGS: A single AP view of the chest demonstrates the lungs to be symmetrically aerated with persistent biba silar consolidation/effusions, left worse than right. Heart size remains prominent. Intact median cesilia rnotomy wires. Right IJ central venous catheter is unchanged in position CONCLUSION: Stable appearance of the chest with bibasilar airspace disease/effusions. Electronically signed by: Seferino Cooney MD 10/16/2017 3:03 AM EDT
[2017-10-16] MEDS: Dextrose 5%/NaCl 0.45% Inj 1,000 ML IV.CONT SCH (06:02)
[2017-10-16 06:40] LABS: Baso % (Auto) 0.4 % (0.0-2.0); Eos # (Auto) 0.1 th/mm3 (0.0-0.4); Eos % (Auto) 1.3 % (0.0-4.0); Hematocrit 24.1 % (35.0-46.0); Hemoglobin 7.4 gm/dL (11.6-15.3); Lymph # (Auto) 0.6 th/mm3 (1.0-4.8); Lymph % (Auto) 8.5 % (9.0-44.0); Mean Corpuscular Hemoglobin 27.7 pg (27.0-34.0); Mean Corpuscular Volume 89.9 fL (80.0-100.0); Mean Platelet Volume 8.9 fL (7.0-11.0); Mono # (Auto) 0.5 th/mm3 (0.0-0.9); Mono % (Auto) 8.3 % (0.0-8.0); Neut # (Auto) 5.3 th/mm3 (1.8-7.7); Neut % (Auto) 81.5 % (16.0-70.0); Platelet Count 169 th/mm3 (150-450); Red Blood Count 2.69 mil/mm3 (4.00-5.30); White Blood Count 6.5 th/mm3 (4.0-11.0)
[2017-10-16 06:49] LABS: Anion Gap 4 meq/L (5-15); Blood Urea Nitrogen 15 mg/dL (7-18); Calcium 8.2 mg/dL (8.5-10.1); Carbon Dioxide 32.9 meq/L (21.0-32.0); Chloride 110 meq/L (98-107); Glomerular Filtration Rate Greater Than 89 mL/min (>89); Glucose,Random 125 mg/dL (74-106); Magnesium 2.2 mg/dL (1.5-2.5); Phosphorus 2.3 mg/dL (2.5-4.9); Potassium 3.9 meq/L (3.5-5.1); Sodium 147 meq/L (136-145)
[2017-10-16 06:50] LABS: Mean Corpuscular HGB Conc 30.8 % (32.0-36.0)
[2017-10-16] MEDS: Baclofen 10 MG Tablet PO SCH ×3 (09:59→17:32)
[2017-10-16] MEDS: Nystatin 100,000 UNITS/GM Powder 15 GM Bottle TOPICAL SCH ×4 (09:59→21:40)
[2017-10-16] MEDS: Carbamide Peroxide 6.5% Otic Drops 15 ML Bottle EACH EAR SCH ×2 (09:59→21:40)
[2017-10-16] MEDS: Collagenase Oint 30 GM Tube TOPICAL SCH (10:00)
--- NOTE | 2017-10-16 10:58 | P.PNPAL ---
Reason for Visit Reason for visit: a. To assist with evaluation and management of symptoms including: pain; dyspnea; b. To assist medical decision maker(s) with: better understanding of current medical conditions; weighing benefits/burdens of medical treatment options; making medical treatment decisions. . Subjective Subjective/Interval History: Follow up on this 62 year old with copd that came with condition complicated by pneumonia, anemia (recurrent GI bleed) PE (s/p IVC filter) Pt afebrile. Hgb is 7.4 and about the same as yesterday. Cr is 0.54. pt diuresis yesterday , X ray show persistent bibasilar consolidation/effusions left worse than right. Appears to be stable. Met with pt's at bedside and with patient. I have reviewed with and then patient about pt clinical situation. Patient is fatigue but still able to answer some questions. She endorse pain mostly at her back. She endorse some dyspnea. She had earlier declined peg tube with tennis desk team member.. I spoke with who seemed amenable to hospice if pt was. Family meeting at bedside, and hospice offered. For the time being she declined hospice and want to continue care. I state prognosis overall is poor, range may be days to weeks, with her predisposition for decompensation and setback. She is at risk of sudden decline. He is having son come. She is at risk of sudden decline. He is having son come. Pt remains a DNR. Pt wants pain to be better controlled. Pain mostly at her back. Pt's and pt does understand that her bp may decrease with pain meds. request pain be better mananged, and understands the risk, and also understand she may very soon decompensate, but wish for pt to have some comfort. Family/Friend Interactions: see hpi. Advance Directives Living Will: Never completed Health Care Surrogate: Never completed Durable Power of Community Worker: Never completed Health Care Surrogate Name and Number: No written designation of health care surrogate Documented care wishes:: At this time there is no written documentation of patient's healthcare goals or preferences on the chart. . Objective Vital Signs: Vital Signs 10/15/17 11:00 10/15/17 12:00 10/15/17 13:00 Temperature Pulse Rate 96 H 96 H 95 H Respiratory Rate 28 H 23 23 Blood Pressure 112/59 L 113/62 109/55 L Pulse Oximetry 99 100 99 10/15/17 14:00 10/15/17 15:00 10/15/17 15:20 Temperature Pulse Rate 98 H 100 H 94 H Respiratory Rate 24 24 26 H Blood Pressure 110/57 L 110/66 Pulse Oximetry 100 100 10/15/17 16:00 10/15/17 17:00 10/15/17 18:00 Temperature 98.2 F Pulse Rate 101 H 102 H 101 H Respiratory Rate 21 30 H 28 H Blood Pressure 114/65 118/65 110/59 L Pulse Oximetry 100 100 99 10/15/17 19:00 10/15/17 19:01 10/15/17 19:52 Temperature Pulse Rate 104 H 104 H Respiratory Rate 24 31 H 22 Blood Pressure 121/57 L Pulse Oximetry 97 98 10/15/17 19:54 10/15/17 20:00 10/15/17 21:00 Temperature 98.8 F Pulse Rate 103 H 103 H 104 H Respiratory Rate 20 34 H 37 H Blood Pressure 122/67 112/63 Pulse Oximetry 99 100 95 10/15/17 22:00 10/15/17 23:00 10/15/17 23:24 Temperature Pulse Rate 107 H 107 H 107 H Respiratory Rate 42 H 25 H 24 Blood Pressure 113/57 L 118/63 Pulse Oximetry 97 98 10/16/17 00:00 10/16/17 01:00 10/16/17 02:00 Temperature 98.6 F Pulse Rate 112 H 109 H 112 H Respiratory Rate 37 H 17 30 H Blood Pressure Pulse Oximetry 94 L 94 L 90 L 10/16/17 03:00 10/16/17 03:06 10/16/17 03:13 Temperature Pulse Rate 105 H 104 H 106 H Respiratory Rate 33 H 32 H 24 Blood Pressure 111/69 Pulse Oximetry 100 100 10/16/17 04:00 10/16/17 05:00 10/16/17 06:00 Temperature 98.4 F Pulse Rate 110 H 109 H 111 H Respiratory Rate 38 H 29 H 34 H Blood Pressure 119/66 117/74 112/72 Pulse Oximetry 100 100 96 10/16/17 07:00 10/16/17 08:23 Temperature Pulse Rate 108 H 105 H Respiratory Rate 29 H 18 Blood Pressure 113/62 Pulse Oximetry 98 97 Intake & Output 10/15/17 10/16/17 10/16/17 18:59 06:59 18:59 Intake Total 1300 / 1300 760 / 760 Output Total 325 / 325 300 / 300 Balance 975 / 975 460 / 460 Weight 133.5 kg Intake: IV 1300 / 1300 700 / 700 D5W/1/2 NS Inj 1,000 ML @ 30 1000 / 1000 180 / 180 mls/hr IV.CONT .Q24H DEBORAH Rx#: [id number] Protonix Inj 80 MG In NS Inj 100 / 100 120 / 120 100 ML @ 10 mls/hr IV.CONT Q10H DEBORAH Rx#:[id number] Azactam Inj 1,000 MG In NS Inj 200 / 200 100 / 100 100 ML @ 200 mls/hr IV.SIG Q8H DEBORAH Rx#:[id number] Magnesium Sulfate 1 gm/D5W 100 200 / 200 ml Premix 100 ML @ 100 mls/hr IV.SIG Q1H DEBORAH Rx#:[id number] KCl 40 mEq Premix Inj 40 meq In 100 / 100 100 ml @ 25 mls/hr IV.SIG ONCE ONE Rx#:[id number] Oral 60 / 60 Output: Urine 300 / 300 Stool 0 / 0 Urine Amount (Catheter) 325 / 325 Indwelling Urethral Catheter 325 / 325 Other: # Voids 3 Date of Last Bowel Movement 10/13/17 10/13/17 # Bowel Movements 0 # Incontinent Bowel Movements 0 Physical Exam: CONSTITUTIONAL/GENERAL: This is a pale adequately nourished patient, Sleepy -- awakens briefly to voice/exam, then drifts back to sleep. TUBES/LINES/DRAINS: Nasal cannula oxygen; right IJ central line ; Sweet catheter ; fecal collection system. SKIN: No jaundice, rashes. Ecchymoses and ? petechiae on upper extremities. Dressing on right calf. Skin temperature appropriate. Not diaphoretic. EYES: Pupils equal and round. Extraocular motions intact. No scleral icterus. No injection or drainage. Fundi not examined. ENT: Nose without bleeding or purulent drainage. Throat without visible erythema, exudates, masses, or lesions. NECK: Trachea midline. CARDIOVASCULAR: Borderline tachycardia and regular rhythm without murmurs, gallops, or rubs. No JVD. RESPIRATORY/CHEST: Symmetric, unlabored respirations. Diminished breath sounds on left. No wheezes. GASTROINTESTINAL: Abdomen soft, obese, non-tender, nondistended. No hepato- splenomegaly, or palpable masses. No guarding. Bowel sounds present. GENITOURINARY: Without palpable bladder distension. Sweet catheter in place. MUSCULOSKELETAL: Extremities without clubbing, cyanosis. 1-2+ edema in the lower extremities. No mottling . LYMPHATICS: Not examined. NEUROLOGICAL: Sleepy; awakens to voice / exam, but quickly drifts back to sleep. PSYCHIATRIC: Unable to assess. . Diagnostic Tests Laboratory: Laboratory Results - last 72 hr 10/13/17 10/13/17 10/14/17 12:07 16:07 00:53 WBC RBC Hgb Hct MCV MCH MCHC RDW Plt Count MPV Neut % (Auto) Lymph % (Auto) Jerome % (Auto) Eos % (Auto) Baso % (Auto) Neut # (Auto) Lymph # (Auto) Jerome # (Auto) Eos # (Auto) Baso # (Auto) WBC Differential Differential Comment PT INR APTT Sodium Potassium Chloride Carbon Dioxide Anion Gap BUN Creatinine Estimated GFR POC Glucose 153 H 178 H 141 H Random Glucose Calcium Phosphorus Magnesium Total Bilirubin AST ALT Alkaline Phosphatase Total Protein Albumin Vancomycin Trough 10/14/17 10/14/17 10/14/17 01:11 01:11 01:11 WBC 7.3 RBC 2.85 L Hgb 8.1 L Hct 25.3 L MCV 88.7 MCH 28.4 MCHC 32.0 RDW 18.3 H Plt Count 157 MPV 8.7 Neut % (Auto) 81.2 H Lymph % (Auto) 10.0 Jerome % (Auto) 6.8 Eos % (Auto) 1.8 Baso % (Auto) 0.2 Neut # (Auto) 6.0 Lymph # (Auto) 0.7 L Jerome # (Auto) 0.5 Eos # (Auto) 0.1 Baso # (Auto) 0.0 WBC Differential . Differential Comment Auto diff final PT 12.7 H INR 1.3 APTT 28.0 Sodium 145 Potassium 3.6 Chloride 107 Carbon Dioxide 35.5 H Anion Gap 3 L BUN 19 H Creatinine 0.51 Estimated GFR Greater than 89 POC Glucose Random Glucose 132 H Calcium 8.0 L Phosphorus 3.4 D Magnesium 2.0 Total Bilirubin 0.4 AST 14 L ALT 15 Alkaline Phosphatase 43 L Total Protein 4.9 L Albumin 2.3 L Vancomycin Trough 10/14/17 10/14/1710/14/18 05:08 09:45 11:50 WBC RBC Hgb Hct MCV MCH MCHC RDW Plt Count MPV Neut % (Auto) Lymph % (Auto) Jerome % (Auto) Eos % (Auto) Baso % (Auto) Neut # (Auto) Lymph # (Auto) Jerome # (Auto) Eos # (Auto) Baso # (Auto) WBC Differential Differential Comment PT INR APTT Sodium Potassium Chloride Carbon Dioxide Anion Gap BUN Creatinine Estimated GFR POC Glucose 124 H 132 H Random Glucose Calcium Phosphorus Magnesium Total Bilirubin AST ALT Alkaline Phosphatase Total Protein Albumin Vancomycin Trough 20.8 H 10/14/17 10/14/17 10/15/17 18:05 23:42 01:38 WBC 5.6 RBC 2.63 L Hgb 7.5 L Hct 23.4 L MCV 88.9 MCH 28.4 MCHC 32.0 RDW 18.1 H Plt Count 140 L MPV 8.8 Neut % (Auto) 82.8 H Lymph % (Auto) 8.5 L Jerome % (Auto) 7.0 Eos % (Auto) 1.5 Baso % (Auto) 0.2 Neut # (Auto) 4.6 Lymph # (Auto) 0.5 L Jerome # (Auto) 0.4 Eos # (Auto) 0.1 Baso # (Auto) 0.0 WBC Differential . Differential Comment Auto diff final PT INR APTT Sodium Potassium Chloride Carbon Dioxide Anion Gap BUN Creatinine Estimated GFR POC Glucose 128 H 143 H Random Glucose Calcium Phosphorus Magnesium Total Bilirubin AST ALT Alkaline Phosphatase Total Protein Albumin Vancomycin Trough 10/15/17 10/15/17 10/15/17 01:38 05:32 13:19 WBC RBC Hgb Hct MCV MCH MCHC RDW Plt Count MPV Neut % (Auto) Lymph % (Auto) Jerome % (Auto) Eos % (Auto) Baso % (Auto) Neut # (Auto) Lymph # (Auto) Jerome # (Auto) Eos # (Auto) Baso # (Auto) WBC Differential Differential Comment PT INR APTT Sodium 145 Potassium 3.3 L Chloride 107 Carbon Dioxide 34.4 H Anion Gap 4 L BUN 15 Creatinine 0.54 Estimated GFR Greater than 89 POC Glucose 132 H 126 H Random Glucose 136 H Calcium 7.7 L Phosphorus 3.1 Magnesium 1.7 Total Bilirubin AST ALT Alkaline Phosphatase Total Protein Albumin Vancomycin Trough 07/10/16/17 10/16/17 17:19 00:02 00:05 WBC RBC Hgb Hct MCV MCH MCHC RDW Plt Count MPV Neut % (Auto) Lymph % (Auto) Jerome % (Auto) Eos % (Auto) Baso % (Auto) Neut # (Auto) Lymph # (Auto) Jerome # (Auto) Eos # (Auto) Baso # (Auto) WBC Differential Differential Comment PT INR APTT Sodium Potassium Chloride Carbon Dioxide Anion Gap BUN Creatinine Estimated GFR POC Glucose 137 H 151 H 158 H Random Glucose Calcium Phosphorus Magnesium Total Bilirubin AST ALT Alkaline Phosphatase Total Protein Albumin Vancomycin Trough 10/16/17 10/16/17 10/16/17 06:00 06:10 06:10 WBC 6.5 RBC 2.69 L Hgb 7.4 L Hct 24.1 L MCV 89.9 MCH 27.7 MCHC 30.8 L RDW 18.0 H Plt Count 169 MPV 8.9 Neut % (Auto) 81.5 H Lymph % (Auto) 8.5 L Jerome % (Auto) 8.3 H Eos % (Auto) 1.3 Baso % (Auto) 0.4 Neut # (Auto) 5.3 Lymph # (Auto) 0.6 L Jerome # (Auto) 0.5 Eos # (Auto) 0.1 Baso # (Auto) 0.0 WBC Differential . Differential Comment Auto diff final PT INR APTT Sodium 147 H Potassium 3.9 Chloride 110 H Carbon Dioxide 32.9 H Anion Gap 4 L BUN 15 Creatinine 0.54 Estimated GFR Greater than 89 POC Glucose 118 H Random Glucose 125 H Calcium 8.2 L Phosphorus 2.3 L Magnesium 2.2 Total Bilirubin AST ALT Alkaline Phosphatase Total Protein Albumin Vancomycin Trough Result Diagrams: 10/16/17 06:10 10/16/17 06:10 Microbiology: Microbiology 10/09/17 12:20 Aerobic Blood Culture - Final Blood - Peripheral No growth in 5 days Anaerobic Blood Culture - Final No growth in 5 days 10/09/17 12:25 Aerobic Blood Culture - Final Blood - Peripheral No growth in 5 days Anaerobic Blood Culture - Final No growth in 5 days 10/08/17 05:10 Aerobic Blood Culture - Final Blood - Peripheral No growth in 5 days Anaerobic Blood Culture - Final Staphylococcus epidermidis 10/08/17 05:00 Aerobic Blood Culture - Final Blood - Peripheral No growth in 5 days Anaerobic Blood Culture - Final Staphylococcus epidermidis Procedures: Right IJ central line placement 10/11/17 . Assessment and Plan - Disease Oriented Problem List (1) COPD (chronic obstructive pulmonary disease) (2) Pneumonia (3) Diabetes mellitus (4) History of GI bleed (5) Anemia (6) Coronary artery disease Comment: S/p CABG in 08/2017 (7) History of pulmonary embolism (8) History of uterine cancer (9) Hypertension - Symptom Scale (1) Pain 0-10 Scale: 4 Comment: Was number 8 leg pain earlier this AM. (2) Dyspnea 0-10 Scale: Unable to quantify Pertinent Non-Medical Issues: Psychosocial: * Originally from [place]. Has lived in [place] about 18 yrs. 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 * once. Has been to [place] for 40 years. * One son -- Sharif -- lives in [place]. He has visited recently and knows how ill she is. Spiritual: Roman Catholic and spirituality have not been an important part of her life. Declines rn admission visits. Legal: No written advance directives. Ethical issues impacting care: Currently capacitated to make her own health care decisions. Important Contacts: Mitch Tolentino (spouse) ; [phone] . Prognosis: Patient has multiple medical problems including underlying COPD, coronary artery disease, diabetes, and history of uterine cancer. She has essentially been in the hospital or rehab since her CABG in May 2017. She has had a relatively recent pulmonary embolus. She has had recurrent GI bleeding of uncertain etiology since her CABG in spite of several GI endoscopies. She started bleeding again while off anticoagulation. She has had recurrent infections. She gets delirium while hospitalized. She received a great deal of fluid when she came in hypotensive and was possibly fluid overloaded. Even prior to her CABG she had severe limitations in quality of life due to COPD and chronic back/leg pain. Prognosis is poor given her inability to improve since May and increasing de- conditioning. . Code Status: No Code DNR Plan: == Code Status: NO CODE. Discussed with patient on 10/09 and with spouse on . All agree on DNR status. == Decision making: Patient appears at times capacitated to make her own healthcare decisions, at times not. I think she can participate in medical decision making, but should include pt's spouse in it. == Goals of medical treatment: Met with pt's at bedside and with patient. I have reviewed with and then patient about pt clinical situation. Patient is fatigue but still able to answer some questions. She had earlier declined peg tube. I spoke with who seemed amenable to hospice if pt was. Family meeting at bedside, and hospice offered to patient. For the time being pt declined hospice and want to continue care. I spoke with who ask about prognosis. I state prognosis overall is poor , range may be days to weeks, with her predisposition for decompensation and setback. She is at risk of sudden decline. He is having son come. Pt remains a DNR. == Symptoms * Pain: Longstanding chronic neck/back/leg pain requiring daily use of 2-3 Lortab 7.5 mg at home Pt wants pain to be better controlled. Pain mostly at her back. Pt's and pt does understand that her bp may decrease with pain meds. request pain be better managed, and understands the risk, and also understand she may very soon decompensate, but wish for pt to have some comfort. * Anorexia: Food has no taste for her and she is eating little and losing weight. Would normally recommend brief course of steroids, but must avoid due to GI bleeding. Amitriptyline may help with appetite. * Generalized weakness: Probably also multifactorial. Has had decline long before surgery in May secondary to lung disease and to chronic back/leg pain. No with no appetite and weight loss. Hopefully, this will improve if we can stop bleeding and get her to eat. * Depression: Cont low dose amitryptiline which may help with pain/depression/ appetite. * Delirium: reports patient has frequent delirium when hospitalized. Patient already showing signs of intermittent confusion here. == As respiratory symptoms improve, may need to more aggressively treat pain/ depression in order to have her cooperative with the rest of her treatment. Could consider adding Cymbalta to Amitriptyline or increasing the amitryptiline == If delirium develops and we are unable to address the underlying problem , would recommend low dose haloperidol at 1 mg q 4 hours prn. == Palliative care will continue to follow to assist with symptom management and to further clarify goals of medical treatment as the clinical course evolves. d/w tennis desk team member. Attestation Attestation: To help prompt me to consider important information that might be impacting today's encounter and assessment, information from prior notes written by myself or my colleagues may have been "brought forward" into today's note. My signature on this note, however, is an attestation that I personally performed the exam, history, and/or decision-making noted today, and, unless otherwise indicated, the interactions with patient, family, and staff as well as the review of records all occurred today. I also attest that the listed assessment and stated plan reflect my best clinical judgment today based on the combination of historical information, prior notes, and today's exam/ interactions. When time spent is documented, it refers only to time spent today by the signer, or if indicated, combined time spent today by collaborating physician/nurse practitioner.
--- NOTE | 2017-10-16 12:53 | P.PNCC ---
Subjective Subjective Remarks/Hospital Course: The patient is a 62-year-old female, correction resident, with a past medical history of hypertension, diabetes mellitus, coronary artery disease on Eliquis, who presented to [facility] ED with shortness of breath associated with tachypnea and generalized weakness. On arrival to the ED, she was hypotensive with a systolic blood pressure 80s-90s and tachycardic with heart rate of 102-110. Her laboratory data showed anemia with hemoglobin level 5.0 and mild acute kidney injury with a creatinine of 1.13 and lactic acid of 2.6. The patient was given a total of 1 liter of normal saline and is scheduled to receive 2 units of red blood cells. When seen, her current blood pressure is 145/74. ABG was performed on 4 liter oxygen, which showed a pH of 7.44, CO2 58, PaO2 88 , bicarbonate of 38, saturation 95 percent. The patient agnieszka poor historian. She underwent CT chest, abdomen and pelvis. Her CT scan of the chest showed dense consolidation of the left lower lobe with air bronchograms and CT abdomen and pelvis showed a 3.8 cm infrarenal abdominal aortic aneurysm. 10/09: Patient complaining of shortness of breath. Received blood products and colon prep overnight. Will give 1 dose of bumetanide IV 1 now. Creatinine within normal limits. Patient is on furosemide at home 20 mg daily which is currently on hold. Plan for EGD/colonoscopy today 10/10: Afebrile. Received 1 unit PRBCs overnight. Respiratory rate much improved. DNR status currently. Will give 1 dose of acetazolamide 250 mg IV 1 now. Appears more comfortable. 10/11: Unable to obtain blood draws today. Received 1 unit PRBCs yesterday. Less dyspneic today. Still having black stools. Will central line placed by IR. 10/12: Hemoglobin currently 7.2. Will transfuse 1 additional unit today. Consider black stools. Started on amitriptyline yesterday. Receiving as needed hydrocodone/acetaminophen. Flat affect. Poor appetite started started on D5 LR 10/13: States she wants to BM to stop. Continues to have multiple black stools. More interactive today with family at bedside. Has poor appetite. Respiratory status improved. 10/14: Afebrile. Hemoglobin remained stable overnight. Remains anxious. Noted GIs notes. Patient is refusing to drink any contrast for colonoscopy if this were to be indicated. 10/15: Resting in bed in mild acute respiratory distress. Afebrile. Will diuresis again today. Subjective 10/16: Continues with very poor appetite. States dyspneic over respiratory rates 18-20. On 3 L nasal cannula. No problem for several days but noted very poor appetite. DNR status remains. Objective Vital Signs / I&O: Vital Signs 10/15/17 13:00 10/15/17 14:00 10/15/17 15:00 Temperature Pulse Rate 95 H 98 H 100 H Respiratory Rate 23 24 24 Blood Pressure 109/55 L 110/57 L 110/66 Pulse Oximetry 99 100 100 10/15/17 15:20 10/15/17 16:00 10/15/17 17:00 Temperature 98.2 F Pulse Rate 94 H 101 H 102 H Respiratory Rate 26 H 21 30 H Blood Pressure 114/65 118/65 Pulse Oximetry 100 100 10/15/17 18:00 10/15/17 19:00 10/15/17 19:01 Temperature Pulse Rate 101 H 104 H 104 H Respiratory Rate 28 H 24 31 H Blood Pressure 110/59 L 121/57 L Pulse Oximetry 99 97 98 10/15/17 19:52 10/15/17 19:54 10/15/17 20:00 Temperature 98.8 F Pulse Rate 103 H 103 H Respiratory Rate 22 20 34 H Blood Pressure 122/67 Pulse Oximetry 99 100 10/15/17 21:00 10/15/17 22:00 10/15/17 23:00 Temperature Pulse Rate 104 H 107 H 107 H Respiratory Rate 37 H 42 H 25 H Blood Pressure 112/63 113/57 L 118/63 Pulse Oximetry 95 97 98 10/15/17 23:24 10/16/17 00:00 10/16/17 01:00 Temperature 98.6 F Pulse Rate 107 H 112 H 109 H Respiratory Rate 24 37 H 17 Blood Pressure Pulse Oximetry 94 L 94 L 10/16/17 02:00 10/16/17 03:00 10/16/17 03:06 Temperature Pulse Rate 112 H 105 H 104 H Respiratory Rate 30 H 33 H 32 H Blood Pressure 111/69 Pulse Oximetry 90 L 100 100 10/16/17 03:13 10/16/17 04:00 10/16/17 05:00 Temperature 98.4 F Pulse Rate 106 H 110 H 109 H Respiratory Rate 24 38 H 29 H Blood Pressure 119/66 117/74 Pulse Oximetry 100 100 10/16/17 06:00 10/16/17 07:00 10/16/17 08:23 Temperature Pulse Rate 111 H 108 H 105 H Respiratory Rate 34 H 29 H 18 Blood Pressure 112/72 113/62 Pulse Oximetry 96 98 97 10/16/17 11:55 Temperature Pulse Rate 104 H Respiratory Rate 20 Blood Pressure Pulse Oximetry Intake & Output 10/15/17 10/16/17 10/16/17 18:59 06:59 18:59 Intake Total 1300 / 1300 760 / 760 Output Total 325 / 325 300 / 300 Balance 975 / 975 460 / 460 Weight 133.5 kg Intake: IV 1300 / 1300 700 / 700 D5W/1/2 NS Inj 1,000 ML @ 30 1000 / 1000 180 / 180 mls/hr IV.CONT .Q24H DEBORAH Rx#: [id number] Protonix Inj 80 MG In NS Inj 100 / 100 120 / 120 100 ML @ 10 mls/hr IV.CONT Q10H DEBORAH Rx#:[id number] Azactam Inj 1,000 MG In NS Inj 200 / 200 100 / 100 100 ML @ 200 mls/hr IV.SIG Q8H DEBORAH Rx#:[id number] Magnesium Sulfate 1 gm/D5W 100 200 / 200 ml Premix 100 ML @ 100 mls/hr IV.SIG Q1H DEBORAH Rx#:[id number] KCl 40 mEq Premix Inj 40 meq In 100 / 100 100 ml @ 25 mls/hr IV.SIG ONCE ONE Rx#:[id number] Oral 60 / 60 Output: Urine 300 / 300 Stool 0 / 0 Urine Amount (Catheter) 325 / 325 Indwelling Urethral Catheter 325 / 325 Other: # Voids 3 Date of Last Bowel Movement 10/13/17 10/13/17 10/13/17 # Bowel Movements 0 # Incontinent Bowel Movements 0 Result Diagrams: 10/16/17 06:10 10/16/17 06:10 Other Results: Microbiology 10/09/17 12:20 Blood - Peripheral Aerobic Blood Culture - Final No growth in 5 days 10/09/17 12:20 Blood - Peripheral Anaerobic Blood Culture - Final No growth in 5 days 10/09/17 12:25 Blood - Peripheral Aerobic Blood Culture - Final No growth in 5 days 10/09/17 12:25 Blood - Peripheral Anaerobic Blood Culture - Final No growth in 5 days 10/08/17 05:10 Blood - Peripheral Aerobic Blood Culture - Final No growth in 5 days 10/08/17 05:10 Blood - Peripheral Anaerobic Blood Culture - Final Staphylococcus epidermidis 10/08/17 05:00 Blood - Peripheral Aerobic Blood Culture - Final No growth in 5 days 10/08/17 05:00 Blood - Peripheral Anaerobic Blood Culture - Final Staphylococcus epidermidis 10/12/17 00:40 Urine - Catheterized Urine Streptococcus pneumoniae Antigen ( M - Final Presumptive negative for streptococcus pneumoniae antigen, suggesting no current or recent infection. Infection due to Streptococcus pneumoniae cannot be ruled out since the antigen present in the sample may be below the detection limit of the test. 10/12/17 00:40 Urine - Catheterized Urine Legionella Antigen - Final Presumptive negative for Legionella pneumophila serogroup 1 antigen in urine, suggesting no recent or recurrent infection. Infection due to Legionella cannot be ruled out since other serogroups and species may cause disease, antigen may not be present in urine in early infection, and the level of antigen present in the urine may be below the detection limit of the test. 10/10/17 03:30 Nasal Wash Influenza Types A,B Antigen - Final Negative for FLU A and B antigen Infection due to influenza A or B cannot be ruled out since the antigen present in the sample may be below the detection limit of the test. Imaging: ITS Impressions Venous Doppler Study 10/08/17 00:00 CONCLUSION: No DVT is identified within either lower extremity. Abdomen/Pelvis CT 10/08/17 06:55 CONCLUSION: 1. Dense consolidation with air bronchograms in the left lung base with an associated small effusion. Minimal atelectatic changes medially in the right base. 2. 3.8 cm infrarenal abdominal aortic aneurysm. 3. 3 to 4 mm ureteric stone proximally on the right with resulting pelvocaliectasis of the collecting system. 4. 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 Chest CT 10/08/17 06:55 CONCLUSION: 1. Volume loss in the left hemithorax with dense consolidation of the left lower lobe and associated small left-sided effusion. Air bronchograms are present and this may represent compressive atelectasis or infiltrate. 2. Minimal subpleural atelectasis in the medial aspect of the right. 3. Compensated cardiomegaly with findings of prior CABG. Dense calcification of the mitral valve annulus. Central Venous Line 10/11/17 00:00 CONCLUSION: 1. Uncomplicated line placement as above. Chest X-Ray 10/16/17 06:00 CONCLUSION: Stable appearance of the chest with bibasilar airspace disease/effusions. Objective Remarks: GENERAL: 62-year-old female currently on nasal cannula in no respiratory distress. SKIN: Warm and dry. Open nondraining ulcerations from prior EVH right lower extremity x 2 with some erythema HEAD: Atraumatic. Normocephalic. EYES: Pupils equal and round about 3 mm bilaterally reactive. No scleral icterus. No injection or drainage. ENT: No nasal bleeding or discharge. Mucous membranes pink and moist. NECK: Trachea midline. No JVD. CARDIOVASCULAR: RRR. S1, S2. No S4. No murmur, click, gallop or rub RESPIRATORY: Diminished breath sounds due to body habitus. Somewhat tachypneic. Some accessory muscle use. No wheezing appreciated. GASTROINTESTINAL: Abdomen soft, non-tender, nondistended. Hepatic and splenic margins not palpable. MUSCULOSKELETAL: Extremities with 1+ bilateral lower extremity edema. NEUROLOGICAL: Awake and alert. No obvious cranial nerve deficits. Motor grossly within normal limits. Five out of 5 muscle strength in the arms and legs. Normal nonpressure speech. Assessment and Plan - Assessment and Plan Plan: Neuro/Psych: Acetaminophen 650 mg by mouth every 6 hours as needed fever Hydrocodone/acetaminophen 5/321 tablet every 6 hours as needed pain. Okay to increase with palliative care Amitriptyline 10 mg at night Continue baclofen 10 mg 3 times daily CV: Essential hypertension Hyperlipidemia Diastolic heart failure likely chronic 3.8 cm infrarenal abdominal aortic aneurysm Coronary artery disease/CABG June 2017 at [facility] 2D echocardiogram revealed EF 40-45% normal LV function. Resuming metoprolol tartrate 25 mg twice daily resume when clinically indicated Clear liquid diet On rosuvastatin 40 mg daily at home for dyslipidemia. Hospital substitution atorvastatin 80 mg daily Resp: Acute respiratory insufficiency History of COPD CT thorax 10/08 revealed air bronchograms in the left lower lobe. Small left pleural effusion. Nasal cannula to maintain saturations greater than or equal to 92% Incentive spirometry while awake Albuterol/ipratropium aerosols every 4 hours with albuterol aerosols every 2 hours as needed for dyspnea Acapella/PEP every 4 hours Chest x-ray in a.m. 10/16 revealed stable bilateral pleural effusion/infiltrates. Restart furosemide 20 mg IV instead of p.o. daily. GI: Elevated AST Moderate protein calorie malnutrition/hypoalbuminemia History of colonic polyps questionable Currently on clear liquid diet. Advance as tolerated Plan for EGD/colonoscopy when/if stable. They have signed off in the interim. Will likely reconsult with increased intake Patient had a recent panendoscopy 7 days ago for hospital which verbal report revealed polyps. Her stool is currently black. Pantoprazole drip at 8 mg an hour will be discontinued today. Docusate sodium/senna 1 tablet twice daily for bowel regimen : Ureteral stone - R 4 mm Maintain Sweet catheter today. [place] tomorrow if hemoglobin is stable/wound stable Endo: Diabetes mellitus Acute hyperglycemia On insulin U100 lispro unknown dose at home on insulin glargine 10 units 3 times daily Sliding scale insulin with aspart/every 6 hours medium regimen. Renal: Creatinine currently within normal limits. Monitor urine output Accurate I's and O's Heme: Acute blood loss anemia/normocytic Transfuse 5 units PRBCs this hospitalization. Coags within normal limits Recheck CBC in a.m. 10/17 ID: Gram-positive cocci bacteremia - Staph epi Patient is currently in vancomycin, aztreonam day #9 and metronidazole day #8 for pneumonia/hospital-acquired. All discontinued 10/16 Pertinent cultures 10/08 -blood cultures 2 -staph epidermidis likely 10/09 -blood cultures 2 -no growth to date Influenza a and B- MSK: Elevated BMI Right lower extremity deep tissue injury Weight loss encouraged. Wound care evaluate and treat and continue Santyl for now/home medication FEN: Hypophosphatemia Hypernatremia Replace electrolytes as clinically indicated. Currently on D5 one half normal saline at 84 cc an hour 30 mmol K-Phos IV times now. Recheck in a.m. ACCESS -right IJ CVL day #6 Prophylax -GI -pantoprazole -DVT -SCD/no pharmacological prophylaxis in light of gastro-intestinal bleeding. Level 3 follow-up
[2017-10-16] MEDS ORDERED: Potassium Phosphate Inj 30 MMOL in Sodium Chlor 0.9% Inj 250 ML IV.SIG ONE (14:00)
[2017-10-16] MEDS: Senna/Docusate Sodium 8.6/50 MG Tablet PO SCH ×2 (17:32→21:40)
[2017-10-16 17:59] LABS: Hematocrit 22.6 % (35.0-46.0)
[2017-10-16 18:03] LABS: Hemoglobin 6.9 gm/dL (11.6-15.3)
--- NOTE | 2017-10-16 20:51 | XR ---
EXAM DATE: 10/16/2017 8:07 PM EDT AGE/SEX: 62 years / Female INDICATIONS: Dobhoff placement. CLINICAL DATA: This is the patient's initial encounter. Patient reports that signs and symptoms have been present for 1 day and indicates a pain score of Nonresponsive. MEDICAL/SURGICAL HISTORY: Non-responsive. Non-responsive. COMPARISON: No prior exams available for comparison. FINDINGS: The patient is rotated towards the left. There is a Dobbhoff tube seen in the left upper quadrant. Th is appears to be in the stomach. The patient is status post sternotomy. CONCLUSION: Dobbhoff tube in the stomach. Electronically signed by: Chon Owens MD 10/16/2017 8:50 PM EDT
[2017-10-16] MEDS: Amitriptyline 10 MG Tablet PO SCH (21:40)
[2017-10-16 23:35] LABS: Hematocrit 22.7 % (35.0-46.0)
[2017-10-17] LABS: Hemoglobin 6.9 gm/dL (11.6-15.3)
[2017-10-17] MEDS: Insulin NovoLIN Regular Correctional Sugar Inj SQ SCH ×3 (00:33→19:00)
[2017-10-17] MEDS ORDERED: Sodium Chlor 0.9% Inj 250 ML IV.SIG SCH (01:00)
[2017-10-17] MEDS: Pantoprazole Inj 40 MG Vial IV.PUSH SCH ×2 (01:55→14:00)
[2017-10-17 05:21] LABS: Baso % (Auto) 0.4 % (0.0-2.0); Eos % (Auto) 0.6 % (0.0-4.0); Hematocrit 24.8 % (35.0-46.0); Hemoglobin 7.9 gm/dL (11.6-15.3); Lymph # (Auto) 0.5 th/mm3 (1.0-4.8); Lymph % (Auto) 6.7 % (9.0-44.0); Mean Corpuscular Hemoglobin 28.6 pg (27.0-34.0); Mean Corpuscular Volume 89.4 fL (80.0-100.0); Mean Platelet Volume 8.6 fL (7.0-11.0); Mono # (Auto) 0.5 th/mm3 (0.0-0.9); Mono % (Auto) 6.9 % (0.0-8.0); Neut # (Auto) 6.4 th/mm3 (1.8-7.7); Neut % (Auto) 85.4 % (16.0-70.0); Platelet Count 194 th/mm3 (150-450); Red Blood Count 2.77 mil/mm3 (4.00-5.30); White Blood Count 7.5 th/mm3 (4.0-11.0)
[2017-10-17 05:38] LABS: Anion Gap 6 meq/L (5-15); Blood Urea Nitrogen 19 mg/dL (7-18); Carbon Dioxide 32.1 meq/L (21.0-32.0); Chloride 112 meq/L (98-107); Glomerular Filtration Rate Greater Than 89 mL/min (>89); Glucose,Random 144 mg/dL (74-106); Magnesium 2.1 mg/dL (1.5-2.5); Potassium 3.8 meq/L (3.5-5.1); Sodium 150 meq/L (136-145)
[2017-10-17 05:39] LABS: Phosphorus 3.1 mg/dL (2.5-4.9)
[2017-10-17] MEDS: Dextrose 5%/NaCl 0.45% Inj 1,000 ML IV.CONT SCH (06:46)
--- NOTE | 2017-10-17 06:47 | XR ---
EXAM DATE: 10/17/2017 6:34 AM EDT AGE/SEX: 62 years / Female INDICATIONS: Respiratory failure. CLINICAL DATA: This is the patient's subsequent encounter. Patient reports that signs and symptoms h ave been present for 2 weeks and indicates a pain score of Nonresponsive. MEDICAL/SURGICAL HISTORY: . Chronic obstructive pulmonary disease. Diabetes. Pneumonia. CABG. COMPARISON: [facility], CHEST 1V SINGLE AP, 10/16/2017. . FINDINGS: Persistent bilateral airspace disease with associated effusions. No significant interval improvement. Right IJ central venous catheter is unchanged in position. Interval placement of what appears to be a feeding tube. I believe the weighted tip is identified just below the GE junction. Heart size is pr ominent. Intact median sternotomy wires CONCLUSION: 1. Persistent bilateral airspace disease with associated effusions. No significant interval change. 2. Interval placement of a feeding tube and I believe the weighted tip is identified just below the GE junction. I would recommend a dedicated view of the stomach for confirmation, however. Electronically signed by: Seferino Cooney MD 10/17/2017 6:46 AM EDT
--- NOTE | 2017-10-17 07:10 | XR ---
EXAM DATE: 10/17/2017 6:32 AM EDT AGE/SEX: 62 years / Female INDICATIONS: Dobhoff re-placement. CLINICAL DATA: This is the patient's subsequent encounter. Patient reports that signs and symptoms h ave been present for 2 weeks and indicates a pain score of Nonresponsive. MEDICAL/SURGICAL HISTORY: . Chronic obstructive pulmonary disease. Diabetes. Pneumonia. CABG. this exam was performed by beckyI did not identify pt COMPARISON: [facility] [place], ABDOMEN SINGLE VIEW, 10/16/2017. . FINDINGS: Single knee examination demonstrates Dobbhoff tube with tip probably in the stomach left upper quadr ant. CONCLUSION: Dobbhoff tube tip in the stomach not significantly changed. Electronically signed by: Jordon Tijerina MD 10/17/2017 7:08 AM EDT
[2017-10-17] MEDS ORDERED: Potassium Chloride 20 MEQ Pwd Pkt NG/OG ONE (08:30)
[2017-10-17] MEDS: Baclofen 10 MG Tablet PO SCH ×3 (08:43→17:15)
[2017-10-17] MEDS: Nystatin 100,000 UNITS/GM Powder 15 GM Bottle TOPICAL SCH ×4 (08:45→21:49)
[2017-10-17] MEDS: Carbamide Peroxide 6.5% Otic Drops 15 ML Bottle EACH EAR SCH ×2 (08:45→21:48)
--- NOTE | 2017-10-17 10:39 | P.PNPAL ---
Reason for Visit Reason for visit: a. To assist with evaluation and management of symptoms including: pain; dyspnea; b. To assist medical decision maker(s) with: better understanding of current medical conditions; weighing benefits/burdens of medical treatment options; making medical treatment decisions. . Subjective Subjective/Interval History: Follow up on this 62 year old with copd that came with condition complicated by pneumonia, anemia (recurrent GI bleed) PE (s/p IVC filter) Overnight had blood bm, hgb drop requiring PRBC. Pt had dobbhoff for tube feeds. Pt at bedside endorse pain at the back and neck better, had prn pain med. Went back to sleep. Pt had some arrhythmias overnight Spoke with spouse, he understand pt is at risk for another decompensation. No change in goals of care at this point. Patient's spouse has been very stressed out, I offered a visit from our social and political studies professor to provide support, for which he declines. Family/Friend Interactions: see above Advance Directives Living Will: Never completed Health Care Surrogate: Never completed Durable Power of Management And Budget Analyst: Never completed Health Care Surrogate Name and Number: No written designation of health care surrogate Documented care wishes:: At this time there is no written documentation of patient's healthcare goals or preferences on the chart. . Objective Vital Signs: Vital Signs 10/16/17 11:00 10/16/17 11:55 10/16/17 12:00 Temperature Pulse Rate 104 H 104 H 105 H Respiratory Rate 23 20 32 H Blood Pressure 111/61 118/63 Pulse Oximetry 97 98 10/16/17 13:00 10/16/17 14:00 10/16/17 15:00 Temperature Pulse Rate 106 H 108 H 107 H Respiratory Rate 22 27 H 24 Blood Pressure 114/56 L 109/60 110/58 L Pulse Oximetry 98 94 L 97 10/16/17 15:33 10/16/17 16:00 10/16/17 17:00 Temperature Pulse Rate 109 H 111 H 104 H Respiratory Rate 27 H 31 H 33 H Blood Pressure 121/65 105/55 L Pulse Oximetry 94 L 96 10/16/17 18:00 10/16/17 19:00 10/16/17 20:00 Temperature 98.2 F Pulse Rate 104 H 105 H 110 H Respiratory Rate 31 H 24 35 H Blood Pressure 99/54 L 101/57 L 93/54 L Pulse Oximetry 93 L 95 81 L 07/24/18 20:13 10/16/17 20:57 10/16/17 20:58 Temperature Pulse Rate 108 H 111 H Respiratory Rate 24 28 H Blood Pressure 126/64 Pulse Oximetry 91 L 96 10/16/17 21:00 10/16/17 22:00 10/16/17 23:00 Temperature Pulse Rate 109 H 110 H 110 H Respiratory Rate 30 H 31 H 19 Blood Pressure 113/60 112/56 L 109/65 Pulse Oximetry 95 93 L 95 10/17/17 00:00 10/17/17 00:13 10/17/17 01:00 Temperature 98 F Pulse Rate 109 H 108 H 107 H Respiratory Rate 37 H 24 23 Blood Pressure 105/55 L 110/58 L Pulse Oximetry 82 L 95 10/17/17 01:03 10/17/17 01:29 10/17/17 01:34 Temperature 98.1 F 98.7 F Pulse Rate 107 H 108 H 107 H Respiratory Rate 24 24 25 H Blood Pressure 110/58 L 105/63 105/63 Pulse Oximetry 95 96 96 10/17/17 01:47 10/17/17 01:49 10/17/17 01:50 Temperature 98.3 F Pulse Rate 107 H 110 H Respiratory Rate 24 28 H Blood Pressure 105/62 105/62 Pulse Oximetry 94 L 92 L 10/17/17 02:00 10/17/17 02:03 10/17/17 02:19 Temperature 97.9 F 98.1 F Pulse Rate 109 H 107 H 109 H Respiratory Rate 27 H 24 23 Blood Pressure 107/61 107/61 110/60 Pulse Oximetry 95 96 10/17/17 02:55 10/17/17 03:00 10/17/17 04:00 Temperature Pulse Rate 108 H 106 H Respiratory Rate 24 27 H 27 H Blood Pressure 111/64 111/60 Pulse Oximetry 96 96 10/17/17 04:02 10/17/17 06:00 10/17/17 06:33 Temperature 98 F Pulse Rate 106 H 106 H 104 H Respiratory Rate 26 H 20 Blood Pressure 103/60 Pulse Oximetry 10/17/17 06:51 10/17/17 07:48 Temperature 98.5 F Pulse Rate 106 H 104 H Respiratory Rate 20 24 Blood Pressure 111/59 L Pulse Oximetry 95 94 L Intake & Output 10/16/17 10/17/17 10/17/17 18:59 06:59 18:59 Intake Total 1323 / 1323 Output Total 200 / 200 Balance 1123 / 1123 Weight 129.5 kg Intake: IV 720 / 720 D5W/1/2 NS Inj 1,000 ML @ 30 720 / 720 mls/hr IV.CONT .Q24H DEBORAH Rx#: [id number] Oral 60 / 60 Tube Feeding Water Bolus Amount 120 / 120 Intake (Blood Product) Amt 400 / 400 Rbc As-3 Leukoreduced Unit 400 / 400 [id number] Rbc As-3 Leukoreduced Unit 0 / 0 [id number] Output: Urine 200 / 200 Other: # Voids 2 Date of Last Bowel Movement 10/13/17 10/17/17 # Bowel Movements 2 # Incontinent Bowel Movements 2 Physical Exam: CONSTITUTIONAL/GENERAL: This is a pale adequately nourished patient, Sleepy -- awakens briefly to voice/exam, then drifts back to sleep. TUBES/LINES/DRAINS: Nasal cannula oxygen; right IJ central line ; Sweet catheter ; fecal collection system. SKIN: No jaundice, rashes. Ecchymoses and ? petechiae on upper extremities. Dressing on right calf. Skin temperature appropriate. Not diaphoretic. EYES: Pupils equal and round. Extraocular motions intact. No scleral icterus. No injection or drainage. Fundi not examined. ENT: Nose without bleeding or purulent drainage. Throat without visible erythema, exudates, masses, or lesions. NECK: Trachea midline. CARDIOVASCULAR: Borderline tachycardia and regular rhythm without murmurs, gallops, or rubs. No JVD. RESPIRATORY/CHEST: Symmetric, unlabored respirations. Diminished breath sounds on left. No wheezes. GASTROINTESTINAL: Abdomen soft, obese, non-tender, nondistended. No hepato- splenomegaly, or palpable masses. No guarding. Bowel sounds present. GENITOURINARY: Without palpable bladder distension. Sweet catheter in place. MUSCULOSKELETAL: Extremities without clubbing, cyanosis. 1-2+ edema in the lower extremities. No mottling . LYMPHATICS: Not examined. NEUROLOGICAL: Sleepy; awakens to voice / exam, answer questions, goes back to sleepl PSYCHIATRIC: Unable to assess. . Diagnostic Tests Laboratory: Laboratory Results - last 72 hr 10/10/17 10/12/17 10/14/17 17:13 07:50 11:50 WBC RBC Hgb Hct MCV MCH MCHC RDW Plt Count MPV Neut % (Auto) Lymph % (Auto) [place] % (Auto) Eos % (Auto) Baso % (Auto) Neut # (Auto) Lymph # (Auto) [place] # (Auto) Eos # (Auto) Baso # (Auto) WBC Differential Differential Comment Sodium Potassium Chloride Carbon Dioxide Anion Gap BUN Creatinine Estimated GFR POC Glucose 132 H Random Glucose Calcium Phosphorus Magnesium Blood Type Antibody Screen MTS Gel Crossmatch See Detail See Detail 10/14/17 10/14/17 10/15/17 18:05 23:42 01:38 WBC 5.6 RBC 2.63 L Hgb 7.5 L Hct 23.4 L MCV 88.9 MCH 28.4 MCHC 32.0 RDW 18.1 H Plt Count 140 L MPV 8.8 Neut % (Auto) 82.8 H Lymph % (Auto) 8.5 L [place] % (Auto) 7.0 Eos % (Auto) 1.5 Baso % (Auto) 0.2 Neut # (Auto) 4.6 Lymph # (Auto) 0.5 L [place] # (Auto) 0.4 Eos # (Auto) 0.1 Baso # (Auto) 0.0 WBC Differential . Differential Comment Auto diff final Sodium Potassium Chloride Carbon Dioxide Anion Gap BUN Creatinine Estimated GFR POC Glucose 128 H 143 H Random Glucose Calcium Phosphorus Magnesium Blood Type Antibody Screen MTS Gel Crossmatch 10/15/17 10/15/17 10/15/17 01:38 05:32 13:19 WBC RBC Hgb Hct MCV MCH MCHC RDW Plt Count MPV Neut % (Auto) Lymph % (Auto) [place] % (Auto) Eos % (Auto) Baso % (Auto) Neut # (Auto) Lymph # (Auto) [place] # (Auto) Eos # (Auto) Baso # (Auto) WBC Differential Differential Comment Sodium 145 Potassium 3.3 L Chloride 107 Carbon Dioxide 34.4 H Anion Gap 4 L BUN 15 Creatinine 0.54 Estimated GFR Greater than 89 POC Glucose 132 H 126 H Random Glucose 136 H Calcium 7.7 L Phosphorus 3.1 Magnesium 1.7 Blood Type Antibody Screen MTS Gel Crossmatch 10/15/17 10/16/17 10/16/17 17:19 00:02 00:05 WBC RBC Hgb Hct MCV MCH MCHC RDW Plt Count MPV Neut % (Auto) Lymph % (Auto) [place] % (Auto) Eos % (Auto) Baso % (Auto) Neut # (Auto) Lymph # (Auto) [place] # (Auto) Eos # (Auto) Baso # (Auto) WBC Differential Differential Comment Sodium Potassium Chloride Carbon Dioxide Anion Gap BUN Creatinine Estimated GFR POC Glucose 137 H 151 H 158 H Random Glucose Calcium Phosphorus Magnesium Blood Type Antibody Screen MTS Gel Crossmatch 10/16/17 10/16/17 10/16/17 06:00 06:10 06:10 WBC 6.5 RBC 2.69 L Hgb 7.4 L Hct 24.1 L MCV 89.9 MCH 27.7 MCHC 30.8 L RDW 18.0 H Plt Count 169 MPV 8.9 Neut % (Auto) 81.5 H Lymph % (Auto) 8.5 L [place] % (Auto) 8.3 H Eos % (Auto) 1.3 Baso % (Auto) 0.4 Neut # (Auto) 5.3 Lymph # (Auto) 0.6 L [place] # (Auto) 0.5 Eos # (Auto) 0.1 Baso # (Auto) 0.0 WBC Differential . Differential Comment Auto diff final Sodium 147 H Potassium 3.9 Chloride 110 H Carbon Dioxide 32.9 H Anion Gap 4 L BUN 15 Creatinine 0.54 Estimated GFR Greater than 89 POC Glucose 118 H Random Glucose 125 H Calcium 8.2 L Phosphorus 2.3 L Magnesium 2.2 Blood Type Antibody Screen MTS Gel Crossmatch 10/16/17 10/16/17 10/16/17 17:30 17:30 23:15 WBC RBC Hgb 6.9 L* Hct 22.6 L MCV MCH MCHC RDW Plt Count MPV Neut % (Auto) Lymph % (Auto) [place] % (Auto) Eos % (Auto) Baso % (Auto) Neut # (Auto) Lymph # (Auto) [place] # (Auto) Eos # (Auto) Baso # (Auto) WBC Differential Differential Comment Sodium Potassium Chloride Carbon Dioxide Anion Gap BUN Creatinine Estimated GFR POC Glucose 140 H Random Glucose Calcium Phosphorus Magnesium Blood Type O Positive Antibody Screen Negative MTS Gel Crossmatch See Detail 10/16/17 10/17/17 10/17/17 23:15 00:23 00:31 WBC RBC Hgb 6.9 L* Hct 22.7 L MCV MCH MCHC RDW Plt Count MPV Neut % (Auto) Lymph % (Auto) [place] % (Auto) Eos % (Auto) Baso % (Auto) Neut # (Auto) Lymph # (Auto) [place] # (Auto) Eos # (Auto) Baso # (Auto) WBC Differential Differential Comment Sodium Potassium Chloride Carbon Dioxide Anion Gap BUN Creatinine Estimated GFR POC Glucose 155 H Random Glucose Calcium Phosphorus Magnesium Blood Type Antibody Screen MTS Gel Crossmatch See Detail 10/17/17 10/17/17 10/17/17 05:05 05:05 06:43 WBC 7.5 RBC 2.77 L Hgb 7.9 L Hct 24.8 L MCV 89.4 MCH 28.6 MCHC 32.0 RDW 17.0 Plt Count 194 MPV 8.6 Neut % (Auto) 85.4 H Lymph % (Auto) 6.7 L [place] % (Auto) 6.9 Eos % (Auto) 0.6 Baso % (Auto) 0.4 Neut # (Auto) 6.4 Lymph # (Auto) 0.5 L [place] # (Auto) 0.5 Eos # (Auto) 0.0 Baso # (Auto) 0.0 WBC Differential . Differential Comment Auto diff final Sodium 150 H Potassium 3.8 Chloride 112 H Carbon Dioxide 32.1 H Anion Gap 6 BUN 19 H Creatinine 0.50 Estimated GFR Greater than 89 POC Glucose 147 H Random Glucose 144 H Calcium 8.0 L Phosphorus 3.1 Magnesium 2.1 Blood Type Antibody Screen MTS Gel Crossmatch Result Diagrams: 10/17/17 05:05 10/17/17 05:05 Microbiology: Microbiology 10/09/17 12:20 Aerobic Blood Culture - Final Blood - Peripheral No growth in 5 days Anaerobic Blood Culture - Final No growth in 5 days 10/09/17 12:25 Aerobic Blood Culture - Final Blood - Peripheral No growth in 5 days Anaerobic Blood Culture - Final No growth in 5 days Procedures: Right IJ central line placement 10/11/17 . Assessment and Plan - Disease Oriented Problem List (1) COPD (chronic obstructive pulmonary disease) (2) Pneumonia (3) Diabetes mellitus (4) History of GI bleed (5) Anemia (6) Coronary artery disease Comment: S/p CABG in 08/2017 (7) History of pulmonary embolism (8) History of uterine cancer (9) Hypertension - Symptom Scale (1) Pain 0-10 Scale: Unable to quantify (unable to rate pain today.) Comment: Was number 8 leg pain earlier this AM. (2) Dyspnea 0-10 Scale: Unable to quantify Pertinent Non-Medical Issues: Psychosocial: * Originally from [place]. Has lived in [place] about 18 yrs. 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 * once. Has been to [place] for 40 years. * One son -- Sharif -- lives in [place]. He has visited recently and knows how ill she is. Spiritual: Judaism and spirituality have not been an important part of her life. Declines cylinder inspector visits. Legal: No written advance directives. Ethical issues impacting care: Currently capacitated to make her own health care decisions. Important Contacts: [place] Tolentino (spouse) [phone] ; [phone] . Prognosis: Patient has multiple medical problems including underlying COPD, coronary artery disease, diabetes, and history of uterine cancer. She has essentially been in the hospital or rehab since her CABG in May 2017. She has had a relatively recent pulmonary embolus. She has had recurrent GI bleeding of uncertain etiology since her CABG in spite of several GI endoscopies. She started bleeding again while off anticoagulation. She has had recurrent infections. She gets delirium while hospitalized. She received a great deal of fluid when she came in hypotensive and was possibly fluid overloaded. Even prior to her CABG she had severe limitations in quality of life due to COPD and chronic back/leg pain. Prognosis is poor given her inability to improve since May and increasing de- conditioning. . Code Status: No Code DNR Plan: == Code Status: NO CODE. Discussed with patient on 10/09 and with spouse on . All agree on DNR status. == Decision making: Patient appears at times capacitated to make her own healthcare decisions, at times not. I think she can participate in medical decision making, but should include pt's spouse in it, which has been the case. == Goals of medical treatment: pt and family for the time being not ready for full transition to comfort measures only short of DNR. It has been stressful for the patient and family. It may take cardiopulmonary decompensation before goals could be evaluated. Family are aware risk of sudden decompensation may happen sooner rather than later. Aggressive goals short of decompesantion. == Symptoms * Pain: Longstanding chronic neck/back/leg pain requiring daily use of 2-3 Lortab 7.5 mg at home Pt wants pain to be better controlled. Pain mostly at her back. Pt's and pt does understand that her bp may decrease with pain meds. request pain be better managed, and understands the risk, and also understand she may very soon decompensate, but wish for pt to have some comfort. * Anorexia: currently on dobbhoff. * Generalized weakness: Probably also multifactorial. Has had decline long before surgery in May secondary to lung disease and to chronic back/leg pain. No with no appetite and weight loss. Hopefully, this will improve if we can stop bleeding and get her to eat. * Depression: Cont low dose amitryptiline which may help with pain/depression/ appetite. * Delirium: reports patient has frequent delirium when hospitalized. Patient already showing signs of intermittent confusion here. == If delirium develops and we are unable to address the underlying problem , would recommend low dose haloperidol at 1 mg q 4 hours prn. == Palliative care will continue to follow to assist with symptom management and to further clarify goals of medical treatment as the clinical course evolves. Attestation Attestation: To help prompt me to consider important information that might be impacting today's encounter and assessment, information from prior notes written by myself or my colleagues may have been "brought forward" into today's note. My signature on this note, however, is an attestation that I personally performed the exam, history, and/or decision-making noted today, and, unless otherwise indicated, the interactions with patient, family, and staff as well as the review of records all occurred today. I also attest that the listed assessment and stated plan reflect my best clinical judgment today based on the combination of historical information, prior notes, and today's exam/ interactions. When time spent is documented, it refers only to time spent today by the signer, or if indicated, combined time spent today by collaborating physician/nurse practitioner.
[2017-10-17] MEDS: Collagenase Oint 30 GM Tube TOPICAL SCH (12:04)
[2017-10-17] MEDS: Senna/Docusate Sodium 8.6/50 MG Tablet PO SCH ×2 (12:04→21:49)
--- NOTE | 2017-10-17 14:08 | P.DIET ---
Nutritional Evaluation Type of nutrition evaluation: initial Nutrition consult regarding: Tube Feeding Subjective Subjective Comments: Pt w/ Dobhoff tube. Pt w/ poor appetite since admission. Fatigued Objective - Diagnosis Severe Anemia, SOB, PNA - Objective % IBW: 248 (VNB=648#) Body Weight Used for Calculations: Upper end of IBW (57.5kg) Energy Needs - Lower Range (kCal/kg): 30 Energy Needs - Upper Range (kCal/kg): 35 Lower Limit kCal/kg (kCals): 1,725 Upper Limit kCal/kg (kCals): 2,013 Lower Limit Protein Factor (Grams per Kg): 1.2 Upper Limit Protein Factor (Grams per Kg): 1.6 Lower Protein Needs (Protein): 69 Upper Protein Needs (Protein): 92 Dietitian Reviewed in Medical Record: Curent medications, Intake & Output, Labs , Medical history, Tube feeding Diet Order: TF Only Oral Diet Intake Amount: Poor <50% Wound Care Note: Reviewed Objective Comments: Meds: Santyl, Beneprotein 1 pkt TID Labs: Na 150, AccuCheck 147 LBM 10/17 Assessment Assessment: Pt admitted for severe anemia, SOB, and PNA. Pt has Dobhoff tube w/ Glucerna 1.5 @ 20mls/hr ordered. She's had poor appetite/po intake since admission. For TFings, recommend Glucerna 1.5 @ 50mls/hr x 24hrs to provide 1800kcals, 99g PRO , and 911mls fluid. WOCN reviewed. 1pkt Beneprotein TID not necessarily required at this time as TFing will provide 100% of pts protein requirements. Dietitian following. Recommendations: 1. Recommend Glucerna 1.5 @ 50mls/hr. 2. Okay to d/c Beneprotein pkts as TFing will provide 100% of protein requirements. Dietitian to Monitor: Lab values, Glucose level, Intake & Output, Tube feeding tolerance, Weight change, PO Intake, Wound/skin status, Medical course
[2017-10-17] MEDS ORDERED: Potassium Chloride 25 MEQ Effervescent Tablet PO ONE (14:55)
--- NOTE | 2017-10-17 15:02 | P.PNCC ---
Subjective Subjective Remarks/Hospital Course: The patient is a 62-year-old female, residential resident, with a past medical history of hypertension, diabetes mellitus, coronary artery disease on Eliquis, who presented to [facility] ED with shortness of breath associated with tachypnea and generalized weakness. On arrival to the ED, she was hypotensive with a systolic blood pressure 80s-90s and tachycardic with heart rate of 102-110. Her laboratory data showed anemia with hemoglobin level 5.0 and mild acute kidney injury with a creatinine of 1.13 and lactic acid of 2.6. The patient was given a total of 1 liter of normal saline and is scheduled to receive 2 units of red blood cells. When seen, her current blood pressure is 145/74. ABG was performed on 4 liter oxygen, which showed a pH of 7.44, CO2 58, PaO2 88 , bicarbonate of 38, saturation 95 percent. The patient agnieszka poor historian. She underwent CT chest, abdomen and pelvis. Her CT scan of the chest showed dense consolidation of the left lower lobe with air bronchograms and CT abdomen and pelvis showed a 3.8 cm infrarenal abdominal aortic aneurysm. 10/09: Patient complaining of shortness of breath. Received blood products and colon prep overnight. Will give 1 dose of bumetanide IV 1 now. Creatinine within normal limits. Patient is on furosemide at home 20 mg daily which is currently on hold. Plan for EGD/colonoscopy today 10/10: Afebrile. Received 1 unit PRBCs overnight. Respiratory rate much improved. DNR status currently. Will give 1 dose of acetazolamide 250 mg IV 1 now. Appears more comfortable. 10/11: Unable to obtain blood draws today. Received 1 unit PRBCs yesterday. Less dyspneic today. Still having black stools. Will central line placed by IR. 10/12: Hemoglobin currently 7.2. Will transfuse 1 additional unit today. Consider black stools. Started on amitriptyline yesterday. Receiving as needed hydrocodone/acetaminophen. Flat affect. Poor appetite started started on D5 LR 10/13: States she wants to BM to stop. Continues to have multiple black stools. More interactive today with family at bedside. Has poor appetite. Respiratory status improved. 10/14: Afebrile. Hemoglobin remained stable overnight. Remains anxious. Noted GIs notes. Patient is refusing to drink any contrast for colonoscopy if this were to be indicated. 10/15: Resting in bed in mild acute respiratory distress. Afebrile. Will diuresis again today. 10/16: Continues with very poor appetite. States dyspneic over respiratory rates 18-20. On 3 L nasal cannula. No problem for several days but noted very poor appetite. DNR status remains. Subjective 10/17: Afebrile. Transfused 2 PRBCs overnight. Started on tube feedings. Glucerna 1.5 goal be 50 cc an hour. Received 1 dose of acetazolamide today. Objective Vital Signs / I&O: Vital Signs 10/16/17 15:00 10/16/17 15:33 10/16/17 16:00 Temperature Pulse Rate 107 H 109 H 111 H Respiratory Rate 24 27 H 31 H Blood Pressure 110/58 L 121/65 Pulse Oximetry 97 94 L 10/16/17 17:00 10/16/17 18:00 10/16/17 19:00 Temperature Pulse Rate 104 H 104 H 105 H Respiratory Rate 33 H 31 H 24 Blood Pressure 105/55 L 99/54 L 101/57 L Pulse Oximetry 96 93 L 95 10/16/17 20:00 10/16/17 20:13 10/16/17 20:57 Temperature 98.2 F Pulse Rate 110 H 108 H 111 H Respiratory Rate 35 H 24 28 H Blood Pressure 93/54 L 126/64 Pulse Oximetry 81 L 91 L 10/16/17 20:58 10/16/17 21:00 10/16/17 22:00 Temperature Pulse Rate 109 H 110 H Respiratory Rate 30 H 31 H Blood Pressure 113/60 112/56 L Pulse Oximetry 96 95 93 L 10/16/17 23:00 10/17/17 00:00 10/17/17 00:13 Temperature 98 F Pulse Rate 110 H 109 H 108 H Respiratory Rate 19 37 H 24 Blood Pressure 109/65 105/55 L Pulse Oximetry 95 82 L 10/17/17 01:00 10/17/17 01:03 10/17/17 01:29 Temperature 98.1 F 98.7 F Pulse Rate 107 H 107 H 108 H Respiratory Rate 23 24 24 Blood Pressure 110/58 L 110/58 L 105/63 Pulse Oximetry 95 95 96 10/17/17 01:34 10/17/17 01:47 10/17/17 01:49 Temperature 98.3 F Pulse Rate 107 H 107 H 110 H Respiratory Rate 25 H 24 28 H Blood Pressure 105/63 105/62 Pulse Oximetry 96 94 L 92 L 10/17/17 01:50 10/17/17 02:00 10/17/17 02:03 Temperature 97.9 F Pulse Rate 109 H 107 H Respiratory Rate 27 H 24 Blood Pressure 105/62 107/61 107/61 Pulse Oximetry 95 10/17/17 02:19 10/17/17 02:55 10/17/17 03:00 Temperature 98.1 F Pulse Rate 109 H 108 H Respiratory Rate 23 24 27 H Blood Pressure 110/60 111/64 Pulse Oximetry 96 96 10/17/17 04:00 10/17/17 04:02 10/17/17 05:00 Temperature Pulse Rate 106 H 106 H 108 H Respiratory Rate 27 H 26 H 24 Blood Pressure 111/60 103/63 Pulse Oximetry 96 10/17/17 06:00 10/17/17 06:33 10/17/17 06:35 Temperature 98 F Pulse Rate 108 H 104 H 107 H Respiratory Rate 25 H 20 28 H Blood Pressure 103/60 103/60 Pulse Oximetry 96 91 L 10/17/17 06:51 10/17/17 06:54 10/17/17 07:00 Temperature 98.5 F Pulse Rate 106 H 107 H 107 H Respiratory Rate 20 27 H 25 H Blood Pressure 111/59 L 111/59 L 110/60 Pulse Oximetry 95 94 L 94 L 10/17/17 07:48 10/17/17 08:00 10/17/17 09:00 Temperature 98.6 F Pulse Rate 104 H 105 H 101 H Respiratory Rate 24 24 23 Blood Pressure 116/61 117/65 Pulse Oximetry 94 L 93 L 95 10/17/17 10:00 10/17/17 10:57 Temperature Pulse Rate 104 H 100 H Respiratory Rate 24 19 Blood Pressure 142/67 H Pulse Oximetry 92 L Intake & Output 10/16/17 10/17/17 10/17/17 18:59 06:59 18:59 Intake Total 1323 / 1323 400 / 400 Output Total 200 / 200 Balance 1123 / 1123 400 / 400 Weight 129.5 kg Intake: IV 720 / 720 D5W/1/2 NS Inj 1,000 ML @ 30 720 / 720 mls/hr IV.CONT .Q24H [facility] Rx#: [id number] Oral 60 / 60 Tube Feeding Water Bolus Amount 120 / 120 Intake (Blood Product) Amt 400 / 400 400 / 400 Rbc As-3 Leukoreduced Unit 400 / 400 [id number] Rbc As-3 Leukoreduced Unit 0 / 0 400 / 400 [id number] Output: Urine 200 / 200 Other: # Voids 2 Date of Last Bowel Movement 10/13/17 10/17/17 10/17/17 # Bowel Movements 2 # Incontinent Bowel Movements 2 Result Diagrams: 10/17/17 05:05 10/17/17 05:05 Other Results: Microbiology 10/09/17 12:20 Blood - Peripheral Aerobic Blood Culture - Final No growth in 5 days 10/09/17 12:20 Blood - Peripheral Anaerobic Blood Culture - Final No growth in 5 days 10/09/17 12:25 Blood - Peripheral Aerobic Blood Culture - Final No growth in 5 days 10/09/17 12:25 Blood - Peripheral Anaerobic Blood Culture - Final No growth in 5 days 10/08/17 05:10 Blood - Peripheral Aerobic Blood Culture - Final No growth in 5 days 10/08/17 05:10 Blood - Peripheral Anaerobic Blood Culture - Final Staphylococcus epidermidis 10/08/17 05:00 Blood - Peripheral Aerobic Blood Culture - Final No growth in 5 days 10/08/17 05:00 Blood - Peripheral Anaerobic Blood Culture - Final Staphylococcus epidermidis 10/12/17 00:40 Urine - Catheterized Urine Streptococcus pneumoniae Antigen ( M - Final Presumptive negative for streptococcus pneumoniae antigen, suggesting no current or recent infection. Infection due to Streptococcus pneumoniae cannot be ruled out since the antigen present in the sample may be below the detection limit of the test. 10/12/17 00:40 Urine - Catheterized Urine Legionella Antigen - Final Presumptive negative for Legionella pneumophila serogroup 1 antigen in urine, suggesting no recent or recurrent infection. Infection due to Legionella cannot be ruled out since other serogroups and species may cause disease, antigen may not be present in urine in early infection, and the level of antigen present in the urine may be below the detection limit of the test. 10/10/17 03:30 Nasal Wash Influenza Types A,B Antigen - Final Negative for FLU A and B antigen Infection due to influenza A or B cannot be ruled out since the antigen present in the sample may be below the detection limit of the test. Imaging: ITS Impressions Venous Doppler Study 10/08/17 00:00 CONCLUSION: No DVT is identified within either lower extremity. Abdomen/Pelvis CT 10/08/17 06:55 CONCLUSION: 1. Dense consolidation with air bronchograms in the left lung base with an associated small effusion. Minimal atelectatic changes medially in the right base. 2. 3.8 cm infrarenal abdominal aortic aneurysm. 3. 3 to 4 mm ureteric stone proximally on the right with resulting pelvocaliectasis of the collecting system. 4. 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 Chest CT 10/08/17 06:55 CONCLUSION: 1. Volume loss in the left hemithorax with dense consolidation of the left lower lobe and associated small left-sided effusion. Air bronchograms are present and this may represent compressive atelectasis or infiltrate. 2. Minimal subpleural atelectasis in the medial aspect of the right. 3. Compensated cardiomegaly with findings of prior CABG. Dense calcification of the mitral valve annulus. Central Venous Line 10/11/17 00:00 CONCLUSION: 1. Uncomplicated line placement as above. Abdomen X-Ray 10/17/17 00:00 CONCLUSION: Dobbhoff tube tip in the stomach not significantly changed. Chest X-Ray 10/17/17 06:00 CONCLUSION: 1. Persistent bilateral airspace disease with associated effusions. No significant interval change. 2. Interval placement of a feeding tube and I believe the weighted tip is identified just below the GE junction. I would recommend a dedicated view of the stomach for confirmation, however. Objective Remarks: GENERAL: 62-year-old female currently on nasal cannula in no respiratory distress. SKIN: Warm and dry. Open nondraining ulcerations from prior EVH right lower extremity x 2 with some erythema HEAD: Atraumatic. Normocephalic. EYES: Pupils equal and round about 3 mm bilaterally reactive. No scleral icterus. No injection or drainage. ENT: No nasal bleeding or discharge. Mucous membranes pink and moist. NG tube in place NECK: Trachea midline. No JVD. CARDIOVASCULAR: RRR. S1, S2. No S4. No murmur, click, gallop or rub RESPIRATORY: Diminished breath sounds due to body habitus. Somewhat tachypneic. Some accessory muscle use. No wheezing appreciated. GASTROINTESTINAL: Abdomen soft, non-tender, nondistended. Hepatic and splenic margins not palpable. MUSCULOSKELETAL: Extremities with 1+ bilateral lower extremity edema. NEUROLOGICAL: Awake and alert. No obvious cranial nerve deficits. Motor grossly within normal limits. Five out of 5 muscle strength in the arms and legs. Normal nonpressure speech. Assessment and Plan - Assessment and Plan Plan: Neuro/Psych: Acetaminophen 650 mg by mouth every 6 hours as needed fever Hydrocodone/acetaminophen 5/321 tablet every 6 hours as needed pain. Okay to increase with palliative care Amitriptyline 10 mg at night Continue baclofen 10 mg 3 times daily CV: Essential hypertension Hyperlipidemia Chronic systolic heart failure ejection fraction 40-45%. 3.8 cm infrarenal abdominal aortic aneurysm Coronary artery disease/CABG June 2017 at [facility] 2D echocardiogram revealed EF 40-45% normal LV function. Resuming metoprolol tartrate 25 mg twice daily resume when clinically indicated On rosuvastatin 40 mg daily at home for dyslipidemia. Hospital substitution atorvastatin 80 mg daily Resp: Acute respiratory insufficiency History of COPD CT thorax 10/08 revealed air bronchograms in the left lower lobe. Small left pleural effusion. Nasal cannula to maintain saturations greater than or equal to 92% Incentive spirometry while awake Albuterol/ipratropium aerosols every 4 hours with albuterol aerosols every 2 hours as needed for dyspnea Acapella/PEP every 4 hours Chest x-ray in a.m. 10/16 revealed stable bilateral pleural effusion/infiltrates. Restart furosemide 20 mg IV instead of p.o. daily. GI: Elevated AST Moderate protein calorie malnutrition/hypoalbuminemia History of colonic polyps questionable Currently on clear liquid diet. Advance as tolerated Started on Glucerna 1.5 goal 50 cc an hour per nutrition recommendations. Currently at 20 cc an hour. Plan for EGD/colonoscopy when/if stable. They have signed off twice in the interim. Will likely reconsult with increased intake Patient had a recent panendoscopy 7 days ago for hospital which verbal report revealed polyps. Her stool is currently black. Pantoprazole 40 mg IV twice daily Docusate sodium/senna 1 tablet twice daily for bowel regimen : Ureteral stone - R 4 mm Maintain Sweet catheter today. [place] tomorrow if hemoglobin is stable/wound stable Endo: Diabetes mellitus Acute hyperglycemia On insulin U100 lispro unknown dose at home on insulin glargine 10 units 3 times daily Sliding scale insulin with aspart/every 6 hours medium regimen. Renal: Creatinine currently within normal limits. Monitor urine output Accurate I's and O's Heme: Acute blood loss anemia/normocytic Transfuse 5 units PRBCs this hospitalization. Coags within normal limits Recheck CBC in a.m. 10/17 ID: Gram-positive cocci bacteremia - Staph epi Patient previously on vancomycin, aztreonam and metronidazole pneumonia/ hospital-acquired. All discontinued 10/16 Pertinent cultures 10/08 -blood cultures 2 -staph epidermidis likely 10/09 -blood cultures 2 -no growth to date Influenza a and B- MSK: Elevated BMI Right lower extremity deep tissue injury Weight loss encouraged. Wound care evaluate and treat and continue Santyl for now/home medication FEN: Hypernatremia Replace electrolytes as clinically indicated. Discontinue D5 one half normal saline at 84 cc an hour 3 25 mEq potassium chloride Effient 1 now. ACCESS -right IJ CVL day #7. This is been kept in place due to laboratory unable to perform peripheral draws. Prophylax -GI -pantoprazole -DVT -SCD/no pharmacological prophylaxis in light of gastro-intestinal bleeding. Level 2 follow-up Stable from CCM standpoint. Assign care to [facility] in AM 10/18.
--- NOTE | 2017-10-17 17:53 | ECG ---
Date Performed: 10/17/2017 Time Performed: 07:21:36 PTAGE: 62 years EKG: Sinus tachycardia. Nonspecific ST and T wave abnormalities Incomplete right bundle branch b lock Low QRS voltages in precordial leads Abnormal ECG Compared to prior electrocardiogram, Incomplet e right bundle branch block is present. Nonspecific ST T-wave changes have improved and premature atr ial and ventricular contractions are no longer present. DOCTOR: Vinod Horne Interpretating Date/Time 10/17/2017 17:52:17
[2017-10-17] MEDS: Beneprotein Powder Packet G-TUBE SCH (21:24)
[2017-10-17] MEDS: Amitriptyline 10 MG Tablet PO SCH (21:48)
[2017-10-17] MEDS: Metoprolol Tartrate 25 MG Tablet PO SCH ×2 (21:48→23:29)
[2017-10-18] MEDS: Pantoprazole Inj 40 MG Vial IV.PUSH SCH ×2 (00:09→12:15)
[2017-10-18] MEDS: Insulin NovoLIN Regular Correctional Sugar Inj SQ SCH ×4 (00:09→17:37)
[2017-10-18 04:00] LABS: Baso % (Auto) 0.3 % (0.0-2.0); Eos % (Auto) 0.2 % (0.0-4.0); Hematocrit 26.8 % (35.0-46.0); Hemoglobin 8.7 gm/dL (11.6-15.3); Lymph # (Auto) 0.6 th/mm3 (1.0-4.8); Lymph % (Auto) 5.4 % (9.0-44.0); Mean Corpuscular HGB Conc 32.5 % (32.0-36.0); Mean Corpuscular Hemoglobin 28.5 pg (27.0-34.0); Mean Corpuscular Volume 87.6 fL (80.0-100.0); Mean Platelet Volume 8.9 fL (7.0-11.0); Mono # (Auto) 0.5 th/mm3 (0.0-0.9); Mono % (Auto) 4.9 % (0.0-8.0); Neut # (Auto) 9.3 th/mm3 (1.8-7.7); Neut % (Auto) 89.2 % (16.0-70.0); Platelet Count 214 th/mm3 (150-450); Red Blood Count 3.06 mil/mm3 (4.00-5.30); Red Cell Distribution Width 17.8 % (11.6-17.2); White Blood Count 10.4 th/mm3 (4.0-11.0)
[2017-10-18 04:11] LABS: Activated Partial Thrombo Time 28.5 sec (24.3-30.1); INR 1.5 Ratio; Prothrombin Time 15.3 sec (9.8-11.6)
[2017-10-18 04:26] LABS: Albumin 1.8 g/dL (3.4-5.0); Anion Gap 3 meq/L (5-15); Aspartate Aminotransferase 15 U/L (15-37); Blood Urea Nitrogen 28 mg/dL (7-18); Carbon Dioxide 36.5 meq/L (21.0-32.0); Chloride 110 meq/L (98-107); Glomerular Filtration Rate Greater Than 89 mL/min (>89); Glucose,Random 161 mg/dL (74-106); Magnesium 2.1 mg/dL (1.5-2.5); Sodium 149 meq/L (136-145)
[2017-10-18 04:37] LABS: Alanine Aminotransferase 16 U/L (10-53); Alkaline Phosphatase 65 U/L (45-117); Free T4 (Free Thyroxine) 1.15 ng/dL (0.76-1.46); Phosphorus 3.5 mg/dL (2.5-4.9); Thyroid Stimulating Hormone 0.131 uIU/mL (0.358-3.740); Total Protein 4.6 g/dL (6.4-8.2); Troponin I 0.27 ng/mL (0.02-0.05)
--- NOTE | 2017-10-18 05:20 | XR ---
EXAM DATE: 10/18/2017 4:05 AM EDT AGE/SEX: 62 years / Female INDICATIONS: Shortness of breath, possible pulmonary disease. CLINICAL DATA: This is the patient's subsequent encounter. Patient reports that signs and symptoms h ave been present for 2 weeks and indicates a pain score of Nonresponsive. MEDICAL/SURGICAL HISTORY: Chronic obstructive pulmonary disease. Diabetes. CABG. COMPARISON: C, CHEST 1V SINGLE AP, 10/17/2017. . FINDINGS: A single AP view of the chest demonstrates persistent bilateral airspace disease with associated effu sions. Cardiac silhouette is obscured and I suspect there is an element of cardiomegaly. Life-support tubes appear to be stable in position. CONCLUSION: 1. Persistent bilateral extensive airspace disease with associated effusions, left worse than right. 2. Cardiac silhouette is somewhat obscured by do suspect an element of cardiomegaly. 3. Stable position of life-support tubes. Electronically signed by: Seferino Cooney MD 10/18/2017 5:19 AM EDT
[2017-10-18] MEDS: Senna/Docusate Sodium 8.6/50 MG Tablet PO SCH ×2 (08:51→20:01)
[2017-10-18] MEDS: Baclofen 10 MG Tablet PO SCH ×3 (08:51→17:37)
[2017-10-18] MEDS: Nystatin 100,000 UNITS/GM Powder 15 GM Bottle TOPICAL SCH ×4 (08:51→20:01)
[2017-10-18] MEDS: Beneprotein Powder Packet G-TUBE SCH ×3 (08:51→17:37)
[2017-10-18] MEDS: Carbamide Peroxide 6.5% Otic Drops 15 ML Bottle EACH EAR SCH (08:51)
[2017-10-18] MEDS: Metoprolol Tartrate 25 MG Tablet PO SCH ×3 (08:52→20:01)
[2017-10-18] MEDS: Collagenase Oint 30 GM Tube TOPICAL SCH (08:52)
--- NOTE | 2017-10-18 10:22 | P.PNPAL ---
Reason for Visit Reason for visit: a. To assist with evaluation and management of symptoms including: pain; dyspnea; b. To assist medical decision maker(s) with: better understanding of current medical conditions; weighing benefits/burdens of medical treatment options; making medical treatment decisions. . Subjective Subjective/Interval History: Follow up on this 62 year old with copd that came with condition complicated by pneumonia, anemia (recurrent GI bleed) PE (s/p IVC filter) Pt has some tachycardia, dyspnea on exertion. Pt hgb is 8.7 this morning. Some hypernatremia. Chest X ray this morning continue to have persistent bilateral airspace disease with associated effusions Left worse then the right. Patient is getting [place] 5 mg and has 4 doses the past 24 hours. Pain has been neck,back,and then said all over. She is uncomfortable, there is some dyspnea. I reviewed with family and pt about condition. Hospice was offered but the patient decline. Overall poor prognosis was reviewed with pt' spouse. He too is not ready for hospice. They both know that option is available. Family/Friend Interactions: Met with privately in addition as he understandbly stress and is in grief. Palliative psychosocial rehabilitation counselor was introduce to spouse to provide support. He was appreciative. Advance Directives Living Will: Never completed Health Care Surrogate: Never completed Durable Power of Complex Human Resources Manager: Never completed Health Care Surrogate Name and Number: No written designation of health care surrogate Documented care wishes:: At this time there is no written documentation of patient's healthcare goals or preferences on the chart. . Objective Vital Signs: Vital Signs 10/17/17 10:57 10/17/17 12:00 10/17/17 13:00 Temperature 98.3 F Pulse Rate 100 H 101 H 99 H Respiratory Rate 19 24 24 Blood Pressure 124/63 113/65 Pulse Oximetry 96 97 10/17/17 14:00 10/17/17 15:00 10/17/17 15:15 Temperature Pulse Rate 100 H 104 H 104 H Respiratory Rate 25 H 25 H 20 Blood Pressure 114/65 107/57 L Pulse Oximetry 97 94 L 10/17/17 16:00 10/17/17 17:00 10/17/17 18:00 Temperature 98 F Pulse Rate 105 H 104 H 104 H Respiratory Rate 23 25 H 21 Blood Pressure 103/55 L 107/60 106/56 L Pulse Oximetry 92 L 92 L 92 L 10/17/17 19:00 10/17/17 19:02 10/17/17 20:00 Temperature 98.6 F Pulse Rate 104 H 104 H 105 H Respiratory Rate 19 18 21 Blood Pressure 104/58 L 112/63 Pulse Oximetry 93 L 94 L 94 L 10/17/17 21:00 10/17/17 22:00 10/17/17 22:13 Temperature Pulse Rate 104 H 108 H 104 H Respiratory Rate 22 26 H 25 H Blood Pressure 118/60 113/64 Pulse Oximetry 96 94 L 96 10/17/17 23:00 10/17/17 23:18 10/17/17 23:30 Temperature Pulse Rate 105 H 108 H 106 H Respiratory Rate 20 19 20 Blood Pressure 104/59 L 105/59 L Pulse Oximetry 99 96 98 10/18/17 00:00 10/18/17 00:30 10/18/17 01:00 Temperature 99.6 F Pulse Rate 110 H 106 H 108 H Respiratory Rate 21 22 21 Blood Pressure 108/56 L 112/55 L 114/58 L Pulse Oximetry 95 95 94 L 10/18/17 01:30 10/18/17 02:00 10/18/17 02:30 Temperature Pulse Rate 106 H 105 H 105 H Respiratory Rate 23 21 21 Blood Pressure 115/57 L 115/58 L 114/59 L Pulse Oximetry 95 98 98 10/18/17 03:00 10/18/17 03:26 10/18/17 03:30 Temperature Pulse Rate 107 H 100 H 104 H Respiratory Rate 21 16 20 Blood Pressure 108/55 L 112/57 L Pulse Oximetry 98 100 10/18/17 04:00 10/18/17 04:30 10/18/17 05:00 Temperature 99.0 F Pulse Rate 108 H 104 H 104 H Respiratory Rate 19 23 19 Blood Pressure 108/59 L 110/55 L 112/70 Pulse Oximetry 94 L 95 98 10/18/17 05:30 10/18/17 06:00 10/18/17 06:30 Temperature Pulse Rate 104 H 105 H 105 H Respiratory Rate 25 H 26 H 30 H Blood Pressure 114/56 L 108/58 L 113/56 L Pulse Oximetry 93 L 93 L 94 L 10/18/17 07:00 10/18/17 07:30 10/18/17 08:00 Temperature 97.7 F Pulse Rate 105 H 105 H 107 H Respiratory Rate 28 H 27 H 37 H Blood Pressure 111/59 L 109/53 L 105/58 L Pulse Oximetry 95 94 L 92 L 10/18/17 08:07 10/18/17 08:30 10/18/17 09:00 Temperature Pulse Rate 109 H 108 H 108 H Respiratory Rate 23 28 H 32 H Blood Pressure 108/53 L 102/52 L Pulse Oximetry 92 L 93 L 91 L 10/18/17 09:30 10/18/17 10:00 Temperature Pulse Rate 109 H 109 H Respiratory Rate 30 H Blood Pressure 104/66 Pulse Oximetry 90 L Intake & Output 10/17/17 10/18/17 10/18/17 18:59 06:59 18:59 Intake Total 460 / 460 706 / 706 Output Total 1100 / 1100 1200 / 1200 Balance -640 / -640 -494 / -494 Weight 125.5 kg Intake: IV 50 / 50 NS Inj 250 ML @ 15 mls/hr IV. 50 / 50 SIG ONCE DEBORAH Rx#:[id number] Tube Feeding 60 / 60 356 / 356 Water Bolus Amount 300 / 300 Intake (Blood Product) Amt 400 / 400 Rbc As-3 Leukoreduced Unit 400 / 400 [id number] Output: Urine 1100 / 1100 1200 / 1200 Other: Date of Last Bowel Movement 10/17/17 10/17/17 10/17/17 # Bowel Movements 2 1 # Incontinent Bowel Movements 1 Physical Exam: CONSTITUTIONAL/GENERAL: This is a pale adequately nourished patient, Sleepy -- awakens briefly to voice/exam, then drifts back to sleep. TUBES/LINES/DRAINS: Nasal cannula oxygen; right IJ central line ; Sweet catheter ; fecal collection system. SKIN: No jaundice, rashes. Ecchymoses and ? petechiae on upper extremities. Dressing on right calf. Skin temperature appropriate. Not diaphoretic. EYES: Pupils equal and round. Extraocular motions intact. No scleral icterus. No injection or drainage. Fundi not examined. ENT: Nose without bleeding or purulent drainage. Throat without visible erythema, exudates, masses, or lesions. NECK: Trachea midline. CARDIOVASCULAR: Borderline tachycardia and regular rhythm without murmurs, gallops, or rubs. No JVD. RESPIRATORY/CHEST: Symmetric, unlabored respirations. Diminished breath sounds on left. No wheezes. GASTROINTESTINAL: Abdomen soft, obese, non-tender, nondistended. No hepato- splenomegaly, or palpable masses. No guarding. Bowel sounds present. GENITOURINARY: Without palpable bladder distension. Sweet catheter in place. MUSCULOSKELETAL: Extremities without clubbing, cyanosis. 1-2+ edema in the lower extremities. No mottling . LYMPHATICS: Not examined. NEUROLOGICAL: Sleepy; awakens to voice / exam, answer questions, goes back to sleepl PSYCHIATRIC: Unable to assess. . Diagnostic Tests Laboratory: Laboratory Results - last 72 hr 10/10/17 10/12/17 10/15/17 17:13 07:50 13:19 WBC RBC Hgb Hct MCV MCH MCHC RDW Plt Count MPV Neut % (Auto) Lymph % (Auto) [place] % (Auto) Eos % (Auto) Baso % (Auto) Neut # (Auto) Lymph # (Auto) [place] # (Auto) Eos # (Auto) Baso # (Auto) WBC Differential Differential Comment PT INR APTT Sodium Potassium Chloride Carbon Dioxide Anion Gap BUN Creatinine Estimated GFR POC Glucose 126 H Random Glucose Calcium Phosphorus Magnesium Total Bilirubin AST ALT Alkaline Phosphatase Troponin I Total Protein Albumin TSH Free T4 Blood Type Antibody Screen MTS Gel Crossmatch See Detail See Detail 10/15/17 10/16/17 10/16/17 17:19 00:02 00:05 WBC RBC Hgb Hct MCV MCH MCHC RDW Plt Count MPV Neut % (Auto) Lymph % (Auto) [place] % (Auto) Eos % (Auto) Baso % (Auto) Neut # (Auto) Lymph # (Auto) [place] # (Auto) Eos # (Auto) Baso # (Auto) WBC Differential Differential Comment PT INR APTT Sodium Potassium Chloride Carbon Dioxide Anion Gap BUN Creatinine Estimated GFR POC Glucose 137 H 151 H 158 H Random Glucose Calcium Phosphorus Magnesium Total Bilirubin AST ALT Alkaline Phosphatase Troponin I Total Protein Albumin TSH Free T4 Blood Type Antibody Screen MTS Gel Crossmatch 10/16/17 10/16/17 10/16/17 06:00 06:10 06:10 WBC 6.5 RBC 2.69 L Hgb 7.4 L Hct 24.1 L MCV 89.9 MCH 27.7 MCHC 30.8 L RDW 18.0 H Plt Count 169 MPV 8.9 Neut % (Auto) 81.5 H Lymph % (Auto) 8.5 L [place] % (Auto) 8.3 H Eos % (Auto) 1.3 Baso % (Auto) 0.4 Neut # (Auto) 5.3 Lymph # (Auto) 0.6 L [place] # (Auto) 0.5 Eos # (Auto) 0.1 Baso # (Auto) 0.0 WBC Differential . Differential Comment Auto diff final PT INR APTT Sodium 147 H Potassium 3.9 Chloride 110 H Carbon Dioxide 32.9 H Anion Gap 4 L BUN 15 Creatinine 0.54 Estimated GFR Greater than 89 POC Glucose 118 H Random Glucose 125 H Calcium 8.2 L Phosphorus 2.3 L Magnesium 2.2 Total Bilirubin AST ALT Alkaline Phosphatase Troponin I Total Protein Albumin TSH Free T4 Blood Type Antibody Screen MTS Gel Crossmatch 10/16/17 10/16/17 10/16/17 17:30 17:30 23:15 WBC RBC Hgb 6.9 L* Hct 22.6 L MCV MCH MCHC RDW Plt Count MPV Neut % (Auto) Lymph % (Auto) [place] % (Auto) Eos % (Auto) Baso % (Auto) Neut # (Auto) Lymph # (Auto) [place] # (Auto) Eos # (Auto) Baso # (Auto) WBC Differential Differential Comment PT INR APTT Sodium Potassium Chloride Carbon Dioxide Anion Gap BUN Creatinine Estimated GFR POC Glucose 140 H Random Glucose Calcium Phosphorus Magnesium Total Bilirubin AST ALT Alkaline Phosphatase Troponin I Total Protein Albumin TSH Free T4 Blood Type O Positive Antibody Screen Negative MTS Gel Crossmatch See Detail 10/16/17 10/17/17 10/17/17 23:15 00:23 00:31 WBC RBC Hgb 6.9 L* Hct 22.7 L MCV MCH MCHC RDW Plt Count MPV Neut % (Auto) Lymph % (Auto) [place] % (Auto) Eos % (Auto) Baso % (Auto) Neut # (Auto) Lymph # (Auto) [place] # (Auto) Eos # (Auto) Baso # (Auto) WBC Differential Differential Comment PT INR APTT Sodium Potassium Chloride Carbon Dioxide Anion Gap BUN Creatinine Estimated GFR POC Glucose 155 H Random Glucose Calcium Phosphorus Magnesium Total Bilirubin AST ALT Alkaline Phosphatase Troponin I Total Protein Albumin TSH Free T4 Blood Type Antibody Screen MTS Gel Crossmatch See Detail 10/17/17 10/17/17 10/17/17 05:05 05:05 06:43 WBC 7.5 RBC 2.77 L Hgb 7.9 L Hct 24.8 L MCV 89.4 MCH 28.6 MCHC 32.0 RDW 17.0 Plt Count 194 MPV 8.6 Neut % (Auto) 85.4 H Lymph % (Auto) 6.7 L [place] % (Auto) 6.9 Eos % (Auto) 0.6 Baso % (Auto) 0.4 Neut # (Auto) 6.4 Lymph # (Auto) 0.5 L [place] # (Auto) 0.5 Eos # (Auto) 0.0 Baso # (Auto) 0.0 WBC Differential . Differential Comment Auto diff final PT INR APTT Sodium 150 H Potassium 3.8 Chloride 112 H Carbon Dioxide 32.1 H Anion Gap 6 BUN 19 H Creatinine 0.50 Estimated GFR Greater than 89 POC Glucose 147 H Random Glucose 144 H Calcium 8.0 L Phosphorus 3.1 Magnesium 2.1 Total Bilirubin AST ALT Alkaline Phosphatase Troponin I Total Protein Albumin TSH Free T4 Blood Type Antibody Screen MTS Gel Crossmatch 10/17/17 10/17/17 10/17/17 09:30 17:25 17:50 WBC RBC Hgb Hct MCV MCH MCHC RDW Plt Count MPV Neut % (Auto) Lymph % (Auto) [place] % (Auto) Eos % (Auto) Baso % (Auto) Neut # (Auto) Lymph # (Auto) [place] # (Auto) Eos # (Auto) Baso # (Auto) WBC Differential Differential Comment PT INR APTT Sodium Potassium Chloride Carbon Dioxide Anion Gap BUN Creatinine Estimated GFR POC Glucose 165 H Random Glucose Calcium Phosphorus Magnesium Total Bilirubin AST ALT Alkaline Phosphatase Troponin I 0.28 H 0.34 H Total Protein Albumin TSH Free T4 Blood Type Antibody Screen MTS Gel Crossmatch 10/18/17 10/18/17 10/18/17 00:08 03:20 03:20 WBC 10.4 RBC 3.06 L Hgb 8.7 L Hct 26.8 L MCV 87.6 MCH 28.5 MCHC 32.5 RDW 17.8 H Plt Count 214 MPV 8.9 Neut % (Auto) 89.2 H Lymph % (Auto) 5.4 L [place] % (Auto) 4.9 Eos % (Auto) 0.2 Baso % (Auto) 0.3 Neut # (Auto) 9.3 H Lymph # (Auto) 0.6 L [place] # (Auto) 0.5 Eos # (Auto) 0.0 Baso # (Auto) 0.0 WBC Differential . Differential Comment Auto diff final PT INR APTT Sodium 149 H Potassium 4.0 Chloride 110 H Carbon Dioxide 36.5 H Anion Gap 3 L BUN 28 H Creatinine 0.61 Estimated GFR Greater than 89 POC Glucose 165 H Random Glucose 161 H Calcium 8.0 L Phosphorus 3.5 Magnesium 2.1 Total Bilirubin 0.3 AST 15 ALT 16 Alkaline Phosphatase 65 Troponin I 0.27 H Total Protein 4.6 L Albumin 1.8 L TSH 0.131 L Free T4 1.15 Blood Type Antibody Screen MTS Gel Crossmatch 10/18/17 03:20 WBC RBC Hgb Hct MCV MCH MCHC RDW Plt Count MPV Neut % (Auto) Lymph % (Auto) [place] % (Auto) Eos % (Auto) Baso % (Auto) Neut # (Auto) Lymph # (Auto) [place] # (Auto) Eos # (Auto) Baso # (Auto) WBC Differential Differential Comment PT 15.3 H INR 1.5 APTT 28.5 Sodium Potassium Chloride Carbon Dioxide Anion Gap BUN Creatinine Estimated GFR POC Glucose Random Glucose Calcium Phosphorus Magnesium Total Bilirubin AST ALT Alkaline Phosphatase Troponin I Total Protein Albumin TSH Free T4 Blood Type Antibody Screen MTS Gel Crossmatch Result Diagrams: 10/18/17 03:20 10/18/17 03:20 Procedures: Right IJ central line placement 10/11/17 . Assessment and Plan - Disease Oriented Problem List (1) COPD (chronic obstructive pulmonary disease) (2) Pneumonia (3) Diabetes mellitus (4) History of GI bleed (5) Anemia (6) Coronary artery disease Comment: S/p CABG in 08/2017 (7) History of pulmonary embolism (8) History of uterine cancer (9) Hypertension - Symptom Scale (1) Pain 0-10 Scale: Unable to quantify (too fatigue to quantify.) Comment: Was number 8 leg pain earlier this AM. (2) Dyspnea 0-10 Scale: Unable to quantify (too fatigue to quantify.) Pertinent Non-Medical Issues: Psychosocial: * Originally from [place]. Has lived in [place] about 18 yrs. 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 * once. Has been to [place] for 40 years. * One son -- Sharif -- lives in [place]. He has visited recently and knows how ill she is. Spiritual: Shinto and spirituality have not been an important part of her life. Declines card player visits. Legal: No written advance directives. Ethical issues impacting care: Currently capacitated to make her own health care decisions. Important Contacts: [place] Tolentino (spouse) ; [phone] . Prognosis: Patient has multiple medical problems including underlying COPD, coronary artery disease, diabetes, and history of uterine cancer. She has essentially been in the hospital or rehab since her CABG in May 2017. She has had a relatively recent pulmonary embolus. She has had recurrent GI bleeding of uncertain etiology since her CABG in spite of several GI endoscopies. She started bleeding again while off anticoagulation. She has had recurrent infections. She gets delirium while hospitalized. She received a great deal of fluid when she came in hypotensive and was possibly fluid overloaded. Even prior to her CABG she had severe limitations in quality of life due to COPD and chronic back/leg pain. Prognosis is poor given her inability to improve since May and increasing de- conditioning. . Code Status: No Code DNR Plan: == Code Status: NO CODE. Discussed with patient on 10/09 and with spouse on . All agree on DNR status. == Decision making: Patient appears at times capacitated to make her own healthcare decisions, at times not. I think she can participate in medical decision making, but should include pt's spouse in it, which has been the case. == Goals of medical treatment: Had meeting with pt and family again (10/18). Hospice again was offered, for the time being not ready for full transition to comfort measures only short of DNR. It has been stressful for the patient and family. It may take cardiopulmonary decompensation before goals could be evaluated. Family are aware risk of sudden decompensation may happen sooner rather than later. Aggressive goals short of decompesantion. == Symptoms * Pain: Longstanding chronic neck/back/leg pain requiring daily use of 2-3 Lortab 7.5 mg at home Pt wants pain to be better controlled. Pain mostly at her back. Pt's and pt does understand that her bp may decrease with pain meds. request pain be better managed, and understands the risk, and also understand she may very soon decompensate, but wish for pt to have some comfort. * Anorexia: currently on [place]. * Generalized weakness: Probably also multifactorial. Has had decline long before surgery in May secondary to lung disease and to chronic back/leg pain. No with no appetite and weight loss. Hopefully, this will improve if we can stop bleeding and get her to eat. * Depression: Cont low dose amitryptiline which may help with pain/depression/ appetite. * Delirium: reports patient has frequent delirium when hospitalized. Patient already showing signs of intermittent confusion here. == If delirium develops and we are unable to address the underlying problem , would recommend low dose haloperidol at 1 mg q 4 hours prn. == Palliative care will continue to follow to assist with symptom management and to further clarify goals of medical treatment as the clinical course evolves. Attestation Attestation: To help prompt me to consider important information that might be impacting today's encounter and assessment, information from prior notes written by myself or my colleagues may have been "brought forward" into today's note. My signature on this note, however, is an attestation that I personally performed the exam, history, and/or decision-making noted today, and, unless otherwise indicated, the interactions with patient, family, and staff as well as the review of records all occurred today. I also attest that the listed assessment and stated plan reflect my best clinical judgment today based on the combination of historical information, prior notes, and today's exam/ interactions. When time spent is documented, it refers only to time spent today by the signer, or if indicated, combined time spent today by collaborating physician/nurse practitioner.
[2017-10-18] MEDS ORDERED: Pharmacy Ordered Lab Info OTHER ONE (13:45)
[2017-10-18 16:23] LABS: Hemoglobin A1c 5.8 % (4.3-6.0)
--- NOTE | 2017-10-18 16:33 | P.PNCC ---
Subjective Subjective Remarks/Hospital Course: The patient is a 62-year-old female, alf resident, with a past medical history of hypertension, diabetes mellitus, coronary artery disease on Eliquis, who presented to [facility] ED with shortness of breath associated with tachypnea and generalized weakness. On arrival to the ED, she was hypotensive with a systolic blood pressure 80s-90s and tachycardic with heart rate of 102-110. Her laboratory data showed anemia with hemoglobin level 5.0 and mild acute kidney injury with a creatinine of 1.13 and lactic acid of 2.6. The patient was given a total of 1 liter of normal saline and is scheduled to receive 2 units of red blood cells. When seen, her current blood pressure is 145/74. ABG was performed on 4 liter oxygen, which showed a pH of 7.44, CO2 58, PaO2 88 , bicarbonate of 38, saturation 95 percent. The patient agnieszka poor historian. She underwent CT chest, abdomen and pelvis. Her CT scan of the chest showed dense consolidation of the left lower lobe with air bronchograms and CT abdomen and pelvis showed a 3.8 cm infrarenal abdominal aortic aneurysm. 10/09: Patient complaining of shortness of breath. Received blood products and colon prep overnight. Will give 1 dose of bumetanide IV 1 now. Creatinine within normal limits. Patient is on furosemide at home 20 mg daily which is currently on hold. Plan for EGD/colonoscopy today 10/10: Afebrile. Received 1 unit PRBCs overnight. Respiratory rate much improved. DNR status currently. Will give 1 dose of acetazolamide 250 mg IV 1 now. Appears more comfortable. 10/11: Unable to obtain blood draws today. Received 1 unit PRBCs yesterday. Less dyspneic today. Still having black stools. Will central line placed by IR. 10/12: Hemoglobin currently 7.2. Will transfuse 1 additional unit today. Consider black stools. Started on amitriptyline yesterday. Receiving as needed hydrocodone/acetaminophen. Flat affect. Poor appetite started started on D5 LR 10/13: States she wants to BM to stop. Continues to have multiple black stools. More interactive today with family at bedside. Has poor appetite. Respiratory status improved. 10/14: Afebrile. Hemoglobin remained stable overnight. Remains anxious. Noted GIs notes. Patient is refusing to drink any contrast for colonoscopy if this were to be indicated. 10/15: Resting in bed in mild acute respiratory distress. Afebrile. Will diuresis again today. 10/16: Continues with very poor appetite. States dyspneic over respiratory rates 18-20. On 3 L nasal cannula. No problem for several days but noted very poor appetite. DNR status remains. Subjective 10/17: Afebrile. Transfused 2 PRBCs overnight. Started on tube feedings. Glucerna 1.5 goal be 50 cc an hour. Received 1 dose of acetazolamide today. 10/18: one more melanotic stool this AM. hgb stable. transfused 1 unit prbc yesterday. also had some volume overload yesterday, but today back to 4L o2 by NC and adequate diuresis. metabolic alkalosis developing, giving 1 dose diamox for this. continue to monitor melena and trend hgb. Objective Vital Signs / I&O: Vital Signs 10/17/17 17:00 10/17/17 18:00 10/17/17 19:00 Temperature Pulse Rate 104 H 104 H 104 H Respiratory Rate 25 H 21 19 Blood Pressure 107/60 106/56 L 104/58 L Pulse Oximetry 92 L 92 L 93 L 10/17/17 19:02 10/17/17 20:00 10/17/17 21:00 Temperature 37.0 C Pulse Rate 104 H 105 H 104 H Respiratory Rate 18 21 22 Blood Pressure 112/63 118/60 Pulse Oximetry 94 L 94 L 96 10/17/17 22:00 10/17/17 22:13 10/17/17 23:00 Temperature Pulse Rate 108 H 104 H 105 H Respiratory Rate 26 H 25 H 20 Blood Pressure 113/64 104/59 L Pulse Oximetry 94 L 96 99 10/17/17 23:18 10/17/17 23:30 10/18/17 00:00 Temperature 37.6 C Pulse Rate 108 H 106 H 110 H Respiratory Rate 19 20 21 Blood Pressure 105/59 L 108/56 L Pulse Oximetry 96 98 95 10/18/17 00:30 10/18/17 01:00 10/18/17 01:30 Temperature Pulse Rate 106 H 108 H 106 H Respiratory Rate 22 21 23 Blood Pressure 112/55 L 114/58 L 115/57 L Pulse Oximetry 95 94 L 95 10/18/17 02:00 10/18/17 02:30 10/18/17 03:00 Temperature Pulse Rate 105 H 105 H 107 H Respiratory Rate 21 21 21 Blood Pressure 115/58 L 114/59 L 108/55 L Pulse Oximetry 98 98 98 10/18/17 03:26 10/18/17 03:30 10/18/17 04:00 Temperature 37.2 C Pulse Rate 100 H 104 H 108 H Respiratory Rate 16 20 19 Blood Pressure 112/57 L 108/59 L Pulse Oximetry 100 94 L 10/18/17 04:30 10/18/17 05:00 10/18/17 05:30 Temperature Pulse Rate 104 H 104 H 104 H Respiratory Rate 23 19 25 H Blood Pressure 110/55 L 112/70 114/56 L Pulse Oximetry 95 98 93 L 10/18/17 06:00 10/18/17 06:30 10/18/17 07:00 Temperature Pulse Rate 105 H 105 H 105 H Respiratory Rate 26 H 30 H 28 H Blood Pressure 108/58 L 113/56 L 111/59 L Pulse Oximetry 93 L 94 L 95 10/18/17 07:30 10/18/17 08:00 10/18/17 08:07 Temperature 36.5 C Pulse Rate 105 H 107 H 109 H Respiratory Rate 27 H 37 H 23 Blood Pressure 109/53 L 105/58 L Pulse Oximetry 94 L 92 L 92 L 10/18/17 08:30 10/18/17 09:00 10/18/17 09:30 Temperature Pulse Rate 108 H 108 H 109 H Respiratory Rate 28 H 32 H 30 H Blood Pressure 108/53 L 102/52 L 104/66 Pulse Oximetry 93 L 91 L 90 L 10/18/17 10:00 10/18/17 10:31 10/18/17 10:42 Temperature Pulse Rate 109 H 109 H 109 H Respiratory Rate 27 H 27 H 28 H Blood Pressure 99/57 L 144/53 H 123/59 L Pulse Oximetry 94 L 93 L 93 L 10/18/17 11:00 10/18/17 11:30 10/18/17 12:00 Temperature 36.8 C Pulse Rate 91 H 88 88 Respiratory Rate 28 H 32 H 30 H Blood Pressure 112/55 L 101/55 L 94/55 L Pulse Oximetry 94 L 91 L 90 L 10/18/17 12:20 10/18/17 12:30 10/18/17 13:00 Temperature Pulse Rate 87 89 90 Respiratory Rate 26 H 28 H 26 H Blood Pressure 100/58 L 101/59 L Pulse Oximetry 99 92 L 10/18/17 13:30 10/18/17 14:00 10/18/17 14:30 Temperature Pulse Rate 89 90 91 H Respiratory Rate 26 H 28 H 25 H Blood Pressure 97/52 L 103/54 L 98/57 L Pulse Oximetry 92 L 91 L 91 L 10/18/17 15:00 10/18/17 15:17 10/18/17 15:30 Temperature Pulse Rate 91 H 91 H 92 H Respiratory Rate 24 28 H 28 H Blood Pressure 84/56 L 89/50 L Pulse Oximetry 93 L 90 L Intake & Output 10/17/17 10/18/17 10/18/17 18:59 06:59 18:59 Intake Total 460 / 460 706 / 706 Output Total 1100 / 1100 1200 / 1200 Balance -640 / -640 -494 / -494 Weight 125.5 kg Intake: IV 50 / 50 NS Inj 250 ML @ 15 mls/hr IV. 50 / 50 SIG ONCE DEBORAH Rx#:[id number] Tube Feeding 60 / 60 356 / 356 Water Bolus Amount 300 / 300 Intake (Blood Product) Amt 400 / 400 Rbc As-3 Leukoreduced Unit 400 / 400 [id number] Output: Urine 1100 / 1100 1200 / 1200 Other: Date of Last Bowel Movement 10/17/17 10/17/17 10/17/17 # Bowel Movements 2 1 # Incontinent Bowel Movements 1 Result Diagrams: 10/18/17 03:20 10/18/17 03:20 Objective Remarks: GENERAL: 62-year-old female currently on nasal cannula in no respiratory distress. SKIN: Warm and dry. Open nondraining ulcerations from prior EVH right lower extremity x 2 with some erythema HEAD: Atraumatic. Normocephalic. EYES: Pupils equal and round about 3 mm bilaterally reactive. No scleral icterus. No injection or drainage. ENT: No nasal bleeding or discharge. Mucous membranes pink and moist. NG tube in place NECK: Trachea midline. No JVD. CARDIOVASCULAR: RRR. S1, S2. No S4. No murmur, click, gallop or rub RESPIRATORY: Diminished breath sounds due to body habitus. Somewhat tachypneic. Some accessory muscle use. No wheezing appreciated. GASTROINTESTINAL: Abdomen soft, non-tender, nondistended. Hepatic and splenic margins not palpable. MUSCULOSKELETAL: Extremities with 1+ bilateral lower extremity edema. NEUROLOGICAL: Awake and alert. No obvious cranial nerve deficits. Motor grossly within normal limits. Five out of 5 muscle strength in the arms and legs. Normal nonpressured speech. Assessment and Plan - Assessment and Plan Plan: Neuro/Psych: Acetaminophen 650 mg by mouth every 6 hours as needed fever Hydrocodone/acetaminophen 5/321 tablet every 6 hours as needed pain. Okay to increase with palliative care Amitriptyline 10 mg at night Continue baclofen 10 mg 3 times daily CV: Essential hypertension Hyperlipidemia Chronic systolic heart failure ejection fraction 40-45%. 3.8 cm infrarenal abdominal aortic aneurysm Coronary artery disease/CABG June 2017 at [facility] 2D echocardiogram revealed EF 40-45% normal LV function. Resuming metoprolol tartrate 25 mg twice daily resume when clinically indicated On rosuvastatin 40 mg daily at home for dyslipidemia. Hospital substitution atorvastatin 80 mg daily Resp: Acute respiratory insufficiency History of COPD CT thorax 10/08 revealed air bronchograms in the left lower lobe. Small left pleural effusion. Nasal cannula to maintain saturations greater than or equal to 92% Incentive spirometry while awake Albuterol/ipratropium aerosols every 4 hours with albuterol aerosols every 2 hours as needed for dyspnea Acapella/PEP every 4 hours Restart furosemide 20 mg IV instead of p.o. daily. GI: Elevated AST Moderate protein calorie malnutrition/hypoalbuminemia History of colonic polyps questionable Currently on clear liquid diet. Advance as tolerated Started on Glucerna 1.5 goal 50 cc an hour per nutrition recommendations. Currently at 20 cc an hour. Plan for EGD/colonoscopy when/if stable. They have signed off twice in the interim. hold off for now, but if hgb continues to drop, will need to reconsult them. Patient had a recent panendoscopy 7 days ago for hospital which verbal report revealed polyps. Her stool is currently black. Pantoprazole 40 mg IV twice daily Docusate sodium/senna 1 tablet twice daily for bowel regimen : Ureteral stone - R 4 mm no indication for pisano. Endo: Diabetes mellitus Acute hyperglycemia On insulin U100 lispro unknown dose at home on insulin glargine 10 units 3 times daily Sliding scale insulin with aspart/every 6 hours medium regimen. Renal: Creatinine currently within normal limits. Monitor urine output Accurate I's and O's Heme: Acute blood loss anemia/normocytic Transfuse 5 units PRBCs this hospitalization. Coags within normal limits Recheck CBC in a.m. 10/17 ID: Gram-positive cocci bacteremia - Staph epi Patient previously on vancomycin, aztreonam and metronidazole pneumonia/ hospital-acquired. All discontinued 10/16 Pertinent cultures 10/08 -blood cultures 2 -staph epidermidis likely 10/09 -blood cultures 2 -no growth to date Influenza a and B- MSK: Elevated BMI Right lower extremity deep tissue injury Weight loss encouraged. Wound care evaluate and treat and continue Santyl for now/home medication FEN: Hypernatremia Replace electrolytes as clinically indicated. Discontinue D5 one half normal saline at 84 cc an hour 3 25 mEq potassium chloride Effient 1 now. ACCESS -right IJ CVL day #8. This is been kept in place due to laboratory unable to perform peripheral draws. I have consulted vascular access team: she has no contra-indication to PICC line: no infection concerns, no fevers, elevated wbc, renal concerns. would benefit from PICC line and d/c CVL. Prophylax -GI -pantoprazole -DVT -SCD/no pharmacological prophylaxis in light of gastro-intestinal bleeding. stable from CCM standpoint. transfer to hospitalist service.
[2017-10-18] MEDS: Amitriptyline 10 MG Tablet PO SCH (20:01)
[2017-10-19] MEDS: Insulin NovoLIN Regular Correctional Sugar Inj SQ SCH ×4 (00:09→17:22)
--- NOTE | 2017-10-19 00:13 | XR ---
EXAM DATE: 10/19/2017 12:07 AM EDT AGE/SEX: 62 years / Female INDICATIONS: Dobhoff tube placement. CLINICAL DATA: This is the patient's subsequent encounter. Patient reports that signs and symptoms h ave been present for 2 weeks and indicates a pain score of Nonresponsive. MEDICAL/SURGICAL HISTORY: . Chronic obstructive pulmonary disease. Diabetes. CABG. COMPARISON: [facility], ABDOMEN 1V KUB, 10/17/2017. . FINDINGS: Interval progression of feeding type nasoenteric catheter with tip now likely in the junction of the distal stomach/proximal duodenum. Remainder of the exam is unchanged. CONCLUSION: 1. Interval repositioning of the feeding type nasoenteric catheter with tip in the distal stomach/pr oximal duodenum. Electronically signed by: Mihai Toney MD 10/19/2017 12:12 AM EDT
[2017-10-19] MEDS: Pantoprazole Inj 40 MG Vial IV.PUSH SCH (00:22)
[2017-10-19 04:33] LABS: Hematocrit 22.8 % (35.0-46.0); Hemoglobin 7.1 gm/dL (11.6-15.3); Mean Corpuscular HGB Conc 31.3 % (32.0-36.0); Mean Corpuscular Hemoglobin 28.4 pg (27.0-34.0); Mean Corpuscular Volume 90.6 fL (80.0-100.0); Mean Platelet Volume 9.1 fL (7.0-11.0); Platelet Count 180 th/mm3 (150-450); Red Blood Count 2.52 mil/mm3 (4.00-5.30)
[2017-10-19 04:44] LABS: Anion Gap 6 meq/L (5-15); Blood Urea Nitrogen 35 mg/dL (7-18); Calcium 8.1 mg/dL (8.5-10.1); Carbon Dioxide 35.3 meq/L (21.0-32.0); Chloride 109 meq/L (98-107); Glomerular Filtration Rate Greater Than 89 mL/min (>89); Glucose,Random 146 mg/dL (74-106); Potassium 3.7 meq/L (3.5-5.1); Sodium 150 meq/L (136-145)
[2017-10-19] MEDS: Beneprotein Powder Packet G-TUBE SCH ×3 (08:19→20:12)
[2017-10-19] MEDS: Senna/Docusate Sodium 8.6/50 MG Tablet PO SCH ×2 (08:20→20:13)
[2017-10-19] MEDS: Nystatin 100,000 UNITS/GM Powder 15 GM Bottle TOPICAL SCH ×4 (08:20→20:13)
[2017-10-19] MEDS: Baclofen 10 MG Tablet PO SCH ×3 (08:20→17:16)
[2017-10-19] MEDS: Collagenase Oint 30 GM Tube TOPICAL SCH (08:21)
--- NOTE | 2017-10-19 09:30 | P.PN ---
Subjective Interval history: Nursing reports the patient had more melanotic stools since last night. H&H continues to drop from 8.4-7.1 this morning. Patient has a Dobbhoff tube in place and receiving tube feeds. is at the bedside and says he is willing to authorize procedure of endoscopy if warranted. Physical Exam Vital signs: Vital Signs 10/18/17 09:30 10/18/17 10:00 10/18/17 10:31 Temperature Pulse Rate 109 H 109 H 109 H Respiratory Rate 30 H 27 H 27 H Blood Pressure 104/66 99/57 L 144/53 H Pulse Oximetry 90 L 94 L 93 L 10/18/17 10:42 10/18/17 11:00 10/18/17 11:30 Temperature Pulse Rate 109 H 91 H 88 Respiratory Rate 28 H 28 H 32 H Blood Pressure 123/59 L 112/55 L 101/55 L Pulse Oximetry 93 L 94 L 91 L 10/18/17 12:00 10/18/17 12:20 10/18/17 12:30 Temperature 98.3 F Pulse Rate 88 87 89 Respiratory Rate 30 H 26 H 28 H Blood Pressure 94/55 L 100/58 L Pulse Oximetry 90 L 99 10/18/17 13:00 10/18/17 13:30 10/18/17 14:00 Temperature Pulse Rate 90 89 90 Respiratory Rate 26 H 26 H 28 H Blood Pressure 101/59 L 97/52 L 103/54 L Pulse Oximetry 92 L 92 L 91 L 10/18/17 14:30 10/18/17 15:00 10/18/17 15:17 Temperature Pulse Rate 91 H 91 H 91 H Respiratory Rate 25 H 24 28 H Blood Pressure 98/57 L 84/56 L Pulse Oximetry 91 L 93 L 10/18/17 15:30 10/18/17 16:00 10/18/17 16:30 Temperature 98.4 F Pulse Rate 92 H 91 H 92 H Respiratory Rate 28 H 30 H 30 H Blood Pressure 89/50 L 100/53 L 104/62 Pulse Oximetry 90 L 95 92 L 10/18/17 17:00 10/18/17 17:30 10/18/17 18:00 Temperature Pulse Rate 93 H 95 H 96 H Respiratory Rate 27 H 29 H 28 H Blood Pressure 106/59 L 106/57 L 104/62 Pulse Oximetry 91 L 93 L 93 L 07/26/18 20:00 10/18/17 20:46 10/18/17 21:00 Temperature 99.2 F Pulse Rate 98 H 87 87 Respiratory Rate 29 H 22 29 H Blood Pressure 93/57 L 97/51 L Pulse Oximetry 94 L 93 L 100 10/18/17 21:30 10/18/17 22:00 10/18/17 22:30 Temperature Pulse Rate 89 91 H 91 H Respiratory Rate 38 H 36 H 32 H Blood Pressure 107/58 L 100/54 L 97/51 L Pulse Oximetry 93 L 92 L 100 10/18/17 23:00 10/18/17 23:30 10/19/17 00:00 Temperature 99.3 F Pulse Rate 89 89 90 Respiratory Rate 32 H 25 H 31 H Blood Pressure 100/53 L 98/56 L 91/50 L Pulse Oximetry 100 100 99 10/19/17 00:25 10/19/17 00:30 10/19/17 01:00 Temperature Pulse Rate 87 87 87 Respiratory Rate 22 26 H 28 H Blood Pressure 95/52 L 94/50 L Pulse Oximetry 100 97 10/19/17 01:30 10/19/17 02:00 10/19/17 02:30 Temperature Pulse Rate 88 89 89 Respiratory Rate 31 H 27 H 25 H Blood Pressure 93/51 L 92/54 L 97/52 L Pulse Oximetry 96 98 97 10/19/17 03:00 10/19/17 03:30 10/19/17 03:35 Temperature Pulse Rate 86 88 89 Respiratory Rate 28 H 28 H 22 Blood Pressure 91/55 L 96/55 L Pulse Oximetry 98 98 10/19/17 04:00 10/19/17 04:30 10/19/17 05:00 Temperature 99 F Pulse Rate 93 H 92 H 93 H Respiratory Rate 30 H 27 H 29 H Blood Pressure 97/54 L 100/55 L 110/57 L Pulse Oximetry 98 98 98 10/19/17 05:30 10/19/17 06:00 10/19/17 06:30 Temperature Pulse Rate 92 H 90 92 H Respiratory Rate 28 H 25 H 34 H Blood Pressure 107/55 L 103/56 L 108/53 L Pulse Oximetry 100 100 100 10/19/17 07:00 10/19/17 07:30 10/19/17 07:45 Temperature Pulse Rate 92 H 93 H 97 H Respiratory Rate 29 H 25 H 23 Blood Pressure 103/55 L 104/59 L Pulse Oximetry 99 100 96 10/19/17 08:00 10/19/17 08:30 10/19/17 09:00 Temperature 98.7 F Pulse Rate 93 H 93 H 93 H Respiratory Rate 24 25 H 27 H Blood Pressure 102/52 L 103/58 L 110/57 L Pulse Oximetry 100 100 96 Intake & Output 10/18/17 10/19/17 10/19/17 18:59 06:59 18:59 Intake Total 762 / 762 834 / 834 Balance 762 / 762 834 / 834 Weight 127.5 kg Intake: IV 300 / 300 KCl 40 mEq Premix Inj 40 meq In 100 / 100 100 ml @ 25 mls/hr IV.SIG UNSCH PRN Rx#:[id number] Tube Feeding 362 / 362 334 / 334 Water Bolus Amount 400 / 400 200 / 200 Other: # Incontinent Voids 4 3 Date of Last Bowel Movement 10/18/17 10/19/17 # Bowel Movements 3 2 Narrative: No heide abdominal tenderness to palpation, no guarding, abdomen is soft Dobbhoff tube in place, currently receiving feeding, makes good eye contact, tries to vocalize words but is unable to do so audibly - Urinary Catheter Management Indwelling Urethral Catheter Cath placed during this visit: yes Reason for continuing: Hourly intake/output Insertion date: 10/08/17 Results - Labs CBC & Chem 7: 10/19/17 03:05 10/19/17 03:05 Laboratory Results - last 24 hr 10/18/17 10/18/17 10/18/17 03:20 11:51 17:26 WBC RBC Hgb Hct MCV MCH MCHC RDW Plt Count MPV Sodium Potassium Chloride Carbon Dioxide Anion Gap BUN Creatinine Estimated GFR POC Glucose 145 H 176 H Random Glucose Hemoglobin A1c 5.8 Calcium 10/18/17 10/19/17 10/19/17 23:18 03:05 03:05 WBC 7.0 RBC 2.52 L Hgb 7.1 L Hct 22.8 L MCV 90.6 MCH 28.4 MCHC 31.3 L RDW 18.0 H Plt Count 180 MPV 9.1 Sodium 150 H Potassium 3.7 Chloride 109 H Carbon Dioxide 35.3 H Anion Gap 6 BUN 35 H Creatinine 0.63 Estimated GFR Greater than 89 POC Glucose 148 H Random Glucose 146 H Hemoglobin A1c Calcium 8.1 L 10/19/17 10/19/17 05:10 07:20 WBC RBC Hgb Hct MCV MCH MCHC RDW Plt Count MPV Sodium Potassium Chloride Carbon Dioxide Anion Gap BUN Creatinine Estimated GFR POC Glucose 147 H 143 H Random Glucose Hemoglobin A1c Calcium - Imaging Impressions Abdomen X-Ray 10/18/17 23:38 CONCLUSION: Assessment and Plan - Plan Anemia 2/2 blood loss Re-consulting GI due to persistent melena with decreasing hemoglobin Pt has dobonhoff tube in place; maybe candidate for prep now ordering 2 more PRBCs chronic pain Hydrocodone/acetaminophen 5/321 tablet every 6 hours as needed pain. Okay to increase with palliative care neuro/psych Amitriptyline 10 mg at night Continue baclofen 10 mg 3 times daily Essential hypertension Hyperlipidemia Chronic systolic heart failure ejection fraction 40-45%. 3.8 cm infrarenal abdominal aortic aneurysm Coronary artery disease/CABG June [address] [facility] lopressor statin lasix IV holding aspirin in light of bleeding Acute respiratory insufficiency History of COPD on 4 L, RN instructed to wean as tolerated, may now have chronic resp hypoxic failure CT thorax 10/08 revealed air bronchograms in the left lower lobe. Small left pleural effusion. Albuterol/ipratropium Acapella/PEP Elevated AST Moderate protein calorie malnutrition/hypoalbuminemia History of colonic polyps questionable Glucerna 1.5 goal 50 cc an hour per nutrition recommendations. Currently at 20 cc an hour. Patient had a recent panendoscopy 7 days ago for hospital which verbal report revealed polyps. Her stool is currently black. Pantoprazole 40 mg IV twice daily Ureteral stone - R 4 mm conservative management Diabetes mellitus Acute hyperglycemia On insulin U100 lispro unknown dose at home on insulin glargine 10 units 3 times daily Sliding scale insulin with aspart/every 6 hours medium regimen. Gram-positive cocci bacteremia - Staph epi Patient previously on vancomycin, aztreonam and metronidazole pneumonia/ hospital-acquired. All discontinued 10/16 Influenza a and B- Elevated BMI Right lower extremity deep tissue injury Wound care evaluate and treat and continue Santyl for now/home medication Hypernatremia Discontinue D5 one half normal saline at 84 cc an hour 3 25 mEq potassium chloride Effient 1 now. ACCESS -right IJ CVL day #9. This is been kept in place due to laboratory unable to perform peripheral draws. I have consulted vascular access team: she has no contra-indication to PICC line: no infection concerns, no fevers, elevated wbc, renal concerns. would benefit from PICC line and d/c CVL. Prophylax -GI -pantoprazole -DVT -SCD/no pharmacological prophylaxis in light of gastro-intestinal bleeding.
[2017-10-19] MEDS: Metoprolol Tartrate 25 MG Tablet PO SCH ×2 (10:23→20:11)
[2017-10-19] MEDS ORDERED: Sodium Chlor 0.9% Inj 250 ML IV.SIG SCH (11:00)
--- NOTE | 2017-10-19 11:30 | P.PNGI ---
Subjective Interval history: Reconsulted for melena. This started 2 days ago, large multiple melanotic stools , last time over night, non this morning. Hgb today 7.1, this is a decline from yesterday 8.4 . 2 units ordered today. Tolerating TF ok via [place]. Pt is alert, not able to provide much information <Marion Chandler - Last Filed: 10/19/17 11:17> Physical Exam Vital signs: Vital Signs 10/18/17 11:30 10/18/17 12:00 10/18/17 12:20 Temperature 98.3 F Pulse Rate 88 88 87 Respiratory Rate 32 H 30 H 26 H Blood Pressure 101/55 L 94/55 L Pulse Oximetry 91 L 90 L 10/18/17 12:30 10/18/17 13:00 10/18/17 13:30 Temperature Pulse Rate 89 90 89 Respiratory Rate 28 H 26 H 26 H Blood Pressure 100/58 L 101/59 L 97/52 L Pulse Oximetry 99 92 L 92 L 10/18/17 14:00 10/18/17 14:30 10/18/17 15:00 Temperature Pulse Rate 90 91 H 91 H Respiratory Rate 28 H 25 H 24 Blood Pressure 103/54 L 98/57 L 84/56 L Pulse Oximetry 91 L 91 L 93 L 10/18/17 15:17 10/18/17 15:30 10/18/17 16:00 Temperature 98.4 F Pulse Rate 91 H 92 H 91 H Respiratory Rate 28 H 28 H 30 H Blood Pressure 89/50 L 100/53 L Pulse Oximetry 90 L 95 10/18/17 16:30 10/18/17 17:00 10/18/17 17:30 Temperature Pulse Rate 92 H 93 H 95 H Respiratory Rate 30 H 27 H 29 H Blood Pressure 104/62 106/59 L 106/57 L Pulse Oximetry 92 L 91 L 93 L 10/18/17 18:00 10/18/17 20:00 10/18/17 20:46 Temperature 99.2 F Pulse Rate 96 H 98 H 87 Respiratory Rate 28 H 29 H 22 Blood Pressure 104/62 93/57 L Pulse Oximetry 93 L 94 L 93 L 10/18/17 21:00 10/18/17 21:30 10/18/17 22:00 Temperature Pulse Rate 87 89 91 H Respiratory Rate 29 H 38 H 36 H Blood Pressure 97/51 L 107/58 L 100/54 L Pulse Oximetry 100 93 L 92 L 10/18/17 22:30 10/18/17 23:00 10/18/17 23:30 Temperature Pulse Rate 91 H 89 89 Respiratory Rate 32 H 32 H 25 H Blood Pressure 97/51 L 100/53 L 98/56 L Pulse Oximetry 100 100 100 10/19/17 00:00 10/19/17 00:25 10/19/17 00:30 Temperature 99.3 F Pulse Rate 90 87 87 Respiratory Rate 31 H 22 26 H Blood Pressure 91/50 L 95/52 L Pulse Oximetry 99 100 10/19/17 01:00 10/19/17 01:30 10/19/17 02:00 Temperature Pulse Rate 87 88 89 Respiratory Rate 28 H 31 H 27 H Blood Pressure 94/50 L 93/51 L 92/54 L Pulse Oximetry 97 96 98 10/19/17 02:30 10/19/17 03:00 10/19/17 03:30 Temperature Pulse Rate 89 86 88 Respiratory Rate 25 H 28 H 28 H Blood Pressure 97/52 L 91/55 L 96/55 L Pulse Oximetry 97 98 98 10/19/17 03:35 10/19/17 04:00 10/19/17 04:30 Temperature 99 F Pulse Rate 89 93 H 92 H Respiratory Rate 22 30 H 27 H Blood Pressure 97/54 L 100/55 L Pulse Oximetry 98 98 10/19/17 05:00 10/19/17 05:30 10/19/17 06:00 Temperature Pulse Rate 93 H 92 H 90 Respiratory Rate 29 H 28 H 25 H Blood Pressure 110/57 L 107/55 L 103/56 L Pulse Oximetry 98 100 100 10/19/17 06:30 10/19/17 07:00 10/19/17 07:30 Temperature Pulse Rate 92 H 92 H 93 H Respiratory Rate 34 H 29 H 25 H Blood Pressure 108/53 L 103/55 L 104/59 L Pulse Oximetry 100 99 100 10/19/17 07:45 10/19/17 08:00 10/19/17 08:30 Temperature 98.7 F Pulse Rate 97 H 93 H 93 H Respiratory Rate 23 24 25 H Blood Pressure 102/52 L 103/58 L Pulse Oximetry 96 100 100 10/19/17 09:00 10/19/17 10:00 10/19/17 10:59 Temperature 99.0 F Pulse Rate 93 H 100 H 94 H Respiratory Rate 27 H 23 Blood Pressure 110/57 L 113/55 L Pulse Oximetry 96 94 L 10/19/17 11:09 Temperature Pulse Rate 94 H Respiratory Rate 23 Blood Pressure Pulse Oximetry Intake & Output 10/18/17 10/19/17 10/19/17 18:59 06:59 18:59 Intake Total 762 / 762 834 / 834 0 / 0 Balance 762 / 762 834 / 834 0 / 0 Weight 127.5 kg Intake: IV 300 / 300 KCl 40 mEq Premix Inj 40 meq In 100 / 100 100 ml @ 25 mls/hr IV.SIG UNSCH PRN Rx#:[id number] Tube Feeding 362 / 362 334 / 334 Water Bolus Amount 400 / 400 200 / 200 Intake (Blood Product) Amt 0 / 0 Rbc As-3 Leukoreduced Unit 0 / 0 [id number] Other: # Incontinent Voids 4 3 Date of Last Bowel Movement 10/18/17 10/19/17 10/19/17 # Bowel Movements 3 2 - Constitutional no acute distress - Routine HEENT Exam Head: Present: normocephalic ENT: Present: mucous membranes moist - Routine Neck Exam Present: supple - Routine Respiratory Exam Present: diminished air movement - Routine Cardiovascular Exam Present: RRR - Routine Abdominal Exam Present: soft, normoactive bowel sounds. Absent: tenderness, distended - Routine Extremities Exam Present: edema - Routine Skin Exam Present: ecchymosis - Routine Neurological Exam Present: alert - Urinary Catheter Management Indwelling Urethral Catheter Cath placed during this visit: yes Reason for continuing: Hourly intake/output Insertion date: 10/08/17 <Marion Chandler - Last Filed: 10/19/17 11:17> Vital signs: Vital Signs 10/18/17 20:00 10/18/17 20:46 10/18/17 21:00 Temperature 99.2 F Pulse Rate 98 H 87 87 Respiratory Rate 29 H 22 29 H Blood Pressure 93/57 L 97/51 L Pulse Oximetry 94 L 93 L 100 10/18/17 21:30 10/18/17 22:00 10/18/17 22:30 Temperature Pulse Rate 89 91 H 91 H Respiratory Rate 38 H 36 H 32 H Blood Pressure 107/58 L 100/54 L 97/51 L Pulse Oximetry 93 L 92 L 100 10/18/17 23:00 10/18/17 23:30 10/19/17 00:00 Temperature 99.3 F Pulse Rate 89 89 90 Respiratory Rate 32 H 25 H 31 H Blood Pressure 100/53 L 98/56 L 91/50 L Pulse Oximetry 100 100 99 10/19/17 00:25 10/19/17 00:30 10/19/17 01:00 Temperature Pulse Rate 87 87 87 Respiratory Rate 22 26 H 28 H Blood Pressure 95/52 L 94/50 L Pulse Oximetry 100 97 10/19/17 01:30 10/19/17 02:00 10/19/17 02:30 Temperature Pulse Rate 88 89 89 Respiratory Rate 31 H 27 H 25 H Blood Pressure 93/51 L 92/54 L 97/52 L Pulse Oximetry 96 98 97 10/19/17 03:00 10/19/17 03:30 10/19/17 03:35 Temperature Pulse Rate 86 88 89 Respiratory Rate 28 H 28 H 22 Blood Pressure 91/55 L 96/55 L Pulse Oximetry 98 98 10/19/17 04:00 10/19/17 04:30 10/19/17 05:00 Temperature 99 F Pulse Rate 93 H 92 H 93 H Respiratory Rate 30 H 27 H 29 H Blood Pressure 97/54 L 100/55 L 110/57 L Pulse Oximetry 98 98 98 10/19/17 05:30 10/19/17 06:00 10/19/17 06:30 Temperature Pulse Rate 92 H 90 92 H Respiratory Rate 28 H 25 H 34 H Blood Pressure 107/55 L 103/56 L 108/53 L Pulse Oximetry 100 100 100 10/19/17 07:00 10/19/17 07:30 10/19/17 07:45 Temperature Pulse Rate 92 H 93 H 97 H Respiratory Rate 29 H 25 H 23 Blood Pressure 103/55 L 104/59 L Pulse Oximetry 99 100 96 10/19/17 08:00 10/19/17 08:30 10/19/17 09:00 Temperature 98.7 F Pulse Rate 93 H 93 H 93 H Respiratory Rate 24 25 H 27 H Blood Pressure 102/52 L 103/58 L 110/57 L Pulse Oximetry 100 100 96 10/19/17 09:30 10/19/17 10:00 10/19/17 10:30 Temperature Pulse Rate 96 H 100 H 96 H Respiratory Rate 30 H 31 H 28 H Blood Pressure 108/60 104/61 103/56 L Pulse Oximetry 94 L 93 L 95 10/19/17 10:59 10/19/17 11:00 10/19/17 11:09 Temperature 99.0 F Pulse Rate 94 H 95 H 94 H Respiratory Rate 23 26 H 23 Blood Pressure 113/55 L 113/55 L Pulse Oximetry 94 L 94 L 10/19/17 11:15 10/19/17 11:17 10/19/17 11:30 Temperature 99.3 F Pulse Rate 96 H 97 H 99 H Respiratory Rate 28 H 24 32 H Blood Pressure 109/56 L 109/56 L 109/58 L Pulse Oximetry 99 94 L 92 L 10/19/17 11:45 10/19/17 12:00 10/19/17 12:15 Temperature 99.3 F Pulse Rate 97 H 100 H 98 H Respiratory Rate 29 H 33 H 31 H Blood Pressure 106/54 L 113/55 L 107/55 L Pulse Oximetry 93 L 91 L 93 L 10/19/17 12:30 10/19/17 12:45 10/19/17 13:00 Temperature Pulse Rate 98 H 98 H 99 H Respiratory Rate 31 H 27 H 25 H Blood Pressure 106/57 L 114/63 107/57 L Pulse Oximetry 93 L 93 L 93 L 10/19/17 13:15 10/19/17 13:30 10/19/17 13:45 Temperature Pulse Rate 99 H 100 H 101 H Respiratory Rate 26 H 26 H 41 H Blood Pressure 105/55 L 105/57 L 101/59 L Pulse Oximetry 92 L 93 L 95 10/19/17 13:48 10/19/17 13:50 10/19/17 14:00 Temperature 98.7 F Pulse Rate 99 H 98 H 98 H Respiratory Rate 23 29 H 27 H Blood Pressure 101/59 L 105/56 L 104/56 L Pulse Oximetry 95 93 L 10/19/17 14:05 10/19/17 14:11 10/19/17 14:15 Temperature 99.7 F H Pulse Rate 96 H 96 H 97 H Respiratory Rate 26 H 25 H 24 Blood Pressure 104/51 L 104/51 L 105/53 L Pulse Oximetry 95 95 95 10/19/17 14:30 10/19/17 14:45 10/19/17 14:52 Temperature Pulse Rate 97 H 100 H 99 H Respiratory Rate 23 30 H 26 H Blood Pressure 107/57 L 106/58 L 100/52 L Pulse Oximetry 96 95 96 10/19/17 15:00 10/19/17 16:00 Temperature 99.7 F H Pulse Rate 96 H 98 H Respiratory Rate 23 24 Blood Pressure 98/53 L 107/57 L Pulse Oximetry 95 95 Intake & Output 10/18/17 10/19/17 10/19/17 18:59 06:59 18:59 Intake Total 762 / 762 834 / 834 125 / 125 Balance 762 / 762 834 / 834 125 / 125 Weight 127.5 kg Intake: IV 300 / 300 KCl 40 mEq Premix Inj 40 meq In 100 / 100 100 ml @ 25 mls/hr IV.SIG UNSCH PRN Rx#:[id number] Tube Feeding 362 / 362 334 / 334 Water Bolus Amount 400 / 400 200 / 200 Other 125 / 125 Rbc As-3 Leukoreduced Unit 75 / 75 [id number] Rbc As-3 Leukoreduced Unit 50 / 50 [id number] Intake (Blood Product) Amt 0 / 0 Rbc As-3 Leukoreduced Unit 0 / 0 [id number] Rbc As-3 Leukoreduced Unit 0 / 0 [id number] Other: # Incontinent Voids 4 3 Date of Last Bowel Movement 10/18/17 10/19/17 10/19/17 # Bowel Movements 3 2 - Urinary Catheter Management Indwelling Urethral Catheter Cath placed during this visit: no <Champ Sullivan - Last Filed: 10/19/17 18:08> Results - Labs CBC & Chem 7: 10/19/17 03:05 10/19/17 03:05 Laboratory Results - last 24 hr 10/17/17 10/18/17 10/18/17 00:31 03:20 11:51 WBC RBC Hgb Hct MCV MCH MCHC RDW Plt Count MPV Sodium Potassium Chloride Carbon Dioxide Anion Gap BUN Creatinine Estimated GFR POC Glucose 145 H Random Glucose Hemoglobin A1c 5.8 Calcium MTS Gel Crossmatch See Detail 10/18/17 10/18/17 10/19/17 17:26 23:18 03:05 WBC 7.0 RBC 2.52 L Hgb 7.1 L Hct 22.8 L MCV 90.6 MCH 28.4 MCHC 31.3 L RDW 18.0 H Plt Count 180 MPV 9.1 Sodium Potassium Chloride Carbon Dioxide Anion Gap BUN Creatinine Estimated GFR POC Glucose 176 H 148 H Random Glucose Hemoglobin A1c Calcium MTS Gel Crossmatch 10/19/17 10/19/17 10/19/17 03:05 05:10 07:20 WBC RBC Hgb Hct MCV MCH MCHC RDW Plt Count MPV Sodium 150 H Potassium 3.7 Chloride 109 H Carbon Dioxide 35.3 H Anion Gap 6 BUN 35 H Creatinine 0.63 Estimated GFR Greater than 89 POC Glucose 147 H 143 H Random Glucose 146 H Hemoglobin A1c Calcium 8.1 L MTS Gel Crossmatch 10/19/17 10:26 WBC RBC Hgb Hct MCV MCH MCHC RDW Plt Count MPV Sodium Potassium Chloride Carbon Dioxide Anion Gap BUN Creatinine Estimated GFR POC Glucose Random Glucose Hemoglobin A1c Calcium MTS Gel Crossmatch See Detail - Imaging Impressions Chest X-Ray 10/18/17 06:00 CONCLUSION: 1. Persistent bilateral extensive airspace disease with associated effusions, left worse than right. 2. Cardiac silhouette is somewhat obscured by do suspect an element of cardiomegaly. 3. Stable position of life-support tubes. Abdomen X-Ray 10/18/17 23:38 CONCLUSION: 1. Interval repositioning of the feeding type nasoenteric catheter with tip in the distal stomach/proximal duodenum. <Marion Chandler - Last Filed: 10/19/17 11:17> - Labs CBC & Chem 7: 10/19/17 03:05 10/19/17 03:05 Laboratory Results - last 24 hr 10/17/17 10/18/17 10/19/17 00:31 23:18 03:05 WBC 7.0 RBC 2.52 L Hgb 7.1 L Hct 22.8 L MCV 90.6 MCH 28.4 MCHC 31.3 L RDW 18.0 H Plt Count 180 MPV 9.1 Sodium Potassium Chloride Carbon Dioxide Anion Gap BUN Creatinine Estimated GFR POC Glucose 148 H Random Glucose Calcium Blood Type Antibody Screen MTS Gel Crossmatch See Detail 10/19/17 10/19/17 10/19/17 03:05 05:10 07:20 WBC RBC Hgb Hct MCV MCH MCHC RDW Plt Count MPV Sodium 150 H Potassium 3.7 Chloride 109 H Carbon Dioxide 35.3 H Anion Gap 6 BUN 35 H Creatinine 0.63 Estimated GFR Greater than 89 POC Glucose 147 H 143 H Random Glucose 146 H Calcium 8.1 L Blood Type Antibody Screen MTS Gel Crossmatch 10/19/17 10/19/17 10/19/17 10:55 11:19 17:21 WBC RBC Hgb Hct MCV MCH MCHC RDW Plt Count MPV Sodium Potassium Chloride Carbon Dioxide Anion Gap BUN Creatinine Estimated GFR POC Glucose 141 H 160 H Random Glucose Calcium Blood Type O Positive Antibody Screen Negative MTS Gel Crossmatch See Detail - Imaging Impressions Chest X-Ray 10/18/17 06:00 CONCLUSION: 1. Persistent bilateral extensive airspace disease with associated effusions, left worse than right. 2. Cardiac silhouette is somewhat obscured by do suspect an element of cardiomegaly. 3. Stable position of life-support tubes. Abdomen X-Ray 10/18/17 23:38 CONCLUSION: 1. Interval repositioning of the feeding type nasoenteric catheter with tip in the distal stomach/proximal duodenum. Venous Doppler Study 10/19/17 00:00 CONCLUSION: 1. This study with no evidence of deep venous thrombosis. 2. Difficult examination secondary to the patient's body habitus. <Champ Sullivan - Last Filed: 10/19/17 18:08> Assessment and Plan (1) Anemia Status: Acute Code(s): D64.9 - Anemia, unspecified (2) History of GI bleed Status: Acute Code(s): Z87.19 - Personal history of other diseases of the digestive system (3) History of pulmonary embolism Status: Acute Code(s): Z86.711 - Personal history of pulmonary embolism (4) Anticoagulated Status: Deleted Code(s): Z79.01 - management scientist (current) use of anticoagulants - Plan Assessment: - Anemia with history of GIB,Melanotic stools- Pt has been having melena for the past 2 days hgb today 7.1 decline from yesterday 8.4, 2 units ordered EGD and colonoscopy (June 2017) --> some friability and a bit of prominence at the distal esophagus, somewhat irregular duodenal mucosa with denuded patches of unclear significance. The initial colonoscopy noted limited visualization due to blood clots so a few days later a repeat procedure was done which revealed reddish dark fluid in the right colon but no signs of active bleeding, 2 areas that looked like lipoma but no ulcerations, polyp in the ascending colon, few polyps in the rectosigmoid area, internal hemorrhoids. Pathology revealed hyperplastic polyp and and tubular adenoma. EGD was done September 20 --> Two superficial esophageal ulcers with no bleeding and no stigmata of recent bleeding , middle third and lower third of the esophagus were mildly tortuous, otherwise normal exam. Pathology (distal esophagus ulcer) mucosa with ulceration, granulation tissues, acute inflammation and findings suggestive of pill induced esophagitis, rare yeast organisms morphologically consistent with Bailey, and detached fragments of acute fibrinopurulent exudate. - SOB- admitted to [facility]- hypercapnic respiratory insufficiency - Elevated lactic acid Plan: - TF - Protonix, will switch to drip - Monitor H/H closely - Transfusion as needed - Pt is medically unstable for GI procedures, will monitor for now, Will consider EGD on emergent basis - Notify GI for active bleed - Supportive care - Pt seen and examined by Dr. Sullivan and myself and this note is written on his behalf. <Marion Chandler - Last Filed: 10/19/17 11:17> (1) Anemia Status: Acute Code(s): D64.9 - Anemia, unspecified (2) History of GI bleed Status: Acute Code(s): Z87.19 - Personal history of other diseases of the digestive system (3) History of pulmonary embolism Status: Acute Code(s): Z86.711 - Personal history of pulmonary embolism (4) Anticoagulated Status: Deleted Code(s): Z79.01 - management scientist (current) use of anticoagulants - Plan Patient was seen and examined, agree with above note, I had a discussion with the patient family and her patient is going to be under hospice care, he wants to take her home, no procedure at this time, we will sign off <Champ Sullivan - Last Filed: 10/19/17 18:08> <Marion Chandler - Last Filed: 10/19/17 11:17> (1) Anemia Qualifiers: Anemia type: other cause Other causes of anemia: chronic disease, other Qualified Code(s): D63.8 - Anemia in other chronic diseases classified elsewhere <Champ Sullivan - Last Filed: 10/19/17 18:08> (1) Anemia Qualifiers: Anemia type: other cause Other causes of anemia: chronic disease, other Qualified Code(s): D63.8 - Anemia in other chronic diseases classified elsewhere
--- NOTE | 2017-10-19 13:44 | P.PNPAL ---
Reason for Visit Reason for visit: a. To assist with evaluation and management of symptoms including: pain; fatigued b. To assist medical decision maker(s) with: better understanding of current medical conditions; weighing benefits/burdens of medical treatment options; making medical treatment decisions. . Subjective Subjective/Interval History: Follow up on this 62 year old with copd that came with condition complicated by pneumonia, anemia (recurrent GI bleed) PE (s/p IVC filter) continue to have GI bleed. Not a candidate for endoscopy. Reviewed with patient and spouse at bedside, poor prognosis, telling them the blood transufison is not fixing the cause. Offered hospice for better comfort, they have declined. Pt endorse pain is better controlled, pain more around, back today, unlike yesterday when it was all over. She remains very fatigued. Spouse at bedside. Family/Friend Interactions: see above Advance Directives Living Will: Never completed Health Care Surrogate: Never completed Durable Power of [employer] Consultant: Never completed Health Care Surrogate Name and Number: No written designation of health care surrogate Documented care wishes:: At this time there is no written documentation of patient's healthcare goals or preferences on the chart. . Objective Vital Signs: Vital Signs 10/18/17 14:00 10/18/17 14:30 10/18/17 15:00 Temperature Pulse Rate 90 91 H 91 H Respiratory Rate 28 H 25 H 24 Blood Pressure 103/54 L 98/57 L 84/56 L Pulse Oximetry 91 L 91 L 93 L 10/18/17 15:17 10/18/17 15:30 10/18/17 16:00 Temperature 98.4 F Pulse Rate 91 H 92 H 91 H Respiratory Rate 28 H 28 H 30 H Blood Pressure 89/50 L 100/53 L Pulse Oximetry 90 L 95 10/18/17 16:30 10/18/17 17:00 10/18/17 17:30 Temperature Pulse Rate 92 H 93 H 95 H Respiratory Rate 30 H 27 H 29 H Blood Pressure 104/62 106/59 L 106/57 L Pulse Oximetry 92 L 91 L 93 L 10/18/17 18:00 10/18/17 20:00 10/18/17 20:46 Temperature 99.2 F Pulse Rate 96 H 98 H 87 Respiratory Rate 28 H 29 H 22 Blood Pressure 104/62 93/57 L Pulse Oximetry 93 L 94 L 93 L 10/18/17 21:00 10/18/17 21:30 10/18/17 22:00 Temperature Pulse Rate 87 89 91 H Respiratory Rate 29 H 38 H 36 H Blood Pressure 97/51 L 107/58 L 100/54 L Pulse Oximetry 100 93 L 92 L 10/18/17 22:30 10/18/17 23:00 10/18/17 23:30 Temperature Pulse Rate 91 H 89 89 Respiratory Rate 32 H 32 H 25 H Blood Pressure 97/51 L 100/53 L 98/56 L Pulse Oximetry 100 100 100 10/19/17 00:00 10/19/17 00:25 10/19/17 00:30 Temperature 99.3 F Pulse Rate 90 87 87 Respiratory Rate 31 H 22 26 H Blood Pressure 91/50 L 95/52 L Pulse Oximetry 99 100 10/19/17 01:00 10/19/17 01:30 10/19/17 02:00 Temperature Pulse Rate 87 88 89 Respiratory Rate 28 H 31 H 27 H Blood Pressure 94/50 L 93/51 L 92/54 L Pulse Oximetry 97 96 98 10/19/17 02:30 10/19/17 03:00 10/19/17 03:30 Temperature Pulse Rate 89 86 88 Respiratory Rate 25 H 28 H 28 H Blood Pressure 97/52 L 91/55 L 96/55 L Pulse Oximetry 97 98 98 10/19/17 03:35 10/19/17 04:00 10/19/17 04:30 Temperature 99 F Pulse Rate 89 93 H 92 H Respiratory Rate 22 30 H 27 H Blood Pressure 97/54 L 100/55 L Pulse Oximetry 98 98 10/19/17 05:00 10/19/17 05:30 10/19/17 06:00 Temperature Pulse Rate 93 H 92 H 90 Respiratory Rate 29 H 28 H 25 H Blood Pressure 110/57 L 107/55 L 103/56 L Pulse Oximetry 98 100 100 10/19/17 06:30 10/19/17 07:00 10/19/17 07:30 Temperature Pulse Rate 92 H 92 H 93 H Respiratory Rate 34 H 29 H 25 H Blood Pressure 108/53 L 103/55 L 104/59 L Pulse Oximetry 100 99 100 10/19/17 07:45 10/19/17 08:00 10/19/17 08:30 Temperature 98.7 F Pulse Rate 97 H 93 H 93 H Respiratory Rate 23 24 25 H Blood Pressure 102/52 L 103/58 L Pulse Oximetry 96 100 100 10/19/17 09:00 10/19/17 09:30 10/19/17 10:00 Temperature Pulse Rate 93 H 96 H 100 H Respiratory Rate 27 H 30 H 31 H Blood Pressure 110/57 L 108/60 104/61 Pulse Oximetry 96 94 L 93 L 10/19/17 10:30 10/19/17 10:59 10/19/17 11:00 Temperature 99.0 F Pulse Rate 96 H 94 H 95 H Respiratory Rate 28 H 23 26 H Blood Pressure 103/56 L 113/55 L 113/55 L Pulse Oximetry 95 94 L 94 L 10/19/17 11:09 10/19/17 11:15 10/19/17 11:17 Temperature 99.3 F Pulse Rate 94 H 96 H 97 H Respiratory Rate 23 28 H 24 Blood Pressure 109/56 L 109/56 L Pulse Oximetry 99 94 L 10/19/17 11:30 10/19/17 11:45 10/19/17 12:00 Temperature 99.3 F Pulse Rate 99 H 97 H 100 H Respiratory Rate 32 H 29 H 33 H Blood Pressure 109/58 L 106/54 L 113/55 L Pulse Oximetry 92 L 93 L 91 L Intake & Output 10/18/17 10/19/17 10/19/17 18:59 06:59 18:59 Intake Total 762 / 762 834 / 834 50 / 50 Balance 762 / 762 834 / 834 50 / 50 Weight 127.5 kg Intake: IV 300 / 300 KCl 40 mEq Premix Inj 40 meq In 100 / 100 100 ml @ 25 mls/hr IV.SIG UNSCH PRN Rx#:[id number] Tube Feeding 362 / 362 334 / 334 Water Bolus Amount 400 / 400 200 / 200 Other 50 / 50 Rbc As-3 Leukoreduced Unit 50 / 50 [id number] Intake (Blood Product) Amt 0 / 0 Rbc As-3 Leukoreduced Unit 0 / 0 [id number] Other: # Incontinent Voids 4 3 Date of Last Bowel Movement 10/18/17 10/19/17 10/19/17 # Bowel Movements 3 2 Physical Exam: CONSTITUTIONAL/GENERAL: This is a pale adequately nourished patient, Sleepy -- awakens, answer some questions. TUBES/LINES/DRAINS: Nasal cannula oxygen; right IJ central line ; Sweet catheter ; fecal collection system. SKIN: No jaundice, rashes. Ecchymoses and ? petechiae on upper extremities. Dressing on right calf. Skin temperature appropriate. Not diaphoretic. EYES: Pupils equal and round. Extraocular motions intact. No scleral icterus. No injection or drainage. Fundi not examined. ENT: Nose without bleeding or purulent drainage. Throat without visible erythema, exudates, masses, or lesions. NECK: Trachea midline. CARDIOVASCULAR: Borderline tachycardia and regular rhythm without murmurs, gallops, or rubs. No JVD. RESPIRATORY/CHEST: Symmetric, unlabored respirations. Diminished breath sounds on left. No wheezes. GASTROINTESTINAL: Abdomen soft, obese, non-tender, nondistended. No hepato- splenomegaly, or palpable masses. No guarding. Bowel sounds present. GENITOURINARY: Without palpable bladder distension. Sweet catheter in place. MUSCULOSKELETAL: Extremities without clubbing, cyanosis. 1-2+ edema in the lower extremities. No mottling . LYMPHATICS: Not examined. NEUROLOGICAL: Sleepy; awakens to voice / exam, answer questions, goes back to sleepl PSYCHIATRIC: Unable to assess. . Diagnostic Tests Laboratory: Laboratory Results - last 72 hr 10/10/17 10/12/17 10/16/17 17:13 07:50 17:30 WBC RBC Hgb 6.9 L* Hct 22.6 L MCV MCH MCHC RDW Plt Count MPV Neut % (Auto) Lymph % (Auto) [place] % (Auto) Eos % (Auto) Baso % (Auto) Neut # (Auto) Lymph # (Auto) [place] # (Auto) Eos # (Auto) Baso # (Auto) WBC Differential Differential Comment PT INR APTT Sodium Potassium Chloride Carbon Dioxide Anion Gap BUN Creatinine Estimated GFR POC Glucose Random Glucose Hemoglobin A1c Calcium Phosphorus Magnesium Total Bilirubin AST ALT Alkaline Phosphatase Troponin I Total Protein Albumin TSH Free T4 Blood Type Antibody Screen MTS Gel Crossmatch See Detail See Detail 10/16/17 10/16/17 10/16/17 17:30 23:15 23:15 WBC RBC Hgb 6.9 L* Hct 22.7 L MCV MCH MCHC RDW Plt Count MPV Neut % (Auto) Lymph % (Auto) [place] % (Auto) Eos % (Auto) Baso % (Auto) Neut # (Auto) Lymph # (Auto) [place] # (Auto) Eos # (Auto) Baso # (Auto) WBC Differential Differential Comment PT INR APTT Sodium Potassium Chloride Carbon Dioxide Anion Gap BUN Creatinine Estimated GFR POC Glucose 140 H Random Glucose Hemoglobin A1c Calcium Phosphorus Magnesium Total Bilirubin AST ALT Alkaline Phosphatase Troponin I Total Protein Albumin TSH Free T4 Blood Type O Positive Antibody Screen Negative MTS Gel Crossmatch See Detail 10/17/17 10/17/17 10/17/17 00:23 00:31 05:05 WBC 7.5 RBC 2.77 L Hgb 7.9 L Hct 24.8 L MCV 89.4 MCH 28.6 MCHC 32.0 RDW 17.0 Plt Count 194 MPV 8.6 Neut % (Auto) 85.4 H Lymph % (Auto) 6.7 L [place] % (Auto) 6.9 Eos % (Auto) 0.6 Baso % (Auto) 0.4 Neut # (Auto) 6.4 Lymph # (Auto) 0.5 L [place] # (Auto) 0.5 Eos # (Auto) 0.0 Baso # (Auto) 0.0 WBC Differential . Differential Comment Auto diff final PT INR APTT Sodium Potassium Chloride Carbon Dioxide Anion Gap BUN Creatinine Estimated GFR POC Glucose 155 H Random Glucose Hemoglobin A1c Calcium Phosphorus Magnesium Total Bilirubin AST ALT Alkaline Phosphatase Troponin I Total Protein Albumin TSH Free T4 Blood Type Antibody Screen MTS Gel Crossmatch See Detail 10/17/17 10/17/17 10/17/17 05:05 06:43 09:30 WBC RBC Hgb Hct MCV MCH MCHC RDW Plt Count MPV Neut % (Auto) Lymph % (Auto) [place] % (Auto) Eos % (Auto) Baso % (Auto) Neut # (Auto) Lymph # (Auto) [place] # (Auto) Eos # (Auto) Baso # (Auto) WBC Differential Differential Comment PT INR APTT Sodium 150 H Potassium 3.8 Chloride 112 H Carbon Dioxide 32.1 H Anion Gap 6 BUN 19 H Creatinine 0.50 Estimated GFR Greater than 89 POC Glucose 147 H Random Glucose 144 H Hemoglobin A1c Calcium 8.0 L Phosphorus 3.1 Magnesium 2.1 Total Bilirubin AST ALT Alkaline Phosphatase Troponin I 0.28 H Total Protein Albumin TSH Free T4 Blood Type Antibody Screen MTS Gel Crossmatch 07/10/17/17 10/18/17 17:25 17:50 00:08 WBC RBC Hgb Hct MCV MCH MCHC RDW Plt Count MPV Neut % (Auto) Lymph % (Auto) [place] % (Auto) Eos % (Auto) Baso % (Auto) Neut # (Auto) Lymph # (Auto) [place] # (Auto) Eos # (Auto) Baso # (Auto) WBC Differential Differential Comment PT INR APTT Sodium Potassium Chloride Carbon Dioxide Anion Gap BUN Creatinine Estimated GFR POC Glucose 165 H 165 H Random Glucose Hemoglobin A1c Calcium Phosphorus Magnesium Total Bilirubin AST ALT Alkaline Phosphatase Troponin I 0.34 H Total Protein Albumin TSH Free T4 Blood Type Antibody Screen MTS Gel Crossmatch 10/18/17 10/18/17 10/18/17 03:20 03:20 03:20 WBC 10.4 RBC 3.06 L Hgb 8.7 L Hct 26.8 L MCV 87.6 MCH 28.5 MCHC 32.5 RDW 17.8 H Plt Count 214 MPV 8.9 Neut % (Auto) 89.2 H Lymph % (Auto) 5.4 L [place] % (Auto) 4.9 Eos % (Auto) 0.2 Baso % (Auto) 0.3 Neut # (Auto) 9.3 H Lymph # (Auto) 0.6 L [place] # (Auto) 0.5 Eos # (Auto) 0.0 Baso # (Auto) 0.0 WBC Differential . Differential Comment Auto diff final PT INR APTT Sodium 149 H Potassium 4.0 Chloride 110 H Carbon Dioxide 36.5 H Anion Gap 3 L BUN 28 H Creatinine 0.61 Estimated GFR Greater than 89 POC Glucose Random Glucose 161 H Hemoglobin A1c 5.8 Calcium 8.0 L Phosphorus 3.5 Magnesium 2.1 Total Bilirubin 0.3 AST 15 ALT 16 Alkaline Phosphatase 65 Troponin I 0.27 H Total Protein 4.6 L Albumin 1.8 L TSH 0.131 L Free T4 1.15 Blood Type Antibody Screen MTS Gel Crossmatch 10/18/17 10/18/17 10/18/17 03:20 11:51 17:26 WBC RBC Hgb Hct MCV MCH MCHC RDW Plt Count MPV Neut % (Auto) Lymph % (Auto) [place] % (Auto) Eos % (Auto) Baso % (Auto) Neut # (Auto) Lymph # (Auto) [place] # (Auto) Eos # (Auto) Baso # (Auto) WBC Differential Differential Comment PT 15.3 H INR 1.5 APTT 28.5 Sodium Potassium Chloride Carbon Dioxide Anion Gap BUN Creatinine Estimated GFR POC Glucose 145 H 176 H Random Glucose Hemoglobin A1c Calcium Phosphorus Magnesium Total Bilirubin AST ALT Alkaline Phosphatase Troponin I Total Protein Albumin TSH Free T4 Blood Type Antibody Screen MTS Gel Crossmatch 10/18/17 10/19/17 10/19/17 23:18 03:05 03:05 WBC 7.0 RBC 2.52 L Hgb 7.1 L Hct 22.8 L MCV 90.6 MCH 28.4 MCHC 31.3 L RDW 18.0 H Plt Count 180 MPV 9.1 Neut % (Auto) Lymph % (Auto) [place] % (Auto) Eos % (Auto) Baso % (Auto) Neut # (Auto) Lymph # (Auto) [place] # (Auto) Eos # (Auto) Baso # (Auto) WBC Differential Differential Comment PT INR APTT Sodium 150 H Potassium 3.7 Chloride 109 H Carbon Dioxide 35.3 H Anion Gap 6 BUN 35 H Creatinine 0.63 Estimated GFR Greater than 89 POC Glucose 148 H Random Glucose 146 H Hemoglobin A1c Calcium 8.1 L Phosphorus Magnesium Total Bilirubin AST ALT Alkaline Phosphatase Troponin I Total Protein Albumin TSH Free T4 Blood Type Antibody Screen MTS Gel Crossmatch 10/19/17 10/19/17 10/19/17 05:10 07:20 10:55 WBC RBC Hgb Hct MCV MCH MCHC RDW Plt Count MPV Neut % (Auto) Lymph % (Auto) [place] % (Auto) Eos % (Auto) Baso % (Auto) Neut # (Auto) Lymph # (Auto) [place] # (Auto) Eos # (Auto) Baso # (Auto) WBC Differential Differential Comment PT INR APTT Sodium Potassium Chloride Carbon Dioxide Anion Gap BUN Creatinine Estimated GFR POC Glucose 147 H 143 H Random Glucose Hemoglobin A1c Calcium Phosphorus Magnesium Total Bilirubin AST ALT Alkaline Phosphatase Troponin I Total Protein Albumin TSH Free T4 Blood Type O Positive Antibody Screen Negative MTS Gel Crossmatch See Detail 10/19/17 11:19 WBC RBC Hgb Hct MCV MCH MCHC RDW Plt Count MPV Neut % (Auto) Lymph % (Auto) [place] % (Auto) Eos % (Auto) Baso % (Auto) Neut # (Auto) Lymph # (Auto) [place] # (Auto) Eos # (Auto) Baso # (Auto) WBC Differential Differential Comment PT INR APTT Sodium Potassium Chloride Carbon Dioxide Anion Gap BUN Creatinine Estimated GFR POC Glucose 141 H Random Glucose Hemoglobin A1c Calcium Phosphorus Magnesium Total Bilirubin AST ALT Alkaline Phosphatase Troponin I Total Protein Albumin TSH Free T4 Blood Type Antibody Screen MTS Gel Crossmatch Result Diagrams: 10/19/17 03:05 10/19/17 03:05 Procedures: Right IJ central line placement 10/11/17 . Assessment and Plan - Disease Oriented Problem List (1) COPD (chronic obstructive pulmonary disease) (2) Pneumonia (3) Diabetes mellitus (4) History of GI bleed (5) Anemia (6) Coronary artery disease Comment: S/p CABG in 08/2017 (7) History of pulmonary embolism (8) History of uterine cancer (9) Hypertension - Symptom Scale (1) Pain 0-10 Scale: 3 Comment: Was number 8 leg pain earlier this AM. (2) Fatigue associated with anemia 0-10 Scale: Unable to quantify Pertinent Non-Medical Issues: Psychosocial: * Originally from [place]. Has lived in [place] about 18 yrs. 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 * once. Has been to [place] for 40 years. * One son -- Sharif -- lives in [place]. He has visited recently and knows how ill she is. Spiritual: Christianity and spirituality have not been an important part of her life. Declines histologist visits. Legal: No written advance directives. Ethical issues impacting care: Currently capacitated to make her own health care decisions. Important Contacts: [place] Tolentino (spouse) [phone] ; [phone] . Prognosis: Patient has multiple medical problems including underlying COPD, coronary artery disease, diabetes, and history of uterine cancer. She has essentially been in the hospital or rehab since her CABG in May 2017. She has had a relatively recent pulmonary embolus. She has had recurrent GI bleeding of uncertain etiology since her CABG in spite of several GI endoscopies. She started bleeding again while off anticoagulation. She has had recurrent infections. She gets delirium while hospitalized. She received a great deal of fluid when she came in hypotensive and was possibly fluid overloaded. Even prior to her CABG she had severe limitations in quality of life due to COPD and chronic back/leg pain. Prognosis is poor given her inability to improve since May and increasing de- conditioning, continue GI bleed, but not a surgical candidate. . Code Status: No Code DNR Plan: == Code Status: NO CODE. Discussed with patient on 10/09 and with spouse on . All agree on DNR status. == Decision making: Patient appears at times capacitated to make her own healthcare decisions, at times not. I think she can participate in medical decision making, but should include pt's spouse in it, which has been the case. == Goals of medical treatment: Had meeting with pt and family again (10/18). Hospice again was offered, for the time being not ready for full transition to comfort measures only short of DNR. It has been stressful for the patient and family. It may take cardiopulmonary decompensation before goals could be evaluated. Family are aware risk of sudden decompensation may happen sooner rather than later. Spoke with pt and pt's spouse again, hospice again offered (10/19) no change in goals of care. Aggressive goals short of decompesantion. == Symptoms * Pain: Longstanding chronic neck/back/leg pain requiring daily use of 2-3 Lortab 7.5 mg at home Pt wants pain to be better controlled. Pain mostly at her back. Pt's and pt does understand that her bp may decrease with pain meds. request pain be better managed, and understands the risk, and also understand she may very soon decompensate, but wish for pt to have some comfort. * Anorexia: currently on dobbhoff. * Generalized weakness: Probably also multifactorial. Has had decline long before surgery in May secondary to lung disease and to chronic back/leg pain. No with no appetite and weight loss. Hopefully, this will improve if we can stop bleeding and get her to eat. * Depression: Cont low dose amitryptiline which may help with pain/depression/ appetite. * Delirium: reports patient has frequent delirium when hospitalized. Patient already showing signs of intermittent confusion here. == If delirium develops and we are unable to address the underlying problem , would recommend low dose haloperidol at 1 mg q 4 hours prn. == Palliative care will continue to follow to assist with symptom management and to further clarify goals of medical treatment as the clinical course evolves. Attestation Attestation: To help prompt me to consider important information that might be impacting today's encounter and assessment, information from prior notes written by myself or my colleagues may have been "brought forward" into today's note. My signature on this note, however, is an attestation that I personally performed the exam, history, and/or decision-making noted today, and, unless otherwise indicated, the interactions with patient, family, and staff as well as the review of records all occurred today. I also attest that the listed assessment and stated plan reflect my best clinical judgment today based on the combination of historical information, prior notes, and today's exam/ interactions. When time spent is documented, it refers only to time spent today by the signer, or if indicated, combined time spent today by collaborating physician/nurse practitioner.
[2017-10-19] MEDS ORDERED: Pantoprazole Inj 80 MG in Sodium Chlor 0.9% Inj 100 ML IV.CONT SCH (14:00)
--- NOTE | 2017-10-19 15:04 | US ---
EXAM DATE: 10/19/2017 2:51 PM EDT AGE/SEX: 62 years / Female INDICATIONS: Evaluate for deep vein thrombosis. CLINICAL DATA: This is the patient's subsequent encounter. Patient reports that signs and symptoms h ave been present for 1 day and indicates a pain score of Nonresponsive. MEDICAL/SURGICAL HISTORY: Chronic obstructive pulmonary disease. Cardiovascular disease. Diab etes. GI Bleed. Pulmonary Embolism. Hypertension. Pneumonia. High Triglycerides. CABG. Hystere ctomy. Colonoscopy. Esophagogastroduodenoscopy. COMPARISON: [facility] [place], 10/08/2017. . TECHNIQUE: Venous ultrasound of both lower extremities was performed from the inguinal ligament to t he proximal calf. Real-time, color Doppler and spectral tracing, compression and augmentation techni ques were used. FINDINGS: Normal compression of the deep venous system from the inguinal region to the proximal calf . No echogenic clot is seen. Normal response of the venous system to augmentation and respiration. CONCLUSION: 1. This study with no evidence of deep venous thrombosis. 2. Difficult examination secondary to the patient's body habitus. Electronically signed by: Vaughn Muller MD 10/19/2017 3:03 PM EDT
[2017-10-19 16:10] VITALS: RESP 22
--- NOTE | 2017-10-19 18:31 | P.DS ---
Date of admission: 10/08/17 07:13 Primary care physician: alexander davis Brief History from admission: 62-year-old female, custodial resident, with a past medical history of hypertension, diabetes mellitus, coronary artery disease on Eliquis, who presented to [facility] ED with shortness of breath associated with tachypnea and generalized weakness. On arrival to the ED, she was hypotensive with a systolic blood pressure 80s-90s and tachycardic with heart rate of 102- 110. ABG was performed on 4 liter oxygen, which showed a pH of 7.44, CO2 58, PaO2 88 , bicarbonate of 38, saturation 95 percent. The patient agnieszka poor historian. She underwent CT chest, abdomen and pelvis. Her CT scan of the chest showed dense consolidation of the left lower lobe with air bronchograms and CT abdomen and pelvis showed a 3.8 cm infrarenal abdominal aortic aneurysm. DS: Summary Hospital Course: 10/09: Patient complaining of shortness of breath. Received blood products and colon prep overnight. Will give 1 dose of bumetanide IV 1 now. Creatinine within normal limits. Patient is on furosemide at home 20 mg daily which is currently on hold. Plan for EGD/colonoscopy today 10/10: Afebrile. Received 1 unit PRBCs overnight. Respiratory rate much improved. DNR status currently. Will give 1 dose of acetazolamide 250 mg IV 1 now. Appears more comfortable. 10/11: Unable to obtain blood draws today. Received 1 unit PRBCs yesterday. Less dyspneic today. Still having black stools. Will central line placed by IR. 10/12: Hemoglobin currently 7.2. Will transfuse 1 additional unit today. Consider black stools. Started on amitriptyline yesterday. Receiving as needed hydrocodone/acetaminophen. Flat affect. Poor appetite started started on D5 LR 10/13: States she wants to BM to stop. Continues to have multiple black stools. More interactive today with family at bedside. Has poor appetite. Respiratory status improved. 10/14: Afebrile. Hemoglobin remained stable overnight. Remains anxious. Noted GIs notes. Patient is refusing to drink any contrast for colonoscopy if this were to be indicated. 10/15: Resting in bed in mild acute respiratory distress. Afebrile. Will diuresis again today. 10/16: Continues with very poor appetite. States dyspneic over respiratory rates 18-20. On 3 L nasal cannula. No problem for several days but noted very poor appetite. DNR status remains. Received multiple units of PRBCs over the course of a week. Pt initially refused to drink bowel prep for a colonoscopy. Had persistent melena and GI bleeding. Patient's DNR status was active. GI deemed the patient too unstable for colonoscopy. elected hospice. - Time Spent with Patient Total time spent providing and/or coordinating discharge services: Less than 30 minutes - Quality: VTE Deep Vein Thrombosis/Pulmonary Embolism Present on Admission: No Exam Vital signs: Vital Signs 10/18/17 20:00 10/18/17 20:46 10/18/17 21:00 Temperature 99.2 F Pulse Rate 98 H 87 87 Respiratory Rate 29 H 22 29 H Blood Pressure 93/57 L 97/51 L Pulse Oximetry 94 L 93 L 100 10/18/17 21:30 10/18/17 22:00 10/18/17 22:30 Temperature Pulse Rate 89 91 H 91 H Respiratory Rate 38 H 36 H 32 H Blood Pressure 107/58 L 100/54 L 97/51 L Pulse Oximetry 93 L 92 L 100 10/18/17 23:00 10/18/17 23:30 10/19/17 00:00 Temperature 99.3 F Pulse Rate 89 89 90 Respiratory Rate 32 H 25 H 31 H Blood Pressure 100/53 L 98/56 L 91/50 L Pulse Oximetry 100 100 99 10/19/17 00:25 10/19/17 00:30 10/19/17 01:00 Temperature Pulse Rate 87 87 87 Respiratory Rate 22 26 H 28 H Blood Pressure 95/52 L 94/50 L Pulse Oximetry 100 97 10/19/17 01:30 10/19/17 02:00 10/19/17 02:30 Temperature Pulse Rate 88 89 89 Respiratory Rate 31 H 27 H 25 H Blood Pressure 93/51 L 92/54 L 97/52 L Pulse Oximetry 96 98 97 10/19/17 03:00 10/19/17 03:30 10/19/17 03:35 Temperature Pulse Rate 86 88 89 Respiratory Rate 28 H 28 H 22 Blood Pressure 91/55 L 96/55 L Pulse Oximetry 98 98 10/19/17 04:00 10/19/17 04:30 10/19/17 05:00 Temperature 99 F Pulse Rate 93 H 92 H 93 H Respiratory Rate 30 H 27 H 29 H Blood Pressure 97/54 L 100/55 L 110/57 L Pulse Oximetry 98 98 98 10/19/17 05:30 10/19/17 06:00 10/19/17 06:30 Temperature Pulse Rate 92 H 90 92 H Respiratory Rate 28 H 25 H 34 H Blood Pressure 107/55 L 103/56 L 108/53 L Pulse Oximetry 100 100 100 10/19/17 07:00 10/19/17 07:30 10/19/17 07:45 Temperature Pulse Rate 92 H 93 H 97 H Respiratory Rate 29 H 25 H 23 Blood Pressure 103/55 L 104/59 L Pulse Oximetry 99 100 96 10/19/17 08:00 10/19/17 08:30 10/19/17 09:00 Temperature 98.7 F Pulse Rate 93 H 93 H 93 H Respiratory Rate 24 25 H 27 H Blood Pressure 102/52 L 103/58 L 110/57 L Pulse Oximetry 100 100 96 10/19/17 09:30 10/19/17 10:00 10/19/17 10:30 Temperature Pulse Rate 96 H 100 H 96 H Respiratory Rate 30 H 31 H 28 H Blood Pressure 108/60 104/61 103/56 L Pulse Oximetry 94 L 93 L 95 10/19/17 10:59 10/19/17 11:00 10/19/17 11:09 Temperature 99.0 F Pulse Rate 94 H 95 H 94 H Respiratory Rate 23 26 H 23 Blood Pressure 113/55 L 113/55 L Pulse Oximetry 94 L 94 L 10/19/17 11:15 10/19/17 11:17 10/19/17 11:30 Temperature 99.3 F Pulse Rate 96 H 97 H 99 H Respiratory Rate 28 H 24 32 H Blood Pressure 109/56 L 109/56 L 109/58 L Pulse Oximetry 99 94 L 92 L 10/19/17 11:45 10/19/17 12:00 10/19/17 12:15 Temperature 99.3 F Pulse Rate 97 H 100 H 98 H Respiratory Rate 29 H 33 H 31 H Blood Pressure 106/54 L 113/55 L 107/55 L Pulse Oximetry 93 L 91 L 93 L 10/19/17 12:30 10/19/17 12:45 10/19/17 13:00 Temperature Pulse Rate 98 H 98 H 99 H Respiratory Rate 31 H 27 H 25 H Blood Pressure 106/57 L 114/63 107/57 L Pulse Oximetry 93 L 93 L 93 L 10/19/17 13:15 10/19/17 13:30 10/19/17 13:45 Temperature Pulse Rate 99 H 100 H 101 H Respiratory Rate 26 H 26 H 41 H Blood Pressure 105/55 L 105/57 L 101/59 L Pulse Oximetry 92 L 93 L 95 10/19/17 13:48 10/19/17 13:50 10/19/17 14:00 Temperature 98.7 F Pulse Rate 99 H 98 H 98 H Respiratory Rate 23 29 H 27 H Blood Pressure 101/59 L 105/56 L 104/56 L Pulse Oximetry 95 93 L 10/19/17 14:05 10/19/17 14:11 10/19/17 14:15 Temperature 99.7 F H Pulse Rate 96 H 96 H 97 H Respiratory Rate 26 H 25 H 24 Blood Pressure 104/51 L 104/51 L 105/53 L Pulse Oximetry 95 95 95 10/19/17 14:30 10/19/17 14:45 10/19/17 14:52 Temperature Pulse Rate 97 H 100 H 99 H Respiratory Rate 23 30 H 26 H Blood Pressure 107/57 L 106/58 L 100/52 L Pulse Oximetry 96 95 96 10/19/17 15:00 10/19/17 16:00 10/19/17 18:00 Temperature 99.7 F H Pulse Rate 96 H 98 H 100 H Respiratory Rate 23 24 Blood Pressure 98/53 L 107/57 L Pulse Oximetry 95 95 Intake & Output 10/18/17 10/19/17 10/19/17 18:59 06:59 18:59 Intake Total 762 / 762 834 / 834 1074 / 1074 Balance 762 / 762 834 / 834 1074 / 1074 Weight 127.5 kg Intake: IV 300 / 300 KCl 40 mEq Premix Inj 40 meq In 100 / 100 100 ml @ 25 mls/hr IV.SIG UNSCH PRN Rx#:[id number] Tube Feeding 362 / 362 334 / 334 649 / 649 Water Bolus Amount 400 / 400 200 / 200 300 / 300 Other 125 / 125 Rbc As-3 Leukoreduced Unit 75 / 75 [id number] Rbc As-3 Leukoreduced Unit 50 / 50 [id number] Intake (Blood Product) Amt 0 / 0 Rbc As-3 Leukoreduced Unit 0 / 0 [id number] Rbc As-3 Leukoreduced Unit 0 / 0 [id number] Other: # Incontinent Voids 4 3 3 Date of Last Bowel Movement 10/18/17 10/19/17 10/19/17 # Bowel Movements 3 2 2 Results Procedures completed during hospitalization: cvl Pending studies at discharge: Pending at discharge 10/16/17 Cytology [PTH] Routine Labs on day of discharge: Labs from last 24 hours 10/19/17 10/19/17 10/19/17 17:21 11:19 10:55 WBC RBC Hgb Hct MCV MCH MCHC RDW Plt Count MPV Sodium Potassium Chloride Carbon Dioxide Anion Gap BUN Creatinine Estimated GFR POC Glucose 160 H 141 H Random Glucose Calcium Blood Type O Positive Antibody Screen Negative MTS Gel Crossmatch See Detail 10/19/17 10/19/17 10/19/17 07:20 05:10 03:05 WBC RBC Hgb Hct MCV MCH MCHC RDW Plt Count MPV Sodium 150 H Potassium 3.7 Chloride 109 H Carbon Dioxide 35.3 H Anion Gap 6 BUN 35 H Creatinine 0.63 Estimated GFR Greater than 89 POC Glucose 143 H 147 H Random Glucose 146 H Calcium 8.1 L Blood Type Antibody Screen MTS Gel Crossmatch 10/19/17 10/18/17 10/17/17 03:05 23:18 00:31 WBC 7.0 RBC 2.52 L Hgb 7.1 L Hct 22.8 L MCV 90.6 MCH 28.4 MCHC 31.3 L RDW 18.0 H Plt Count 180 MPV 9.1 Sodium Potassium Chloride Carbon Dioxide Anion Gap BUN Creatinine Estimated GFR POC Glucose 148 H Random Glucose Calcium Blood Type Antibody Screen MTS Gel Crossmatch See Detail - Impressions ITS Impressions Abdomen/Pelvis CT 10/08/17 06:55 CONCLUSION: 1. Dense consolidation with air bronchograms in the left lung base with an associated small effusion. Minimal atelectatic changes medially in the right base. 2. 3.8 cm infrarenal abdominal aortic aneurysm. 3. 3 to 4 mm ureteric stone proximally on the right with resulting pelvocaliectasis of the collecting system. 4. 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 Chest CT 10/08/17 06:55 CONCLUSION: 1. Volume loss in the left hemithorax with dense consolidation of the left lower lobe and associated small left-sided effusion. Air bronchograms are present and this may represent compressive atelectasis or infiltrate. 2. Minimal subpleural atelectasis in the medial aspect of the right. 3. Compensated cardiomegaly with findings of prior CABG. Dense calcification of the mitral valve annulus. Central Venous Line 10/11/17 00:00 CONCLUSION: 1. Uncomplicated line placement as above. Chest X-Ray 10/18/17 06:00 CONCLUSION: 1. Persistent bilateral extensive airspace disease with associated effusions, left worse than right. 2. Cardiac silhouette is somewhat obscured by do suspect an element of cardiomegaly. 3. Stable position of life-support tubes. Abdomen X-Ray 10/18/17 23:38 CONCLUSION: 1. Interval repositioning of the feeding type nasoenteric catheter with tip in the distal stomach/proximal duodenum. Venous Doppler Study 10/19/17 00:00 CONCLUSION: 1. This study with no evidence of deep venous thrombosis. 2. Difficult examination secondary to the patient's body habitus. Discharge Plan - Discharge Disposition Patient Disposition: [facility] Hospice[facility] Facility - Discharge Condition Condition: Stable - Discharge Order Discharge Orders: Discharge Order (Routine); Ordered 10/19/17 Ordered By: Rubén Coyne - Physicians Team Attending Provider: Rubén Coyne Other Providers: Perez Wood MD ; Fabien Ceballos MD ; [employer] ; [facility],Agency ; [facility] ; Champ Sullivan MD
[2017-10-19] MEDS: Amitriptyline 10 MG Tablet PO SCH (20:12)
[2017-10-19 20:54] VITALS: PULSE 97
[2017-10-19 20:58] VITALS: O2SAT 98
[2017-10-19 20:59] VITALS: BP 122/60; TEMP 99.5
== END 2017-10-19 21:45 | disposition hospice, inpatient (51) ==
LOC: NEPC 04:15 → NEDA 07:13 → HIMC 15:49
PROVIDERS: ADMIT Hospitalist; ATTEND Hospitalist